=== PATIENT | male | born 1970 | race Hispanic/Latino ===

== ENCOUNTER 2018-04-12 18:27 | Inpatient (IN) | payer BC ==
[2018-04-12 19:31] LABS: Absolute Monocytes 0.5 K/uL (0.1-1.3); Absolute Neutrophil 3.6 K/uL (1.8-8.0); Basophils % 0.6 % (0-1.3); Eosinophils % 0.4 % (0-4.4); Hematocrit 41.9 % (39.6-49.0); Lymphocytes % 32.6 % (15.3-44.8); MCH 29.3 pg (27.0-35.0); MCV 86.3 fL (80-100); MPV 8.6 fL (7.6-11.3); Monocytes % 8.3 % (3.3-12.3); RBC Red Blood Cell Count 4.85 M/uL (4.33-5.43)
[2018-04-12 19:42] LABS: Magnesium 2.8 mg/dL (1.8-2.4); Potassium 3.8 mmol/L (3.5-5.1)
[2018-04-12 20:10] LABS: CKMB Creatine Kinase MB 10.4 ng/mL (0.3-3.6); Troponin (Emerg Dept Use Only) 0.72 ng/mL (0.0-0.045)
--- NOTE | 2018-04-12 20:22 | EDPHYS ---
Physician Documentation [facility] Name: Mihir Carranza Age: 47 yrs Sex: Male : 1970 Arrival Date: 04/12/2018 Time: 18:31 Bed 13 Private MD: Elizabeth Abdi H ED Physician Jesus Alberto Irizarry HPI: 04/12 19:44 This 47 yrs old Male presents to ER via Ambulatory with complaints of Headache.kb 19:44 This 47 yrs old Male presents to ER via Ambulatory with complaints of kb Headache, weakness, fatigue. 19:44 The patient presents with generalized weakness. Onset: The symptoms/episode kb began/occurred 3 day(s) ago. Context: occurred at work, occurred while the patient was working, just prior to the episode the patient experienced no apparent symptoms. Modifying factors: The symptoms are alleviated by nothing, the symptoms are aggravated by nothing. Associated signs and symptoms: Pertinent positives: headache, fatigue, muscle cramps, Pertinent negatives: abdominal pain, agitation, ataxia, blurred vision, chest pain, combativeness, confusion, diaphoresis, focal weakness, head injury, nausea, near-syncope, numbness, palpitations, , seizure, shortness of breath, syncope, tingling, vomiting. Severity of symptoms: At their worst the symptoms were moderate in the emergency department the symptoms are unchanged. Patient's baseline: Neuro: alert and fully oriented, Motor: no deficits, Ambulation: walks without assistance, Speech: normal. The patient has not experienced similar symptoms in the past. The patient has not recently seen a physician. 19:45 Pt thinks he got overheated and dehydrated. Works in the heat and "overdid it" this kb week.. Historical: - Allergies: 18:38 No Known Allergies; aj - Home Meds: 18:38 phentermine oral oral [Active]; lisinopril 20 mg Oral tab 1 tab once daily [Active]; aj 18:39 Hydralazine Oral [Active]; aj - PMHx: 18:38 Hypertension; aj - PSHx: 18:38 Cholecystectomy; aj - Immunization history:: Adult Immunizations up to date. - Social history:: Smoking status: Patient/guardian denies using tobacco. - Ebola Screening: : Patient negative for fever greater than or equal to 101.5 degrees Fahrenheit, and additional compatible Ebola Virus Disease symptoms Patient denies exposure to infectious person Patient denies travel to an Ebola-affected area in the 21 days before illness onset No symptoms or risks identified at this time. ROS: 19:50 Cardiovascular: Negative for chest pain, palpitations, and edema, Respiratory: Negative kb for shortness of breath, cough, wheezing, and pleuritic chest pain, Abdomen/GI: Negative for abdominal pain, nausea, vomiting, diarrhea, and constipation, Back: Negative for injury and pain, : Negative for injury, bleeding, discharge, and swelling, MS/Extremity: Negative for injury and deformity, Skin: Negative for injury, rash, and discoloration. 19:50 Constitutional: Positive for body aches, fatigue, malaise, Negative for chills, fever, poor PO intake, weight loss. 19:50 Neuro: Positive for weakness. Exam: 19:50 Constitutional: This is a well developed, well nourished patient who is awake, alert, kb and in no acute distress. Head/Face: Normocephalic, atraumatic. Eyes: Pupils equal round and reactive to light, extra-ocular motions intact. Lids and lashes normal. Conjunctiva and sclera are non-icteric and not injected. Cornea within normal limits. Periorbital areas with no swelling, redness, or edema. ENT: Nares patent. No nasal discharge, no septal abnormalities noted. Tympanic membranes are normal and external auditory canals are clear. Oropharynx with no redness, swelling, or masses, exudates, or evidence of obstruction, uvula midline. Mucous membranes moist. Neck: Trachea midline, no thyromegaly or masses palpated, and no cervical lymphadenopathy. Supple, full range of motion without nuchal rigidity, or vertebral point tenderness. No Meningismus. Chest/axilla: Normal chest wall appearance and motion. Nontender with no deformity. No lesions are appreciated. Cardiovascular: Regular rate and rhythm with a normal S1 and S2. No gallops, murmurs, or rubs. Normal PMI, no JVD. No pulse deficits. Respiratory: Lungs have equal breath sounds bilaterally, clear to auscultation and percussion. No rales, rhonchi or wheezes noted. No increased work of breathing, no retractions or nasal flaring. Abdomen/GI: Soft, non-tender, with normal bowel sounds. No distension or tympany. No guarding or rebound. No evidence of tenderness throughout. Skin: Warm, dry with normal turgor. Normal color with no rashes, no lesions, and no evidence of cellulitis. MS/ Extremity: Pulses equal, no cyanosis. Neurovascular intact. Full, normal range of motion. Neuro: Awake and alert, GCS 15, oriented to person, place, time, and situation. Cranial nerves II-XII grossly intact. Motor strength 5/5 in all extremities. Sensory grossly intact. Cerebellar exam normal. Normal gait. Vital Signs: 18:39 BP 107 / 67; Pulse 99; Resp 19; Temp 98.3; Pulse Ox 95% on R/A; Weight 102.06 kg; aj Height 5 ft. 7 in. (170.18 cm); 19:20 BP 107 / 70; Pulse 90; Resp 18; Pulse Ox 96% on R/A; tl2 21:52 BP 117 / 75; Pulse 76; Resp 18; Pulse Ox 96% on R/A; tl2 18:39 Body Mass Index 35.24 (102.06 kg, 170.18 cm) aj MDM: 18:41 Patient medically screened. kb 19:43 Data reviewed: vital signs, nurses notes. Data interpreted: Pulse oximetry: on room air kb is 96 %. Interpretation: normal. 20:20 Counseling: I had a detailed discussion with the patient and/or guardian regarding: the kb historical points, exam findings, and any diagnostic results supporting the discharge/admit diagnosis, lab results, radiology results, the need for further work-up and treatment in the hospital. Physician consultation: Leydi Monsivais MD was contacted at 20:20, regarding admission, to the telemetry unit. patient's condition, and will see patient in ED, shortly. 04/12 18:52 Order name: Magnesium kb 04/12 18:52 Order name: Basic Metabolic Panel kb 04/12 18:52 Order name: CBC with Diff; Complete Time: 20:21 kb 04/12 18:52 Order name: Ckmb; Complete Time: 20:12 kb 04/12 18:52 Order name: CPK; Complete Time: 20:12 kb 04/12 18:52 Order name: Troponin (emerg Dept Use Only); Complete Time: 20:12 kb 04/12 18:52 Order name: EKG; Complete Time: 18:53 kb 04/12 18:52 Order name: Cardiac monitoring; Complete Time: 19:14 kb 04/12 18:52 Order name: EKG - Nurse/Tech; Complete Time: 19:14 kb 04/12 18:52 Order name: IV Saline Lock; Complete Time: 19:14 kb 04/12 18:52 Order name: Labs collected and sent; Complete Time: 19:14 kb 04/12 18:52 Order name: Magnesium; Complete Time: 20:12 EDMS 04/12 18:53 Order name: Basic Metabolic Panel; Complete Time: 20:12 EDMS 04/12 18:52 Order name: O2 Per Protocol; Complete Time: 19:14 kb 04/12 18:52 Order name: O2 Sat Monitoring; Complete Time: 19:14 kb Administered Medications: 20:30 Drug: NS 0.9% 1000 ml Route: IV; Rate: 1000 ml; Site: right antecubital; tl2 23:08 Follow up: IV Status: Completed infusion; IV Intake: 1000ml tl2 Disposition: 04/12/18 20:21 Hospitalization ordered by Leydi Monsivais for Inpatient Admission. Preliminary diagnosis are Rhabdomyolysis, Acute kidney failure, Heat exhaustion, unspecified. - Bed requested for Telemetry/MedSurg (Inpatient). - Status is Inpatient Admission. tl2 - Condition is Stable. - Problem is new. - Symptoms are unchanged. UTI on Admission? No Signatures: Dispatcher [employer] EDNC Nila Ruiz, VENEREAL DISEASE CONTROL HEAD-Rodríguez DUKES-Soila Page RN RN kl Myers, Amanda, RN RN aj Knox, Taylor, RN RN tl2 Corrections: (The following items were deleted from the chart) 20:41 20:21 Hospitalization Ordered by Leydi Monsivais MD for Inpatient Admission. Preliminary kb diagnosis is Rhabdomyolysis; Acute kidney failure. Bed requested for Telemetry/MedSurg (Inpatient). Status is Inpatient Admission. Condition is Stable. Problem is new. Symptoms are unchanged. UTI on Admission? No. kb 21:34 20:41 04/12/2018 20:21 Hospitalization Ordered by Leydi Monsivais MD for Inpatient kl Admission. Preliminary diagnosis is Rhabdomyolysis; Acute kidney failure; Heat exhaustion, unspecified. Bed requested for Telemetry/MedSurg (Inpatient). Status is Inpatient Admission. Condition is Stable. Problem is new. Symptoms are unchanged. UTI on Admission? No. kb :08 18:52 Urine Dipstick-Ancillary ordered. kb tl2 23: 21:34 04/12/2018 20:21 Hospitalization Ordered by Leydi Monsivais MD for Inpatient tl2 Admission. Preliminary diagnosis is Rhabdomyolysis; Acute kidney failure; Heat exhaustion, unspecified. Bed requested for Telemetry/MedSurg (Inpatient). Status is Inpatient Admission. Condition is Stable. Problem is new. Symptoms are unchanged. UTI on Admission? No. kl
--- NOTE | 2018-04-12 20:22 | ER ---
Nurse's Notes [facility] Name: Mihir Carranza Age: 47 yrs Sex: Male : 1970 Arrival Date: 04/12/2018 Time: 18:31 Bed 13 Private MD: Elizabeth Abdi H Diagnosis: Rhabdomyolysis;Acute kidney failure;Heat exhaustion, unspecified Presentation: 04/12 18:36 Presenting complaint: Patient states: Reports general weakness, fatigue, muscle cramps, aj and decreased appetite since Sunday. Transition of care: patient was not received from another setting of care. Onset of symptoms was April 10, 2018. Risk Assessment: Do you want to hurt yourself or someone else? Patient reports no desire to harm self or others. Initial Sepsis Screen: Does the patient meet any 2 criteria? No. Patient's initial sepsis screen is negative. Does the patient have a suspected source of infection? No. Patient's initial sepsis screen is negative. Care prior to arrival: None. 18:36 Method Of Arrival: Ambulatory 18:36 Acuity: JULIO C 3 aj Triage Assessment: 18:38 Headache History: The patient has had previous headaches. General: Appears in no aj apparent distress. comfortable, Behavior is calm, cooperative, appropriate for age. Pain: Complains of pain in face and scalp. Neuro: Level of Consciousness is awake, alert, obeys commands, Oriented to person, place, time, situation, Appropriate for age Reports headache. Respiratory: Airway is patent Respiratory effort is even, unlabored, Respiratory pattern is regular, symmetrical. Derm: Skin is intact, is healthy with good turgor, Skin is pink, warm \T\ dry. normal. Historical: - Allergies: 18:38 No Known Allergies; aj - Home Meds: 18:38 phentermine oral oral [Active]; lisinopril 20 mg Oral tab 1 tab once daily [Active]; aj 18:39 Hydralazine Oral [Active]; aj - PMHx: 18:38 Hypertension; aj - PSHx: 18:38 Cholecystectomy; aj - Immunization history:: Adult Immunizations up to date. - Social history:: Smoking status: Patient/guardian denies using tobacco. - Ebola Screening: : Patient negative for fever greater than or equal to 101.5 degrees Fahrenheit, and additional compatible Ebola Virus Disease symptoms Patient denies exposure to infectious person Patient denies travel to an Ebola-affected area in the 21 days before illness onset No symptoms or risks identified at this time. Screenin:17 Abuse screen: Denies threats or abuse. Nutritional screening: No deficits noted. tl2 Tuberculosis screening: No symptoms or risk factors identified. Fall Risk None identified. Assessment: 19:17 General: Appears in no apparent distress. uncomfortable, Behavior is calm, cooperative, tl2 appropriate for age. General: Reports fatigue for 1-2 days. Pain: Complains of pain in headache Pain does not radiate. Neuro: Level of Consciousness is awake, alert, obeys commands, Oriented to person, place, time, situation. Neuro:. Cardiovascular: Denies chest pain. Respiratory: Airway is patent Respiratory effort is even, unlabored, Respiratory pattern is regular, symmetrical. GI: No signs and/or symptoms were reported involving the gastrointestinal system. : No signs and/or symptoms were reported regarding the genitourinary system. Derm: Skin is pink, warm \T\ dry. 20:30 Reassessment: Patient appears in no apparent distress at this time. Patient and/or tl2 family updated on plan of care and expected duration. Pain level reassessed. Patient is alert, oriented x 3, equal unlabored respirations, skin warm/dry/pink. 21:30 Reassessment: Patient appears in no apparent distress at this time. Patient and/or tl2 family updated on plan of care and expected duration. Pain level reassessed. Patient is alert, oriented x 3, equal unlabored respirations, skin warm/dry/pink. 23:00 Reassessment: Patient appears in no apparent distress at this time. Patient and/or tl2 family updated on plan of care and expected duration. Pain level reassessed. Patient is alert, oriented x 3, equal unlabored respirations, skin warm/dry/pink. Pt stable for transport to floor. Vital Signs: 18:39 BP 107 / 67; Pulse 99; Resp 19; Temp 98.3; Pulse Ox 95% on R/A; Weight 102.06 kg; aj Height 5 ft. 7 in. (170.18 cm); 19:20 BP 107 / 70; Pulse 90; Resp 18; Pulse Ox 96% on R/A; tl2 21:52 BP 117 / 75; Pulse 76; Resp 18; Pulse Ox 96% on R/A; tl2 18:39 Body Mass Index 35.24 (102.06 kg, 170.18 cm) ED Course: 18:31 Patient arrived in ED. sb2 18:31 Elizabeth Abdi DO is Private Physician. sb2 18:37 Triage completed. aj 18:39 Arm band placed on left wrist. Patient placed in an exam room, on a stretcher. aj 18:41 Nila Ruiz FNP-C is [facility]. kb 18:41 Jesus Alberto Irizarry MD is Attending Physician. kb 19:13 Carmela Javier, RN is Primary Nurse. tl2 19:14 Inserted saline lock: 20 gauge 24 gauge antecubital area, using aseptic technique. tl2 Blood collected. 19:17 Patient has correct armband on for positive identification. Bed in low position. Call tl2 light in reach. Side rails up X 1. Adult w/ patient. 20:21 Leydi Monsivais MD is Hospitalizing Provider. kb 23:00 No provider procedures requiring assistance completed. Patient admitted, IV remains in tl2 place. Administered Medications: 20:30 Drug: NS 0.9% 1000 ml Route: IV; Rate: 1000 ml; Site: right antecubital; tl2 23:08 Follow up: IV Status: Completed infusion; IV Intake: 1000ml tl2 Intake: 23:08 IV: 1000ml; Total: 1000ml. tl2 Outcome: 20:21 Decision to Hospitalize by Provider. kb 23:00 Admitted to Tele accompanied by tech, family with patient, via wheelchair, room 420, tl2 with chart, Report called to KATE Spencer 23:00 Condition: stable 23:00 Discharge instructions given to patient, family, Instructed on the need for admit. 23:09 Patient left the ED. tl2 Signatures: Nila Ruiz FNP-C FNP-Lori Gonzalez RN RN aj Knox, Taylor, RN RN tl2 Angie Suarez sb2
[2018-04-12] MEDS ORDERED: NA CHLORIDE 0.9% 1,000 ML ONE (20:32)
[2018-04-12] MEDS ORDERED: NA CHLORIDE 0.9% 1,000 ML IV ONE (21:21)
--- NOTE | 2018-04-12 21:27 | P.HP ---
Certification for Inpatient Patient admitted to: Inpatient With expected LOS: >2 Midnights Practitioner: I am a practitioner with admitting privileges, knowledge of patient current condition, hospital course, and medical plan of care. Services: Services provided to patient in accordance with Admission requirements found in Title 42 Section 412.3 of the Code of Federal Regulations Patient History Date of Service: 04/12/18 Reason for admission: acute renal injury, rhabdomyolysis History of Present Illness: Mr Carranza is a 47 years old male with history of HTN, who about 3 days ago he was working in his garage. He states that "over did", he was sweating a lot, and was not able to catch up with water. The next day he woke up very sore, weak and fatigued. Initially he noticed very yellow urine, but after drink significant amount of water, he started to urinate more clear. No fever or chills. He denied any chest pain or SOB. ER lab work remarkable for elevated creatinine, total CK and trop I. EKG SR at 86 bpm, without ST-T abnormalities. Allergies No Known Allergies Allergy (Verified 04/12/18 20:48) - Past Medical/Surgical History Has patient received pneumonia vaccine in the past: Yes -: HTN -: Cholecystectomy - Family History Family History: Reviewed- Non-Contributory - Social History Smoking Status: Never smoker Alcohol use: Yes CD- Drugs: No Place of Residence: Home Review of Systems 10-point ROS is otherwise unremarkable Physical Examination - Physical Exam General: Alert, In no apparent distress HEENT: Atraumatic, PERRLA, Mucous membr. moist/pink, EOMI, Sclerae nonicteric Neck: Supple, 2+ carotid pulse no bruit, No LAD, Without JVD or thyroid abnormality Respiratory: Clear to auscultation bilaterally, Normal air movement Cardiovascular: Regular rate/rhythm, Normal S1 S2 Gastrointestinal: Normal bowel sounds, No tenderness Musculoskeletal: No tenderness Integumentary: No rashes Neurological: Normal speech, Normal strength at 5/5 x4 extr, Normal tone, Normal affect Lymphatics: No axilla or inguinal lymphadenopathy - Studies Laboratory Data (last 24 hrs) 04/12/18 19:05: WBC 6.2, Hgb 14.2, Hct 41.9, Plt Count 251 04/12/18 19:05: Sodium 134 L, Potassium 3.8, BUN 47 H, Creatinine 3.60 H, Glucose 153 H, Magnesium 2.8 H Assessment and Plan - Problems (Diagnosis) (1) Exertional rhabdomyolysis Current Visit: Yes Status: Acute (2) Acute renal injury Current Visit: Yes Status: Acute (3) HTN (hypertension) Current Visit: Yes Status: Acute Qualifiers: Hypertension type: essential hypertension Qualified Code(s): I10 - Essential (primary) hypertension (4) Volume depletion Current Visit: Yes Status: Acute - Plan The patient will be admitted to the hospital due to acute renal injury, exertional rhabdomyolysis and volume depletion. Will continue with aggressive fluid resuscitation. Monitor total CK, and renal function in AM. Troponin I likely elevated due to rhabdomyolysis, he has not had chest pain, EKG showed no ST-T abnormalities. Will consult Haz Tech for evaluation and recommendations. - Advance Directives Does patient have a Living Will: No Does patient have a Durable POA for Healthcare: No - Code Status/Comfort Care Code Status Assessed: Yes Code Status: Full Code
[2018-04-12] MEDS ORDERED: ONDANSETRON 4 MG/2 ML VIAL IV PRN (23:25)
[2018-04-12] MEDS: NA CHLORIDE 0.9% 1,000 ML IV SCH (23:30)
[2018-04-13] MEDS: ACETAMINOPHEN 500 MG TAB PO PRN (00:31)
[2018-04-13] MEDS: NA CHLORIDE 0.9% 1,000 ML IV SCH ×3 (05:31→22:38)
[2018-04-13 05:47] LABS: Absolute Lymphocytes (CBC) 2.1 K/uL (0.7-4.9); Absolute Monocytes 0.5 K/uL (0.1-1.3); Basophils % 0.9 % (0-1.3); Hematocrit 40.1 % (39.6-49.0); Lymphocytes % 43.5 % (15.3-44.8); MCH 29.4 pg (27.0-35.0); MCV 84.9 fL (80-100); MPV 8.5 fL (7.6-11.3); Monocytes % 11.4 % (3.3-12.3); RBC Red Blood Cell Count 4.72 M/uL (4.33-5.43)
[2018-04-13 06:16] LABS: Potassium 3.7 mmol/L (3.5-5.1)
[2018-04-13] MEDS ORDERED: POTASSIUM CL SA 10 MEQ TAB PO ONE (06:32)
[2018-04-13 09:01] LABS: Urine Appearance CLEAR; Urine Bilirubin NEGATIVE (NEG); Urine Blood NEGATIVE (NEG); Urine Color YELLOW; Urine Glucose NEGATIVE (NEG); Urine Protein TRACE (NEG); Urine Specific Gravity 1.025 (1.005-1.030); Urine Urobilinogen 0.2 mg/dL (0.2-1.0); Urine pH 5.5 (5.0-7.0)
[2018-04-13 09:07] LABS: Urine Microscopic Reflex NO UMIC
--- NOTE | 2018-04-13 13:53 | P.PN ---
Subjective Date of Service: 04/13/18 Chief Complaint: acute renal injury, rhabdomyolysis feels much better, no fever chills or back pain Physical Examination - Vital Signs Temperature: 98.0 F Blood Pressure: 131/81 Pulse: 68 Respirations: 17 Pulse Ox (%): 94 - Physical Exam General: Alert, In no apparent distress HEENT: Atraumatic, PERRLA, EOMI Neck: Supple, JVD not distended Respiratory: Clear to auscultation bilaterally, Normal air movement Cardiovascular: Regular rate/rhythm, Normal S1 S2 Gastrointestinal: Normal bowel sounds, No tenderness Musculoskeletal: No tenderness Integumentary: No rashes Neurological: Normal speech, Normal tone, Normal affect Lymphatics: No axilla or inguinal lymphadenopathy - Studies Laboratory Data (last 24 hrs) 04/12/18 19:05: WBC 6.2, Hgb 14.2, Hct 41.9, Plt Count 251 04/12/18 19:05: Sodium 134 L, Potassium 3.8, BUN 47 H, Creatinine 3.60 H, Glucose 153 H, Magnesium 2.8 H Medications List Reviewed: Yes Assessment And Plan - Current Problems (Diagnosis) (1) Acute renal injury Current Visit: Yes Status: Acute (2) Exertional rhabdomyolysis Current Visit: Yes Status: Acute (3) HTN (hypertension) Current Visit: Yes Status: Acute Qualifiers: Hypertension type: essential hypertension Qualified Code(s): I10 - Essential (primary) hypertension (4) Volume depletion Current Visit: Yes Status: Acute - Plan --Cont NS 125ml/h --F/U renal function --F/U CPK --May DC home in 1-2 days
--- NOTE | 2018-04-13 15:34 | RAD REPORT ---
EXAM DESCRIPTION: US - Renal Ultrasound-Complete - 04/13/2018 2:41 pm CLINICAL HISTORY: arf COMPARISON: None FINDINGS: Both kidneys are normal in size, shape and echotexture. The right kidney measures 11.5 x 5.6 x 5.3 cm. No hydronephrosis, focal mass or perinephric fluid. The left kidney measures 12.4 x 6.1 x 5.9 cm. No hydronephrosis, focal mass or perinephric fluid. Sma ll left renal cyst is noted measuring 18 x 16 mm. The urinary bladder is incompletely distended without gross abnormality seen. IMPRESSION: Unremarkable renal sonogram.
[2018-04-13 20:18] LABS: Urine Protein/Creatinine Ratio 0.09 ratio (<0.15)
[2018-04-13 20:28] LABS: UR MICROALBUMIN 1.6 mg/dL (< 1.9)
--- NOTE | 2018-04-13 23:25 | CON ---
Date of Consultation: 04/13/2018 Chief Complaint: Acute kidney injury. History Of Present Illness: Acute kidney injury, severe nonoliguric, associated with renal hypoperfusion in setting of hypovolemia, LISETTE inhibitor and diuretic effect complicated by rhabdomyolysis. The patient was found to have a severely elevated BUN and creatinine. He has nonoliguric urine output. He remains on IV fluids. The patient is 47-year-old male with history of hypertension. About 3 days ago he was working in the garage and he did not get an adequate hydration by mouth. He was sweating profusely during this day, 3 days ago. When he woke up he was feeling like weakness, fatigue and muscle aches. He came to the hospital for evaluation, was found to have elevated CK level and troponin was elevated. The patient is undergoing workup for acute coronary syndrome. Review of Systems: General: Denies fever, chills. Eyes: Denies vision changes. Ears, Nose, mouth and Throat: Denies sore throat or earache. Respiratory: Denies PND, orthopnea. Cardiovascular: Denies chest pain, palpitation. GI: Denies nausea or vomiting. : Denies dysuria, hematuria. Musculoskeletal: He complains of generalized weakness, muscle aches. All other systems reviewed and all are negative. Past Medical History: Hypertension. Obesity. Denies kidney stones. Denies diabetes. Social History: Denies tobacco, alcohol, or illicit drugs. Family History: No kidney disease in the family. Physical Examination: General: Not in acute distress. Eyes: Anicteric sclerae. EOMI. Ears, Nose, Mouth and Throat: Oral mucosa moist. No pallor. Neck: Supple. No JVD. No bruits. Lungs: Clear to auscultation bilaterally. Heart: S1, S2. No pericardial friction rub. Abdomen: Obese, soft, nontender. No rebound. No guarding. Extremities: No clubbing. No cyanosis. Neurological: Moving extremities. Cranial nerves intact. Psychiatric: Alert, oriented x3. Normal affect. Laboratory Data: Sodium 134, potassium 3.8, chloride 102, CO2 24, BUN 47, creatinine 3.6, glucose 153, calcium 9.3. Today blood work showed BUN 42, creatinine 2.1, calcium 8.2, phosphorus 2.3. Troponin 0.73 and today 0.49. CK level yesterday was up to 4310. Renal ultrasound was ordered and did not show renal hydronephrosis. Kidney size is within normal limits. Unremarkable renal ultrasound. Right kidney 11.5 cm in length and left kidney 12.4 cm in length. There is small left renal cyst noted measuring 18 x 16 mm in length. Impression And Plan: 1. Acute kidney injury, severe, nonoliguric. The patient responding to IV fluids. The patient was found to have severe rhabdomyolysis. Lab work done today showed borderline diminished phosphorus level likely there is background underlying hypophosphatemia which likely was a trigger for rhabdomyolysis. The patient will have labs to check 26 OH Vit D and iiPTH. The patient stated that he had decreased po intake prior to this admission, could not eat because of lack of appetite. Plan is to continue electrolytes monitoring and the patient will have replacement with potassium phosphate. Monitor potassium level closely, check lipase amylase and CT scan per stone protocol. Continue IV fluids to treat acute kidney injury with rhabdomyolysis. Monitor electrolytes and renal panel. 2. The patient has hypertension. The patient was taken off LISETTE inhibitor because of acute kidney injury. Blood pressure is in acceptable control. 3. Urinalysis will be obtained to rule out an evidence of nephritis. EDWIGE/ASAF Voice ID: [id number] Report ID: [id number] MAKAYLA
[2018-04-14 07:06] LABS: Absolute Lymphocytes (CBC) 1.8 K/uL (0.7-4.9); Absolute Monocytes 0.5 K/uL (0.1-1.3); Absolute Neutrophil 2.2 K/uL (1.8-8.0); Basophils % 1.1 % (0-1.3); Hematocrit 39.1 % (39.6-49.0); Lymphocytes % 39.1 % (15.3-44.8); MCH 29.4 pg (27.0-35.0); MCV 86.9 fL (80-100); MPV 8.9 fL (7.6-11.3); Monocytes % 9.9 % (3.3-12.3)
[2018-04-14 07:07] LABS: Bilirubin Total 0.2 mg/dL (0.2-1.0); Magnesium 2.3 mg/dL (1.8-2.4); Phosphorus 2.6 mg/dL (2.5-4.9); Potassium 4.2 mmol/L (3.5-5.1); Protein, Total 6.4 g/dL (6.4-8.2)
[2018-04-14] MEDS: NA CHLORIDE 0.9% 1,000 ML IV SCH (07:25)
--- NOTE | 2018-04-14 08:57 | EKG ---
Test Date: 2018-04-12 Test Time: 19:10:49 Director Diabetes: REBECCA MEASUREMENT RESULTS: Intervals: Rate: 86 ID: [id number] QRSD: 98 QT: 386 QTc: 461 [place]: P: 52 ID: [id number] QRS: 67 T: 28 INTERPRETIVE STATEMENTS: Normal sinus rhythm Normal ECG Compared to ECG 03/15/2006 11:04:47 T-wave abnormality no longer present Electronically Signed On 04-14-18 08:54:31 CDT by Malik Dumont
[2018-04-14] MEDS ORDERED: POTASS/SODIUM PHOSPHATE 1 PKT POWD.PACK PO ONE (09:20)
[2018-04-14] MEDS: POTASS/SODIUM PHOSPHATE 1 PKT POWD.PACK PO SCH (09:53)
[2018-04-14] MEDS: Ringers Lactate 1,000 ML IV SCH ×2 (10:39→19:32)
[2018-04-14] MEDS ORDERED: LISINOPRIL 20 MG TAB PO SCH (11:00)
[2018-04-14] MEDS ORDERED: HYDRALAZINE HCL 25 MG TABLET PO SCH ×2 (11:00)
[2018-04-14] MEDS: LISINOPRIL 20 MG TAB PO SCH ×2 (11:53→20:39)
[2018-04-14] MEDS: HYDRALAZINE HCL 50 MG TABLET PO SCH ×2 (11:53→20:39)
--- NOTE | 2018-04-14 13:09 | RAD REPORT ---
EXAM DESCRIPTION: RAD - Chest Pa And Lat (2 Views) - 04/14/2018 12:54 pm CLINICAL HISTORY: Shortness of breath, acute renal failure COMPARISON: None. TECHNIQUE: PA and lateral views of the chest were obtained. FINDINGS: The lungs are clear of mass, infiltrate or pulmonary edema. No failure or volume overload. Heart size is normal and central vasculature is within normal limits. No pleural effusion or pneu mothorax seen. No acute bony finding noted. No aortic abnormality. IMPRESSION: No acute cardiopulmonary process.
--- NOTE | 2018-04-14 19:03 | P.PN ---
Subjective Date of Service: 04/14/18 Chief Complaint: acute renal injury, rhabdomyolysis feels much better, no fever chills or back pain Physical Examination - Vital Signs Temperature: 98.1 F Blood Pressure: 152/94 Pulse: 88 Respirations: 18 Pulse Ox (%): 96 - Physical Exam General: Alert, In no apparent distress HEENT: Atraumatic, PERRLA, EOMI Neck: Supple, JVD not distended Respiratory: Clear to auscultation bilaterally, Normal air movement Cardiovascular: Regular rate/rhythm, Normal S1 S2 Gastrointestinal: Normal bowel sounds, No tenderness Musculoskeletal: No tenderness Integumentary: No rashes Neurological: Normal speech, Normal tone, Normal affect Lymphatics: No axilla or inguinal lymphadenopathy - Studies Medications List Reviewed: Yes Assessment And Plan - Current Problems (Diagnosis) (1) Acute renal injury Current Visit: Yes Status: Acute (2) Exertional rhabdomyolysis Current Visit: Yes Status: Acute (3) HTN (hypertension) Current Visit: Yes Status: Acute Qualifiers: Hypertension type: essential hypertension Qualified Code(s): I10 - Essential (primary) hypertension (4) Volume depletion Current Visit: Yes Status: Acute - Plan --Cont NS 125ml/h --F/U renal function --F/U CPK --May DC home in 1-2 days
[2018-04-14] MEDS ORDERED: HOME MED 1 EA UNK (Hydralazine Hcl [Hydralazine Hcl] 50 MG) PO SCH (21:00)
--- NOTE | 2018-04-15 02:25 | PN ---
Date of Progress Note: 04/14/2018 Chief Complaint: Acute kidney injury, severe, nonoliguric associated with hypovolemia and rhabdomyolysis. History Of Present Illness: The patient was started on IV fluids. Renal function has been improving gradually. The patient was found to have hypophosphatemia and received replacement. The patient is undergoing workup for abdominal pain and CT scan of the abdomen and pelvis was ordered without contrast per stone protocol. Renal ultrasound did not show hydronephrosis. CK level remains elevated and the patient is on IV hydration to control rhabdomyolysis and to provide hydration for acute kidney injury. Review of Systems: The patient denies PND or orthopnea. He was complaining of epigastric abdominal pain, some nausea and vomiting prior to this admission. He denied melena or hematemesis. PMH: Obesity, hypertension. Denies kidney stone. Denies diabetes. Physical Examination: Lungs: Clear to auscultation bilaterally. Heart: S1, S2. Abdomen: Soft, benign. Extremities: No edema. Laboratory Data: Sodium 143, potassium 4.2, chloride 112, CO2 25, BUN 25, creatinine 1.1, glucose 142, calcium 7.8, phosphorus 2.6, magnesium 2.3, AST 40 , ALT 56. CK level 1371. Urinalysis showed specific gravity 1.025, pH 5.5, ketones negative, blood negative, nitrites negative, leukocyte esterase negative. Urine, protein random is 20, creatinine 222. Total protein trace. Impression And Plan: 1. Acute kidney injury. Continue IV fluids. 2. Hypophosphatemia. Continue replacement. Check 25-OH vitamin D level and intact PTH. 3. Abdominal pain. CT scan of the abdomen and pelvis is ordered to rule out kidney stones. Check lipase and amylase for any evidence of pancreatitis. 4. Chest x-ray did not show acute cardiopulmonary process. 5. Hypertension. LISETTE inhibitor on hold due to acute kidney injury. I spent total 36 min including 26 min to coordinate care plan. EDWIGE/ASAF Voice ID: [id number] Report ID: [id number] MAKAYLA
[2018-04-15] MEDS: Ringers Lactate 1,000 ML IV SCH ×4 (03:55→17:28)
[2018-04-15 06:51] LABS: ALT/SGPT 54 U/L (12-78); AST/SGOT 32 U/L (15-37); Albumin 3.1 g/dL (3.4-5.0); Alkaline Phosphatase 63 U/L (45-117); Amylase Level 84 U/L (25-115); BUN Blood Urea Nitrogen 11 mg/dL (7-18); Bicarbonate 26 mmol/L (21-32); Bilirubin Total 0.2 mg/dL (0.2-1.0); Glucose Level 116 mg/dL (74-106); Lipase 954 U/L (73-393); Potassium 3.9 mmol/L (3.5-5.1); Protein, Total 6.7 g/dL (6.4-8.2); Sodium Level 141 mmol/L (136-145)
[2018-04-15] MEDS ORDERED: POTASSIUM CL SA 10 MEQ TAB PO ONE (09:00)
[2018-04-15] MEDS: POTASS/SODIUM PHOSPHATE 1 PKT POWD.PACK PO SCH (09:03)
[2018-04-15] MEDS: HYDRALAZINE HCL 50 MG TABLET PO SCH ×2 (09:03→20:14)
[2018-04-15] MEDS: LISINOPRIL 20 MG TAB PO SCH ×2 (09:03→20:14)
--- NOTE | 2018-04-15 11:15 | RAD REPORT ---
EXAM DESCRIPTION: CT - Stone Protocol - 04/15/2018 11:07 am CLINICAL HISTORY: Nausea, abdominal pain, acute renal failure Examination was delayed from the requested date due to patient's desire for discussion with ordering physician. COMPARISON: Ultrasound April 13 TECHNIQUE: Axial 5 mm thick images were obtained without oral or IV contrast. The [id number] span s the entirety of the system partially obscuring uppermost abdomen and lung bases. All CT scans are performed using dose optimization technique as appropriate and may include automated exposure control or mA/KV adjustment according to patient size. FINDINGS: No hydronephrosis is present and no obstructing ureteral calculi. No suspicious renal mass es. Isodense masses and pyelonephritis are not excluded on a stone protocol CT scan. Lateral mid left kidney shows a low-attenuation 16 millimeter mass is believed to be an incidental cyst. No urinary b ladder abnormality. Prostate gland is prominent pole without evidence for pelvic sidewall, rectal wal l or bladder base invasion. Imaged portions of the liver, spleen and pancreas show no suspicious findings on non-contrast imaging . Cholecystectomy clips are present. No biliary tree dilatation. No significant adrenal finding. No acute bowel finding identifiable. Left-sided diverticulosis is present without diverticulitis. No mass or bulky lymphadenopathy. Patient has a fat only left inguinal hernia and a 3 centimeter by 1 .5 centimeter fat only umbilical hernia. No free air, free fluid or inflammatory stranding. No significant bony abnormality. IMPRESSION: Negative CT stone protocol study. Isodense masses and pyelonephritis are not excluded on stone protocol technique. Nonacute findings are detailed in the body of the report.
[2018-04-15] MEDS: ACETAMINOPHEN 500 MG TAB PO PRN (12:05)
[2018-04-15] MEDS ORDERED: HYDRALAZINE HCL 20 MG/ML VIAL IV ONE (17:00)
--- NOTE | 2018-04-15 17:53 | P.PN ---
Subjective Date of Service: 04/15/18 Chief Complaint: acute renal injury, rhabdomyolysis feels much better, no fever chills or back pain Physical Examination - Vital Signs Temperature: 98.0 F Blood Pressure: 180/101 Pulse: 76 Respirations: 16 Pulse Ox (%): 96 - Physical Exam General: Alert, In no apparent distress HEENT: Atraumatic, PERRLA, EOMI Neck: Supple, JVD not distended Respiratory: Clear to auscultation bilaterally, Normal air movement Cardiovascular: Regular rate/rhythm, Normal S1 S2 Gastrointestinal: Normal bowel sounds, No tenderness Musculoskeletal: No tenderness Integumentary: No rashes Neurological: Normal speech, Normal tone, Normal affect Lymphatics: No axilla or inguinal lymphadenopathy - Studies Medications List Reviewed: Yes Assessment And Plan - Current Problems (Diagnosis) (1) Exertional rhabdomyolysis Onset Date: 04/15/18 Current Visit: Yes Status: Acute (2) Acute renal injury Onset Date: 04/15/18 Current Visit: Yes Status: Acute (3) HTN (hypertension) Onset Date: 04/15/18 Current Visit: Yes Status: Acute Qualifiers: Hypertension type: essential hypertension Qualified Code(s): I10 - Essential (primary) hypertension (4) Volume depletion Onset Date: 04/15/18 Current Visit: Yes Status: Acute - Plan --Cont NS 125ml/h --F/U renal function which is nl now --F/U CPK today is 900 --May DC home tomorrow if CPK is <500
--- NOTE | 2018-04-15 22:06 | CON ---
Date of Consultation: 04/15/2018 Reason For Consultation: Pancreatitis. History Of Presenting Illness: The patient is a 47-year-old gentleman admitted on the er. He was initially admitted with a diagnosis of rhabdomyolysis. The patient stated that he had be en working outside and then in the house and just did not drink enough water and felt weak and came t o the ER, found to have significant elevation of CPK, admitted with a diagnosis of rhabdomyolysis and acute kidney injury and dehydration. Labs have improved. Lipase was not initially checked, but was checked along with amylase today and came back as elevated at 954, but amylase was 84. GI consultat ion was requested. When I saw the patient, he denies any nausea, vomiting, or abdominal pain. The p atient states that he feels good. He has been tolerating diet. Past Medical History: Hypertension, cholecystectomy. Family History: Noncontributory. Social History: Denies smoking. Occasional alcohol. Denies drugs. Allergies: IN THE CHART. Home Medications: As in the chart. Review of Systems: GI: As in HPI. Musculoskeletal: As in HPI. Otherwise, negative. Remainder of 10-point review of systems negative. Physical Examination: Vital Signs: Currently, he is afebrile, normotensive, not tachycardic, not tachypneic. HEENT: His head is atraumatic, normocephalic. Pupils are equally reactive. Neck: Supple. Chest: Clear to auscultation bilaterally. Abdomen: Soft, but he is obese. Bowel sounds are present. There is absolutely no tenderness. Extremities: No pedal edema. TELEPHONE COLLECTOR: Alert and oriented x3. CVS: S1-S2 plus. Laboratory Data: As stated above. CPK has improved from several thousands to 931. Lipase is 900, b ut amylase is normal. Imaging: CT scan that was done stated that pyelonephritis cannot be excluded. However, no other fin ding. This was study. Pancreas did not appear to have any pathology. Impression: A 47-year-old gentleman with acute dehydration due to overwork and lack of water ingesti on, also rhabdomyolysis, incidentally found to have elevated lipase, normal CT, asymptomat ic. Unclear if he has true pancreatitis or lipase may be due to other factors. Amylase is normal. Plan: He is a symptomatic. Continue current management. Continue IV fluids. He is on Ringer lacta te, which I agree with. Continue diet. No further intervention from GI. Recall if needed. US/MODL Voice ID: [id number] Report ID: [id number]
[2018-04-16] MEDS: Ringers Lactate 1,000 ML IV SCH ×2 (03:27→10:00)
--- NOTE | 2018-04-16 04:54 | PN ---
Date of Progress Note: 04/15/2018 Chief Complaint: Acute kidney injury secondary to rhabdomyolysis and hypovolemia. History Of Present Illness: The patient was found to have elevated CK level up to 4310. Prior to is admission, the patient had decreased p.o. intake and some abdominal discomfort. He was found to h ave elevated lipase. I requested to consult GI for questionable pancreatitis. Amylase although was 84 and lipase was 954. The patient was treated with IV fluids for rhabdomyolysis. The patient was f ound to have hypophosphatemia and received replacement. Phosphorus level improved to 2.7. Renal fun ction improving in response to IV fluids. The patient has history of obesity. He denies previous mo story of diabetes. Hemoglobin A1c screen showed elevated hemoglobin A1c consistent with a glucose in tolerance. Review of Systems: Denies PND, orthopnea. Physical Examination: Lungs: Clear to auscultation bilaterally. Heart: S1, S2. Abdomen: Soft, benign. Extremities: Minimal edema. Laboratory Data: Sodium 141, potassium 3.9, chloride 110, CO2 26, BUN 11, creatinine 0.9. Glucose i s 116 on arrival to the hospital and creatinine was 3.6. Impression: 1.Acute kidney injury secondary to rhabdomyolysis and prerenal azotemia. The patient was found to h ave hypophosphatemia. Workup is pending to rule out hyperparathyroidism and vitamin D deficiency. 2.Obesity. The patient has screening done for proteinuria. 3.The patient was found to have abnormal hemoglobin A1c. He needs to follow up with primary care ph ysician for diet adjustment. 4.Acute kidney injury is resolving in response to IV fluids. 5.Questionable acute pancreatitis. The patient will follow up with GI. 6.Hypophosphatemia. Improving with replacement. 7.Vitamin D deficiency. Continue treatment with vitamin D replacement. EDWIGE/MODL Voice ID: [id number] Report ID: [id number]
[2018-04-16 06:04] LABS: Absolute Lymphocytes (CBC) 1.8 K/uL (0.7-4.9); Absolute Monocytes 0.5 K/uL (0.1-1.3); Absolute Neutrophil 2.3 K/uL (1.8-8.0); Basophils % 0.6 % (0-1.3); Eosinophils % 3.8 % (0-4.4); Hematocrit 39.7 % (39.6-49.0); Lymphocytes % 37.7 % (15.3-44.8); MCH 29.7 pg (27.0-35.0); MCV 84.7 fL (80-100); MPV 8.9 fL (7.6-11.3); Monocytes % 9.4 % (3.3-12.3); RBC Red Blood Cell Count 4.69 M/uL (4.33-5.43)
[2018-04-16 06:16] LABS: ALT/SGPT 76 U/L (12-78); AST/SGOT 35 U/L (15-37); Albumin 3.2 g/dL (3.4-5.0); Alkaline Phosphatase 62 U/L (45-117); BUN Blood Urea Nitrogen 11 mg/dL (7-18); Bicarbonate 29 mmol/L (21-32); Bilirubin Total 0.5 mg/dL (0.2-1.0); Creatine Phosphokinase 575 U/L (39-308); Glucose Level 109 mg/dL (74-106); Potassium 4.2 mmol/L (3.5-5.1); Protein, Total 6.9 g/dL (6.4-8.2); Sodium Level 142 mmol/L (136-145)
[2018-04-16] MEDS ORDERED: VITAMIN D 5,000 UNIT CAP PO SCH (09:00)
[2018-04-16] MEDS ORDERED: AMLODIPINE 2.5 MG TAB PO SCH (09:00)
[2018-04-16] MEDS: POTASS/SODIUM PHOSPHATE 1 PKT POWD.PACK PO SCH (09:17)
[2018-04-16] MEDS: LISINOPRIL 20 MG TAB PO SCH (09:18)
[2018-04-16] MEDS: HYDRALAZINE HCL 50 MG TABLET PO SCH (09:18)
--- NOTE | 2018-04-16 13:46 | P.DS ---
Admission Date: 04/12/18 Discharge Date: 04/16/18 Disposition: ROUTINE DISCHARGE Discharge Condition: GOOD Reason for Admission: acute renal injury, rhabdomyolysis Consultations: Nephrology - Problems (1) Acute renal injury Onset Date: 04/15/18 Status: Acute (2) Exertional rhabdomyolysis Onset Date: 04/15/18 Status: Acute (3) HTN (hypertension) Onset Date: 04/15/18 Status: Acute Qualifiers: Hypertension type: essential hypertension Qualified Code(s): I10 - Essential (primary) hypertension (4) Volume depletion Onset Date: 04/15/18 Status: Acute Brief History of Present Illness: Mr Carranza is a 47 years old male with history of HTN, who about 3 days ago he was working in his garage. He states that "over did", he was sweating a lot, and was not able to catch up with water. The next day he woke up very sore, weak and fatigued. Initially he noticed very yellow urine, but after drink significant amount of water, he started to urinate more clear. No fever or chills. He denied any chest pain or SOB. ER lab work remarkable for elevated creatinine, total CK and trop I. EKG SR at 86 bpm, without ST-T abnormalities. Hospital Course: Overall during the hospital stay patient remained stable The patient was initially admitted to the hospital for control rhabdomyolysis after he was working in the garage for a long time. Patient was started on IV fluids here in the hospital. Had marked improvement in his symptoms. Initially patient and acute renal injury due to dehydration and rhabdomyolysis. After IV fluids. Patient did have improvement in his BUN and creatinine. Was doing well overall. Was able to tolerate his diet and ambulating well and thus was discharged home under stable condition. Patient was asked to follow up with nephrology outpatient. Patient was also seen by nephrology here in the hospital. Patient had GI consultation due to elevated lipase. GI recommended outpt Workup. Vital Signs/Physical Exam: Temp Pulse Resp BP Pulse Ox 98.2 F 77 18 138/78 95 04/16/18 08:00 04/16/18 09:17 04/16/18 08:00 04/16/18 09:17 04/16/18 08:00 General: Alert, In no apparent distress HEENT: Atraumatic, PERRLA, EOMI Neck: Supple, JVD not distended Respiratory: Clear to auscultation bilaterally, Normal air movement Cardiovascular: Regular rate/rhythm, Normal S1 S2 Gastrointestinal: Normal bowel sounds, No tenderness Musculoskeletal: No tenderness Integumentary: No rashes Neurological: Normal speech, Normal tone, Normal affect Lymphatics: No axilla or inguinal lymphadenopathy Laboratory Data at Discharge: WBC 4.8 K/uL (4.3-10.9) 04/16/18 05:19 Hgb 13.9 g/dL (13.6-17.9) 04/16/18 05:19 Hct 39.7 % (39.6-49.0) 04/16/18 05:19 Plt Count 218 K/uL (152-406) 04/16/18 05:19 Sodium 142 mmol/L (136-145) 04/16/18 05:19 Potassium 4.2 mmol/L (3.5-5.1) 04/16/18 05:19 BUN 11 mg/dL (7-18) 04/16/18 05:19 Creatinine 0.90 mg/dL (0.55-1.3) 04/16/18 05:19 Glucose 109 mg/dL (74-106) H 04/16/18 05:19 Phosphorus 2.7 mg/dL (2.5-4.9) 04/15/18 13:49 Magnesium 2.3 mg/dL (1.8-2.4) D 04/14/18 05:15 Total Bilirubin 0.5 mg/dL (0.2-1.0) 04/16/18 05:19 AST 35 U/L (15-37) 04/16/18 05:19 ALT 76 U/L (12-78) 04/16/18 05:19 Alkaline Phosphatase 62 U/L (45-117) 04/16/18 05:19 Troponin I 0.32 ng/mL (0.0-0.045) H 04/13/18 15:26 Amylase 84 U/L (25-115) 04/15/18 05:28 Lipase 954 U/L (73-393) H 04/15/18 05:28 Home Medications: Hydralazine HCl 50 mg PO BID 04/13/18 Lisinopril 20 mg PO BID 04/13/18 Patient Discharge Instructions: Please f.u with PCP and Dr gomez in 1 to 2 week post discharge. NO new medicaiton Diet: Regular Activity: Ad matty Followup: Angelina Matias MD [ACTIVE - CAN ADMIT] - 1 Week (call to schedule appointment )
--- NOTE | 2018-04-17 01:35 | PN ---
Date of Progress Note: 04/16/2018 Subjective: The patient was admitted with acute kidney injury secondary to prerenal, recovered, reso lved. Physical Examination: Vital Signs: Blood pressure 140/60, pulse of 75. Chest: Clear to auscultation. Heart: S1, S2. Regular. Abdomen: Soft, nontender. Extremities: Trace edema. Laboratory Data: WBC 4.8, H and H 13.9/39.7. Sodium 142, potassium 4.2, bicarb 29, BUN 11, creatini ne 0.9, calcium 8.6. Current Medications: Tylenol, Norvasc, cholecalciferol, Zofran, potassium phosphate. Assessment And Plan: 1.Acute kidney injury secondary to prerenal, recovered, resolved. 2.Hypertension, controlled, optimal. Continue amlodipine. 3.Dehydration, recovered, resolved. 4.Pancreatitis. Follow up with the primary. 5.Vitamin D deficiency. We will continue supplement. VINOD Voice ID: [id number] Report ID: [id number]
[2018-04-18 22:41] LABS: Albumin, (SPE) 3.4 g/dL (3.8-4.8); Alpha-1-Globulins 0.2 g/dL (0.2-0.3); Alpha-2-Globulins 0.6 g/dL (0.5-0.9); Gamma Globulins 1.1 g/dL (0.8-1.7); INTERPRETATION REPORT
== END 2018-04-16 12:30 | disposition home or self-care (01) | DRG 558 ==
LOC: ER 18:27 → ERHOLD 20:42 → 4TH 21:53
PROVIDERS: ADMIT Internal Medicine; ATTEND Internal Medicine
DX: M62.82 Rhabdomyolysis (principal); N17.9 Acute kidney failure, unspecified; I10 Essential (primary) hypertension; E86.9 Volume depletion, unspecified; E83.39 Other disorders of phosphorus metabolism; E66.9 Obesity, unspecified; Z68.36 Body mass index [BMI] 36.0-36.9, adult; E55.9 Vitamin D deficiency, unspecified
CPT/HCPCS: 36415; 71046; 74176; 76377; 76770; 80048; 80053; 81003; 82043; 82150; 82306; 82550; 82553; 82570; 83036; 83690; 83735; 83874; 83970; 84100; 84156; 84165; 84300; 84443; 84484; 85025; 93005; 96360; 96361; 99285; J0360; J7030

== ENCOUNTER 2019-10-15 23:15 | Emergency (ER) | payer BC ==
[2019-10-16 00:11] LABS: Absolute Lymphocytes (CBC) 2.9 K/uL (0.7-4.9); Basophils % 1.4 % (0-1.3); Hematocrit 41.3 % (39.6-49.0); Lymphocytes % 40.5 % (15.3-44.8); MPV 8.6 fL (7.6-11.3); RBC Red Blood Cell Count 4.93 M/uL (4.33-5.43)
[2019-10-16 00:14] LABS: Protime INR 0.92
--- NOTE | 2019-10-16 00:22 | EDPHYS ---
Physician Documentation [facility] Name: Mihir Carranza Age: 49 yrs Sex: Male : 1970 Arrival Date: 10/15/2019 Time: 23:19 Bed 3 Private MD: ED Physician Francis Kelly HPI: 10/15 00:09 This 49 yrs old Male presents to ER via Unassigned with complaints of Facial spencer Droop, DROOLING, Congestion. 00:09 The patient presents to the emergency department with a speech or higher order brain spencer function problem, aphasia. Onset: The symptoms/episode began/occurred today, 12 hour(s) ago. Context: occurred at home. Associated signs and symptoms: The patient has no apparent associated signs or symptoms. Patient's baseline: Neuro:. Historical: - Allergies: 01:00 No Known Allergies; bb - Home Meds: 01:00 Hydralazine Oral [Active]; lisinopril 20 mg Oral tab 1 tab once daily [Active]; bb - PMHx: 01:00 Hypertension; bb - PSHx: 01:00 Cholecystectomy; bb - Immunization history:: Adult Immunizations up to date. - Social history:: Smoking status: unknown. - Family history:: not pertinent. ROS: 00:09 Constitutional: Negative for fever, chills, and weight loss, Eyes: Negative for injury, spencer pain, redness, and discharge, ENT: Negative for injury, pain, and discharge, Neck: Negative for injury, pain, and swelling, Cardiovascular: Negative for chest pain, palpitations, and edema, Respiratory: Negative for shortness of breath, cough, wheezing, and pleuritic chest pain, Abdomen/GI: Negative for abdominal pain, nausea, vomiting, diarrhea, and constipation, Back: Negative for injury and pain, : Negative for injury, bleeding, discharge, and swelling, MS/Extremity: Negative for injury and deformity, Skin: Negative for injury, rash, and discoloration, Psych: Negative for depression, anxiety, suicide ideation, homicidal ideation, and hallucinations, Allergy/Immunology: Negative for hives, rash, and allergies, Endocrine: Negative for neck swelling, polydipsia, polyuria, polyphagia, and marked weight changes, Hematologic/Lymphatic: Negative for swollen nodes, abnormal bleeding, and unusual bruising. 00:09 Neuro: Positive for dizziness, headache, speech changes, weakness, of the right cheek and right jaw. Exam: 00:09 Constitutional: This is a well developed, well nourished patient who is awake, alert, spencer and in no acute distress. Head/Face: Normocephalic, atraumatic. Eyes: Pupils equal round and reactive to light, extra-ocular motions intact. Lids and lashes normal. Conjunctiva and sclera are non-icteric and not injected. Cornea within normal limits. Periorbital areas with no swelling, redness, or edema. ENT: Nares patent. No nasal discharge, no septal abnormalities noted. Tympanic membranes are normal and external auditory canals are clear. Oropharynx with no redness, swelling, or masses, exudates, or evidence of obstruction, uvula midline. Mucous membranes moist. Neck: Trachea midline, no thyromegaly or masses palpated, and no cervical lymphadenopathy. Supple, full range of motion without nuchal rigidity, or vertebral point tenderness. No Meningismus. Chest/axilla: Normal chest wall appearance and motion. Nontender with no deformity. No lesions are appreciated. Cardiovascular: Regular rate and rhythm with a normal S1 and S2. No gallops, murmurs, or rubs. Normal PMI, no JVD. No pulse deficits. Respiratory: Lungs have equal breath sounds bilaterally, clear to auscultation and percussion. No rales, rhonchi or wheezes noted. No increased work of breathing, no retractions or nasal flaring. Abdomen/GI: Soft, non-tender, with normal bowel sounds. No distension or tympany. No guarding or rebound. No evidence of tenderness throughout. Back: No spinal tenderness. No costovertebral tenderness. Full range of motion. Male : Normal genitalia with no discharge or lesions. Skin: Warm, dry with normal turgor. Normal color with no rashes, no lesions, and no evidence of cellulitis. MS/ Extremity: Pulses equal, no cyanosis. Neurovascular intact. Full, normal range of motion. Neuro: Awake and alert, GCS 15, oriented to person, place, time, and situation. Cranial nerves II-XII grossly intact. Motor strength 5/5 in all extremities. Sensory grossly intact. Cerebellar exam normal. Normal gait. Psych: Awake, alert, with orientation to person, place and time. Behavior, mood, and affect are within normal limits. Vital Signs: 10/14 23:38 BP 166 / 107; Pulse 86; Resp 96 S; Temp 98.5(O); Pulse Ox 96% on R/A; 10/15 01:50 BP 165 / 100; Pulse 92; Resp 16; Pulse Ox 100% on R/A; jb4 02:35 BP 165 / 93; Pulse 86; Resp 16; Temp 98.0(O); Pulse Ox 96% on R/A; jb4 NIH Stroke Scale Scores: 10/14 23:38 NIHSS Score: 1 jb4 23:50 NIHSS Score: 0 jb4 MDM: 23:38 Patient medically screened. [facility] 10/15 00:12 Data reviewed: vital signs, nurses notes, lab test result(s), EKG, radiologic studies, [facility] CT scan, plain films. 10/14 23:40 Order name: Basic Metabolic Panel 10/14 23:40 Order name: CBC with Diff 10/14 23:40 Order name: Protime (+inr) 10/14 23:40 Order name: Ptt, Activated 10/14 23:55 Order name: Glucose, Ancillary Testing; Complete Time: 00:08 EDNH 10/14 23:40 Order name: CT Stroke Brain w/o Contrast 10/14 23:40 Order name: Stroke CXR 1 View 10/15 00:13 Order name: CBC with Automated Diff; Complete Time: 00:54 EDNH 10/15 00:15 Order name: Protime (+INR); Complete Time: 00:54 EDNH 10/15 00:15 Order name: PTT, Activated Partial Thromb; Complete Time: 00:54 EDNH 10/15 00:25 Order name: Basic Metabolic Panel; Complete Time: 00:54 EDNH 10/14 23:40 Order name: EKG; Complete Time: 23:41 10/14 23:40 Order name: Accucheck; Complete Time: 02:26 10/14 23:40 Order name: Cardiac monitoring; Complete Time: 02: 10/14 23:40 Order name: EKG - Nurse/Tech; Complete Time: 02:26 10/14 23:40 Order name: IV Saline Lock; Complete Time: 02: 10/14 23:40 Order name: Labs collected and sent; Complete Time: 02:34 10/14 23:40 Order name: NPO; Complete Time: 02: 10/14 23:40 Order name: O2 Per Protocol; Complete Time: 02: 10/14 23:40 Order name: O2 Sat Monitoring; Complete Time: 02: 10/14 23:40 Order name: Stroke Swallow Screen; Complete Time: 02: Administered Medications: 02:20 Drug: foLIC Acid 1 mg Route: IVPB; Site: right antecubital; jb4 02:30 Follow up: Response: No adverse reaction; IV Status: Completed infusion jb4 02:20 Drug: NS 0.9% 500 ml Route: IV; Rate: bolus; Site: right antecubital; jb4 03:00 Follow up: Response: No adverse reaction; IV Status: Infusion continued upon transfer; jb4 IV Intake: 200ml 02:22 Drug: Decadron - Dexamethasone 10 mg Route: IVP; Site: right antecubital; jb4 02:30 Follow up: Response: No adverse reaction jb4 02:24 Drug: Keppra 1000 mg Route: IV; Rate: per protocol; Site: right antecubital; jb4 02:41 Follow up: Response: No adverse reaction; IV Status: Completed infusion; IV Intake: jb4 100ml 02:29 Not Given (Other Intervention Used): NS 0.9% 1000 ml IV at 1 bolus Per protocol; 1000 jb4 mL bolus 02:40 Drug: Tylenol 650 mg Route: PO; jb4 02:40 Follow up: Response: Medication administered at discharge. jb4 02:50 Drug: Ativan 1 mg Route: IVP; Site: right antecubital; jb4 03:00 Follow up: Response: Medication administered at discharge. jb4 03:23 Not Given (Patient Refused): morphine 2 mg IVP once; (PAIN>8) RASS on ADMN: Combtv4, jb4 Very Agttd3, Agttd2, Rstlss1, AlertClm0, Drwsy-1, LtSdtn-2, ModSdtn-3, DpSdtn-4, UnArsble-5 x2 03:23 Not Given (Patient Refused): Zofran (Ondansetron) 4 mg IVP once; over 2 minutes jb4 03:23 Not Given (PT transferred): NS 0.9% 1000 ml IV at 125 ml/hr continuous jb4 Disposition: 10/16/19 00:[address] [facility]. Diagnosis are Headache, Cerebral edema - mass, with 5mm right to left shift. - Reason for transfer: Higher level of care. - Accepting physician is to rust, neuro. - Condition is Stable. - Problem is new. - Symptoms have improved. NIH Stroke Scale - NIH Stroke Score Date: 10/15/2019 Time: 23:38 Total Score = 1 1a. Level of Consciousness (LOC) - 0(Alert) 1b. Level of Consciousness (LOC) (Year \T\ Age) - 0(Both) 1c. LOC Commands (Open \T\ Closes Eyes/Grass Cutter) - 0(Both) 2. Best Gaze (Lateral Gaze Paresis) - 0(Normal) 3. Visual Field Loss - 0(No visual loss) 4. Facial Palsy - 1(Minor Paralysis) 5a. Left Arm: Motor (10-second hold) - 0(No drift) 5b. Right Arm: Motor (10-second hold) - 0(No drift) 6a. Left Leg: Motor (5-second hold - always test supine) - 0(No drift) 6b. Right Leg: Motor (5-second hold - always test supine) - 0(No drift) 7. Limb Ataxia (finger/nose \T\ heel/mueller - test with eyes open) - 0(Absent) 8. Sensory Loss (pinprick arms/legs/face) - 0(Normal) 9. Best Language: Aphasia (description/naming/reading) - 0(No aphasia) 10. Dysarthria (speech clarity - read or repeat words) - 0(Normal) 11. Extinction and Inattention (visual/tactile/auditory/spatial/personal) - 0(No abnormality) Initials: jb4 NIH Stroke Scale - NIH Stroke Score Date: 10/15/2019 Time: 23:50 Total Score = 0 1a. Level of Consciousness (LOC) - 0(Alert) 1b. Level of Consciousness (LOC) (Year \T\ Age) - 0(Both) 1c. LOC Commands (Open \T\ Closes Eyes/Grass Cutter) - 0(Both) 2. Best Gaze (Lateral Gaze Paresis) - 0(Normal) 3. Visual Field Loss - 0(No visual loss) 4. Facial Palsy - 0(Normal) 5a. Left Arm: Motor (10-second hold) - 0(No drift) 5b. Right Arm: Motor (10-second hold) - 0(No drift) 6a. Left Leg: Motor (5-second hold - always test supine) - 0(No drift) 6b. Right Leg: Motor (5-second hold - always test supine) - 0(No drift) 7. Limb Ataxia (finger/nose \T\ heel/mueller - test with eyes open) - 0(Absent) 8. Sensory Loss (pinprick arms/legs/face) - 0(Normal) 9. Best Language: Aphasia (description/naming/reading) - 0(No aphasia) 10. Dysarthria (speech clarity - read or repeat words) - 0(Normal) 11. Extinction and Inattention (visual/tactile/auditory/spatial/personal) - 0(No abnormality) Initials: [facility] Signatures: Dispatcher [employer] EDMS Francis Kelly MD MD cha Ballard, Brenda, KATE RN Ronnie Parks RN RN [facility] Miryam Banks RN RN Corrections: (The following items were deleted from the chart) 03:03 00:15 10/16/2019 00:15 Transfer ordered to [address] Diagnosis is Headache; Cerebral edema - mass, with 5mm right to left shift. Reason for transfer: Higher level of care. Accepting physician is to rust, neuro. Condition is Stable. Problem is new. Symptoms have improved. spencer
[2019-10-16 00:24] LABS: Potassium 3.6 mmol/L (3.5-5.1)
[2019-10-16] MEDS ORDERED: NA CHLORIDE 0.9% 100 ML IV ONE (02:05)
[2019-10-16] MEDS ORDERED: dexAMETHasone 10 MG/ML VIAL ONE (02:05)
[2019-10-16] MEDS ORDERED: LEVETIRACETAM 500 MG/5 ML VIAL IV ONE (02:05)
[2019-10-16] MEDS ORDERED: NA CHLORIDE 0.9% 1,000 ML ONE (02:05)
[2019-10-16] MEDS ORDERED: FOLIC ACID 5 MG/ML VIAL ONE (02:07)
[2019-10-16] MEDS ORDERED: ACETAMINOPHEN 325 MG TABLET ONE (02:38)
[2019-10-16] MEDS ORDERED: LORazepam 2 MG/ML VIAL ONE (02:53)
--- NOTE | 2019-10-16 03:03 | ER ---
Nurse's Notes [facility] Name: Mihir Carranza Age: 49 yrs Sex: Male : 1970 Arrival Date: 10/15/2019 Time: 23:19 Bed 3 Private MD: Diagnosis: Headache;Cerebral edema-mass, with 5mm right to left shift Presentation: 10/14 23:38 Chief complaint: Spouse and/or significant other states: pt reported he started having bb some drooling from his mouth today and his states pt has facial drooping and slight slurring to speech symptoms started about lunch time 11 - 12:00 today. Coronavirus screen: The patient has NOT traveled to a country currently being monitored by the CDC within the last 14 days. Proceed with normal triage procedures. Ebola Screen: No symptoms or risks identified at this time. An acute neurological deficit is present. The patient has been moved to a treatment area. Initial Sepsis Screen: Does the patient meet any 2 criteria? No. Patient's initial sepsis screen is negative. Does the patient have a suspected source of infection? No. Patient's initial sepsis screen is negative. Risk Assessment: Do you want to hurt yourself or someone else? Patient reports no desire to harm self or others. Onset of symptoms was October 15, 2019 at 12:00. 23:38 Method Of Arrival: Ambulatory bb 23:38 Acuity: JULIO C 1 bb Triage Assessment: 23:38 The onset of the patients symptoms was October 15, 2019 at 12:00. bb Stroke Activation: Symptom onset > 6 hours Physician: Stroke Attending; Name: ; Notified At: ; Arrived At: Physician: Chief Stroke Resident; Name: ; Notified At: ; Arrived At: Physician: Stroke Resident; Name: ; Notified At: ; Arrived At: Physician: ED Attending; Name: Dr Kelly; Notified At: 23:39; Arrived At: 23:40 Physician: ED Resident; Name: ; Notified At: ; Arrived At: Historical: - Allergies: 10/15 01:00 No Known Allergies; bb - Home Meds: 01:00 Hydralazine Oral [Active]; lisinopril 20 mg Oral tab 1 tab once daily [Active]; bb - PMHx: 01:00 Hypertension; bb - PSHx: 01:00 Cholecystectomy; bb - Immunization history:: Adult Immunizations up to date. - Social history:: Smoking status: unknown. - Family history:: not pertinent. Screenin/11 23:38 Abuse screen: Denies threats or abuse. Nutritional screening: No deficits noted. jb4 Tuberculosis screening: No symptoms or risk factors identified. Fall Risk None identified. Assessment: 23:38 VAN Scoring: Arm Drift: Patients demonstrates NO arm weakness. Patient is VAN Negative. jb4 The patient has not been NPO before screening. The patient is not alert and/or unable to follow commands. The patient does not exhibit slurred or garbled speech. The patient is not exhibiting difficulty speaking. The patient does not exhibit difficulty understanding words. The patient is able to swallow own secretions with no drooling or need for suction. Patient tolerated one teaspoon of water. No drooling, immediate coughing, gurgling, or clearing of the throat was noted. The patient tolerated 90mL of water. No drooling, immediate coughing, gurgling, or clearing of the throat was noted. The patient passed the bedside swallow screening. Oral medications may be given as ordered. Contact Physician for further diet orders. Provider notified of bedside swallow screening results: Francis Kelly MD. 23:38 Reassessment: Pt remains undecided. Family at the bedside trying to convince him to jb4 stay. After speaking with the patient, continues to state," I just feel like I want to go home.". Provider to the bedside. Explains plan of care, and the need to stay to the patient and family again. Pt and family verbalized understanding. Pt states to " Do you want me to stay." states "yes." Pt states " Okay. Lets do it. I will stay.". General: Appears in no apparent distress. uncomfortable, Behavior is cooperative, anxious. Pain: Denies pain. Neuro: Level of Consciousness is awake, alert, obeys commands, confused, Oriented to person, place, time, situation, Sound Engineer are equal bilaterally Moves all extremities. Full function Gait is steady, Speech is normal, Facial droop on left, Pupils are PERRLA, Intact. Cardiovascular: Patient's skin is warm and dry. Respiratory: Airway is patent Respiratory effort is even, unlabored, Respiratory pattern is regular, symmetrical. GI: No signs and/or symptoms were reported involving the gastrointestinal system. : No signs and/or symptoms were reported regarding the genitourinary system. EENT: No signs and/or symptoms were reported regarding the EENT system. Derm: Skin is intact, Skin is pink, warm \\T\\ dry. Musculoskeletal: Circulation, motion, and sensation intact. Range of motion: intact in all extremities. 23:50 Reassessment: Patient appears in no apparent distress at this time. Patient and/or jb4 family updated on plan of care and expected duration. Pain level reassessed. Patient is alert, oriented x 3, equal unlabored respirations, skin warm/dry/pink. Facial droop has resolved after coming back to room from CT Patient denies pain at this time. 10/15 00:00 Reassessment: Pt allowed X-ray. Provider at the bedside explaining plan of care. Pt is jb4 now refusing further treatment. Pt states " I have to be at work in the morning." Possible side effects of leaving with potential stroke explained to the patient by nurse and ER provider. PT remains adamant about wanting to go home. Pt states " I need to go home. I have work in the morning.". 00:05 Reassessment: Provider at the bedside explaining CT results. Urging Pt to stay due to jb4 swelling in the brain that has caused a 5mm shift in the brain. Pt state " I want to go home. I do not want to stay here I want to go home." Provider and nurse explained to patient that symptoms could return and/ or worsen up to . Pt verbalized understanding of this information and continues to state. " I just want to go home.". 00:30 Reassessment: Asked pt if he would allow ER staff to start an IV and draw blood work jb4 while he waits to make a decision on leaving or staying. Pt refused. States" No, I don't want and IV I want to leave." Asked pt to verbalize what his interpretation of possible risk of going home without proper treatment. Pt states " If go home the symptoms could get worse. I could have a seizure, or worse I could ." Asked pt if he was truly okay with these risk and still wanted to go home. Pt states. " yes I am, I want to go home.". 00:30 Reassessment: Family, provider, and the charge nurse are at the bedside trying to jb4 convince pt to stay. Pt's family verbalized understanding of possible risk of going home. Vital Signs: 10/14 23:38 BP 166 / 107; Pulse 86; Resp 96 S; Temp 98.5(O); Pulse Ox 96% on R/A; bb 10/15 01:50 BP 165 / 100; Pulse 92; Resp 16; Pulse Ox 100% on R/A; jb4 02:35 BP 165 / 93; Pulse 86; Resp 16; Temp 98.0(O); Pulse Ox 96% on R/A; jb4 NIH Stroke Scale Scores: 10/14 23:38 NIHSS Score: 1 jb4 23:50 NIHSS Score: 0 jb4 ED Course: 23:19 Patient arrived in ED. jg7 23:38 Francis Kelly MD is Attending Physician. spencer 23:38 Arm band placed on Patient placed in an exam room, on a stretcher. Family accompanied bb patient. 10/15 00:08 Ronnie Mora, RN is Primary Nurse. jb4 00:57 Triage completed. bb 01:57 No provider procedures requiring assistance completed. Inserted saline lock: 18 gauge jb4 in right antecubital area, using aseptic technique. Blood collected. 03:02 Patient transferred, IV remains in place. jb4 05:25 CT Stroke Brain w/o Contrast In Process Unspecified. EDMS 05:25 Stroke CXR 1 View In Process Unspecified. EDMS Administered Medications: 02:20 Drug: foLIC Acid 1 mg Route: IVPB; Site: right antecubital; jb4 02:30 Follow up: Response: No adverse reaction; IV Status: Completed infusion jb4 02:20 Drug: NS 0.9% 500 ml Route: IV; Rate: bolus; Site: right antecubital; jb4 03:00 Follow up: Response: No adverse reaction; IV Status: Infusion continued upon transfer; jb4 IV Intake: 200ml 02:22 Drug: Decadron - Dexamethasone 10 mg Route: IVP; Site: right antecubital; jb4 02:30 Follow up: Response: No adverse reaction jb4 02:24 Drug: Keppra 1000 mg Route: IV; Rate: per protocol; Site: right antecubital; jb4 02:41 Follow up: Response: No adverse reaction; IV Status: Completed infusion; IV Intake: jb4 100ml 02:29 Not Given (Other Intervention Used): NS 0.9% 1000 ml IV at 1 bolus Per protocol; 1000 jb4 mL bolus 02:40 Drug: Tylenol 650 mg Route: PO; jb4 02:40 Follow up: Response: Medication administered at discharge. jb4 02:50 Drug: Ativan 1 mg Route: IVP; Site: right antecubital; jb4 03:00 Follow up: Response: Medication administered at discharge. jb4 03:23 Not Given (Patient Refused): morphine 2 mg IVP once; (PAIN>8) RASS on ADMN: Combtv4, jb4 Very Agttd3, Agttd2, Rstlss1, AlertClm0, Drwsy-1, LtSdtn-2, ModSdtn-3, DpSdtn-4, UnArsble-5 x2 03:23 Not Given (Patient Refused): Zofran (Ondansetron) 4 mg IVP once; over 2 minutes jb4 03:23 Not Given (PT transferred): NS 0.9% 1000 ml IV at 125 ml/hr continuous jb4 Intake: 02:41 IV: 100ml; Total: 100ml. jb4 03:00 IV: 200ml; Total: 300ml. jb4 Outcome: 00:15 ER care complete, transfer ordered by MD. palmer 03:02 Transferred by ground EMS [facility] to [facility]. jb4 03:02 Condition: stable 03:02 Discharge instructions given to patient, family, Instructed on the need for transfer, Demonstrated understanding of instructions. 03:03 Patient left the ED. jb4 NIH Stroke Scale - NIH Stroke Score Date: 10/15/2019 Time: 23:38 Total Score = 1 1a. Level of Consciousness (LOC) - 0(Alert) 1b. Level of Consciousness (LOC) (Year \\T\\ Age) - 0(Both) 1c. LOC Commands (Open \\T\\ Closes Eyes/Group Art Supervisor) - 0(Both) 2. Best Gaze (Lateral Gaze Paresis) - 0(Normal) 3. Visual Field Loss - 0(No visual loss) 4. Facial Palsy - 1(Minor Paralysis) 5a. Left Arm: Motor (10-second hold) - 0(No drift) 5b. Right Arm: Motor (10-second hold) - 0(No drift) 6a. Left Leg: Motor (5-second hold - always test supine) - 0(No drift) 6b. Right Leg: Motor (5-second hold - always test supine) - 0(No drift) 7. Limb Ataxia (finger/nose \\T\\ heel/mueller - test with eyes open) - 0(Absent) 8. Sensory Loss (pinprick arms/legs/face) - 0(Normal) 9. Best Language: Aphasia (description/naming/reading) - 0(No aphasia) 10. Dysarthria (speech clarity - read or repeat words) - 0(Normal) 11. Extinction and Inattention (visual/tactile/auditory/spatial/personal) - 0(No abnormality) Initials: jb4 NIH Stroke Scale - NIH Stroke Score Date: 10/15/2019 Time: 23:50 Total Score = 0 1a. Level of Consciousness (LOC) - 0(Alert) 1b. Level of Consciousness (LOC) (Year \\T\\ Age) - 0(Both) 1c. LOC Commands (Open \\T\\ Closes Eyes/Group Art Supervisor) - 0(Both) 2. Best Gaze (Lateral Gaze Paresis) - 0(Normal) 3. Visual Field Loss - 0(No visual loss) 4. Facial Palsy - 0(Normal) 5a. Left Arm: Motor (10-second hold) - 0(No drift) 5b. Right Arm: Motor (10-second hold) - 0(No drift) 6a. Left Leg: Motor (5-second hold - always test supine) - 0(No drift) 6b. Right Leg: Motor (5-second hold - always test supine) - 0(No drift) 7. Limb Ataxia (finger/nose \\T\\ heel/mueller - test with eyes open) - 0(Absent) 8. Sensory Loss (pinprick arms/legs/face) - 0(Normal) 9. Best Language: Aphasia (description/naming/reading) - 0(No aphasia) 10. Dysarthria (speech clarity - read or repeat words) - 0(Normal) 11. Extinction and Inattention (visual/tactile/auditory/spatial/personal) - 0(No abnormality) Initials: jb4 Signatures: Dispatcher [employer] EDFrancis Garrett MD MD cha Ballard, Brenda, RN RN Ronnie Parks, RN RN jb4 Adrienne Villatoro jg7 Corrections: (The following items were deleted from the chart) 02:59 10/14 23:50 Reassessment: Facial droop has resolved after coming back to room jb4 from [place] jb4 10/15 03:23 03:22 Response: Medication administered at discharge. 4 jb4
[2019-10-16 03:14] VITALS: BP 165/93; TEMP 98
[2019-10-16 03:23] VITALS: O2SAT 100
--- NOTE | 2019-10-16 08:19 | RAD REPORT ---
EXAM DESCRIPTION: Jennifer Single View10/16/2019 12:22 am CLINICAL HISTORY: CVA COMPARISON: September 2018 FINDINGS: Left base is hazy Right lung appears clear of acute infiltrate. The heart is normal size IMPRESSION: The left base is hazy. This could be secondary to overlying soft tissue or infiltrate. P A and lateral chest series recommended
--- NOTE | 2019-10-16 08:51 | EKG ---
Test Date: 2019-10-15 Test Time: 23:57:50 Technical Advisor: ALYSON MEASUREMENT RESULTS: Intervals: Rate: 87 ID: [id number] QRSD: 96 QT: 372 QTc: 447 [place]: P: 32 ID: [id number] QRS: 51 T: 71 INTERPRETIVE STATEMENTS: Normal sinus rhythm Normal ECG Compared to ECG 09/24/2018 10:23:27 Right-axis deviation no longer present T-wave abnormality no longer present Electronically Signed On 10-16-19 08:50:16 CDT by Malik Dumont
--- NOTE | 2019-10-16 10:34 | RAD REPORT ---
EXAM DESCRIPTION: CT - Ct Stroke Brain Wo Cont - 10/16/2019 6:28 am CLINICAL HISTORY: SLURRED SPEECH TECHNIQUE: Contiguous axial CT images obtained through the brain without IV contrast. Coronal and sa gittal reformatted images were provided. This exam was performed according to our departmental dose-optimization program, which includes autom ated exposure control, adjustment of the mA and/or kV according to patient size and/or use of iterati ve reconstruction technique. COMPARISON: None available for comparison FINDINGS: Brain: Right frontoparietal ovoid lesion with central low-density and peripheral thickened rim measuring 1.6 x 1.6 x 1.8 cm. Surrounding edema. Localized 5 mm [id number] midline shift. Gra y-white matter differentiation is within normal limits. No hemorrhage. Ventricles: No ventriculomegaly or midline shift. Extra-axial spaces: No extra-axial collection or hemorrhage. Paranasal sinuses and mastoid air cells: Well-aerated Vessels: There is atherosclerotic disease of the internal carotid and vertebral arteries bilaterally. Bones: Unremarkable Soft tissues: Unremarkable IMPRESSION: Right frontoparietal lesion measuring 1.6 x 1.6 x 1.8 cm with surrounding edema and loca lized 5 mm [id number]-ol-[id number] midline shift. This may be infectious, inflammatory or neoplastic in etiolog y. MR with and without contrast is recommended for further evaluation. THIS REPORT CONTAINS FINDINGS THAT MAY BE CRITICAL TO PATIENT CARE: The findings were verbally discu ssed via telephone conference with Dr. Francis Kelly on 10/16/2019 12:08 AM CDT. The results were ack nowledged and understood. Electronically signed by: Arabella Denney MD 10/16/2019 12:09 AM CDT Due to temporary technical issues with the PACS/Fluency reporting system, reports are being signed by the in house radiologist as a courtesy to ensure prompt reporting. The interpreting radiologist is f ully responsible for the content of the report.
== END 2019-10-16 03:03 | disposition short-term general hospital (02) ==
LOC: ER 23:15
DX: G93.6 Cerebral edema (principal); G93.9 Disorder of brain, unspecified; I10 Essential (primary) hypertension
CPT/HCPCS: 96365; 93005; 85025; 80048; 36415; 85610; 82947; 85730; 70450; 71045; 96375; 99291; J1100; J1953; J7030

== ENCOUNTER 2019-10-24 14:26 | Inpatient (IN) | payer BC ==
--- NOTE | 2019-10-24 09:40 | R.PREADM ---
SCREENING DATE AND TIME 10/23/2019 14:45 (CDT) ANTICIPATED REHAB ADMISSION DATE 10/25/2019 REFERRING FACILITY [facility] REFERRAL DATE AND TIME 10/23/2019 14:45 (CDT) ACUTE ADMIT DATE 10/21/2019 Previous Rehabilitation(s): No. 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 Juan Pablo Peralta M.D. MR# [id number] NAME HOSEA CARRANZA ADDRESS [address] [place] [address] PHONE [facility] [id number] DATE OF 1970 AGE 49 SSN# [id number] GENDER male MARITAL STATUS RACE white ADMIT FROM 02 - [facility] PRE-HOSPITAL LIVING SETTING 01 - Home (private home/apt. board/care, assisted living, mcc, transitional living) HOME TYPE AND DETAILS Type of home: single family house # of levels in the residence: 2 # of steps within the residence: 14 PRE-HOSPITAL LIVING WITH Family/Relatives FAMILY SUPPORT Yes PRIMARY FAMILY CONTACT NAME GARY CARRANZA PRIMARY FAMILY CONTACT PHONE PHONE PRIMARY FAMILY CONTACT ON ADM.? no IS PRIMARY FAMILY CONTACT AUTH. REP.? no 1ST EMERGENCY CONTACT GARY CARRANZA 1ST CONTACT PHONE PHONE 1ST CONTACT ON ADM. no IS 1ST CONTACT AUTH. REP.? no PHONE 2ND CONTACT ON ADM.? no PATIENT EMPLOYMENT STATUS Employed [employer] PAYOR INFORMATION: 1ST PAYOR NAME Georges Ramos 1ST PAYOR PHONE 1ST PAYOR INJURY/ILLNESS DUE TO ACCIDENT? No ANOTHER GREEN PARTY RESPONSIBLE? No PRIMARY REHAB/ACUTE DIAGNOSIS: RIGHT FRONTAL CRANI FOR ABSCESS REHAB IMPAIRMENT CATEGORY (JENNIFER): 01 Stroke (STR) MEETS 60% rule AFFECTED EXTREMITIES: LLE, and LUE PRIMARY DIAGNOSIS-RELATED SURGERIES: CRANIOTOMY CRANIOTOMY, STEREOTACTIC PROCEDURE W STEALTH SUMMARY OF ACUTE HOSPITALIZATION: Pt. is a 49 yo Right-handed white male. On 10/16/2019 Pt. presented to [facility] with sudden onset of left-side weakness. On 10/17/2019 he was admitted to [facility] with diagnosis RIGHT FRONTAL CRANI FOR ABSCESS. His impairment category is Stroke 01 - Left Body (Right Brain) (01.1). Pre-morbidly, Pt. was independent/mod-I in Endurance, Self-Care, Safety Awareness, Locomotion, and Tr ansfers Control; and he had good Endurance and Locomotion. Currently, he has deficits of Endurance, Balance, Safety Awareness, Locomotion, and Social Cognition. Pt. is now referred to [facility] for acute in-patient rehabilitation in order to maximize patient's functional independence in activities of daily living, strength, ROM, and mobi lity. Patient has realistic goal of being discharged at assistance level 3-modA to reside at Home with Fam gladys/Relatives. Hosea Carranza is a 49year old male with PMH of HTN who presented to [facility] on 10/15 as a transfer from OSH where he presented with 1 day of left facial droop and drooling. OSH head CT demonstrated right front-parietal mass with surrounding vasogenic edema and % mm midline shift. Hosea lived at home with and famil y in a 2story house but stays on the first floor independently w ADLs. Independent ambulation. Patient has access to shower chair and rollator. Patient denies alcoholism, drug use, dental problems. Patient family is very involved and by his side. After he was evaluated in the ER she was admitted at [facility] and is hemodynamically stable with relatively stable labs. He is now medically stable but in need of 24 hour nursing, doctor supervision SPT). The patient is reasonably expected to participate in 3 hours of therapy a day/15 hours per week and receive care with intensive interdisciplinary approach. PAST MEDICAL HISTORY HYPERTENSION OBSES PAST SURGICAL HISTORY: CRANIOTOMY CRANIOTOMY, STEREOTACTIC PROCEDURE W STEALTH MEDICATION ALLERGIES: No Known Drug Allergies (NKDA) ENVIRONMENTAL ALLERGIES: - Substance Allergies None Known - Other Allergies None Known CODE STATUS: Full code WEIGHT/HEIGHT/BMI: WEIGHT 257 lbs HEIGHT 5' 8" BMI 39.1 DIET: - Diet Type Regular - Diet - Solid Texture Regular - Diet - Liquid Texture Regular - Tube Feed N/A SKIN DIAGRAM: Incision on Face; extent - small; stage - NS(Not Stageable). Treatment - Per Physician's Orders. REVIEW OF SYSTEMS: - Gen Alert and awake Lying in bed No apparent distress Oriented to: person, time, and place - Vital Signs Temperature: 96.2 F SBP/DBP: 141/86 Pulse: 59 Resp: 18 Vital signs stable, afebrile - CVS RRR VITAL SIGNS Temperature: 96.2 F SBP/DBP: 141/86 Pulse: 59 Resp: 18 Vital signs stable, afebrile MEDICATIONS/TREATMENT: Other- See attached MAR (Medication Administration Record). CURRENT SPHINCTER CONTROL: Pre-hospital bladder status: continent # of bladder accidents in the last 7 days prior to screenin Pre-hospital bowel status: unspecified # of bowel accidents in the last 7 days prior to screenin Last Bowel Movement Date: 10/23/2019 CURRENT LOCOMOTION STATUS: distance traveled in wheelchair 20 feet distance walked 20 feet DETAILED CURRENT FUNCTIONAL STATUS: - Bladder accident frequency: Ind - No accidents in the past 7 days - Bowel accident frequency: Ind - No accidents in the past 7 days - Walking score based on distance walked: 0(N/A) - Wheelchair score based on distance traveled: 0(N/A) QI SCORES: - Self-Care A. Eating 03-Partial/moderate assistance B. Oral hygiene 03-Partial/moderate assistance C. Toileting hygiene 02-Substantial/maximal assistance E. Shower/bathe self 02-Substantial/maximal assistance F. Upper body dressing 03-Partial/moderate assistance G. Lower body dressing 03-Partial/moderate assistance H. Putting on/taking off footwear 88-Not attempted due to medical condition or safety concerns - Mobility A. Roll left and right 03-Partial/moderate assistance B. Sit to lying 03-Partial/moderate assistance C. Lying to sitting on side of bed 03-Partial/moderate assistance D. Sit to stand 03-Partial/moderate assistance E. Chair/fpb-gs-dfibj transfer 03-Partial/moderate assistance F. Toilet transfer 03-Partial/moderate assistance G. Car transfer 88-Not attempted due to medical condition or safety concerns I. Walk 10 feet 02-Substantial/maximal assistance J. Walk 50 feet with two turns 88-Not attempted due to medical condition or safety concerns K. Walk 150 feet 88-Not attempted due to medical condition or safety concerns L. Walking 10 feet on uneven surfaces 88-Not attempted due to medical condition or safety concerns M. 1 step (curb) 88-Not attempted due to medical condition or safety concerns N. 4 steps 88-Not attempted due to medical condition or safety concerns O. 12 steps 88-Not attempted due to medical condition or safety concerns P. Picking up object 03-Partial/moderate assistance R. Wheel 50 feet with two turns 88-Not attempted due to medical condition or safety concerns S. Wheel 150 feet 88-Not attempted due to medical condition or safety concerns - Bladder and Bowel Bladder continence 2-Incontinent less than daily Bowel continence 1-Occasionally incontinent - Endurance Fair - Balance Fair - Safety Awareness Fair CURRENT [facility]. DEFICITS: Self-Care, Mobility, Endurance, Balance, and Safety Awareness CURRENT / PREVIOUS ASSISTIVE DEVICES: 3-in-1 Com[facility] Bed Raised Toilet Rolling Walker Shower Chair Tub Bench Wheelchair HISTORY OF FALLS. HAS THE PATIENT HAD TWO OR MORE FALLS IN THE PAST YEAR OR ANY FALL WITH INJURY IN T HE PAST YEAR?: Unknown PRIOR SURGERY. DID THE PATIENT HAVE MAJOR SURGERY DURING THE 100 DAYS PRIOR TO ADMISSION?: No THERAPY NOTES FROM ACUTE CARE: Attached. SPECIAL NEEDS: - Safety Concerns Skin breakdown precautions needed due to skin breakdown risk PRECAUTIONS: - Weight Bearing Precaution WBAT both LE PATIENT NEEDS ACTIVE AND ONGOING THERAPEUTIC INTERVENTION OF MULTIPLE THERAPY DISCIPLINES, INCLUDING: - Occupational Therapy Cognitive Retraining. Visual Perceptual Training. - Dietary and Nutrition Adequate Nutrition. Nutritional Education. Nutritional Supplements. - Speech Therapy Cognitive Training. Expressive Language Skills. Memory Strategies. Receptive Language Skills. Speech Intelligibility Training. PATIENT NEEDS CLOSE MEDICAL SUPERVISION BY A REHABILITATION PHYSICIAN FOR: Coordination of Treatment Team Wound Care PATIENT REQUIRES 24X7 REHAB NURSING FOR MEDICAL AND FUNCTIONAL MGT. OF THE FOLLOWING DEFICITS: Disease Management Medication Management Patient/Family Education Providing Safe Environment Skin Integrity PATIENT REQUIRES INTENSIVE, COORDINATED INTERDISCIPLINARY APPROACH TO REHAB: Arranging Home Equipment/Services Discharge Planning Family Intervention/Training Database Management Specialist/Case Management PATIENT REHAB POTENTIAL: Samanta CARRANZA is able and expected to receive 3 hours of individualized therapy daily on at least 5 of every 7 days Samanta CARRANZA's prognosis for significant practical improvement within a reasonable period of time marcia ears Good Expected level of measurable improvement will be of a practical value to Samanta CARRANZA's functional ca pacity or adaptations to impairments Has a viable Discharge Plan Medically appropriate; condition is sufficiently stable to participate in intensive rehab program DISCHARGE PLAN: - Estimated Length of Stay (days) 17. - Consensus on plan Discharge plan has been discussed with primary caregiver. Patient/Family is in agreement with the lalita n. Primary caregiver is in agreement with the plan. - Patient/Family Goals Return home with assistance. - Planned Living Setting Upon Discharge Home, to live with Family/Relatives. Transitional Living. RECOMMENDED CARE LEVEL: IRF RECOMMENDATION DETAILS: Recommended Admission to Comprehensive Rehabilitation Program to Increase Functional [place] SCREENER'S COMPLETENESS CONFIRMATION: - Screening Confirmation The patient data collection on this preadmission screening form is finished PHYSICIANS REVIEW AND ADMISSION DETERMINATION Admit - Based on my review of the Pre-Admission Screening results, in my medical judgment and experie nce, I concur with the findings and recommend admission to [facility], as this patient requires an IRF level of care. SIGNATURE PANEL: Clinical Liaison - [electronically] signed by Benny Panchal on 10/24/2019 at 09:37 (CDT) Clinical Liaison - [electronically] signed by Vishal Ren PT on 10/24/2019 at 09:39 (CDT) Physician Reviewer - [electronically] signed by Dr. Juan Pablo Peralta M.D. on 10/24/2019 at 09:40 (CDT )
--- OUTSIDE RECORDS SUMMARY | 2019-10-24 16:48 | XMS REPORT ---
:1970 [facility] [address] [place] [address] Care Team Providers Name Role Phone JOHANNY ARREGUIN Unavailable Unavailable Problems This patient has no known problems. Allergies, Adverse Reactions, Alerts This patient has no known allergies or adverse reactions. Medications This patient has no known medications. Results Test Description Test Time Test Comments Text Results Atomic Results Result Comments BLOOD CULTURE 2019-10-24 10:14:00 Test Item Value Reference Range Comments CULTURE (BEAKER) (test xlxt=6897) No growth in 5 days [id number] 07:03:00 Test Item Value Reference Range Comments PHOSPHORUS (BEAKER) (test ybnl=021) 3.5 mg/dL 2.3-4.7 Death Surveys Coder ID - [id number] 07:03:00 Test Item Value Reference Range Comments MAGNESIUM (BEAKER) (test tcft=047) 2.4 mg/dL 1.6-2.6 Death Surveys Coder ID - NTPBASIC METABOLIC [id number] 07:03:00 Test Item Value Reference Range Comments SODIUM (BEAKER) (test 135 meq/L 136-145 pxyf=559) POTASSIUM (BEAKER) (test 4.3 meq/L 3.5-5.1 dzrk=062) CHLORIDE (BEAKER) (test 103 meq/L 98-107 odbh=425) CO2 (BEAKER) (test dzbi=992) 26 meq/L 22-29 BLOOD UREA NITROGEN (BEAKER) 19 mg/dL 7-21 (test llfk=265) CREATININE (BEAKER) (test 0.75 mg/dL 0.57-1.25 vgha=554) GLUCOSE RANDOM (BEAKER) 145 mg/dL 70-105 (test xzos=839) CALCIUM (BEAKER) (test 8.5 mg/dL 8.4-10.2 gvyz=503) EGFR (BEAKER) (test INSUFFICIENT CLINICAL DATA TO ujyb=4075) CALCULATE ESTIMATED GFR. Death Surveys Coder ID - NTPCBC W/PLT COUNT & AUTO [id number] 06:04:00 Test Item Value Reference Range Comments WHITE BLOOD CELL COUNT (BEAKER) (test njxh=381) 8.7 K/ L 3.5-10.5 RED BLOOD CELL COUNT (BEAKER) (test fexg=152) 5.24 M/ L 4.63-6.08 HEMOGLOBIN (BEAKER) (test rlnp=681) 14.6 GM/DL 13.7-17.5 HEMATOCRIT (BEAKER) (test bokg=755) 43.6 % 40.1-51.0 MEAN CORPUSCULAR VOLUME (BEAKER) (test sykw=247) 83.2 fL 79.0-92.2 MEAN CORPUSCULAR HEMOGLOBIN (BEAKER) (test 27.9 pg 25.7-32.2 iijh=018) MEAN CORPUSCULAR HEMOGLOBIN CONC (BEAKER) (test 33.5 GM/DL 32.3-36.5 pzfs=795) RED CELL DISTRIBUTION WIDTH (BEAKER) (test 13.0 % 11.6-14.4 pawl=827) PLATELET COUNT (BEAKER) (test lale=178) 251 K/CU MM 150-450 MEAN PLATELET VOLUME (BEAKER) (test yykl=675) 10.4 fL 9.4-12.4 NUCLEATED RED BLOOD CELLS (BEAKER) (test 0 /100 WBC 0-0 zxhy=612) NEUTROPHILS RELATIVE PERCENT (BEAKER) (test 78 % rbdp=780) LYMPHOCYTES RELATIVE PERCENT (BEAKER) (test 15 % cpgr=398) MONOCYTES RELATIVE PERCENT (BEAKER) (test 6 % dckk=649) EOSINOPHILS RELATIVE PERCENT (BEAKER) (test 0 % glnw=112) BASOPHILS RELATIVE PERCENT (BEAKER) (test 0 % tcqz=886) NEUTROPHILS ABSOLUTE COUNT (BEAKER) (test 6.78 K/ L 1.78-5.38 xtlk=586) LYMPHOCYTES ABSOLUTE COUNT (BEAKER) (test 1.28 K/ L 1.32-3.57 ntsf=856) MONOCYTES ABSOLUTE COUNT (BEAKER) (test 0.55 K/ L 0.30-0.82 sare=895) EOSINOPHILS ABSOLUTE COUNT (BEAKER) (test 0.00 K/ L 0.04-0.54 wimo=652) BASOPHILS ABSOLUTE COUNT (BEAKER) (test 0.01 K/ L 0.01-0.08 wgvm=635) IMMATURE GRANULOCYTES-RELATIVE PERCENT (BEAKER) 1 % 0-1 (test hcqe=2511) ANAEROBIC [id number] 18:14:00 Test Item Value Reference Range Comments CULTURE (BEAKER) (test tqwv=2769) No anaerobes isolated ANAEROBIC [id number] 18:13:00 Test Item Value Reference Range Comments CULTURE (BEAKER) (test nnih=1676) No anaerobes isolated ANAEROBIC [id number] 18:13:00 Test Item Value Reference Range Comments CULTURE (BEAKER) (test wynu=6949) No anaerobes isolated ANAEROBIC [id number] 18:03:00 Test Item Value Reference Range Comments CULTURE (BEAKER) (test 2+ Same organism has been isolated fvuj=5434) from culture(s) of the same body site and collection date. Repeat identification performed only after consultation with the clinical microbiology laboratory.Refer to previous culture of* - Streptococcus intermedius No anaerobes isolatedSURGICALLY OBTAINED CULTURE + GRAM [id number] 15:49:00 Test Item Value Reference Range Comments CULTURE (BEAKER) STREPTOCOCCUS 4+ Streptococcus (test rzxf=1415) INTERMEDIUS intermedius Ceftriaxone (test Susceptible 0-1 , code=52) Resistant <0 or >1 Penicillin G (test Susceptible 0-0.12 , code=3) Intermediate <0 or >.12 , Resistant >2 Vancomycin (test Susceptible 0-1 , No code=13) Interpretations Established <0 or >1 GRAM STAIN RESULT 3+ WBCs (BEAKER) (test jlwy=7860) GRAM STAIN RESULT No organisms seen (BEAKER) (test yuiy=408509) SURGICALLY OBTAINED CULTURE + GRAM [id number] 15:49:00 Test Item Value Reference Range Comments CULTURE (BEAKER) 2+ Same organism has been (test pqko=8989) isolated from cultures(s) of the same body site and collection date. Repeat identification and susceptibility testing performed only after consultation with the clinical microbiology laboratory.Refer to previous culture of* - Streptococcus intermedius GRAM STAIN RESULT 4+ WBCs (BEAKER) (test zxlp=9953) GRAM STAIN RESULT <1+ gram positive (BEAKER) (test cocci in pairs psnh=427969) SURGICALLY OBTAINED CULTURE + GRAM [id number] 15:49:00 Test Item Value Reference Range Comments CULTURE (BEAKER) 2+ Same organism has been (test suth=4078) isolated from cultures(s) of the same body site and collection date. Repeat identification and susceptibility testing performed only after consultation with the clinical microbiology laboratory.Refer to previous culture of* - Streptococcus intermedius GRAM STAIN RESULT 2+ WBCs (BEAKER) (test sxoj=1753) GRAM STAIN RESULT <1+ gram positive (BEAKER) (test cocci in pairs kesr=964888) BASIC METABOLIC [id number] 06:56:00 Test Item Value Reference Range Comments SODIUM (BEAKER) (test 134 meq/L 136-145 irtu=842) POTASSIUM (BEAKER) (test 4.0 meq/L 3.5-5.1 hutk=282) CHLORIDE (BEAKER) (test 103 meq/L 98-107 oovy=278) CO2 (BEAKER) (test wnaq=621) 24 meq/L 22-29 BLOOD UREA NITROGEN (BEAKER) 18 mg/dL 7-21 (test fnax=971) CREATININE (BEAKER) (test 0.70 mg/dL 0.57-1.25 qctc=814) GLUCOSE RANDOM (BEAKER) 143 mg/dL 70-105 (test slju=134) CALCIUM (BEAKER) (test 8.1 mg/dL 8.4-10.2 amoq=551) EGFR (BEAKER) (test INSUFFICIENT CLINICAL DATA TO pkqx=8890) CALCULATE ESTIMATED GFR. Death Surveys Coder ID - [id number] 06:52:00 Test Item Value Reference Range Comments PHOSPHORUS (BEAKER) (test aqmo=942) 2.7 mg/dL 2.3-4.7 Death Surveys Coder ID - [id number] 06:52:00 Test Item Value Reference Range Comments MAGNESIUM (BEAKER) (test dxdu=708) 2.4 mg/dL 1.6-2.6 Death Surveys Coder ID - BSCBC W/PLT COUNT & AUTO [id number] 05:43:00 Test Item Value Reference Range Comments WHITE BLOOD CELL COUNT (BEAKER) (test jdtl=248) 8.3 K/ L 3.5-10.5 RED BLOOD CELL COUNT (BEAKER) (test jyok=197) 5.11 M/ L 4.63-6.08 HEMOGLOBIN (BEAKER) (test xcrr=619) 14.5 GM/DL 13.7-17.5 HEMATOCRIT (BEAKER) (test ydxn=538) 43.4 % 40.1-51.0 MEAN CORPUSCULAR VOLUME (BEAKER) (test lvxu=902) 84.9 fL 79.0-92.2 MEAN CORPUSCULAR HEMOGLOBIN (BEAKER) (test 28.4 pg 25.7-32.2 rfzo=183) MEAN CORPUSCULAR HEMOGLOBIN CONC (BEAKER) (test 33.4 GM/DL 32.3-36.5 wvva=360) RED CELL DISTRIBUTION WIDTH (BEAKER) (test 13.2 % 11.6-14.4 mwts=505) PLATELET COUNT (BEAKER) (test jzdz=036) 208 K/CU MM 150-450 MEAN PLATELET VOLUME (BEAKER) (test exdy=411) 10.8 fL 9.4-12.4 NUCLEATED RED BLOOD CELLS (BEAKER) (test 0 /100 WBC 0-0 ewgn=246) NEUTROPHILS RELATIVE PERCENT (BEAKER) (test 76 % iuou=913) LYMPHOCYTES RELATIVE PERCENT (BEAKER) (test 15 % mtkn=986) MONOCYTES RELATIVE PERCENT (BEAKER) (test 7 % wnut=697) EOSINOPHILS RELATIVE PERCENT (BEAKER) (test 0 % ouoq=379) BASOPHILS RELATIVE PERCENT (BEAKER) (test 0 % fbrh=770) NEUTROPHILS ABSOLUTE COUNT (BEAKER) (test 6.27 K/ L 1.78-5.38 hfxq=289) LYMPHOCYTES ABSOLUTE COUNT (BEAKER) (test 1.24 K/ L 1.32-3.57 smvq=301) MONOCYTES ABSOLUTE COUNT (BEAKER) (test 0.60 K/ L 0.30-0.82 xlqm=267) EOSINOPHILS ABSOLUTE COUNT (BEAKER) (test 0.02 K/ L 0.04-0.54 tcae=399) BASOPHILS ABSOLUTE COUNT (BEAKER) (test 0.01 K/ L 0.01-0.08 qjzs=579) IMMATURE GRANULOCYTES-RELATIVE PERCENT (BEAKER) 2 % 0-1 (test odvs=0903) POCT-GLUCOSE [id number] 21:55:00 Test Item Value Reference Range Comments POC-GLUCOSE METER (BEAKER) 120 mg/dL 70-110 : TESTED AT [address] (test hlfe=8969) [facility], [address]: Death Surveys Coder/Smocker CA=[id number] for BECK PINA [id number] 15:56:00 Test Item Value Reference Range Comments PHOSPHORUS (BEAKER) (test eimr=451) 3.2 mg/dL 2.3-4.7 Death Surveys Coder ID - BSPOCT-GLUCOSE [id number] 12:26:00 Test Item Value Reference Range Comments POC-GLUCOSE METER (BEAKER) 156 mg/dL 70-110 : Notified RN/MD: TESTED AT (test nfdq=1815) [address], [address]: Death Surveys Coder/Smocker [id number] for Farner, Payton POCT-GLUCOSE [id number] 10:01:00 Test Item Value Reference Range Comments POC-GLUCOSE METER (BEAKER) 149 mg/dL 70-110 : TESTED AT [address] (test aqha=6304) [facility], [address]: Death Surveys Coder/Smocker EH=[id number] for DUNCAN, ASHELY POCT-GLUCOSE [id number] 10:01:00 Test Item Value Reference Range Comments POC-GLUCOSE METER (BEAKER) 149 mg/dL 70-110 : TESTED AT [address] (test tdtp=4936) [facility], [address]: Death Surveys Coder/Smocker UZ=[id number] for DUNCAN, ASHELY POCT-GLUCOSE [id number] 10:01:00 Test Item Value Reference Range Comments POC-GLUCOSE METER (BEAKER) 149 mg/dL 70-110 : TESTED AT [address] (test ppwx=9286) [facility], [address]: Death Surveys Coder/Smocker CM=[id number] for DUNCAN, ASHELY POCT-GLUCOSE [id number] 10:01:00 Test Item Value Reference Range Comments POC-GLUCOSE METER (BEAKER) 149 mg/dL 70-110 : TESTED AT [address] (test jdvb=2488) [facility], [address]: Death Surveys Coder/Smocker WT=[id number] for DUNCAN, ASHELY POCT-GLUCOSE [id number] 10:01:00 Test Item Value Reference Range Comments POC-GLUCOSE METER (BEAKER) 149 mg/dL 70-110 : TESTED AT [address] (test ylxg=2532) [facility], [address]: Death Surveys Coder/Smocker GZ=[id number] for DUNCAN, ASHELY POCT-GLUCOSE [id number] 10:01:00 Test Item Value Reference Range Comments POC-GLUCOSE METER (BEAKER) 149 mg/dL 70-110 : TESTED AT [address] (test buou=6401) [facility], [address]: Death Surveys Coder/Smocker QX=[id number] for DUNCAN, ASHELY POCT-GLUCOSE [id number] 10:01:00 Test Item Value Reference Range Comments POC-GLUCOSE METER (BEAKER) 149 mg/dL 70-110 : TESTED AT [address] (test huxx=4957) [facility], [address]: Death Surveys Coder/Smocker MT=[id number] for DUNACN, ASHELY POCT-GLUCOSE [id number] 10:01:00 Test Item Value Reference Range Comments POC-GLUCOSE METER (BEAKER) 149 mg/dL 70-110 : TESTED AT [address] (test xjqi=3286) [facility], [address]: Death Surveys Coder/Smocker XM=[id number] for DUNCAN, ASHELY POCT-GLUCOSE [id number] 10:01:00 Test Item Value Reference Range Comments POC-GLUCOSE METER (BEAKER) 149 mg/dL 70-110 : TESTED AT [address] (test zpon=5928) [facility], [address]: Death Surveys Coder/Smocker RQ=[id number] for DUNCAN, ASHELY POCT-GLUCOSE [id number] 10:01:00 Test Item Value Reference Range Comments POC-GLUCOSE METER (BEAKER) 149 mg/dL 70-110 : TESTED AT [address] (test uvqf=0096) [facility], [address]: Death Surveys Coder/Smocker CM=[id number] for DUNCAN, ASHELY POCT-GLUCOSE [id number] 10:01:00 Test Item Value Reference Range Comments POC-GLUCOSE METER (BEAKER) 149 mg/dL 70-110 : TESTED AT [address] (test pkxq=4769) [facility], [address]: Death Surveys Coder/Smocker XM=[id number] for DUNCAN, ASHELY POCT-GLUCOSE [id number] 10:01:00 Test Item Value Reference Range Comments POC-GLUCOSE METER (BEAKER) 149 mg/dL 70-110 : TESTED AT [address] (test kcwk=9629) [facility], [address]: Death Surveys Coder/Smocker UO=[id number] for DUNCAN, ASHELY POCT-GLUCOSE [id number] 10:01:00 Test Item Value Reference Range Comments POC-GLUCOSE METER (BEAKER) 149 mg/dL 70-110 : TESTED AT [address] (test adth=6271) [facility], [address]: Death Surveys Coder/Smocker SP=[id number] for DUNCAN, ASHELY POCT-GLUCOSE [id number] 10:01:00 Test Item Value Reference Range Comments POC-GLUCOSE METER (BEAKER) 149 mg/dL 70-110 : TESTED AT [address] (test oaof=8575) [facility], [address]: Death Surveys Coder/Smocker VR=[id number] for DUNCAN, ASHELY POCT-GLUCOSE [id number] 10:01:00 Test Item Value Reference Range Comments POC-GLUCOSE METER (BEAKER) 149 mg/dL 70-110 : TESTED AT [address] (test dxnm=4740) [facility], [address]: Death Surveys Coder/Smocker WF=[id number] for DUNCAN, ASHELY POCT-GLUCOSE [id number] 10:01:00 Test Item Value Reference Range Comments POC-GLUCOSE METER (BEAKER) 149 mg/dL 70-110 : TESTED AT [address] (test ougz=0341) [facility], [address]: Death Surveys Coder/Smocker OA=[id number] for DUNCAN, ASHELY BASIC METABOLIC [id number] 06:27:00 Test Item Value Reference Range Comments SODIUM (BEAKER) (test 143 meq/L 136-145 seoz=749) POTASSIUM (BEAKER) (test 3.5 meq/L 3.5-5.1 tnew=907) CHLORIDE (BEAKER) (test 105 meq/L 98-107 hham=168) CO2 (BEAKER) (test aafm=200) 29 meq/L 22-29 BLOOD UREA NITROGEN (BEAKER) 16 mg/dL 7-21 (test atuv=185) CREATININE (BEAKER) (test 0.61 mg/dL 0.57-1.25 ydzg=157) GLUCOSE RANDOM (BEAKER) 140 mg/dL 70-105 (test qkfc=177) CALCIUM (BEAKER) (test 6.9 mg/dL 8.4-10.2 nyge=754) EGFR (BEAKER) (test INSUFFICIENT CLINICAL DATA TO aadp=1568) CALCULATE ESTIMATED GFR. Death Surveys Coder ID - AARON [id number] 06:23:00 Test Item Value Reference Range Comments PHOSPHORUS (BEAKER) (test gosz=491) 0.8 mg/dL 2.3-4.7 Death Surveys Coder ID - AARON MCBC W/PLT COUNT & AUTO [id number] 06:13:00 Test Item Value Reference Range Comments WHITE BLOOD CELL COUNT (BEAKER) (test epqa=287) 8.3 K/ L 3.5-10.5 RED BLOOD CELL COUNT (BEAKER) (test jzkp=339) 4.26 M/ L 4.63-6.08 HEMOGLOBIN (BEAKER) (test mdaf=826) 11.9 GM/DL 13.7-17.5 HEMATOCRIT (BEAKER) (test saby=708) 35.8 % 40.1-51.0 MEAN CORPUSCULAR VOLUME (BEAKER) (test bzrg=473) 84.0 fL 79.0-92.2 MEAN CORPUSCULAR HEMOGLOBIN (BEAKER) (test 27.9 pg 25.7-32.2 ympl=408) MEAN CORPUSCULAR HEMOGLOBIN CONC (BEAKER) (test 33.2 GM/DL 32.3-36.5 lqyu=853) RED CELL DISTRIBUTION WIDTH (BEAKER) (test 13.1 % 11.6-14.4 euqf=772) PLATELET COUNT (BEAKER) (test mihc=071) 203 K/CU MM 150-450 MEAN PLATELET VOLUME (BEAKER) (test eixm=866) 10.4 fL 9.4-12.4 NUCLEATED RED BLOOD CELLS (BEAKER) (test 0 /100 WBC 0-0 vhxm=591) NEUTROPHILS RELATIVE PERCENT (BEAKER) (test 87 % zvgt=766) LYMPHOCYTES RELATIVE PERCENT (BEAKER) (test 8 % dkje=990) MONOCYTES RELATIVE PERCENT (BEAKER) (test 5 % qgyh=169) EOSINOPHILS RELATIVE PERCENT (BEAKER) (test 0 % egrp=469) BASOPHILS RELATIVE PERCENT (BEAKER) (test 0 % kyrq=315) NEUTROPHILS ABSOLUTE COUNT (BEAKER) (test 7.23 K/ L 1.78-5.38 qrva=430) LYMPHOCYTES ABSOLUTE COUNT (BEAKER) (test 0.63 K/ L 1.32-3.57 csul=056) MONOCYTES ABSOLUTE COUNT (BEAKER) (test 0.38 K/ L 0.30-0.82 ifyu=508) EOSINOPHILS ABSOLUTE COUNT (BEAKER) (test 0.00 K/ L 0.04-0.54 xwbs=076) BASOPHILS ABSOLUTE COUNT (BEAKER) (test 0.01 K/ L 0.01-0.08 hcyt=022) IMMATURE GRANULOCYTES-RELATIVE PERCENT (BEAKER) 1 % 0-1 (test rqfv=4567) [id number] 06:09:00 Test Item Value Reference Range Comments MAGNESIUM (BEAKER) (test yylt=334) 2.0 mg/dL 1.6-2.6 Death Surveys Coder ID - AARON MPOCT-GLUCOSE [id number] 22:25:00 Test Item Value Reference Range Comments POC-GLUCOSE METER (BEAKER) 184 mg/dL 70-110 : TESTED AT [facility] [address] [facility] (test fiui=0067) [facility], [address]: Death Surveys Coder/Smocker QO=[id number] for JAIME EMERSON BLOOD [id number] 17:00:00 Test Item Value Reference Range Comments CULTURE (BEAKER) (test ufpe=3655) No growth in 5 days TISSUE [id number] 15:58:00Surgical Pathology Report Case: [id number] Authorizing Provider: Lazarus Eden MD Collected: 10/17/2019 0355 Ordering Location: [facility] PERI[facility] Received: 10/17/2019 0852 SERVICES Pathologist: Ascencion Ibarra MD Specimen: Soft Tissue, Other, Brain tissue BRAIN, RIGHT FRONTAL, STEREOTACTIC BIOPSIES:WHITE AND JONES MATTER WITH MILD EDEMAWHITE MATTER WITH PERIVASCULAR CHRONIC INFLAMMATION AND GLIOSIS Signing Pathologist Direct Phone Line: [phone] signed by Ascencion Ibarra MD on 2019 at 3:58 PMNo acute inflammation or abscesses are identified.The tissue was examined in its entirety. Given the clinical and radiologic picture, the biopsies aremost likely not fully public service representative. Special stains for fungal, bacterial and acid-fast organisms are negative. Follow-up of microbiologic cultures is recommended. [id number]; 60119 x 3Right frontal brain abscess with aspirationRight frontal brain biopsyThe specimen is received in a single container labeled with the patient's name, MRN and corresponding accession number. A, Received in formalin labeled "brain tissue" are four irregular pieces of nix-pink tissue measuring 0.2 x 0.2 x 0.1 cm, 0.3 x 0.2 x0.1 cm and 0.8 x 0.3 x 0.3 cm. The specimen is submitted entirely in a single cassette. DH /plPerformedThe interpretation of this case included the use of immunohistochemistry or special stains.ControlSlides Examined: In-house known positive controls were evaluated along with the test tissue. Thesecontrol slides run alongside of the patients sample show appropriate staining. Internal positive andnegative controls when available are evaluated Immunohistochemistry technical testing was performed at [facility], Pathology Laboratory where it was developed and its performance characteristics were determined. It has not been cleared or approved by the U.S. Food and Drug Administration. The FDA has determined that such clearance or approval is not necessary. The test is used for clinical purposes. It should not be regarded as investigational or for research. This laboratory is certified under the Clinical Laboratory Improvement Amendments of 1988 (CLIA-88) as qualified to perform high complexity clinical laboratory testing.RAD, CHEST, 1 VIEW, NON [id number] 10:36:00Reason for exam:->post picc line insertionShould this be performed at the bedside?->YesFINAL REPORT CLINICAL HISTORY: post picc line insertion TECHNIQUE: 1 view ofthe chest. COMPARISON: CT 10/18/2019 IMPRESSION: A right PICC line terminates at the cavoatrial junction. There are no focal infiltrates or effusions. The cardiomediastinal silhouette is magnified by technique. The osseous structures appear intact. Signed: Mallory Howard MDReport Verified Date/Time: 10/21/2019 10 :36:39 Reading Location: [facility] Radiology Reading Room BASIC METABOLIC [id number] 04:10:00 Test Item Value Reference Range Comments SODIUM (BEAKER) (test 136 meq/L 136-145 xlzo=549) POTASSIUM (BEAKER) (test 4.0 meq/L 3.5-5.1 wuiv=447) CHLORIDE (BEAKER) (test 104 meq/L 98-107 ckqf=678) CO2 (BEAKER) (test ryva=850) 25 meq/L 22-29 BLOOD UREA NITROGEN (BEAKER) 19 mg/dL 7-21 (test nfaf=750) CREATININE (BEAKER) (test 0.72 mg/dL 0.57-1.25 zyrf=075) GLUCOSE RANDOM (BEAKER) 176 mg/dL 70-105 (test chrn=867) CALCIUM (BEAKER) (test 8.1 mg/dL 8.4-10.2 amqo=531) EGFR (BEAKER) (test INSUFFICIENT CLINICAL DATA TO xbce=5988) CALCULATE ESTIMATED GFR. Death Surveys Coder ID - AARON [id number] 04:09:00 Test Item Value Reference Range Comments PHOSPHORUS (BEAKER) (test jbra=611) 3.4 mg/dL 2.3-4.7 Death Surveys Coder ID - AARON [id number] 04:09:00 Test Item Value Reference Range Comments MAGNESIUM (BEAKER) (test pzky=323) 2.2 mg/dL 1.6-2.6 Death Surveys Coder ID - AARON MCBC W/PLT COUNT & AUTO [id number] 04:01:00 Test Item Value Reference Range Comments WHITE BLOOD CELL COUNT (BEAKER) (test mkff=178) 11.2 K/ L 3.5-10.5 RED BLOOD CELL COUNT (BEAKER) (test ptjj=417) 4.65 M/ L 4.63-6.08 HEMOGLOBIN (BEAKER) (test vzty=795) 13.3 GM/DL 13.7-17.5 HEMATOCRIT (BEAKER) (test yqzm=459) 38.9 % 40.1-51.0 MEAN CORPUSCULAR VOLUME (BEAKER) (test mwkg=053) 83.7 fL 79.0-92.2 MEAN CORPUSCULAR HEMOGLOBIN (BEAKER) (test 28.6 pg 25.7-32.2 siik=248) MEAN CORPUSCULAR HEMOGLOBIN CONC (BEAKER) (test 34.2 GM/DL 32.3-36.5 tvvz=991) RED CELL DISTRIBUTION WIDTH (BEAKER) (test 13.0 % 11.6-14.4 llmj=651) PLATELET COUNT (BEAKER) (test qnkm=115) 224 K/CU MM 150-450 MEAN PLATELET VOLUME (BEAKER) (test eeke=093) 10.4 fL 9.4-12.4 NUCLEATED RED BLOOD CELLS (BEAKER) (test 0 /100 WBC 0-0 zhhs=009) NEUTROPHILS RELATIVE PERCENT (BEAKER) (test 89 % fqhp=887) LYMPHOCYTES RELATIVE PERCENT (BEAKER) (test 8 % uvfw=588) MONOCYTES RELATIVE PERCENT (BEAKER) (test 3 % gafk=113) EOSINOPHILS RELATIVE PERCENT (BEAKER) (test 0 % szbf=652) BASOPHILS RELATIVE PERCENT (BEAKER) (test 0 % oxva=265) NEUTROPHILS ABSOLUTE COUNT (BEAKER) (test 9.90 K/ L 1.78-5.38 snng=436) LYMPHOCYTES ABSOLUTE COUNT (BEAKER) (test 0.85 K/ L 1.32-3.57 zsia=002) MONOCYTES ABSOLUTE COUNT (BEAKER) (test 0.34 K/ L 0.30-0.82 sjnp=957) EOSINOPHILS ABSOLUTE COUNT (BEAKER) (test 0.00 K/ L 0.04-0.54 bofn=634) BASOPHILS ABSOLUTE COUNT (BEAKER) (test 0.00 K/ L 0.01-0.08 zyfi=336) IMMATURE GRANULOCYTES-RELATIVE PERCENT (BEAKER) 1 % 0-1 (test pudx=2856) POCT-GLUCOSE [id number] 22:03:00 Test Item Value Reference Range Comments POC-GLUCOSE METER (BEAKER) 151 mg/dL 70-110 : TESTED AT [facility] [address] (test hucc=8637) [facility], [id number]: Death Surveys Coder/Smocker ZC=[id number] for JUANITA PAEZ VANCOMYCIN LEVEL, [id number] 21:09:00 Test Item Value Reference Range Comments VANCOMYCIN TROUGH (BEAKER) (test cjvh=293) 15.0 ug/mL 10.0-20.0 Death Surveys Coder ID - BSBASIC METABOLIC [id number] 03:49:00 Test Item Value Reference Range Comments SODIUM (BEAKER) (test 137 meq/L 136-145 pxkq=020) POTASSIUM (BEAKER) (test 4.0 meq/L 3.5-5.1 qpmz=300) CHLORIDE (BEAKER) (test 104 meq/L 98-107 cwxs=509) CO2 (BEAKER) (test igmq=558) 25 meq/L 22-29 BLOOD UREA NITROGEN (BEAKER) 16 mg/dL 7-21 (test yxyy=461) CREATININE (BEAKER) (test 0.81 mg/dL 0.57-1.25 fuob=855) GLUCOSE RANDOM (BEAKER) 166 mg/dL 70-105 (test nuot=107) CALCIUM (BEAKER) (test 8.5 mg/dL 8.4-10.2 kkcl=728) EGFR (BEAKER) (test INSUFFICIENT CLINICAL DATA TO gacp=9538) CALCULATE ESTIMATED GFR. Death Surveys Coder ID - AARON [id number] 03:46:00 Test Item Value Reference Range Comments PHOSPHORUS (BEAKER) (test xoxy=850) 3.0 mg/dL 2.3-4.7 Death Surveys Coder ID - AARON [id number] 03:46:00 Test Item Value Reference Range Comments MAGNESIUM (BEAKER) (test cjsu=543) 2.3 mg/dL 1.6-2.6 Death Surveys Coder ID - AARON [facility]BC W/PLT COUNT & AUTO [id number] 03:30:00 Test Item Value Reference Range Comments WHITE BLOOD CELL COUNT (BEAKER) (test sclk=402) 12.5 K/ L 3.5-10.5 RED BLOOD CELL COUNT (BEAKER) (test zmwj=945) 4.67 M/ L 4.63-6.08 HEMOGLOBIN (BEAKER) (test yuqk=799) 12.9 GM/DL 13.7-17.5 HEMATOCRIT (BEAKER) (test nqqp=938) 39.0 % 40.1-51.0 MEAN CORPUSCULAR VOLUME (BEAKER) (test dxby=416) 83.5 fL 79.0-92.2 MEAN CORPUSCULAR HEMOGLOBIN (BEAKER) (test 27.6 pg 25.7-32.2 ovec=950) MEAN CORPUSCULAR HEMOGLOBIN CONC (BEAKER) (test 33.1 GM/DL 32.3-36.5 xekp=035) RED CELL DISTRIBUTION WIDTH (BEAKER) (test 13.2 % 11.6-14.4 qpfb=773) PLATELET COUNT (BEAKER) (test pvpm=092) 214 K/CU MM 150-450 MEAN PLATELET VOLUME (BEAKER) (test uxuo=936) 10.0 fL 9.4-12.4 NUCLEATED RED BLOOD CELLS (BEAKER) (test 0 /100 WBC 0-0 iemc=701) NEUTROPHILS RELATIVE PERCENT (BEAKER) (test 87 % noff=081) LYMPHOCYTES RELATIVE PERCENT (BEAKER) (test 8 % seqz=322) MONOCYTES RELATIVE PERCENT (BEAKER) (test 5 % lefp=161) EOSINOPHILS RELATIVE PERCENT (BEAKER) (test 0 % bzta=415) BASOPHILS RELATIVE PERCENT (BEAKER) (test 0 % awtm=017) NEUTROPHILS ABSOLUTE COUNT (BEAKER) (test 10.89 K/ L 1.78-5.38 zkbl=864) LYMPHOCYTES ABSOLUTE COUNT (BEAKER) (test 0.98 K/ L 1.32-3.57 trjw=842) MONOCYTES ABSOLUTE COUNT (BEAKER) (test 0.56 K/ L 0.30-0.82 xlvn=970) EOSINOPHILS ABSOLUTE COUNT (BEAKER) (test 0.00 K/ L 0.04-0.54 lspo=325) BASOPHILS ABSOLUTE COUNT (BEAKER) (test 0.01 K/ L 0.01-0.08 cvdw=470) IMMATURE GRANULOCYTES-RELATIVE PERCENT (BEAKER) 1 % 0-1 (test vnuj=2280) POCT-GLUCOSE [id number] 23:00:00 Test Item Value Reference Range Comments POC-GLUCOSE METER (BEAKER) 187 mg/dL 70-110 : Notified RN/MD: TESTED AT (test vlxv=7077) [facility] [address] [facility], [address]: Death Surveys Coder/Smocker [id number] for MERLE CHARLES POCT-GLUCOSE [id number] 17:40:00 Test Item Value Reference Range Comments POC-GLUCOSE METER (BEAKER) 171 mg/dL 70-110 : Notified RN/MD: TESTED AT (test kaud=9935) [facility] [address] [facility], [address]: Death Surveys Coder/Smocker [id number] for Payton Mistry CT, BRAIN, WITHOUT [id number] 15:28:00FINAL REPORT CT, BRAIN, WITHOUT CONTRAST CLINICAL INDICATION: Altered mentalstatuss /p abscess evacuation COMPARISON: October 17, 2019 TECHNIQUE: Noncontrast axial CT imaging of the brain and skull. DOSE REDUCTION: Dose modulation, iterative reconstruction, and/or weight-based adjustment of the mA/kV was utilized to reduce the radiation dose to as low as reasonably achievable.FINDINGS:Surgical changes compatible with provided history of abscess evacuation. Minimal hemorrhagic material is noted at the abscess site as well as small volume pneumocephalus. Edema distorts the right hemispheric architecture with approximately 3 mm leftward midline shift at the level of the foramen of Monro. Calvarial access flap is anatomically positioned. There is small volume gas and fluid inthe subgaleal space. No interval infarct or new parenchymal hemorrhage has developed. There is no hydrocephalus. IMPRESSION: Status post abscess evacuation with hemorrhagic material around the surgicaltract. Grossly stable edema and persistent residual mass effect. Signed: JR Madrigal Robert MDReport Verified Date/Time: 10/19/2019 15:28:54 Reading Location: [address] Neuro Reading Room SURGICALLY OBTAINED CULTURE + GRAM [id number] 14:34:00 Test Item Value Reference Range Comments CULTURE (BEAKER) (test ebwz=8838) No growth GRAM STAIN RESULT (BEAKER) (test No White blood cells seen izek=8888) GRAM STAIN RESULT (BEAKER) (test No organisms seen rous=07807) POCT-GLUCOSE [id number] 11:29:00 Test Item Value Reference Range Comments POC-GLUCOSE METER (BEAKER) 180 mg/dL 70-110 : TESTED AT [facility] [address] [facility] (test zgcc=9328) [facility], [address]: Death Surveys Coder/Smocker [id number] for ELIAS MALCOLM CBC W/PLT COUNT & AUTO [id number] 06:29:00 Test Item Value Reference Range Comments WHITE BLOOD CELL COUNT (BEAKER) (test hzdo=028) 9.8 K/ L 3.5-10.5 RED BLOOD CELL COUNT (BEAKER) (test lrki=327) 4.87 M/ L 4.63-6.08 HEMOGLOBIN (BEAKER) (test culz=064) 13.7 GM/DL 13.7-17.5 HEMATOCRIT (BEAKER) (test gtry=447) 41.0 % 40.1-51.0 MEAN CORPUSCULAR VOLUME (BEAKER) (test awdr=899) 84.2 fL 79.0-92.2 MEAN CORPUSCULAR HEMOGLOBIN (BEAKER) (test 28.1 pg 25.7-32.2 kioj=385) MEAN CORPUSCULAR HEMOGLOBIN CONC (BEAKER) (test 33.4 GM/DL 32.3-36.5 ynjd=373) RED CELL DISTRIBUTION WIDTH (BEAKER) (test 13.2 % 11.6-14.4 gotg=276) PLATELET COUNT (BEAKER) (test rkyl=635) 223 K/CU MM 150-450 MEAN PLATELET VOLUME (BEAKER) (test jtgq=682) 11.0 fL 9.4-12.4 NUCLEATED RED BLOOD CELLS (BEAKER) (test 0 /100 WBC 0-0 mumy=540) NEUTROPHILS RELATIVE PERCENT (BEAKER) (test 89 % tpxp=653) LYMPHOCYTES RELATIVE PERCENT (BEAKER) (test 8 % udmr=809) MONOCYTES RELATIVE PERCENT (BEAKER) (test 2 % atch=106) EOSINOPHILS RELATIVE PERCENT (BEAKER) (test 0 % dide=636) BASOPHILS RELATIVE PERCENT (BEAKER) (test 0 % ocuk=877) NEUTROPHILS ABSOLUTE COUNT (BEAKER) (test 8.74 K/ L 1.78-5.38 webw=656) LYMPHOCYTES ABSOLUTE COUNT (BEAKER) (test 0.76 K/ L 1.32-3.57 tpwu=124) MONOCYTES ABSOLUTE COUNT (BEAKER) (test 0.22 K/ L 0.30-0.82 gzpe=625) EOSINOPHILS ABSOLUTE COUNT (BEAKER) (test 0.00 K/ L 0.04-0.54 oqrc=575) BASOPHILS ABSOLUTE COUNT (BEAKER) (test 0.00 K/ L 0.01-0.08 qqeo=543) IMMATURE GRANULOCYTES-RELATIVE PERCENT (BEAKER) 1 % 0-1 (test iimj=6957) BASIC METABOLIC [id number] 05:44:00 Test Item Value Reference Range Comments SODIUM (BEAKER) (test 135 meq/L 136-145 bhvj=672) POTASSIUM (BEAKER) (test 4.1 meq/L 3.5-5.1 mnra=592) CHLORIDE (BEAKER) (test 100 meq/L 98-107 pstt=698) CO2 (BEAKER) (test xqtx=297) 25 meq/L 22-29 BLOOD UREA NITROGEN (BEAKER) 13 mg/dL 7-21 (test tupv=784) CREATININE (BEAKER) (test 0.91 mg/dL 0.57-1.25 ijks=448) GLUCOSE RANDOM (BEAKER) 182 mg/dL 70-105 (test qdqt=928) CALCIUM (BEAKER) (test 8.9 mg/dL 8.4-10.2 zhnv=387) EGFR (BEAKER) (test INSUFFICIENT CLINICAL DATA TO fumv=2442) CALCULATE ESTIMATED GFR. Death Surveys Coder ID - AARON [id number] 05:42:00 Test Item Value Reference Range Comments PHOSPHORUS (BEAKER) (test yvzf=176) 3.4 mg/dL 2.3-4.7 Death Surveys Coder ID - AARON [id number] 05:42:00 Test Item Value Reference Range Comments MAGNESIUM (BEAKER) (test fejx=390) 2.2 mg/dL 1.6-2.6 Death Surveys Coder ID - AARON MVANCOMYCIN LEVEL, [id number] 05:36:00 Test Item Value Reference Range Comments VANCOMYCIN TROUGH (BEAKER) (test ltiq=999) 6.8 ug/mL 10.0-20.0 Death Surveys Coder ID - AARON MMR, BRAIN, [id number] 01:40:00STEALTH protocolFINAL REPORT MRI Brain with and without contrast Clinical History: Preoperative planning Technique: MRI of the brain utilizing axial T1, T2, FLAIR, GRE, DWI, sagittal T1; and postgadolinium axial, sagittal, and coronal T1-weighted images. Comparisons: MRI brain dated 10/16/2019. Findings: Postsurgical changes of a right frontal sloan hole for sampling of the previously demonstrated rim-enhancing lesion in the right frontal lobe . There is persistent hemorrhage along the surgical tract extending along the posterior margin of the lesion with associated enhancement, likely reactivehowever developing cerebritis can have this appearance recommend continued close attention on follow-up imaging.. There is apparently new hemorrhage along the medial aspect of the lesion extending intothe right corpora striata. The lesion is not significantly changed in size in the interval measuring1.7 x 1.0 x 1.1 cm , previously 1.5 x1.3 x 1.0 cm when measured similarly. There is restricted diffusion within the central aspect of the lesion suggestive of central necrosis. Persistent abnormal FLAIR/T2 hyperintense signal surrounding the lesion extending into the right basal ganglia and the body ofthe corpus callosum. Within the areas of edema there are innumerable foci of hypointense SWI signal,given appearance on T2-weighted imaging and postcontrast imaging these findings may represent abnormal vasculature versus perivascular enhancement not definitively seen on the prior examination howeverdifferences in technique limit this comparison. Unchanged mass effect on adjacent structures including the right lateral ventricle with mild effacement of the right cerebral hemisphere sulci. Grossly unchanged leftward midline shift measuring approximately 6 mm. There is no evidence of acute infarct . The craniocervical junction is preserved. The major intracranial flow-voids appear patent. Mucosalthickening in the left maxillary sinus. Middle ears and mastoid air cells are clear. Intraorbital contents are unremarkable. No aggressive osseous or soft tissue lesions identified. IMPRESSION: Postsurgical changes of a right frontal sloan hole for sampling of the previously demonstrated rim- enhancinglesion in the right frontal lobe with persistent hemorrhage along the surgical tract and associated enhancement, likely reactive however developing cerebritis can have this appearance recommend continued close attention on follow-up imaging. New hemorrhage along the medial aspect of the lesion extending into the right corpora striata. Grossly unchanged appearance of the lesion with surrounding T2 FLAIR signal abnormality. However with and the areas of edema there are innumerable foci of hypointenseSWI signal, given appearance on T2-weighted imaging and postcontrast imaging these findings may represent abnormal vasculature versus perivascular enhancement not definitively seen on the prior examination however differences in technique limit this comparison. Signed: Jairo Barry MDReport Verified Date/Time: 10/19/2019 01:40:31 POCT -GLUCOSE [id number] 22:39:00 Test Item Value Reference Range Comments POC-GLUCOSE METER (BEAKER) 213 mg/dL 70-110 : Notified RN/MD: TESTED AT (test axrf=2158) [facility] [address] [facility], [address]: Death Surveys Coder/Smocker [id number] for MERLE CHARLES POCT-GLUCOSE [id number] 18:24:00 Test Item Value Reference Range Comments POC-GLUCOSE METER (BEAKER) 209 mg/dL 70-110 : TESTED AT [facility] [address] [facility] (test mzjo=1495) [facility], [address]: Death Surveys Coder/Smocker [id number] for GIANNA HICKS CT, [id number] 15:02:00FINAL REPORT DOSE REDUCTION : The examination was performed according to departmental dose-optimization program which includes automated exposure control, adjustment of the mA and/or kV according to patient size and/or use of iterative reconstruction technique. TECHNIQUE: CT of the chest, abdomen, and pelvis with intravenous contrast. Oral contrast was not administered. COMPARISON: None Discussion: No pleural effusions. There is atelectasis in the left lung base. An approximately 2 x 1.0 cm opacity abutting the pleural surface in the right lower lobe posteriorly most likely represents an additional area of atelectasis or scarring. Scattered subsegmental atelectasis elsewhere.Mild emphysematous/cystic changes in the apices seen. Otherwise no definite suspicious lung nodule or mass. No focal consolidation. Aorta and great vessels are unremarkable. Heart is normal in size. Nopericardial effusion. There is decreased liver density consistent with fatty infiltration. No suspicious liver lesion. Spleen, pancreas, adrenal glands appear unremarkable. Status post cholecystectomy.No biliary ductal dilatation. There is an exophytic 1.0 cm intermediate density lesion arising fromthe left kidney. This is likely hemorrhagic or proteinaceous cyst. Otherwise kidneys are unremarkable. Small hiatal hernia. There is colonic diverticulosis without findings of diverticulitis. Otherwiseunopacified small bowel, colon, and appendix appear unremarkable. No ascites or lymphadenopathy. Scattered vascular calcifications. Aorta and IVC are normal in caliber. Prostate gland is prominent in size measuring 5 x 5 cm. Bladder is unremarkable. Left inguinal hernia containing fat. Mild soft tissue stranding along the back. No acute skeletal abnormality..IMPRESSION: 1. Focal opacity abutting the pleural surface in the right lower lobe posteriorly is most likely atelectasis or scarring rather than malignancy. Further correlation with PET/CT suggested. 2. Left lung base atelectasis. Scattered curvilinear densities bilaterally likely atelectasis or scarring. 3. Enlarged prostate gland. 4. Intermediate density lesion arising from the left kidney most likely hemorrhagic or proteinaceous cyst. Thiscould be evaluated with renal protocol CT or MRI. 5. Otherwise no definite malignancy or metastatic disease in the chest, abdomen, and pelvis. Signed: Christopher Liu MDReport Verified Date/Time: 15:02:18 Reading Location: [address] Transitional Reading Room CT, CHEST, WITH [id number] 15:02:00FINAL REPORT DOSE REDUCTION: The examination was performed according to departmental dose- optimization program which includes automated exposure control, adjustment of the mA and/or kV according to patient size and/or use of iterative reconstruction technique. TECHNIQUE: CT of the chest, abdomen, and pelvis with intravenous contrast. Oral contrast was not administered. COMPARISON: None Discussion: No pleural effusions. There is atelectasis in the left lung base. An approximately 2 x 1.0 cm opacity abutting the pleural surface in the right lower lobe posteriorly most likely represents an additional area of atelectasis or scarring. Scattered subsegmental atelectasis elsewhere.Mild emphysematous/ cystic changes in the apices seen. Otherwise no definite suspicious lung nodule or mass. No focal consolidation. Aorta and great vessels are unremarkable. Heart is normal in size. Nopericardial effusion. There is decreased liver density consistent with fatty infiltration. No suspicious liver lesion. Spleen, pancreas, adrenal glands appear unremarkable. Status post cholecystectomy.No biliary ductal dilatation. There is an exophytic 1.0 cm intermediate density lesion arising fromthe left kidney. This is likely hemorrhagic or proteinaceous cyst. Otherwise kidneys are unremarkable. Small hiatal hernia. There is colonic diverticulosis without findings of diverticulitis. Otherwiseunopacified small bowel, colon, and appendix appear unremarkable. No ascites or lymphadenopathy. Scattered vascular calcifications. Aorta and IVC are normal in caliber. Prostate gland is prominent in size measuring 5 x 5 cm. Bladder is unremarkable. Left inguinal hernia containing fat. Mild soft tissue stranding along the back. No acute skeletal abnormality..IMPRESSION: 1. Focal opacity abutting the pleural surface in the right lower lobe posteriorly is most likely atelectasis or scarring rather than malignancy. Further correlation with PET/CT suggested. 2. Left lung base atelectasis. Scattered curvilinear densities bilaterally likely atelectasis or scarring. 3. Enlarged prostate gland. 4. Intermediate density lesion arising from the left kidney most likely hemorrhagic or proteinaceous cyst. Thiscould be evaluated with renal protocol CT or MRI. 5. Otherwise no definite malignancy or metastatic disease in the chest, abdomen, and pelvis. Signed: Christopher Liu MDReport Verified Date/Time: 15:02:18 Reading Location: [address] Transitional Reading Room POCT-GLUCOSE [id number] 08:09:00 Test Item Value Reference Range Comments POC-GLUCOSE METER (BEAKER) 114 mg/dL 70-110 : Notified RN/MD: TESTED AT (test wugu=2078) [facility] [address] [facility], [address]: Death Surveys Coder/Smocker [id number] for MEHRAN JANE BASIC METABOLIC [id number] 05:37:00 Test Item Value Reference Range Comments SODIUM (BEAKER) (test 137 meq/L 136-145 rsnz=352) POTASSIUM (BEAKER) (test 4.1 meq/L 3.5-5.1 bigz=870) CHLORIDE (BEAKER) (test 107 meq/L 98-107 ahim=640) CO2 (BEAKER) (test bucg=551) 24 meq/L 22-29 BLOOD UREA NITROGEN (BEAKER) 13 mg/dL 7-21 (test ymiw=310) CREATININE (BEAKER) (test 0.84 mg/dL 0.57-1.25 nqhs=856) GLUCOSE RANDOM (BEAKER) 119 mg/dL 70-105 (test kwwh=360) CALCIUM (BEAKER) (test 8.3 mg/dL 8.4-10.2 qwot=896) EGFR (BEAKER) (test INSUFFICIENT CLINICAL DATA TO hugx=2278) CALCULATE ESTIMATED GFR. Death Surveys Coder ID - AARON MCBC W/PLT COUNT & AUTO [id number] 05:25:00 Test Item Value Reference Range Comments WHITE BLOOD CELL COUNT (BEAKER) (test ises=253) 11.6 K/ L 3.5-10.5 RED BLOOD CELL COUNT (BEAKER) (test telf=248) 4.64 M/ L 4.63-6.08 HEMOGLOBIN (BEAKER) (test kfnb=205) 13.0 GM/DL 13.7-17.5 HEMATOCRIT (BEAKER) (test ldoi=998) 40.1 % 40.1-51.0 MEAN CORPUSCULAR VOLUME (BEAKER) (test knbq=520) 86.4 fL 79.0-92.2 MEAN CORPUSCULAR HEMOGLOBIN (BEAKER) (test 28.0 pg 25.7-32.2 jlqp=664) MEAN CORPUSCULAR HEMOGLOBIN CONC (BEAKER) (test 32.4 GM/DL 32.3-36.5 mcox=156) RED CELL DISTRIBUTION WIDTH (BEAKER) (test 13.7 % 11.6-14.4 wozy=560) PLATELET COUNT (BEAKER) (test rbof=028) 217 K/CU MM 150-450 MEAN PLATELET VOLUME (BEAKER) (test rerp=688) 10.8 fL 9.4-12.4 NUCLEATED RED BLOOD CELLS (BEAKER) (test 0 /100 WBC 0-0 jluu=935) NEUTROPHILS RELATIVE PERCENT (BEAKER) (test 73 % jlfi=892) LYMPHOCYTES RELATIVE PERCENT (BEAKER) (test 21 % tqzx=897) MONOCYTES RELATIVE PERCENT (BEAKER) (test 6 % yoxf=622) EOSINOPHILS RELATIVE PERCENT (BEAKER) (test 0 % yppu=757) BASOPHILS RELATIVE PERCENT (BEAKER) (test 0 % rrlr=741) NEUTROPHILS ABSOLUTE COUNT (BEAKER) (test 8.44 K/ L 1.78-5.38 bkfd=084) LYMPHOCYTES ABSOLUTE COUNT (BEAKER) (test 2.42 K/ L 1.32-3.57 rvlq=922) MONOCYTES ABSOLUTE COUNT (BEAKER) (test 0.65 K/ L 0.30-0.82 pdlw=200) EOSINOPHILS ABSOLUTE COUNT (BEAKER) (test 0.01 K/ L 0.04-0.54 zxmv=073) BASOPHILS ABSOLUTE COUNT (BEAKER) (test 0.03 K/ L 0.01-0.08 wmgh=816) IMMATURE GRANULOCYTES-RELATIVE PERCENT (BEAKER) 0 % 0-1 (test lswq=3556) POCT-GLUCOSE [id number] 22:02:00 Test Item Value Reference Range Comments POC-GLUCOSE METER (BEAKER) 168 mg/dL 70-110 : TESTED AT [address] (test iejj=8831) [facility], [address]: Death Surveys Coder/Smocker [id number] for JUANITA PAEZ POCT-GLUCOSE [id number] 19:14:00 Test Item Value Reference Range Comments POC-GLUCOSE METER (BEAKER) 112 mg/dL 70-110 : TESTED AT [address] (test wrku=7861) [facility], [address]: Death Surveys Coder/Smocker [id number] for Linda Weinstein POCT-GLUCOSE [id number] 18:00:00 Test Item Value Reference Range Comments POC-GLUCOSE METER (BEAKER) 157 mg/dL 70-110 : TESTED AT [address] (test xoyf=7527) [facility], [address]: Death Surveys Coder/Smocker [id number] for DONNY MUELLER POCT-GLUCOSE [id number] 13:17:00 Test Item Value Reference Range Comments POC-GLUCOSE METER (BEAKER) 161 mg/dL 70-110 : TESTED AT [address] (test dgzh=2130) [facility], [address]: Death Surveys Coder/Smocker YZ=[id number] for EMILYANASTASIIAMER BASIC METABOLIC [id number] 11:52:00 Test Item Value Reference Range Comments SODIUM (BEAKER) (test 136 meq/L 136-145 nqqs=125) POTASSIUM (BEAKER) (test 4.3 meq/L 3.5-5.1 yujg=656) CHLORIDE (BEAKER) (test 105 meq/L 98-107 sviv=400) CO2 (BEAKER) (test kruk=690) 22 meq/L 22-29 BLOOD UREA NITROGEN (BEAKER) 14 mg/dL 7-21 (test aqsv=914) CREATININE (BEAKER) (test 0.95 mg/dL 0.57-1.25 otan=951) GLUCOSE RANDOM (BEAKER) 187 mg/dL 70-105 (test txof=545) CALCIUM (BEAKER) (test 8.5 mg/dL 8.4-10.2 zkmm=515) EGFR (BEAKER) (test INSUFFICIENT CLINICAL DATA TO kevh=4748) CALCULATE ESTIMATED GFR. Death Surveys Coder ID - NTPCBC W/PLT COUNT & AUTO [id number] 11:30:00 Test Item Value Reference Range Comments WHITE BLOOD CELL COUNT (BEAKER) (test klgu=436) 13.4 K/ L 3.5-10.5 RED BLOOD CELL COUNT (BEAKER) (test hcpe=386) 4.54 M/ L 4.63-6.08 HEMOGLOBIN (BEAKER) (test qlmr=229) 12.9 GM/DL 13.7-17.5 HEMATOCRIT (BEAKER) (test jcvj=419) 38.5 % 40.1-51.0 MEAN CORPUSCULAR VOLUME (BEAKER) (test lrqw=393) 84.8 fL 79.0-92.2 MEAN CORPUSCULAR HEMOGLOBIN (BEAKER) (test 28.4 pg 25.7-32.2 fazp=316) MEAN CORPUSCULAR HEMOGLOBIN CONC (BEAKER) (test 33.5 GM/DL 32.3-36.5 xwmd=620) RED CELL DISTRIBUTION WIDTH (BEAKER) (test 13.4 % 11.6-14.4 kaux=127) PLATELET COUNT (BEAKER) (test agbn=748) 222 K/CU MM 150-450 MEAN PLATELET VOLUME (BEAKER) (test atup=709) 10.4 fL 9.4-12.4 NUCLEATED RED BLOOD CELLS (BEAKER) (test 0 /100 WBC 0-0 ojnu=767) NEUTROPHILS RELATIVE PERCENT (BEAKER) (test 91 % bkso=622) LYMPHOCYTES RELATIVE PERCENT (BEAKER) (test 6 % uerq=060) MONOCYTES RELATIVE PERCENT (BEAKER) (test 3 % mgle=828) EOSINOPHILS RELATIVE PERCENT (BEAKER) (test 0 % mvfl=637) BASOPHILS RELATIVE PERCENT (BEAKER) (test 0 % nuzc=484) NEUTROPHILS ABSOLUTE COUNT (BEAKER) (test 12.17 K/ L 1.78-5.38 eyhs=665) LYMPHOCYTES ABSOLUTE COUNT (BEAKER) (test 0.78 K/ L 1.32-3.57 wlmt=549) MONOCYTES ABSOLUTE COUNT (BEAKER) (test 0.43 K/ L 0.30-0.82 juvi=122) EOSINOPHILS ABSOLUTE COUNT (BEAKER) (test 0.00 K/ L 0.04-0.54 cftb=641) BASOPHILS ABSOLUTE COUNT (BEAKER) (test 0.01 K/ L 0.01-0.08 wgiu=974) IMMATURE GRANULOCYTES-RELATIVE PERCENT (BEAKER) 0 % 0-1 (test hmxw=4277) HEMOGLOBIN [id number] 10:02:00 Test Item Value Reference Range Comments HEMOGLOBIN A1C (BEAKER) (test cxii=580) 7.0 % 4.3-6.1 CT, BRAIN, WITHOUT [id number] 04:49:00Anesthesia:->GeneralFINAL REPORT CT Head without contrast CLINICAL HISTORY: Cerebral hemorrhage suspected TECHNIQUE: Contiguous axial images through the head without contrast. This exam was performed according to the departmental dose optimization program which includes automated exposure control, adjustment of the mA and/or kV according to the patient size, and/or use of an iterative reconstruction technique. COMPARISON: CT head dated 10/16/2019. FINDINGS: Postsurgical changes of a right frontal sloan hole for sampling of the previously demonstrated rim-enhancing lesion in the right frontal lobe is not significantly changed in the interval. There is small volume hemorrhage along the surgical tract. Persistent edema surrounding the lesion extending into the body of the corpus callosum and right basal ganglia with mass effect on adjacent structures including the right lateral ventricle. Approximately 2 mm of leftward midline shift. No large territory acute infarction.Bilateral basal ganglia calcifications.Basilar cisterns are patent. Polypoid mucosal thickening in the bilateral maxillary sinuses. Intraorbital contents are unremarkable. IMPRESSION: Postsurgical changes of a right frontal sloan hole for sampling of the previously demonstrated rim-enhancing lesion in the right frontal lobe is not significantly changed in the interval. There is small volume hemorrhage along the surgical tract. Otherwise unchanged examination the interval. Signed: Jairo Barry [facility] Verified Date/Time: 10/17/2019 04:49:18 BLOOD GAS, [id number] 04:24:00 Test Item Value Reference Range Comments PH ARTERIAL (BEAKER) (test vkit=973) 7.40 7.35-7.45 PCO2 ARTERIAL (BEAKER) (test vlys=190) 33 mmHg 35-45 PO2 ARTERIAL (BEAKER) (test oybp=160) 296 mmHg 80-90 O2 SATURATION ARTERIAL (BEAKER) (test exja=772) 99.7 % 96.0-97.0 HCO3 ARTERIAL (BEAKER) (test jgjv=726) 20 mmol/L 21-29 BASE EXCESS ARTERIAL (BEAKER) (test tqzs=120) -4.1 mmol/L -2.0-3.0 PATIENT TEMPERATURE (BEAKER) (test baua=4666) 35.4 C FIO2 (BEAKER) (test ibyc=5090) 100.0 % CALCIUM, [id number] 04:24:00 Test Item Value Reference Range Comments CALCIUM IONIZED (BEAKER) (test jvfw=643) 1.04 mmol/L 1.12-1.27 PH, BLOOD (BEAKER) (test cbsw=0963) 7.38 HGB/HCT (H&H) - STAT [id number] 04:24:00 Test Item Value Reference Range Comments HEMOGLOBIN (BEAKER) (test wcpx=442) 12.3 g/dL 13.0-16.8 HEMATOCRIT (BEAKER) (test lwvl=162) 36.0 % 40.0-50.0 GLUCOSE-STAT [id number] 04:24:00 Test Item Value Reference Range Comments GLUCOSE RANDOM (BEAKER) (test ikhh=570) 159 mg/dL 70-110 SODIUM NA-STAT [id number] 04:15:00 Test Item Value Reference Range Comments SODIUM (BEAKER) (test fcmz=155) 137 meq/L 135-148 POTASSIUM-STAT [id number] 04:15:00 Test Item Value Reference Range Comments POTASSIUM (BEAKER) (test wiwb=143) 3.7 meq/L 3.6-5.5 [id number] 02:00:00 Test Item Value Reference Range Comments RPR SCREEN (BEAKER) (test wpji=027) Nonreactive Nonreactive MR, BRAIN, WITHOUT [id number] 01:52:00STEALTH protocol FLAIR sequence onlyFINAL REPORT MRI Brain with contrast Clinical History : preoperative Technique: Stealth protocol MRI of the brain utilizing axial T1- weighted, axial , coronal and sagittal FLAIR images. Comparisons: Same day MRI brain. Findings: Please note that these specifically requested treatment planning sequences do not constitute a full diagnostic examination. Again seen is the heterogeneous lesion with peripheral rim of T2 shortening in central T2 hyperintensity within the right centrumsemiovale with surrounding T2 hyperintense signal /edema which extends to the body of the corpus callosum and right basal ganglia. Mucous retention cyst in the left maxillary sinus.Nonspecific FLAIR hyperintense signal in the left centrum semiovale.IMPRESSION: Stealth protocol MRI of the brain for treatment planning purposes as described above. Signed: Jairo Barryort Verified Date/ Time: 10/17/2019 01:52:55 CT, BRAIN, WITHOUT [id number] 20:57:00EAL protocolReason for exam:->Preoperative - STEALTH protocolFINAL REPORT CT, BRAIN, WITHOUT CONTRAST INDICATION: Preoperative - STEALTH protocolPreoperative TECHNIQUE: Noncontrast axial imaging was obtained from the vertex to the skull base. Axial images were reconstructed using a bone algorithm. Stealth neuronavigational protocol. DOSE REDUCTION: Dose modulation, iterative reconstruction, and/or weight-based adjustment of the mA/kV wasutilized to reduce the radiation dose to as low as reasonably achievable. COMPARISON: Same day MRI brain FINDINGS: Intracranial: Previously demonstrated rim-enhancing lesion within the right frontal lobe, and associated extensive vasogenic edema with regional mass effect on the right frontal sulci andright lateral ventricle, unchanged. No intracranial hemorrhage or abnormal extra- axial collection. No evidence of acute territorial infarct. No hydrocephalus. Osseous structures: No fracture. No suspicious lesion. Paranasal sinuses and mastoid air cells: No evidence of sinusitis. Mastoids are clear. Orbital contents: Globes are intact. IMPRESSION: Preoperative planning exam. No significant change in right frontal lobe lesion and associated extensive vasogenic edema and mass effect. Signed: Jane Goode MDReport Verified Date/ Time: 10/16/2019 20:57:43 [id number] 20:06:00 Test Item Value Reference Range Comments PROTIME (BEAKER) (test nawt=990) 13.5 seconds 11.9-14.2 INR (BEAKER) (test ahek=062) 1.1 <=5.9 PARTIAL THROMBOPLASTIN TIME (BEAKER) (test 29.9 seconds 22.5-36.0 jgff=564) Effective 01/01/2019: PT Reference Range ChangeNew: 11.9-14.2 Previous: 11.7- 14.7RECOMMENDED COUMADIN/WARFARIN INR THERAPY RANGESSTANDARD DOSE: 2.0-3.0 Includes: PROPHYLAXIS for venous thrombosis, systemic embolization; TREATMENT for venous thrombosis and/or pulmonary embolus.HIGH RISK: Target INR is2.5-3.5 for patients wiht mechanical heart valves.T4, [id number] 17:55:00 Test Item Value Reference Range Comments FREE T4 (BEAKER) (test chiq=176) 0.99 ng/dL 0.70-1.48 Death Surveys Coder ID - HIV-1 ANTIGEN WITH HIV-1/2 [id number] 17:22:00 Test Item Value Reference Range Comments HIV-1 ANTIGEN WITH HIV 1\\T\\2 ANTIBODY (2) Nonreactive Nonreactive (BEAKER) (test ostt=1055) Death Surveys Coder ID - [id number] 17:15:00 Test Item Value Reference Range Comments HOMOCYSTEINE (BEAKER) (test glli=542) 3.8 umol/L 5.1-15.4 Death Surveys Coder ID - AUG CTSH/FREE T4 IF [id number] 17:15:00 Test Item Value Reference Range Comments THYROID STIMULATING HORMONE (BEAKER) (test 0.35 uIU/mL 0.35-4.94 jjnt=903) Death Surveys Coder ID - AUG CVITAMIN B12 AND [id number] 17:15:00 Test Item Value Reference Range Comments VITAMIN B12 (BEAKER) (test drft=628) 620 pg/mL 213-816 FOLATE (BEAKER) (test qmyp=793) 13.4 ng/mL >=7.0 Death Surveys Coder ID - AUG CMR, BRAIN, [id number] 15:34:00FINAL REPORT MR, BRAIN, WITH \\T\\ WITHOUT CONTRAST INDICATION: Brain mass or lesion, follow-up TECHNIQUE: Multiplanar, multisequence MR imaging of the brain prior to and followingintravenous administration of contrast. COMPARISON: None FINDINGS: Intracranial: There is a rim-enhancing lesion within the right mesial frontal lobe marcus radiata, with avid restricted diffusion andextensive surrounding vasogenic edema throughout the right frontal lobe. The imaging features are characteristic for abscess. There is mild compression of the right lateral ventricle and effacement of the regional sulci. No significant midline shift or cisternal effacement. No acute intracranial hemorrhage. No restricted diffusion outside of the lesion to suggest acute infarct. No hydrocephalus. Visualized intracranial flow voids are of normal course and caliber. Sinuses: No evidence of sinusitis. Mastoids are clear. Orbits: Globes are intact. Calvarium \\T\\ scalp: Unremarkable. IMPRESSION:Right frontal lobe rim-enhancing lesion with imaging features characteristic of intracranial abscess. The findings were discussed with Dr. Lange on 10/16/2019 3:32 PM. Signed: Jane Goode MDReport Verified Date/Time: 10/16/2019 15:34:45 03:34 PMLIPID [id number] 13:44 :00 Test Item Value Reference Range Comments TRIGLYCERIDES (BEAKER) (test liwz=788) 51 mg/dL CHOLESTEROL (BEAKER) (test xreu=327) 166 mg/dL HDL CHOLESTEROL (BEAKER) (test djjz=938) 42 mg/dL LDL CHOLESTEROL CALCULATED (AKER) (test 114 mg/dL nmak=049) Triglyceride Reference Range: Low Risk <150 Borderline 150- 199 High Risk 200-499 Very High Risk >=500Cholesterol Reference Range: Low Risk <200 Borderline 200-239 High Risk > 240HDL Cholesterol Reference Range: Low Risk >=60 High Risk <40LDL Cholesterol Reference Range: Optimal <100 Near Optimal 100-129 Borderline 130-159 High 160-189 Very High >=190 [facility]ly [facility] FCBC W/PLT COUNT & AUTO [id number] 07:30:00 Test Item Value Reference Range Comments WHITE BLOOD CELL COUNT (BEAKER) (test pysz=847) 5.4 K/ L 3.5-10.5 RED BLOOD CELL COUNT (BEAKER) (test repd=605) 4.91 M/ L 4.63-6.08 HEMOGLOBIN (BEAKER) (test rkbs=287) 13.7 GM/DL 13.7-17.5 HEMATOCRIT (BEAKER) (test fycd=205) 41.8 % 40.1-51.0 MEAN CORPUSCULAR VOLUME (BEAKER) (test lddb=601) 85.1 fL 79.0-92.2 MEAN CORPUSCULAR HEMOGLOBIN (BEAKER) (test 27.9 pg 25.7-32.2 uhfa=974) MEAN CORPUSCULAR HEMOGLOBIN CONC (BEAKER) (test 32.8 GM/DL 32.3-36.5 scmr=285) RED CELL DISTRIBUTION WIDTH (BEAKER) (test 13.5 % 11.6-14.4 ajjp=002) PLATELET COUNT (BEAKER) (test wums=741) 211 K/CU MM 150-450 MEAN PLATELET VOLUME (BEAKER) (test oerl=469) 10.4 fL 9.4-12.4 NUCLEATED RED BLOOD CELLS (BEAKER) (test 0 /100 WBC 0-0 xbhp=629) NEUTROPHILS RELATIVE PERCENT (BEAKER) (test 84 % gtqp=248) LYMPHOCYTES RELATIVE PERCENT (BEAKER) (test 14 % bpma=479) MONOCYTES RELATIVE PERCENT (BEAKER) (test 1 % kxdg=269) EOSINOPHILS RELATIVE PERCENT (BEAKER) (test 0 % ljeh=649) BASOPHILS RELATIVE PERCENT (BEAKER) (test 0 % fwlg=900) NEUTROPHILS ABSOLUTE COUNT (BEAKER) (test 4.53 K/ L 1.78-5.38 xcqv=189) LYMPHOCYTES ABSOLUTE COUNT (BEAKER) (test 0.76 K/ L 1.32-3.57 rlwj=754) MONOCYTES ABSOLUTE COUNT (BEAKER) (test 0.07 K/ L 0.30-0.82 coaf=632) EOSINOPHILS ABSOLUTE COUNT (BEAKER) (test 0.01 K/ L 0.04-0.54 bhey=222) BASOPHILS ABSOLUTE COUNT (BEAKER) (test 0.02 K/ L 0.01-0.08 zmjd=738) IMMATURE GRANULOCYTES-RELATIVE PERCENT (BEAKER) 0 % 0-1 (test jgsc=6033) BASIC METABOLIC [id number] 07:07:00 Test Item Value Reference Range Comments SODIUM (BEAKER) (test 134 meq/L 136-145 dquv=238) POTASSIUM (BEAKER) (test 4.2 meq/L 3.5-5.1 pweq=856) CHLORIDE (BEAKER) (test 105 meq/L 98-107 fzpq=380) CO2 (BEAKER) (test vvqp=194) 20 meq/L 22-29 BLOOD UREA NITROGEN (BEAKER) 11 mg/dL 7-21 (test ggvn=434) CREATININE (BEAKER) (test 0.88 mg/dL 0.57-1.25 trfe=537) GLUCOSE RANDOM (BEAKER) 194 mg/dL 70-105 (test xnvw=630) CALCIUM (BEAKER) (test 8.7 mg/dL 8.4-10.2 dqcz=372) EGFR (BEAKER) (test INSUFFICIENT CLINICAL DATA TO xbhi=7488) CALCULATE ESTIMATED GFR. Death Surveys Coder [facility]IS ENRIQUE [facility] [id number] 06:58:00 Test Item Value Reference Range Comments TOTAL PROTEIN (BEAKER) (test vteo=295) 7.5 gm/dL 6.0-8.3 ALBUMIN (BEAKER) (test iszr=5623) 4.0 g/dL 3.5-5.0 BILIRUBIN TOTAL (BEAKER) (test xlij=808) 0.7 mg/dL 0.2-1.2 BILIRUBIN DIRECT (BEAKER) (test webg=077) 0.3 mg/dL 0.1-0.5 ALKALINE PHOSPHATASE (BEAKER) (test ljlj=558) 88 U/L 40-150 AST (SGOT) (BEAKER) (test tzge=184) 21 U/L 5-34 ALT (SGPT) (BEAKER) (test hsiu=456) 36 U/L 6-55 Death Surveys Coder ID Doroteo DALTON
--- NOTE | 2019-10-24 17:49 | R.HP ---
FACILITY: [facility] ENCOUNTER DATE AND TIME: 10/24/2019 17:42 (CDT) MR#: [id number] NAME HOSEA CARRANZA ADDRESS: [address] [place] [address] CITY: [place] [address]IP [address] PHONE: DATE OF : 1970 AGE: 49 SSN# [id number] GENDER: Male DEXTERITY Right-handed MARITAL STATUS RACE White PRE-HOSPITAL LIVING SETTING 01 - Home (private home/apt. board/care, assisted living, mcc, transitional living) PRE-HOSPITAL LIVING WITH Family/Relatives ENCOUNTER PHYSICIAN: Dr. Juan Pablo Peralta M.D. REFERRING DOCTOR: ZEYAD AU DATE OF ADMISSION: 10/24/2019 17:43 (Central Daylight Time) REFERRING FACILITY [facility] PRIMARY CARE PHYSICIAN CRISTOPHER COLVIN HOME TYPE AND DETAILS: Type of home: single family house # of levels in the residence: 2 # of steps within the residence: 14 PRIMARY DIAGNOSIS-RELATED SURGERIES: CRANIOTOMY CRANIOTOMY, STEREOTACTIC PROCEDURE W [facility] HISTORY OF PRESENT ILLNESS (HPI): Pt. is a 49 yo Right-handed white male. On 10/16/2019 Pt. presented to [facility] with sudden onset of left-side weakness. On 10/17/2019 he was admitted to [facility] with diagnosis RIGHT FRONTAL CRANI FOR ABSCESS. His impairment category is Stroke 01 - Left Body (Right Brain) (01.1). Pre-morbidly, Pt. was independent/mod-I in Endurance, Self-Care, Safety Awareness, Locomotion, and Tr ansfers Control; and he had good Endurance and Locomotion. Currently, he has deficits of Endurance, Balance, Safety Awareness, Locomotion, and Social Cognition. Pt. is now referred to [facility] for acute in-patient rehabilitation in order to maximize patient's functional independence in activities of daily living, strength, ROM, and mobi lity. Patient has realistic goal of being discharged at assistance level 3-modA to reside at Home with Fam gladys/Relatives. Hosea Carranza is a 49year old male with PMH of HTN who presented to [facility] on 10/15 as a transfer from OSH where he presented with 1 day of left facial droop and drooling. OSH head CT demonstrated right front-parietal mass with surrounding vasogenic edema and % mm midline shift. Hosea lived at home with and famil y in a 2story house but stays on the first floor independently w ADLs. Independent ambulation. Patient has access to shower chair and rollator. Patient denies alcoholism, drug use, dental problems. Patient family is very involved and by his side. After he was evaluated in the ER she was admitted at [facility] and is hemodynamically stable with relatively stable labs. He is now medically stable but in need of 24 hour nursing, doctor supervision SPT). The patient is reasonably expected to participate in 3 hours of therapy a day/15 hours per week and receive care with intensive interdisciplinary approach. MEDICATION ALLERGIES: No Known Drug Allergies (NKDA) ENVIRONMENTAL ALLERGIES: - Substance Allergies None Known - Other Allergies None Known PAST MEDICAL HISTORY: HYPERTENSION OBSES PAST SURGICAL HISTORY: CRANIOTOMY CRANIOTOMY, STEREOTACTIC PROCEDURE [facility] FAMILY HISTORY: Family history is not contributory. SOCIAL HISTORY: - Home Living Family/Relatives REVIEW OF SYSTEMS: - Gen No Chills Fatigue No Fever - Eyes No Double Vision No itchiness - ENMT Difficulty Swallowing - CVS No Chest Discomfort No Chest Pain Fatigue No Weight Gain - Resp No Cough No Shortness of Breath - GI Continent No Abdominal Pain No Constipation No Diarrhea - Continent No Kidney Pain No Painful Urination No Urinary Urgency - MSK No Joint Pain Muscle Cramps Stiffness - Skin No Itching No Rash No Suspicious Lesions - Neuro Coordination Difficulty Difficulty with Concentration Memory Loss No Seizures Weakness - Psych No Anxiety No Depression No HIV Exposure No Persistent Infections No Seasonal Allergies - Endo No Cold/Heat Intolerance No Excessive Hunger No Excessive Thirst No Excessive Urination PHYSICAL EXAM - Gen Alert and awake Lying in bed No apparent distress Oriented to: person, time, and place - Skin No skin breakdown. Normacephalic with moderate left facial droop. - Eyes No abnormalities - ENMT No abnormalities - Neck No abnormalities - CVS RRR - Chest Clear - Resp No wheezing - Abd Soft - GI Non distended Deferred - No abnormalities - Ext Mild left lower extremity edema. - MSK Moderate left lower facial weakness, 1/5 weakness in left upper and 3-4/5 weakness in left lower extr emity. - Neuro 1/5 weakness in left upper and 3-4/5 weakness in left lower extremity. - Psych No abnormalities VITAL SIGNS Temperature: 97.7 F SBP/DBP: 146/92 Pulse: 65 Resp: 16 NURSING: - Shower allowing shower - Bladder care per protocol - Skin care per protocol PRECAUTIONS: - Weight Bearing Precaution WBAT both LE ACTIVITIES OOB only with supervision QI SCORES: - Self-Care A. Eating 03-Partial/moderate assistance B. Oral hygiene 03-Partial/moderate assistance C. Toileting hygiene 02-Substantial/maximal assistance E. Shower/bathe self 02-Substantial/maximal assistance F. Upper body dressing 03-Partial/moderate assistance G. Lower body dressing 03-Partial/moderate assistance H. Putting on/taking off footwear 88-Not attempted due to medical condition or safety concerns - Mobility A. Roll left and right 03-Partial/moderate assistance B. Sit to lying 03-Partial/moderate assistance C. Lying to sitting on side of bed 03-Partial/moderate assistance D. Sit to stand 03-Partial/moderate assistance E. Chair/uoi-hz-cpipa transfer 03-Partial/moderate assistance F. Toilet transfer 03-Partial/moderate assistance G. Car transfer 88-Not attempted due to medical condition or safety concerns I. Walk 10 feet 02-Substantial/maximal assistance J. Walk 50 feet with two turns 88-Not attempted due to medical condition or safety concerns K. Walk 150 feet 88-Not attempted due to medical condition or safety concerns L. Walking 10 feet on uneven surfaces 88-Not attempted due to medical condition or safety concerns M. 1 step (curb) 88-Not attempted due to medical condition or safety concerns N. 4 steps 88-Not attempted due to medical condition or safety concerns O. 12 steps 88-Not attempted due to medical condition or safety concerns P. Picking up object 03-Partial/moderate assistance R. Wheel 50 feet with two turns 88-Not attempted due to medical condition or safety concerns S. Wheel 150 feet 88-Not attempted due to medical condition or safety concerns - Bladder and Bowel Bladder continence 2-Incontinent less than daily Bowel continence 1-Occasionally incontinent - Endurance Fair - Balance Fair - Safety Awareness Fair CURRENT FUNC. DEFICITS: Self-Care, Mobility, Endurance, Balance, and Safety Awareness MEDICATIONS: - Other See attached MAR (Medication Administration Record) ASSESSMENT: Pt. is a 49 yo Right-handed white male.On 10/16/2019 Pt. presented to [facility] with sudden on set of left-side weakness.On 10/17/2019 he was admitted to [facility] with diagnosis RIGHT FRON SAMUEL CRANI FOR ABSCESS.His impairment category is Stroke 01 - Left Body (Right Brain) (01.1).Pre-morb idly, Pt. was independent/mod-I in Endurance, Self-Care, Safety Awareness, Locomotion, and Transfers Control; and he had good Endurance and Locomotion.Currently, he has deficits of Endurance, Balance, S afety Awareness, Locomotion, and Social Cognition.Pt. is now referred to [facility] for acute in-patient rehabilitation in order to maximize patient's functional independence in a ctivities of daily living, strength, ROM, and mobility.- Rehab Goal Patient has realistic goal of being discharged at assistance level 3-modA to reside at Home with Fam gladys/Relatives. Hosea Carranza is a 49year old male with PMH of HTN who presented to [facility] on 10/15 as a transfer from OSH where he presented with 1 day of left facial droop and drooling. OSH head CT demonstrated right front-parietal mass with surrounding vasogenic edema and % mm midline shift. Hosea lived at home with and famil y in a 2story house but stays on the first floor independently w ADLs. Independent ambulation. Patient has access to shower chair and rollator. Patient denies alcoholism, drug use, dental problems. Patient family is very involved and by his side. After he was evaluated in the ER she was admitted at [facility] and is hemodynamically stable with relatively stable labs. He is now medically stable but in need of 24 hour nursing, doctor supervision SPT). The patient is reasonably expected to participate in 3 hours of therapy a day/15 hours per week and receive care with intensive interdisciplinary approach.REHAB PLAN: for Dementia, TBI, Stroke, or others - Physical Therapy Gait dysfunction - to improve, our physical therapists will perform initial evaluation of pt's status upon admission and devise an individualized program for Gait Training, and Wheel Chair mobility Need for home safety evaluation - to improve, our physical therapists will perform initial evaluation of pt's status upon admission and devise an individualized program for Home Evaluation Need in caregiver upon discharge - to improve, our physical therapists will perform initial evaluatio n of pt's status upon admission and devise an individualized program for Caregiver Training New precaution - to improve, our physical therapists will perform initial evaluation of pt's status u kristi admission and devise an individualized program for Patient precaution education Edema - to improve, our physical therapists will perform initial evaluation of pt's status upon admi ssion and devise an individualized program for Elevation Training, and Lymphedema Therapy Poor balance - to improve, our physical therapists will perform initial evaluation of pt's status upo n admission and devise an individualized program for Balance Training Poor endurance - to improve, our physical therapists will perform initial evaluation of pt's status u kristi admission and devise an individualized program for Endurance Training Weakness - to improve, our physical therapists will perform initial evaluation of pt's status upon ad mission and devise an individualized program for Aquatic Therapy, Neuromuscular Reeducation, and Stre ngthening Achieving independence - to improve, our physical therapists will perform initial evaluation of pt's status upon admission and devise an individualized program for Community Reintegration Activities - Occupational Therapy Cognitive deficits - to improve, our occupation therapists will perform initial evaluation of pt's st atus upon admission and devise an individualized program for Cognition - orientation Need for child care education coordinator - to improve, our occupation therapists will perform initial evaluation of pt's s tatus upon admission and devise an individualized program for Caregiver Training Weakness - to improve, our occupation therapists will perform initial evaluation of pt's status upon admission and devise an individualized program for Aquatic Therapy, Balance, Endurance, UE ROM, and U E strengthening MEDICAL PLAN: - Diet Type Start Regular - Diet - Liquid Texture Start Regular - Tube Feed Start N/A - Bladder care per protocol - Weight Bearing Precaution WBAT left LE - Skin care per protocol - Other See attached MAR (Medication Administration Record) - Diet - Solid Texture Regular - Shower shower DISCHARGE PLAN: - Estimated Length of Stay (days) 17. - Consensus on plan Discharge plan has been discussed with primary caregiver. Patient/Family is in agreement with the lalita n. Primary caregiver is in agreement with the plan. - Patient/Family Goals Return home with assistance. - Planned Living Setting Upon Discharge Home, to live with Family/Relatives. Transitional Living. SIGNATURE PANEL: (CDT)
--- NOTE | 2019-10-24 17:50 | PAPE ---
PATIENT: [facility] MR# [id number] REFERRING DOCTOR ZEYAD AU PRIMARY CARE PHYSICIAN CRISTOPHER COLVIN EVALUATION DATE AND TIME 10/24/2019 17:48 (CDT) NAME HOSEA HERRING DATE OF 1970 AGE 49 PHONE N# [id number] GENDER male EVALUATING PHYSICIAN Dr. Juan Pablo Peralta M.D. ADMISSION DIAGNOSIS: RIGHT FRONTAL CRANI FOR ABSCESS POST-ADMISSION FUNCTIONAL/MEDICAL STATUS: - Bladder Same accident frequency: Ind - No accidents in the past 7 days - Bowel Same accident frequency: Ind - No accidents in the past 7 days - Walking Same score based on distance walked: 0(N/A) - Wheelchair Same score based on distance traveled: 0(N/A) STATUS CHANGE EVALUATION: No change in Functional or Medical Status is identified compared with Pre-Admission screening. PATIENT NEEDS CLOSE MEDICAL SUPERVISION BY A REHABILITATION PHYSICIAN FOR: Coordination of Treatment Team Wound Care PATIENT REQUIRES 24X7 REHAB NURSING FOR MEDICAL AND FUNCTIONAL MGT. OF THE FOLLOWING DEFICITS: Disease Management Medication Management Patient/Family Education Providing Safe Environment Skin Integrity PATIENT REQUIRES INTENSIVE, COORDINATED INTERDISCIPLINARY APPROACH TO REHAB: Arranging Home Equipment/Services Discharge Planning Family Intervention/Training Crap Game Box Person/Case Management LIST OF IDENTIFIED AND POTENTIAL PROBLEMS: Alteration in leisure activities Bladder, Incontinence Bowel, Incontinence Infection, Actual or Potential Mobility Impaired Pain, Alteration in Comfort Self Care Deficit Skin Integrity, Actual or Potential Urinary Tract Infection (UTI), Actual or Potential PATIENT COULD BE AT RISK FOR COMPLICATIONS FROM ADVERSE MEDICAL CONDITIONS DUE TO HIS/HER COMORBIDITI ES AND THE RIGORS OF THE INTENSIVE REHABILLITATION PROGRAM. METHODS OR INTERVENTIONS TO AVOID COMPLIC ATIONS INCLUDE: - Bleeding Assess lab values and manage abnormalities. Nursing to teach precautions for anti-coagulation therapy . Stroke patients assessed for lethargy or change in status. Wound to be assessed every shift. - Infection Clinical staff to assess and manage the signs and symptoms of infection including fever, redness, war mth, etc. - Urinary Tract Infection - Aspiration Clinical staff will assess and manage coughing, drooling, congestion. - Falls Patient will be evaluated for Fall Precautions and will be placed on Fall Precautions as indicated pe r protocol. - Skin Breakdown Nursing will assess skin daily using assessment tool and will place on Skin Breakdown Precautions as indicated per protocol. - Pain Clinical staff may employ non-medication methods such as massage, distraction, decrease stimulus, etc . as needed. Clinical staff will assess patient's pain level every shift per protocol to assess and e nsure pain management effectiveness. Medications will be given and the pain level re-assessed. PRELIMINARY PLAN OF CARE: - Physical Therapy Patient needs Physical Therapy for a daily minimum of 1.5 hours at least 5 out of 7 days, to improve: Mobility, Strengthening, Transfers, Stretching, ROM, Endurance, Ability to manage stairs, Gait, and Balance. - Speech Therapy Patient needs Speech Therapy for a daily minimum of 0.5 hours at least 5 out of 7 days, to improve: S wallowing, Cognition, Language Skills, and Compensatory Strategies. - Rehabilitation Nursing Patient requires 24x7 Rehabilitation Nursing for: Pain Issues, Identifying and preventing risk factor s, Monitoring and reporting current medical conditions, Assisting with ambulation and transfer, Kady ting with all ADL-s, Teaching patients about disease process and medications, Family teaching, Provid ing safe environment, Bowel and Bladder Issues, Skin Integrity, and Medication Management. Patient needs Crap Game Box Person and/or Case Management for: Discharge Planning, Arranging Home Equipmen t or Services, and Family Interventions. - Dietary and Nutrition Services Patient needs Dietary and Nutrition Services for: Adequate Nutrition, Nutritional Supplements, and Nu tritional Education. - Occupational Therapy Patient needs Occupational Therapy for a daily minimum of 1.5 hours at least 5 out of 7 days, to impr ove Activities of Daily Living, including: Eating, Grooming, Bathing, Dressing, Toileting, Toilet Tra nsfers, Community Reintegration, Higher functional activities, Adaptive Equipment, Splinting, Househo ld Tasks, and Other activities as determined. QI SCORES: - Self-Care A. Eating 03-Partial/moderate assistance B. Oral hygiene 03-Partial/moderate assistance C. Toileting hygiene 02-Substantial/maximal assistance E. Shower/bathe self 02-Substantial/maximal assistance F. Upper body dressing 03-Partial/moderate assistance G. Lower body dressing 03-Partial/moderate assistance H. Putting on/taking off footwear 88-Not attempted due to medical condition or safety concerns - Mobility A. Roll left and right 03-Partial/moderate assistance B. Sit to lying 03-Partial/moderate assistance C. Lying to sitting on side of bed 03-Partial/moderate assistance D. Sit to stand 03-Partial/moderate assistance E. Chair/[id number]-[id number] transfer 03-Partial/moderate assistance F. Toilet transfer 03-Partial/moderate assistance G. Car transfer 88-Not attempted due to medical condition or safety concerns I. Walk 10 feet 02-Substantial/maximal assistance J. Walk 50 feet with two turns 88-Not attempted due to medical condition or safety concerns K. Walk 150 feet 88-Not attempted due to medical condition or safety concerns L. Walking 10 feet on uneven surfaces 88-Not attempted due to medical condition or safety concerns M. 1 step (curb) 88-Not attempted due to medical condition or safety concerns N. 4 steps 88-Not attempted due to medical condition or safety concerns O. 12 steps 88-Not attempted due to medical condition or safety concerns P. Picking up object 03-Partial/moderate assistance R. Wheel 50 feet with two turns 88-Not attempted due to medical condition or safety concerns S. Wheel 150 feet 88-Not attempted due to medical condition or safety concerns - Bladder and Bowel Bladder continence 2-Incontinent less than daily Bowel continence 1-Occasionally incontinent - Endurance Fair - Balance Fair - Safety Awareness Fair POTENTIAL FUNCTIONAL GOALS FOR PATIENT TO ACHIEVE BY DISCHARGE: - Safety Precaution Patient will remain free from falls or injury at time of discharge. - Bed Mobility Patient will perform bed mobility at 4-Davide level of assistance. - Transfers Patient will complete transfers from bed to chair at 4-Davide level of assistance. - Mobility Patient will ambulate 150 ft with 4-Davide level of assistance with RW. PATIENT REHAB POTENTIAL Samanta HERRING is able and expected to receive 3 hours of individualized therapy daily on at least 5 of every 7 days Samanta HERRING's prognosis for significant practical improvement within a reasonable period of time marcia ears Good Expected level of measurable improvement will be of a practical value to Samanta HERRING's functional ca pacity or adaptations to impairments Has a viable Discharge Plan Medically appropriate; condition is sufficiently stable to participate in intensive rehab program DISCHARGE PLAN: - Estimated Length of Stay (days) 17. - Consensus on plan Discharge plan has been discussed with primary caregiver. Patient/Family is in agreement with the lalita n. Primary caregiver is in agreement with the plan. - Patient/Family Goals Return home with assistance. - Planned Living Setting Upon Discharge Home, to live with Family/Relatives. Transitional Living. CONCLUSION ON REHABILITATION NECESSITY: I have evaluated patient's pre-admission functional status and, comparing it to the patient's post-ad mission functional status now, I conclude that the pre-admission assessment was accurate. Patient's c ondition on admission supports the medical necessity of admission to IRF. It is safe to proceed with patient's therapy program. SIGNATURE PANEL: (CDT)
[2019-10-24 19:16] LABS: Urine Appearance CLEAR; Urine Bilirubin NEGATIVE (NEG); Urine Blood NEGATIVE (NEG); Urine Color YELLOW; Urine Glucose NEGATIVE (NEG); Urine Protein TRACE (NEG); Urine Specific Gravity >=1.030 (1.005-1.030); Urine Urobilinogen 0.2 mg/dL (0.2-1.0)
[2019-10-24 19:37] LABS: Urine Bacteria <20 /HPF (NONE SEEN); Urine Culture Reflex Order NOT NEEDED; Urine Mucus SLIGHT /HPF (NONE SEEN); Urine RBC <5 /HPF (NONE SEEN)
[2019-10-24] MEDS ORDERED: dexAMETHasone 4 MG TAB PO SCH ×2 (20:00)
[2019-10-24] MEDS ORDERED: CEFTRIAXONE 2,000 MG in NA CHLORIDE 0.9% 100 ML IV SCH (20:00)
[2019-10-24] MEDS: metroNIDAZOLE 500 MG TABLET PO SCH (22:02)
[2019-10-24] MEDS: lisinopriL 20 MG TAB PO SCH (22:03)
[2019-10-24] MEDS: dexAMETHasone 4 MG TAB PO SCH (22:03)
[2019-10-24] MEDS ORDERED: CEFTRIAXONE/SWI 1gm 2 GM/20 ML SYR ONE (23:03)
[2019-10-24] MEDS: CEFTRIAXONE/SWI 2gm 2 GM/20 ML SYR IV SCH (23:10)
--- NOTE | 2019-10-25 02:05 | FAST ---
SHIFT START DATE/TIME: 10/24/2019 19:00 (CDT) SHIFT END DATE/TIME: 10/25/2019 07:00 (CDT) NAME HOSEA HERRING DATE OF : 1970 DATE OF ADMISSION: 10/24/2019 17:43 (CDT) PHONE: AGE: 49 N# [id number] GENDER: Male ENCOUNTER PHYSICIAN: Dr. Juan Pablo Peralta M.D. ADMISSION DIAGNOSIS: - Stroke 01 - Left Body (Right Brain) (01.1) RIGHT FRONTAL CRANI FOR ABSCESS. EATING: Not assessed/no information CODE: - ORAL HYGIENE: Not assessed/no information CODE: - TOILETING HYGIENE: TOILETING HYGIENE - STEP 1: Does the patient complete the activity by him/herself with no assistance (physical, verbal/nonverbal cueing, setup/clean-up)? No. TOILETING HYGIENE - STEP 2: Does the patient need only setup/clean-up assistance from one helper? No. TOILETING HYGIENE - STEP 3: Does the patient need only verbal/nonverbal cueing or touching/steadying/contact guard assistance fro m one helper? Yes. 1. [id number] ADMISSION PERFORMANCE: Supervision or touching assistance CODE: 04 BATHING: Not assessed/no information CODE: - DRESSING - UPPER BODY: Not assessed/no information CODE: - DRESSING - LOWER BODY: Not assessed/no information CODE: - PUTTING ON/TAKING OFF FOOTWEAR: Not assessed/no information CODE: - ROLL LEFT AND RIGHT: ROLL LEFT AND RIGHT - STEP 1: Does the patient complete the activity by him/herself with no assistance (physical, verbal/nonverbal cueing, setup/clean-up)? No. ROLL LEFT AND RIGHT - STEP 2: Does the patient need only setup/clean-up assistance from one helper? No. ROLL LEFT AND RIGHT - STEP 3: Does the patient need only verbal/nonverbal cueing or touching/steadying/contact guard assistance fro m one helper? Yes. 1. [id number] ADMISSION PERFORMANCE: Supervision or touching assistance CODE: 04 SIT TO LYING: Not assessed/no information CODE: - LYING TO SITTING: Not assessed/no information CODE: - SIT TO STAND: Not assessed/no information CODE: - TRANSFERS: BED, CHAIR: Not assessed/no information CODE: - TRANSFER TOILET: Not assessed/no information CODE: - TRANSFERS: CAR: Not assessed/no information CODE: - WALK 10 FEET: Not assessed/no information CODE: - 1 STEP (CURB): Not assessed/no information CODE: - PICKING UP OBJECT: Not assessed/no information CODE: - DOES THE PATIENT USE A WHEELCHAIR/SCOOTER? CODE: EXPR WHEEL 50 FEET WITH TWO TURNS: Not assessed/no information CODE: - INDICATE THE TYPE OF WHEELCHAIR/SCOOTER USED: CODE: EXPR WHEEL 150 FEET: Not assessed/no information CODE: - INDICATE THE TYPE OF WHEELCHAIR/SCOOTER USED: CODE: EXPR BLADDER AND BOWEL: H350. BLADDER CONTINENCE (3-DAY ASSESSMENT PERIOD): Stress incontinence only CODE: 1 H400. BOWEL CONTINENCE (3-DAY ASSESSMENT PERIOD): Always continent CODE: 0
[2019-10-25] MEDS: dexAMETHasone 4 MG TAB PO SCH ×4 (03:15→19:57)
[2019-10-25] MEDS: metroNIDAZOLE 500 MG TABLET PO SCH ×3 (04:22→19:56)
[2019-10-25] MEDS ORDERED: GLUCAGON 1 MG/VIAL IM PRN (05:19)
[2019-10-25] MEDS ORDERED: D50W 25 GM/50 ML SYRINGE/VIAL IV PRN (05:19)
[2019-10-25] MEDS: METOPROLOL TAR 25 MG TAB PO SCH ×2 (05:31→17:09)
[2019-10-25 05:40] VITALS: BMI 35.6
[2019-10-25] MEDS: INSULIN -REGULAR HUMAN 50 UNIT/0.5 ML ML SQ SCH ×4 (07:06→19:57)
[2019-10-25 07:14] LABS: Absolute Lymphocytes (CBC) 0.9 K/uL (0.7-4.9); Basophils % 0.1 % (0-1.3); Hematocrit 43.5 % (39.6-49.0); MPV 9.2 fL (7.6-11.3); RBC Red Blood Cell Count 5.21 M/uL (4.33-5.43)
[2019-10-25] MEDS ORDERED: ACETAMINOPHEN 500 MG TAB PO PRN (07:20)
[2019-10-25 07:33] LABS: Albumin 2.8 g/dL (3.4-5.0); BUN Blood Urea Nitrogen 22 mg/dL (7-18); Bicarbonate 27 mmol/L (21-32); Glucose Level 149 mg/dL (74-106); Magnesium 2.6 mg/dL (1.8-2.4); Potassium 4.1 mmol/L (3.5-5.1); Prealbumin 33.2 mg/dL (20-40); Sodium Level 140 mmol/L (136-145)
[2019-10-25 08:06] LABS: Blood Morphology Comment NOT SEEN (NOT SEEN); Platelet Estimate ADEQ
[2019-10-25] MEDS: AMLODIPINE 10 MG TAB PO SCH (08:08)
[2019-10-25] MEDS: CEFTRIAXONE/SWI 2gm 2 GM/20 ML SYR IV SCH ×2 (08:08→19:56)
[2019-10-25] MEDS: FE SULF/FA/VIT B COMP & C TAB PO SCH (08:09)
[2019-10-25] MEDS: METFORMIN HCL 500 MG TAB PO SCH ×2 (08:09→17:09)
[2019-10-25] MEDS: FERROUS SULFATE 325 MG TAB PO SCH (08:09)
[2019-10-25] MEDS: lisinopriL 20 MG TAB PO SCH ×2 (08:10→19:55)
[2019-10-25] MEDS: PROMOD 30 ML DOSE PO SCH ×2 (08:42→19:57)
[2019-10-26] MEDS: dexAMETHasone 4 MG TAB PO SCH ×4 (03:12→19:57)
[2019-10-26] MEDS: metroNIDAZOLE 500 MG TABLET PO SCH ×3 (03:12→19:56)
[2019-10-26] MEDS: METOPROLOL TAR 25 MG TAB PO SCH ×2 (05:28→17:02)
[2019-10-26] MEDS: INSULIN -REGULAR HUMAN 50 UNIT/0.5 ML ML SQ SCH ×4 (07:30→21:23)
[2019-10-26] MEDS: TRAMADOL HCL 50 MG TAB PO PRN (07:31)
[2019-10-26] MEDS: PROMOD 30 ML DOSE PO SCH ×2 (08:00→20:02)
[2019-10-26] MEDS: CEFTRIAXONE/SWI 2gm 2 GM/20 ML SYR IV SCH ×2 (08:24→19:58)
[2019-10-26] MEDS: FE SULF/FA/VIT B COMP & C TAB PO SCH (08:25)
[2019-10-26] MEDS: METFORMIN HCL 500 MG TAB PO SCH ×2 (08:25→17:01)
[2019-10-26] MEDS: FERROUS SULFATE 325 MG TAB PO SCH (08:25)
[2019-10-26] MEDS: lisinopriL 20 MG TAB PO SCH ×2 (08:26→19:57)
[2019-10-26] MEDS: AMLODIPINE 10 MG TAB PO SCH (12:02)
[2019-10-26] MEDS: CALCIUM CARBONATE CHEW 500MG TAB PO PRN (17:28)
[2019-10-26] MEDS: APIXABAN 2.5 MG TABLET PO SCH (19:56)
[2019-10-27] MEDS: metroNIDAZOLE 500 MG TABLET PO SCH ×3 (02:44→20:42)
[2019-10-27] MEDS: dexAMETHasone 4 MG TAB PO SCH ×4 (02:45→20:43)
[2019-10-27] MEDS: METOPROLOL TAR 25 MG TAB PO SCH ×2 (05:09→16:23)
[2019-10-27] MEDS: INSULIN -REGULAR HUMAN 50 UNIT/0.5 ML ML SQ SCH ×4 (07:30→22:11)
[2019-10-27] MEDS: CEFTRIAXONE/SWI 2gm 2 GM/20 ML SYR IV SCH ×2 (08:02→20:43)
[2019-10-27] MEDS: TRAMADOL HCL 50 MG TAB PO PRN (08:03)
[2019-10-27] MEDS: METFORMIN HCL 500 MG TAB PO SCH ×2 (08:04→16:23)
[2019-10-27] MEDS: APIXABAN 2.5 MG TABLET PO SCH ×2 (08:04→20:43)
[2019-10-27] MEDS: FERROUS SULFATE 325 MG TAB PO SCH (08:04)
[2019-10-27] MEDS: lisinopriL 20 MG TAB PO SCH ×2 (08:04→20:00)
[2019-10-27] MEDS: FE SULF/FA/VIT B COMP & C TAB PO SCH (08:05)
[2019-10-27] MEDS: AMLODIPINE 10 MG TAB PO SCH (08:05)
[2019-10-27] MEDS: PROMOD 30 ML DOSE PO SCH ×2 (08:06→20:00)
[2019-10-27] MEDS: CALCIUM CARBONATE CHEW 500MG TAB PO PRN ×2 (11:17→21:22)
--- NOTE | 2019-10-27 18:17 | R.PN ---
ENCOUNTER DATE AND TIME: 10/27/2019 18:09 (CDT) NAME HOSEA HERRING DATE OF : 1970 DATE OF ADMISSION: 10/24/2019 17:43 (CDT) RIGHT FRONTAL CRANI FOR ABSCESSCHIEF COMPLAINT: Right frontal craniotomy with left sided weakness and numbness SUBJECTIVE: Pt denied any depression. Pt denied any Shortness of Breath. WBC 11.1 with neutrophils 87.7, glucose 162 to 282, prealbumin 33.2. He is walking independently with out an assistive device. He has no swallowing problems and mild dysarthria. He is working well with [employer]. VITAL SIGNS Temperature: 97.7 F SBP/DBP: 131/91 Pulse: 81 Resp: 16 MEDICATION ALLERGIES: No Known Drug Allergies (NKDA) ENVIRONMENTAL ALLERGIES: - Substance Allergies None Known - Other Allergies None Known NURSING: - Shower allowing shower - Bladder care per protocol - Skin care per protocol PRECAUTIONS: - Weight Bearing Precaution WBAT both LE ACTIVITIES OOB only with supervision THERAPIES: - Occupational Therapy Cognitive Retraining. Visual Perceptual Training. - Dietary and Nutrition Adequate Nutrition. Nutritional Education. Nutritional Supplements. - Speech Therapy Cognitive Training. Expressive Language Skills. Memory Strategies. Receptive Language Skills. Speech Intelligibility Training. PHYSICAL EXAM - Gen Alert and awake Lying in bed No apparent distress Oriented to: person, time, and place - Skin No skin breakdown. Normacephalic with moderate left facial droop. - Eyes No abnormalities - ENMT No abnormalities - Neck No abnormalities - CVS RRR - Chest Clear - Resp No wheezing - Abd Soft - GI Non distended Deferred - No abnormalities - Ext Mild left lower extremity edema. - MSK Moderate left lower facial weakness, 1/5 weakness in left upper and 3-4/5 weakness in left lower extr emity. - Neuro 1/5 weakness in left upper and 3-4/5 weakness in left lower extremity. - Psych No abnormalities ASSESSMENT: Pt. is a 49 yo Right-handed white male.On 10/16/[address] [facility] with sudden on set of left-side weakness.On 10/17/2019 he was admitted to [facility] with diagnosis RIGHT FRON SAMUEL CRANI FOR ABSCESS.His impairment category is Stroke 01 - Left Body (Right Brain) (01.1).Pre-morb idly, Pt. was independent/mod-I in Endurance, Self-Care, Safety Awareness, Locomotion, and Transfers Control; and he had good Endurance and Locomotion.Currently, he has deficits of Endurance, Balance, S afety Awareness, Locomotion, and Social Cognition.Pt. is now referred to [facility] for acute in-patient rehabilitation in order to maximize patient's functional independence in a ctivities of daily living, strength, ROM, and mobility.- Rehab Goal Patient has realistic goal of being discharged at assistance level 3-modA to reside at Home with Fam gladys/Relatives. MDM/PLAN: - Physical Therapy Gait dysfunction - to improve, our physical therapists will perform initial evaluation of pt's statu s upon admission and devise an individualized program for Gait Training, and Wheel Chair mobility Need for home safety evaluation - to improve, our physical therapists will perform initial evaluatio n of pt's status upon admission and devise an individualized program for Home Evaluation Need in caregiver upon discharge - to improve, our physical therapists will perform initial evaluati on of pt's status upon admission and devise an individualized program for Caregiver Training New precaution - to improve, our physical therapists will perform initial evaluation of pt's status upon admission and devise an individualized program for Patient precaution education Edema - to improve, our physical therapists will perform initial evaluation of pt's status upon admis fermin and devise an individualized program for Elevation Training, and Lymphedema Therapy Poor balance - to improve, our physical therapists will perform initial evaluation of pt's status up on admission and devise an individualized program for Balance Training Poor endurance - to improve, our physical therapists will perform initial evaluation of pt's status upon admission and devise an individualized program for Endurance Training Weakness - to improve, our physical therapists will perform initial evaluation of pt's status upon a dmission and devise an individualized program for Aquatic Therapy, Neuromuscular Reeducation, and Str engthening Achieving independence - to improve, our physical therapists will perform initial evaluation of pt's status upon admission and devise an individualized program for Community Reintegration Activities - Occupational Therapy Cognitive deficits - to improve, our occupation therapists will perform initial evaluation of pt's s tatus upon admission and devise an individualized program for Cognition - orientation Need for care technician - to improve, our occupation therapists will perform initial evaluation of pt's status upon admission and devise an individualized program for Caregiver Training Weakness - to improve, our occupation therapists will perform initial evaluation of pt's status upon admission and devise an individualized program for Aquatic Therapy, Balance, Endurance, UE ROM, and UE strengthening - Other See attached MAR (Medication Administration Record) - Diet Type Continue Regular - Diet - Liquid Texture Continue Regular - Tube Feed Continue N/A - Bladder care per protocol - Weight Bearing Precaution WBAT left LE - Skin care per protocol - Diet - Solid Texture Continue Regular - Shower allowing shower for Dementia, TBI, Stroke, or others FUNCTIONAL STATUS: UPDATED AT WEEKLY TEAM CONFERENCE - Bladder Same accident frequency: 7-Ind - No accidents in the past 7 days - Bowel Same accident frequency: 7-Ind - No accidents in the past 7 days - Walking Same score based on distance walked: 0(N/A) - Wheelchair Same score based on distance traveled: 0(N/A) FUNCTIONAL STATUS: - Self-Care A. Eating Ind B. Grooming Ind C. Bathing Ines D. Dressing - Upper Ines E. Dressing - Lower Ines F. Toileting Ines - Sphincter Control G. Bladder control Ines H. Bowel control Ines - Transfers Control I. Bed/Chair/Wheelchair Ind J. Toilet Ind K. Tub/Shower Ind - Locomotion L. Walk/Wheelchair (B) Ind M. Stairs Ind - Communication N. Comprehension (B) Ines O. Expression (B) Ines - Social Cognition P. Social Interaction Ind Q. Problem Solving Ind R. Memory Ind - Endurance Good - Balance Good - Safety Awareness Good QI SCORES: - Self-Care A. Eating 03-Partial/moderate assistance B. Oral hygiene 03-Partial/moderate assistance C. Toileting hygiene 02-Substantial/maximal assistance E. Shower/bathe self 02-Substantial/maximal assistance F. Upper body dressing 03-Partial/moderate assistance G. Lower body dressing 03-Partial/moderate assistance H. Putting on/taking off footwear 88-Not attempted due to medical condition or safety concerns - Mobility A. Roll left and right 03-Partial/moderate assistance B. Sit to lying 03-Partial/moderate assistance C. Lying to sitting on side of bed 03-Partial/moderate assistance D. Sit to stand 03-Partial/moderate assistance E. Chair/kfo-vb-[id number] transfer 03-Partial/moderate assistance F. Toilet transfer 03-Partial/moderate assistance G. Car transfer 88-Not attempted due to medical condition or safety concerns I. Walk 10 feet 02-Substantial/maximal assistance J. Walk 50 feet with two turns 88-Not attempted due to medical condition or safety concerns K. Walk 150 feet 88-Not attempted due to medical condition or safety concerns L. Walking 10 feet on uneven surfaces 88-Not attempted due to medical condition or safety concerns M. 1 step (curb) 88-Not attempted due to medical condition or safety concerns N. 4 steps 88-Not attempted due to medical condition or safety concerns O. 12 steps 88-Not attempted due to medical condition or safety concerns P. Picking up object 03-Partial/moderate assistance R. Wheel 50 feet with two turns 88-Not attempted due to medical condition or safety concerns S. Wheel 150 feet 88-Not attempted due to medical condition or safety concerns - Bladder and Bowel Bladder continence 2-Incontinent less than daily Bowel continence 1-Occasionally incontinent - Endurance Fair - Balance Fair - Safety Awareness Fair [facility]RENT [facility]. DEFICITS: Self-Care, Mobility, Endurance, Balance, and Safety Awareness SIGNATURE PANEL: (CDT)
[2019-10-27] MEDS: SODIUM CHLORIDE 0.9% 10ML INJ IV SCH (20:43)
[2019-10-27] MEDS ORDERED: INSULIN -REGULAR HUMAN 50 UNIT/0.5 ML ML ONE (22:05)
[2019-10-28] MEDS: dexAMETHasone 4 MG TAB PO SCH ×4 (02:44→20:36)
[2019-10-28] MEDS: metroNIDAZOLE 500 MG TABLET PO SCH ×3 (02:45→20:34)
[2019-10-28] MEDS: METOPROLOL TAR 25 MG TAB PO SCH ×2 (05:14→17:21)
[2019-10-28] MEDS: INSULIN -REGULAR HUMAN 50 UNIT/0.5 ML ML SQ SCH ×4 (07:30→21:23)
[2019-10-28] MEDS: SODIUM CHLORIDE 0.9% 10ML INJ IV SCH ×2 (08:00→20:36)
[2019-10-28] MEDS: PROMOD 30 ML DOSE PO SCH ×2 (08:00→20:00)
[2019-10-28] MEDS: FERROUS SULFATE 325 MG TAB PO SCH (08:18)
[2019-10-28] MEDS: APIXABAN 2.5 MG TABLET PO SCH ×2 (08:18→20:34)
[2019-10-28] MEDS: FE SULF/FA/VIT B COMP & C TAB PO SCH (08:18)
[2019-10-28] MEDS: METFORMIN HCL 500 MG TAB PO SCH ×2 (08:22→17:21)
[2019-10-28] MEDS: AMLODIPINE 10 MG TAB PO SCH (08:22)
[2019-10-28] MEDS: CEFTRIAXONE/SWI 2gm 2 GM/20 ML SYR IV SCH ×2 (08:25→20:36)
--- NOTE | 2019-10-28 09:57 | RAD REPORT ---
EXAM DESCRIPTION: RAD - Barium Swallow Modified - 10/28/2019 9:47 am CLINICAL HISTORY: dysphasia COMPARISON: None. TECHNIQUE: The patient was given liquid, semi-solid and solid forms of barium. Lateral view fluorosc opic imaging was performed in conjunction with speech pathology service. FINDINGS: Cineloop acquisitions: 23 Fluoro time: 1 minutes 29 seconds Pharyngeal residue: Base of tongue and mild vallecular Mastication is within functional limits. Oral transit time is within functional limits withh all con sistencies. There is mild reduced lingual coordination for clearing of the bolus in the oral cavity. Mild oral residue is present with cracker. There is mild reduced base of tongue retraction and jones ature escape is noted with thin, nectar, and solid. There is mild residue on the base of tongue and valleculae. Swallow onset is prompt with thin, nectar, honey, and pureed. Laryngeal elevation is wi thin functional limits. There was no penetration or aspiration noted with any consistency tested inc luding thin, nectar, honey, pureed and solid. Barium tablet passed with thin liquid without penetrat ion or aspiration. Final pureed bolus passed into the lower esophagus without incident. IMPRESSION: Modified barium swallow as summarized above and fully detailed on speech pathology repor adelina
[2019-10-28] MEDS: lisinopriL 20 MG TAB PO SCH ×2 (12:25→20:35)
--- NOTE | 2019-10-28 15:05 | FAST ---
SHIFT START DATE/TIME: 10/28/2019 07:00 (CDT) SHIFT END DATE/TIME: 10/28/2019 19:00 (CDT) NAME HOSEA HERRING DATE OF : 1970 DATE OF ADMISSION: 10/24/2019 17:43 (CDT) PHONE: AGE: 49 N# [id number] GENDER: Male ENCOUNTER PHYSICIAN: Dr. Juan Pablo Peralta M.D. ADMISSION DIAGNOSIS: - Stroke 01 - Left Body (Right Brain) (01.1) RIGHT FRONTAL CRANI FOR ABSCESS. EATING: EATING - STEP 1: Does the patient complete the activity by him/herself with no assistance (physical, verbal/nonverbal cueing, setup/clean-up)? No. EATING - STEP 2: Does the patient need only setup/clean-up assistance from one helper? Yes. 1. [id number] ADMISSION PERFORMANCE: Setup or clean-up assistance CODE: 05 ORAL HYGIENE: ORAL HYGIENE - STEP 1: Does the patient complete the activity by him/herself with no assistance (physical, verbal/nonverbal cueing, setup/clean-up)? No. ORAL HYGIENE - STEP 2: Does the patient need only setup/clean-up assistance from one helper? Yes. 1. [id number] ADMISSION PERFORMANCE: Setup or clean-up assistance CODE: 05 TOILETING HYGIENE: TOILETING HYGIENE - STEP 1: Does the patient complete the activity by him/herself with no assistance (physical, verbal/nonverbal cueing, setup/clean-up)? No. TOILETING HYGIENE - STEP 2: Does the patient need only setup/clean-up assistance from one helper? Yes. 1. [id number] ADMISSION PERFORMANCE: Setup or clean-up assistance CODE: 05 BATHING: Not assessed/no information CODE: - DRESSING - UPPER BODY: DRESSING - UPPER BODY - STEP 1: Does the patient complete the activity by him/herself with no assistance (physical, verbal/nonverbal cueing, setup/clean-up)? No. DRESSING - UPPER BODY - STEP 2: Does the patient need only setup/clean-up assistance from one helper? Yes. 1. [id number] ADMISSION PERFORMANCE: Setup or clean-up assistance CODE: 05 DRESSING - LOWER BODY: DRESSING - LOWER BODY - STEP 1: Does the patient complete the activity by him/herself with no assistance (physical, verbal/nonverbal cueing, setup/clean-up)? No. DRESSING - LOWER BODY - STEP 2: Does the patient need only setup/clean-up assistance from one helper? Yes. 1. [id number] ADMISSION PERFORMANCE: Setup or clean-up assistance CODE: 05 PUTTING ON/TAKING OFF FOOTWEAR: FOOTWEAR - STEP 1: Does the patient complete the activity by him/herself with no assistance (physical, verbal/nonverbal cueing, setup/clean-up)? No. FOOTWEAR - STEP 2: Does the patient need only setup/clean-up assistance from one helper? Yes. 1. [id number] ADMISSION PERFORMANCE: Setup or clean-up assistance CODE: 05 DOES THE PATIENT USE A WHEELCHAIR/SCOOTER? CODE: EXPR INDICATE THE TYPE OF WHEELCHAIR/SCOOTER USED: CODE: EXPR INDICATE THE TYPE OF WHEELCHAIR/SCOOTER USED: CODE: EXPR BLADDER AND BOWEL: H350. BLADDER CONTINENCE (3-DAY ASSESSMENT PERIOD): Always continent (no documented incontinence) CODE: 0 H400. BOWEL CONTINENCE (3-DAY ASSESSMENT PERIOD): Always continent CODE: 0 SIGNATURE PANEL: The following modified sections: 1. [id number] Admission Performance, 1. [id number] Admission Performance, 1. [id number] Admission Performance, 1. [id number] Admission Performance, 1. [id number] Admission Performance, 1. [id number] Admission Performance, 1. [id number] Admission Performance, H350. Bladder Continence (3-day assessment period), H400. Bowel Continence (3-day assessment period) were [electronically] signed by Sahara Marsh C.N.A. on SunOct 28 2019 15:05:31 GMT-0500 (Central Daylight Time)
[2019-10-28] MEDS: CALCIUM CARBONATE CHEW 500MG TAB PO PRN (17:20)
--- NOTE | 2019-10-28 17:43 | R.PN ---
ENCOUNTER DATE AND TIME: 10/28/2019 17:39 (CDT) NAME HOSEA HERRING DATE OF : 1970 DATE OF ADMISSION: 10/24/2019 17:43 (CDT) RIGHT FRONTAL CRANI FOR ABSCESSCHIEF COMPLAINT: Right frontal craniotomy with left sided weakness and numbness SUBJECTIVE: Pt denied any depression. Pt denied any Shortness of Breath. WBC 11.1 with neutrophils 87.7, glucose 170 to 279, prealbumin 33.2. He is walking independently with out an assistive device. He has no swallowing problems and mild dysarthria. He is working well with [employer]. VITAL SIGNS Temperature: 97.8 F SBP/DBP: 149/68 Pulse: 70 Resp: 16 MEDICATION ALLERGIES: No Known Drug Allergies (NKDA) ENVIRONMENTAL ALLERGIES: - Substance Allergies None Known - Other Allergies None Known NURSING: - Shower allowing shower - Bladder care per protocol - Skin care per protocol PRECAUTIONS: - Weight Bearing Precaution WBAT both LE ACTIVITIES OOB only with supervision THERAPIES: - Occupational Therapy Cognitive Retraining. Visual Perceptual Training. - Dietary and Nutrition Adequate Nutrition. Nutritional Education. Nutritional Supplements. - Speech Therapy Cognitive Training. Expressive Language Skills. Memory Strategies. Receptive Language Skills. Speech Intelligibility Training. PHYSICAL EXAM - Gen Alert and awake Lying in bed No apparent distress Oriented to: person, time, and place - Skin No skin breakdown. Normacephalic with moderate left facial droop. - Eyes No abnormalities - ENMT No abnormalities - Neck No abnormalities - CVS RRR - Chest Clear - Resp No wheezing - Abd Soft - GI Non distended Deferred - No abnormalities - Ext Mild left lower extremity edema. - MSK Moderate left lower facial weakness, 1/5 weakness in left upper and 3-4/5 weakness in left lower extr emity. - Neuro 1/5 weakness in left upper and 3-4/5 weakness in left lower extremity. - Psych No abnormalities ASSESSMENT: Pt. is a 49 yo Right-handed white male.On 10/16/2019 Pt. 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 was independent/mod-I in Endurance, Self-Care, Safety Awareness, Locomotion, and Transfers Control; and he had good Endurance and Locomotion.Currently, he has deficits of Endurance, Balance, S afety Awareness, Locomotion, and Social Cognition.Pt. is now referred to [facility] for acute in-patient rehabilitation in order to maximize patient's functional independence in a ctivities of daily living, strength, ROM, and mobility.- Rehab Goal Patient has realistic goal of being discharged at assistance level 3-modA to reside at Home with Fam gladys/Relatives. MDM/PLAN: - Physical Therapy Gait dysfunction - to improve, our physical therapists will perform initial evaluation of pt's statu s upon admission and devise an individualized program for Gait Training, and Wheel Chair mobility Need for home safety evaluation - to improve, our physical therapists will perform initial evaluatio n of pt's status upon admission and devise an individualized program for Home Evaluation Need in caregiver upon discharge - to improve, our physical therapists will perform initial evaluati on of pt's status upon admission and devise an individualized program for Caregiver Training New precaution - to improve, our physical therapists will perform initial evaluation of pt's status upon admission and devise an individualized program for Patient precaution education Edema - to improve, our physical therapists will perform initial evaluation of pt's status upon admi ssion and devise an individualized program for Elevation Training, and Lymphedema Therapy Poor balance - to improve, our physical therapists will perform initial evaluation of pt's status up on admission and devise an individualized program for Balance Training Poor endurance - to improve, our physical therapists will perform initial evaluation of pt's status upon admission and devise an individualized program for Endurance Training Weakness - to improve, our physical therapists will perform initial evaluation of pt's status upon a dmission and devise an individualized program for Aquatic Therapy, Neuromuscular Reeducation, and Str engthening Achieving independence - to improve, our physical therapists will perform initial evaluation of pt's status upon admission and devise an individualized program for Community Reintegration Activities - Occupational Therapy Cognitive deficits - to improve, our occupation therapists will perform initial evaluation of pt's s tatus upon admission and devise an individualized program for Cognition - orientation Need for aged or disabled care worker - to improve, our occupation therapists will perform initial evaluation of pt's status upon admission and devise an individualized program for Caregiver Training Weakness - to improve, our occupation therapists will perform initial evaluation of pt's status upon admission and devise an individualized program for Aquatic Therapy, Balance, Endurance, UE ROM, and UE strengthening - Other See attached MAR (Medication Administration Record) - Diet Type Continue Regular - Diet - Liquid Texture Continue Regular - Tube Feed Continue N/A - Bladder care per protocol - Weight Bearing Precaution WBAT left LE - Skin care per protocol - Diet - Solid Texture Continue Regular - Shower allowing shower for Dementia, TBI, Stroke, or others FUNCTIONAL STATUS: UPDATED AT WEEKLY TEAM CONFERENCE - Bladder Same accident frequency: 7-Ind - No accidents in the past 7 days - Bowel Same accident frequency: 7-Ind - No accidents in the past 7 days - Walking Same score based on distance walked: 0(N/A) - Wheelchair Same score based on distance traveled: 0(N/A) FUNCTIONAL STATUS: - Self-Care A. Eating Ind B. Grooming Ind C. Bathing Ines D. Dressing - Upper Ines E. Dressing - Lower Ines F. Toileting Ines - Sphincter Control G. Bladder control Ines H. Bowel control Ines - Transfers Control I. Bed/Chair/Wheelchair Ind J. Toilet Ind K. Tub/Shower Ind - Locomotion L. Walk/Wheelchair (B) Ind M. Stairs Ind - Communication N. Comprehension (B) Ines O. Expression (B) Ines - Social Cognition P. Social Interaction Ind Q. Problem Solving Ind R. Memory Ind - Endurance Good - Balance Good - Safety Awareness Good QI SCORES: - Self-Care A. Eating 03-Partial/moderate assistance B. Oral hygiene 03-Partial/moderate assistance C. Toileting hygiene 02-Substantial/maximal assistance E. Shower/bathe self 02-Substantial/maximal assistance F. Upper body dressing 03-Partial/moderate assistance G. Lower body dressing 03-Partial/moderate assistance H. Putting on/taking off footwear 88-Not attempted due to medical condition or safety concerns - Mobility A. Roll left and right 03-Partial/moderate assistance B. Sit to lying 03-Partial/moderate assistance C. Lying to sitting on side of bed 03-Partial/moderate assistance D. Sit to stand 03-Partial/moderate assistance E. Chair/[id number]-[id number] transfer 03-Partial/moderate assistance F. Toilet transfer 03-Partial/moderate assistance G. Car transfer 88-Not attempted due to medical condition or safety concerns I. Walk 10 feet 02-Substantial/maximal assistance J. Walk 50 feet with two turns 88-Not attempted due to medical condition or safety concerns K. Walk 150 feet 88-Not attempted due to medical condition or safety concerns L. Walking 10 feet on uneven surfaces 88-Not attempted due to medical condition or safety concerns M. 1 step (curb) 88-Not attempted due to medical condition or safety concerns N. 4 steps 88-Not attempted due to medical condition or safety concerns O. 12 steps 88-Not attempted due to medical condition or safety concerns P. Picking up object 03-Partial/moderate assistance R. Wheel 50 feet with two turns 88-Not attempted due to medical condition or safety concerns S. Wheel 150 feet 88-Not attempted due to medical condition or safety concerns - Bladder and Bowel Bladder continence 2-Incontinent less than daily Bowel continence 1-Occasionally incontinent - Endurance Fair - Balance Fair - Safety Awareness Fair CURRENT [facility]. DEFICITS: Self-Care, Mobility, Endurance, Balance, and Safety Awareness SIGNATURE PANEL: (CDT)
[2019-10-28] MEDS ORDERED: INSULIN -REGULAR HUMAN 50 UNIT/0.5 ML ML ONE (21:25)
[2019-10-29] MEDS: dexAMETHasone 4 MG TAB PO SCH ×4 (02:46→20:39)
[2019-10-29] MEDS: metroNIDAZOLE 500 MG TABLET PO SCH ×3 (02:46→20:39)
[2019-10-29] MEDS: METOPROLOL TAR 25 MG TAB PO SCH ×2 (05:09→17:04)
[2019-10-29] MEDS: INSULIN -REGULAR HUMAN 50 UNIT/0.5 ML ML SQ SCH ×4 (07:30→22:19)
[2019-10-29] MEDS: SODIUM CHLORIDE 0.9% 10ML INJ IV SCH ×2 (08:00→20:38)
[2019-10-29] MEDS: PROMOD 30 ML DOSE PO SCH ×2 (08:00→20:00)
[2019-10-29] MEDS: APIXABAN 2.5 MG TABLET PO SCH ×2 (08:26→20:39)
[2019-10-29] MEDS: FERROUS SULFATE 325 MG TAB PO SCH (08:27)
[2019-10-29] MEDS: lisinopriL 20 MG TAB PO SCH ×2 (08:27→20:42)
[2019-10-29] MEDS: AMLODIPINE 10 MG TAB PO SCH (08:27)
[2019-10-29] MEDS: METFORMIN HCL 500 MG TAB PO SCH ×2 (08:27→17:04)
[2019-10-29] MEDS: FE SULF/FA/VIT B COMP & C TAB PO SCH (08:27)
[2019-10-29] MEDS: CALCIUM CARBONATE CHEW 500MG TAB PO PRN ×2 (08:34→20:53)
[2019-10-29] MEDS: CEFTRIAXONE/SWI 2gm 2 GM/20 ML SYR IV SCH ×2 (08:34→20:38)
--- NOTE | 2019-10-29 18:11 | R.PN ---
ENCOUNTER DATE AND TIME: 10/29/2019 18:06 (CDT) NAME HOSEA HERRING DATE OF : 1970 DATE OF ADMISSION: 10/24/2019 17:43 (CDT) RIGHT FRONTAL CRANI FOR ABSCESSCHIEF COMPLAINT: Right frontal craniotomy with left sided weakness and numbness SUBJECTIVE: Pt denied any depression. Pt denied any Shortness of Breath. WBC 11.1 with neutrophils 87.7, glucose 193 to 277, prealbumin 33.2. He is walking independently with out an assistive device. He has no swallowing problems and mild dysarthria. He is working well with [employer]. VITAL SIGNS Temperature: 97.8 F SBP/DBP: 129/68 Pulse: 78 Resp: 16 MEDICATION ALLERGIES: No Known Drug Allergies (NKDA) ENVIRONMENTAL ALLERGIES: - Substance Allergies None Known - Other Allergies None Known NURSING: - Shower allowing shower - Bladder care per protocol - Skin care per protocol PRECAUTIONS: - Weight Bearing Precaution WBAT both LE ACTIVITIES OOB only with supervision THERAPIES: - Occupational Therapy Cognitive Retraining. Visual Perceptual Training. - Dietary and Nutrition Adequate Nutrition. Nutritional Education. Nutritional Supplements. - Speech Therapy Cognitive Training. Expressive Language Skills. Memory Strategies. Receptive Language Skills. Speech Intelligibility Training. PHYSICAL EXAM - Gen Alert and awake Lying in bed No apparent distress Oriented to: person, time, and place - Skin No skin breakdown. Normacephalic with moderate left facial droop. - Eyes No abnormalities - ENMT No abnormalities - Neck No abnormalities - CVS RRR - Chest Clear - Resp No wheezing - Abd Soft - GI Non distended Deferred - No abnormalities - Ext Mild left lower extremity edema. - MSK Moderate left lower facial weakness, 1/5 weakness in left upper and 3-4/5 weakness in left lower extr emity. - Neuro 1/5 weakness in left upper and 3-4/5 weakness in left lower extremity. - Psych No abnormalities ASSESSMENT: Pt. is a 49 yo Right-handed white male.On 10/16/2019 Pt. presented to [facility] with sudden on set of left-side weakness.On 10/17/2019 he was admitted to [facility] with diagnosis RIGHT FRON SAMUEL CRANI FOR ABSCESS.His impairment category is Stroke 01 - Left Body (Right Brain) (01.1).Pre-morb idly, Pt. was independent/mod-I in Endurance, Self-Care, Safety Awareness, Locomotion, and Transfers Control; and he had good Endurance and Locomotion.Currently, he has deficits of Endurance, Balance, S afety Awareness, Locomotion, and Social Cognition.Pt. is now referred to [facility] for acute in-patient rehabilitation in order to maximize patient's functional independence in a ctivities of daily living, strength, ROM, and mobility.- Rehab Goal Patient has realistic goal of being discharged at assistance level 3-modA to reside at Home with Fam gladys/Relatives. MDM/PLAN: - Physical Therapy Gait dysfunction - to improve, our physical therapists will perform initial evaluation of pt's statu s upon admission and devise an individualized program for Gait Training, and Wheel Chair mobility Need for home safety evaluation - to improve, our physical therapists will perform initial evaluatio n of pt's status upon admission and devise an individualized program for Home Evaluation Need in caregiver upon discharge - to improve, our physical therapists will perform initial evaluati on of pt's status upon admission and devise an individualized program for Caregiver Training New precaution - to improve, our physical therapists will perform initial evaluation of pt's status upon admission and devise an individualized program for Patient precaution education Edema - to improve, our physical therapists will perform initial evaluation of pt's status upon admi ssion and devise an individualized program for Elevation Training, and Lymphedema Therapy Poor balance - to improve, our physical therapists will perform initial evaluation of pt's status up on admission and devise an individualized program for Balance Training Poor endurance - to improve, our physical therapists will perform initial evaluation of pt's status upon admission and devise an individualized program for Endurance Training Weakness - to improve, our physical therapists will perform initial evaluation of pt's status upon a dmission and devise an individualized program for Aquatic Therapy, Neuromuscular Reeducation, and Str engthening Achieving independence - to improve, our physical therapists will perform initial evaluation of pt's status upon admission and devise an individualized program for Community Reintegration Activities - Occupational Therapy Cognitive deficits - to improve, our occupation therapists will perform initial evaluation of pt's s tatus upon admission and devise an individualized program for Cognition - orientation Need for foster care worker - to improve, our occupation therapists will perform initial evaluation of pt's status upon admission and devise an individualized program for Caregiver Training Weakness - to improve, our occupation therapists will perform initial evaluation of pt's status upon admission and devise an individualized program for Aquatic Therapy, Balance, Endurance, UE ROM, and UE strengthening - Other See attached MAR (Medication Administration Record) - Diet Type Continue Regular - Diet - Liquid Texture Continue Regular - Tube Feed Continue N/A - Bladder care per protocol - Weight Bearing Precaution WBAT left LE - Skin care per protocol - Diet - Solid Texture Continue Regular - Shower allowing shower for Dementia, TBI, Stroke, or others FUNCTIONAL STATUS: UPDATED AT WEEKLY TEAM CONFERENCE - Bladder Same accident frequency: 7-Ind - No accidents in the past 7 days - Bowel Same accident frequency: 7-Ind - No accidents in the past 7 days - Walking Same score based on distance walked: 0(N/A) - Wheelchair Same score based on distance traveled: 0(N/A) FUNCTIONAL STATUS: - Self-Care A. Eating Ind B. Grooming Ind C. Bathing Ines D. Dressing - Upper Ines E. Dressing - Lower Ines F. Toileting Ines - Sphincter Control G. Bladder control Ines H. Bowel control Ines - Transfers Control I. Bed/Chair/Wheelchair Ind J. Toilet Ind K. Tub/Shower Ind - Locomotion L. Walk/Wheelchair (B) Ind M. Stairs Ind - Communication N. Comprehension (B) Ines O. Expression (B) Ines - Social Cognition P. Social Interaction Ind Q. Problem Solving Ind R. Memory Ind - Endurance Good - Balance Good - Safety Awareness Good QI SCORES: - Self-Care A. Eating 03-Partial/moderate assistance B. Oral hygiene 03-Partial/moderate assistance C. Toileting hygiene 02-Substantial/maximal assistance E. Shower/bathe self 02-Substantial/maximal assistance F. Upper body dressing 03-Partial/moderate assistance G. Lower body dressing 03-Partial/moderate assistance H. Putting on/taking off footwear 88-Not attempted due to medical condition or safety concerns - Mobility A. Roll left and right 03-Partial/moderate assistance B. Sit to lying 03-Partial/moderate assistance C. Lying to sitting on side of bed 03-Partial/moderate assistance D. Sit to stand 03-Partial/moderate assistance E. Chair/vzx-ex-rcjua transfer 03-Partial/moderate assistance F. Toilet transfer 03-Partial/moderate assistance G. Car transfer 88-Not attempted due to medical condition or safety concerns I. Walk 10 feet 02-Substantial/maximal assistance J. Walk 50 feet with two turns 88-Not attempted due to medical condition or safety concerns K. Walk 150 feet 88-Not attempted due to medical condition or safety concerns L. Walking 10 feet on uneven surfaces 88-Not attempted due to medical condition or safety concerns M. 1 step (curb) 88-Not attempted due to medical condition or safety concerns N. 4 steps 88-Not attempted due to medical condition or safety concerns O. 12 steps 88-Not attempted due to medical condition or safety concerns P. Picking up object 03-Partial/moderate assistance R. Wheel 50 feet with two turns 88-Not attempted due to medical condition or safety concerns S. Wheel 150 feet 88-Not attempted due to medical condition or safety concerns - Bladder and Bowel Bladder continence 2-Incontinent less than daily Bowel continence 1-Occasionally incontinent - Endurance Fair - Balance Fair - Safety Awareness Fair CURRENT [facility]. DEFICITS: Self-Care, Mobility, Endurance, Balance, and Safety Awareness SIGNATURE PANEL: (CDT)
[2019-10-30] MEDS: dexAMETHasone 4 MG TAB PO SCH ×3 (02:37→14:46)
[2019-10-30] MEDS: metroNIDAZOLE 500 MG TABLET PO SCH ×3 (02:37→20:08)
[2019-10-30] MEDS: CALCIUM CARBONATE CHEW 500MG TAB PO PRN ×2 (02:39→20:08)
[2019-10-30] MEDS: METOPROLOL TAR 25 MG TAB PO SCH ×2 (05:46→17:00)
[2019-10-30 07:16] LABS: Absolute Lymphocytes (CBC) 0.6 K/uL (0.7-4.9); Basophils % 0.1 % (0-1.3); Hematocrit 42.3 % (39.6-49.0); Lymphocytes % 4.3 % (15.3-44.8); MPV 9.8 fL (7.6-11.3); RBC Red Blood Cell Count 5.01 M/uL (4.33-5.43)
[2019-10-30 07:38] LABS: ALT/SGPT 148 U/L (12-78); AST/SGOT 30 U/L (15-37); Albumin 2.7 g/dL (3.4-5.0); Alkaline Phosphatase 67 U/L (45-117); BUN Blood Urea Nitrogen 19 mg/dL (7-18); Bicarbonate 27 mmol/L (21-32); Bilirubin Total 0.4 mg/dL (0.2-1.0); Glucose Level 203 mg/dL (74-106); Prealbumin 37.7 mg/dL (20-40); Sodium Level 140 mmol/L (136-145)
[2019-10-30] MEDS: PROMOD 30 ML DOSE PO SCH ×2 (08:00→20:00)
[2019-10-30] MEDS: SODIUM CHLORIDE 0.9% 10ML INJ IV SCH ×2 (08:00→20:09)
[2019-10-30] MEDS: INSULIN -REGULAR HUMAN 50 UNIT/0.5 ML ML SQ SCH ×4 (08:25→20:09)
[2019-10-30] MEDS: APIXABAN 2.5 MG TABLET PO SCH ×2 (08:26→20:08)
[2019-10-30] MEDS: FERROUS SULFATE 325 MG TAB PO SCH (08:26)
[2019-10-30] MEDS: FE SULF/FA/VIT B COMP & C TAB PO SCH (08:27)
[2019-10-30] MEDS: METFORMIN HCL 500 MG TAB PO SCH ×2 (08:27→16:55)
[2019-10-30] MEDS: AMLODIPINE 10 MG TAB PO SCH (08:28)
[2019-10-30] MEDS: lisinopriL 20 MG TAB PO SCH ×2 (08:29→20:08)
[2019-10-30] MEDS: CEFTRIAXONE/SWI 2gm 2 GM/20 ML SYR IV SCH ×2 (08:30→20:07)
--- NOTE | 2019-10-30 12:53 | FAST ---
ENCOUNTER DATE AND TIME: 10/30/2019 08:00 (CDT) NAME HOSEA HERRING DATE OF : 1970 DATE OF ADMISSION: 10/24/2019 17:43 (CDT) PHONE: AGE: 49 N# [id number] GENDER: Male ENCOUNTER PHYSICIAN: Dr. Juan Pablo Peralta M.D. ADMISSION DIAGNOSIS: - Stroke 01 - Left Body (Right Brain) (01.1) RIGHT FRONTAL CRANI FOR ABSCESS. ROLL LEFT AND RIGHT: ROLL LEFT AND RIGHT - STEP 1: Does the patient complete the activity by him/herself with no assistance (physical, verbal/nonverbal cueing, setup/clean-up)? Yes. 1. [id number] ADMISSION PERFORMANCE: Independent CODE: 06 SIT TO LYING: SIT TO LYING - STEP 1: Does the patient complete the activity by him/herself with no assistance (physical, verbal/nonverbal cueing, setup/clean-up)? Yes. 1. [id number] ADMISSION PERFORMANCE: Independent CODE: 06 LYING TO SITTING: LYING TO SITTING ON SIDE OF BED - STEP 1: Does the patient complete the activity by him/herself with no assistance (physical, verbal/nonverbal cueing, setup/clean-up)? Yes. 1. [id number] ADMISSION PERFORMANCE: Independent CODE: 06 SIT TO STAND: SIT TO STAND - STEP 1: Does the patient complete the activity by him/herself with no assistance (physical, verbal/nonverbal cueing, setup/clean-up)? Yes. 1. [id number] ADMISSION PERFORMANCE: Independent CODE: 06 TRANSFERS: BED, CHAIR: CHAIR/YTX-TB-[id number] TRANSFER - STEP 1: Does the patient complete the activity by him/herself with no assistance (physical, verbal/nonverbal cueing, setup/clean-up)? Yes. 1. [id number] ADMISSION PERFORMANCE: Independent CODE: 06 TRANSFER TOILET: TOILET TRANSFER - STEP 1: Does the patient complete the activity by him/herself with no assistance (physical, verbal/nonverbal cueing, setup/clean-up)? Yes. 1. [id number] ADMISSION PERFORMANCE: Independent CODE: 06 TRANSFERS: CAR: CAR TRANSFER - STEP 1: Does the patient complete the activity by him/herself with no assistance (physical, verbal/nonverbal cueing, setup/clean-up)? Yes. 1. [id number] ADMISSION PERFORMANCE: Independent CODE: 06 WALK 10 FEET: WALK 10 FEET - STEP 1: Does the patient complete the activity by him/herself with no assistance (physical, verbal/nonverbal cueing, setup/clean-up)? Yes. 1. [id number] ADMISSION PERFORMANCE: Independent CODE: 06 WALK 50 FEET: WALK 50 FEET - STEP 1: Does the patient complete the activity by him/herself with no assistance (physical, verbal/nonverbal cueing, setup/clean-up)? Yes. 1. [id number] ADMISSION PERFORMANCE: Independent CODE: 06 WALK 150 FEET: WALK 150 FEET - STEP 1: Does the patient complete the activity by him/herself with no assistance (physical, verbal/nonverbal cueing, setup/clean-up)? Yes. 1. [id number] ADMISSION PERFORMANCE: Independent CODE: 06 WALK 10 FEET UNEVEN: Not attempted due to medical condition or safety concerns CODE: 88 1 STEP (CURB): Not attempted due to medical condition or safety concerns 1 STEP CURB - STEP 1: Does the patient complete the activity by him/herself with no assistance (physical, verbal/nonverbal cueing, setup/clean-up)? Yes. 1. [id number] ADMISSION PERFORMANCE: Independent CODE: 06 4 STEPS: 4 STEPS - STEP 1: Does the patient complete the activity by him/herself with no assistance (physical, verbal/nonverbal cueing, setup/clean-up)? Yes. 1. [id number] ADMISSION PERFORMANCE: Independent CODE: 06 12 STEPS: 12 STEPS - STEP 1: Does the patient complete the activity by him/herself with no assistance (physical, verbal/nonverbal cueing, setup/clean-up)? Yes. 1. [id number] ADMISSION PERFORMANCE: Independent CODE: 06 PICKING UP OBJECT: Not attempted due to medical condition or safety concerns CODE: 88 DOES THE PATIENT USE A WHEELCHAIR/SCOOTER? Q1. DOES THE PATIENT USE A WHEELCHAIR/SCOOTER?: No CODE: 0 INDICATE THE TYPE OF WHEELCHAIR/SCOOTER USED: CODE: EXPR INDICATE THE TYPE OF WHEELCHAIR/SCOOTER USED: CODE: EXPR BLADDER AND BOWEL: CODE: EXPR CODE: EXPR SIGNATURE PANEL: The following modified sections: 1. [id number] Admission Performance, 1. [id number] Admission Performance, 1. [id number] Admission Performance, 1. [id number] Admission Performance, 1. [id number] Admission Performance, 1. [id number] Admission Performance, 1. [id number] Admission Performance, 1. [id number] Admission Performance , 1. [id number] Admission Performance, 1. [id number] Admission Performance, 1. [id number] Admission Performanc e, 1. [id number] Admission Performance, 1. [id number] Admission Performance, Q1. Does the patient use a whe elchair/scooter? were [electronically] signed by Candice Rivera PTA on SunOct 30 2019 12:52:28 G [id number] (Central Daylight Time)
--- NOTE | 2019-10-30 17:34 | R.PN ---
ENCOUNTER DATE AND TIME: 10/30/2019 17:25 (CDT) NAME HOSEA HERRING DATE OF : 1970 DATE OF ADMISSION: 10/24/2019 17:43 (CDT) RIGHT FRONTAL CRANI FOR ABSCESSCHIEF COMPLAINT: Right frontal craniotomy with left sided weakness and numbness SUBJECTIVE: Pt denied any depression. Pt denied any Shortness of Breath. WBC 13.1 with neutrophils 91.2, glucose 203 to 233, prealbumin 37.7. He is walking one mile independe ntly without an assistive device. He has no swallowing problems and mild dysarthria. He is working we with speech therapy. VITAL SIGNS Temperature: 97.8 F SBP/DBP: 129/74 Pulse: 83 Resp: 16 MEDICATION ALLERGIES: No Known Drug Allergies (NKDA) ENVIRONMENTAL ALLERGIES: - Substance Allergies None Known - Other Allergies None Known NURSING: - Shower allowing shower - Bladder care per protocol - Skin care per protocol PRECAUTIONS: - Weight Bearing Precaution WBAT both LE ACTIVITIES OOB only with supervision THERAPIES: - Occupational Therapy Cognitive Retraining. Visual Perceptual Training. - Dietary and Nutrition Adequate Nutrition. Nutritional Education. Nutritional Supplements. - Speech Therapy Cognitive Training. Expressive Language Skills. Memory Strategies. Receptive Language Skills. Speech Intelligibility Training. PHYSICAL EXAM - Gen Alert and awake Lying in bed No apparent distress Oriented to: person, time, and place - Skin No skin breakdown. Normacephalic with moderate left facial droop. - Eyes No abnormalities - ENMT No abnormalities - Neck No abnormalities - CVS RRR - Chest Clear - Resp No wheezing - Abd Soft - GI Non distended Deferred - No abnormalities - Ext Mild left lower extremity edema. - MSK Moderate left lower facial weakness, 1/5 weakness in left upper and 3-4/5 weakness in left lower extr emity. - Neuro 1/5 weakness in left upper and 3-4/5 weakness in left lower extremity. - Psych No abnormalities ASSESSMENT: Pt. is a 49 yo Right-handed white male.On 10/16/[address] [facility] with sudden on set of left-side weakness.On 10/17/2019 he was admitted to 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 was independent/mod-I in Endurance, Self-Care, Safety Awareness, Locomotion, and Transfers Control; and he had good Endurance and Locomotion.Currently, he has deficits of Endurance, Balance, S afety Awareness, Locomotion, and Social Cognition.Pt. is now referred to [facility] for acute in-patient rehabilitation in order to maximize patient's functional independence in a ctivities of daily living, strength, ROM, and mobility.- Rehab Goal Patient has realistic goal of being discharged at assistance level 3-modA to reside at Home with Fam gladys/Relatives. MDM/PLAN: - Physical Therapy Gait dysfunction - to improve, our physical therapists will perform initial evaluation of pt's statu s upon admission and devise an individualized program for Gait Training, and Wheel Chair mobility Need for home safety evaluation - to improve, our physical therapists will perform initial evaluatio n of pt's status upon admission and devise an individualized program for Home Evaluation Need in caregiver upon discharge - to improve, our physical therapists will perform initial evaluati on of pt's status upon admission and devise an individualized program for Caregiver Training New precaution - to improve, our physical therapists will perform initial evaluation of pt's status upon admission and devise an individualized program for Patient precaution education Edema - to improve, our physical therapists will perform initial evaluation of pt's status upon admi ssion and devise an individualized program for Elevation Training, and Lymphedema Therapy Poor balance - to improve, our physical therapists will perform initial evaluation of pt's status up on admission and devise an individualized program for Balance Training Poor endurance - to improve, our physical therapists will perform initial evaluation of pt's status upon admission and devise an individualized program for Endurance Training Weakness - to improve, our physical therapists will perform initial evaluation of pt's status upon a dmission and devise an individualized program for Aquatic Therapy, Neuromuscular Reeducation, and Str engthening Achieving independence - to improve, our physical therapists will perform initial evaluation of pt's status upon admission and devise an individualized program for Community Reintegration Activities - Occupational Therapy Cognitive deficits - to improve, our occupation therapists will perform initial evaluation of pt's s tatus upon admission and devise an individualized program for Cognition - orientation Need for lead care manager - to improve, our occupation therapists will perform initial evaluation of pt's status upon admission and devise an individualized program for Caregiver Training Weakness - to improve, our occupation therapists will perform initial evaluation of pt's status upon admission and devise an individualized program for Aquatic Therapy, Balance, Endurance, UE ROM, and UE strengthening - Other See attached MAR (Medication Administration Record) - Diet Type Continue Regular - Diet - Liquid Texture Continue Regular - Tube Feed Continue N/A - Bladder care per protocol - Weight Bearing Precaution WBAT left LE - Skin care per protocol - Diet - Solid Texture Continue Regular - Shower allowing shower for Dementia, TBI, Stroke, or others FUNCTIONAL STATUS: UPDATED AT WEEKLY TEAM CONFERENCE - Bladder Same accident frequency: 7-Ind - No accidents in the past 7 days - Bowel Same accident frequency: 7-Ind - No accidents in the past 7 days - Walking Same score based on distance walked: 0(N/A) - Wheelchair Same score based on distance traveled: 0(N/A) FUNCTIONAL STATUS: - Self-Care A. Eating Ind B. Grooming Ind C. Bathing Ines D. Dressing - Upper Ines E. Dressing - Lower Ines F. Toileting Ines - Sphincter Control G. Bladder control Ines H. Bowel control Ines - Transfers Control I. Bed/Chair/Wheelchair Ind J. Toilet Ind K. Tub/Shower Ind - Locomotion L. Walk/Wheelchair (B) Ind M. Stairs Ind - Communication N. Comprehension (B) Ines O. Expression (B) Ines - Social Cognition P. Social Interaction Ind Q. Problem Solving Ind R. Memory Ind - Endurance Good - Balance Good - Safety Awareness Good QI SCORES: - Self-Care A. Eating 03-Partial/moderate assistance B. Oral hygiene 03-Partial/moderate assistance C. Toileting hygiene 02-Substantial/maximal assistance E. Shower/bathe self 02-Substantial/maximal assistance F. Upper body dressing 03-Partial/moderate assistance G. Lower body dressing 03-Partial/moderate assistance H. Putting on/taking off footwear 88-Not attempted due to medical condition or safety concerns - Mobility A. Roll left and right 03-Partial/moderate assistance B. Sit to lying 03-Partial/moderate assistance C. Lying to sitting on side of bed 03-Partial/moderate assistance D. Sit to stand 03-Partial/moderate assistance E. Chair/rcs-og-haoah transfer 03-Partial/moderate assistance F. Toilet transfer 03-Partial/moderate assistance G. Car transfer 88-Not attempted due to medical condition or safety concerns I. Walk 10 feet 02-Substantial/maximal assistance J. Walk 50 feet with two turns 88-Not attempted due to medical condition or safety concerns K. Walk 150 feet 88-Not attempted due to medical condition or safety concerns L. Walking 10 feet on uneven surfaces 88-Not attempted due to medical condition or safety concerns M. 1 step (curb) 88-Not attempted due to medical condition or safety concerns N. 4 steps 88-Not attempted due to medical condition or safety concerns O. 12 steps 88-Not attempted due to medical condition or safety concerns P. Picking up object 03-Partial/moderate assistance R. Wheel 50 feet with two turns 88-Not attempted due to medical condition or safety concerns S. Wheel 150 feet 88-Not attempted due to medical condition or safety concerns - Bladder and Bowel Bladder continence 2-Incontinent less than daily Bowel continence 1-Occasionally incontinent - Endurance Fair - Balance Fair - Safety Awareness Fair CURRENT [facility]. DEFICITS: Self-Care, Mobility, Endurance, Balance, and Safety Awareness SIGNATURE PANEL: (CDT)
[2019-10-31] MEDS: metroNIDAZOLE 500 MG TABLET PO SCH ×2 (04:09→12:17)
[2019-10-31] MEDS: METOPROLOL TAR 25 MG TAB PO SCH (05:13)
[2019-10-31] MEDS: INSULIN -REGULAR HUMAN 50 UNIT/0.5 ML ML SQ SCH ×2 (06:58→11:30)
[2019-10-31] MEDS: SODIUM CHLORIDE 0.9% 10ML INJ IV SCH (07:01)
[2019-10-31] MEDS: CEFTRIAXONE/SWI 2gm 2 GM/20 ML SYR IV SCH (07:01)
[2019-10-31] MEDS: METFORMIN HCL 500 MG TAB PO SCH (07:02)
[2019-10-31] MEDS: PROMOD 30 ML DOSE PO SCH (07:02)
[2019-10-31] MEDS: FERROUS SULFATE 325 MG TAB PO SCH (07:03)
[2019-10-31] MEDS: FE SULF/FA/VIT B COMP & C TAB PO SCH (07:03)
[2019-10-31] MEDS: lisinopriL 20 MG TAB PO SCH (07:03)
[2019-10-31] MEDS: AMLODIPINE 10 MG TAB PO SCH (07:03)
[2019-10-31 07:05] VITALS: BP 124/72; TEMP 97.8
[2019-10-31] MEDS: APIXABAN 2.5 MG TABLET PO SCH (07:06)
--- NOTE | 2019-10-31 10:14 | P.RH.PN ---
Estimated Length of Stay: 8 Expected Discharge Date: 10/31/19 Discharge Disposition Plan: Home Family Support: Yes Industrial Clean[employer] Goal: Mobility, Transfers, Self Care Vital Signs: Last Vital Signs Temp 97.8 F 10/31/19 07:01 Pulse 75 10/31/19 07:03 Resp 18 10/31/19 07:01 BP 124/72 10/31/19 07:03 Pulse Ox 100 10/31/19 07:01 Laboratory: Laboratory Last Values WBC 13.1 K/uL (4.3-10.9) H D 10/30/19 05:40 RBC 5.01 M/uL (4.33-5.43) 10/30/19 05:40 Hgb 14.0 g/dL (13.6-17.9) 10/30/19 05:40 Hct 42.3 % (39.6-49.0) 10/30/19 05:40 MCV 84.4 fL (80-100) 10/30/19 05:40 MCH 27.9 pg (27.0-35.0) 10/30/19 05:40 MCHC 33.0 g/dL (32.0-36.0) 10/30/19 05:40 RDW 14.2 % (12.1-15.2) 10/30/19 05:40 Plt Count 218 K/uL (152-406) 10/30/19 05:40 MPV 9.8 fL (7.6-11.3) 10/30/19 05:40 Neutrophils % 91.2 % (41.7-73.7) H 10/30/19 05:40 Lymphocytes % 4.3 % (15.3-44.8) L 10/30/19 05:40 Monocytes % 4.4 % (3.3-12.3) 10/30/19 05:40 Eosinophils % 0.0 % (0-4.4) 10/30/19 05:40 Basophils % 0.1 % (0-1.3) 10/30/19 05:40 Absolute Neutrophils 11.9 K/uL (1.8-8.0) H 10/30/19 05:40 Segmented Neutrophils 92 % (40-80) H 10/25/19 06:30 Lymphocytes 6 % (15-42) L 10/25/19 06:30 Absolute Lymphocytes 0.6 K/uL (0.7-4.9) L 10/30/19 05:40 Monocytes 2 % (0-10) 10/25/19 06:30 Absolute Monocytes 0.6 K/uL (0.1-1.3) 10/30/19 05:40 Absolute Eosinophils 0.0 K/uL (0-0.5) 10/30/19 05:40 Absolute Basophils 0.0 K/uL (0-0.5) 10/30/19 05:40 Morphology Comment Not seen (NOT SEEN) 10/25/19 06:30 Sodium 140 mmol/L (136-145) 10/30/19 05:40 Potassium 4.0 mmol/L (3.5-5.1) 10/30/19 05:40 Chloride 106 mmol/L (98-107) 10/30/19 05:40 Carbon Dioxide 27 mmol/L (21-32) 10/30/19 05:40 BUN 19 mg/dL (7-18) H 10/30/19 05:40 Creatinine 0.82 mg/dL (0.55-1.3) 10/30/19 05:40 Estimated GFR > 90 mL/min (=/>90) 10/30/19 05:40 Glucose 203 mg/dL (74-106) H 10/30/19 05:40 POC Glucose 190 mg/dl (65-120) H 10/31/19 06:38 Calcium 8.2 mg/dL (8.5-10.1) L 10/30/19 05:40 Magnesium 2.0 mg/dL (1.8-2.4) D 10/30/19 05:40 Total Bilirubin 0.4 mg/dL (0.2-1.0) 10/30/19 05:40 AST 30 U/L (15-37) 10/30/19 05:40 ALT 148 U/L (12-78) H 10/30/19 05:40 Alkaline Phosphatase 67 U/L (45-117) 10/30/19 05:40 Serum Total Protein 6.0 g/dL (6.4-8.2) L 10/30/19 05:40 Albumin 2.7 g/dL (3.4-5.0) L 10/30/19 05:40 Globulin 3.3 g/dL (2.3-3.5) 10/30/19 05:40 Albumin/Globulin Ratio 0.8 (1.1-1.8) L 10/30/19 05:40 Prealbumin 37.7 mg/dL (20-40) 10/30/19 05:40 Urine Color Yellow 10/24/19 17:15 Urine Appearance Clear 10/24/19 17:15 Urine pH 6.0 (5.0-7.0) 10/24/19 17:15 Ur Specific [place] >=1.030 (1.005-1.030) 10/24/19 17:15 Glucose (UA)(Auto) Negative (NEG) 10/24/19 17:15 Urine Ketones Negative (NEG) 10/24/19 17:15 Urine Blood Negative (NEG) 10/24/19 17:15 Urine Nitrite Negative (NEG) 10/24/19 17:15 Urine Bilirubin Negative (NEG) 10/24/19 17:15 Urine Urobilinogen 0.2 mg/dL (0.2-1.0) 10/24/19 17:15 Ur Leukocyte Esterase Negative (NEG) 10/24/19 17:15 Urine RBC <5 /HPF (NONE SEEN) 10/24/19 17:15 Urine WBC <5 /HPF (<5) 10/24/19 17:15 Ur Squamous Epith Cells [place] 10/24/19 17:15 Urine Bacteria <20 /HPF (NONE SEEN) 10/24/19 17:15 Hyaline Casts 0-5 /LPF (NONE SEEN) 10/24/19 17:15 Urine Mucus Slight /HPF (NONE SEEN) 10/24/19 17:15 Urine Culture Reflexed Not needed 10/24/19 17:15 Urine Total Protein Trace (NEG) 10/24/19 17:15 Weight: 234 lb Wound Present: No Closed Surgical Incision Present: Yes Negative Pressure Wound Therapy Present: No Physician Update: Labs reviewed and are stable except glucose is increased to 304 due to a change in junk food diet. His metformin will be increased to 1000 mg bid. He is at modified independence. He will require IV antibiotics twice daily. His family will have to administer the IV at home. Speech Therapy Update: Re-assessment shows Cognitive/linguistic skills are WFL. Mild oral dysphagia is being managed by swallow precautions and Mr. Carranza is tolerating regular foods and regular liquids without s/s of aspiration. Will need only Home exercise program for lingual and tongue base strengthening Summary: Patient's care plan and [facility]p goals have been reviewed and revised as necessary. Please see the Rehabilitation Signature page for all necessary signatures.
--- NOTE | 2019-10-31 15:53 | FAST ---
ENCOUNTER DATE AND TIME: 10/31/2019 08:00 (CDT) NAME HOSEA HERRING DATE OF : 1970 DATE OF ADMISSION: 10/24/2019 17:43 (CDT) PHONE: AGE: 49 N# [id number] GENDER: Male ENCOUNTER PHYSICIAN: Dr. Juan Pablo Peralta M.D. ADMISSION DIAGNOSIS: - Stroke 01 - Left Body (Right Brain) (01.1) RIGHT FRONTAL CRANI FOR ABSCESS. EATING: Not assessed/no information CODE: - ORAL HYGIENE: ORAL HYGIENE - STEP 1: Does the patient complete the activity by him/herself with no assistance (physical, verbal/nonverbal cueing, setup/clean-up)? Yes. 1. [id number] ADMISSION PERFORMANCE: Independent CODE: 06 TOILETING HYGIENE: Not assessed/no information CODE: - BATHING: SHOWER/BATHE SELF - STEP 1: Does the patient complete the activity by him/herself with no assistance (physical, verbal/nonverbal cueing, setup/clean-up)? Yes. 1. [id number] ADMISSION PERFORMANCE: Independent CODE: 06 DRESSING - UPPER BODY: DRESSING - UPPER BODY - STEP 1: Does the patient complete the activity by him/herself with no assistance (physical, verbal/nonverbal cueing, setup/clean-up)? Yes. 1. [id number] ADMISSION PERFORMANCE: Independent CODE: 06 DRESSING - LOWER BODY: DRESSING - LOWER BODY - STEP 1: Does the patient complete the activity by him/herself with no assistance (physical, verbal/nonverbal cueing, setup/clean-up)? Yes. 1. [id number] ADMISSION PERFORMANCE: Independent CODE: 06 PUTTING ON/TAKING OFF FOOTWEAR: FOOTWEAR - STEP 1: Does the patient complete the activity by him/herself with no assistance (physical, verbal/nonverbal cueing, setup/clean-up)? Yes. 1. [id number] ADMISSION PERFORMANCE: Independent CODE: 06 DOES THE PATIENT USE A WHEELCHAIR/SCOOTER? CODE: EXPR INDICATE THE TYPE OF WHEELCHAIR/SCOOTER USED: CODE: EXPR INDICATE THE TYPE OF WHEELCHAIR/SCOOTER USED: CODE: EXPR BLADDER AND BOWEL: CODE: EXPR CODE: EXPR SIGNATURE PANEL: The following modified sections: 1. [id number] Admission Performance, 1. [id number] Admission Performance, 1. [id number] Admission Performance, 1. [id number] Admission Performance, 1. [id number] Admission Performance were [electronically] signed by ADÁN Carr on SunOct 31 2019 15:53:13 GMT-0500 (Central Daylight Time)
[2019-11-04] MEDS ORDERED: dexAMETHasone 4 MG TAB PO SCH ×2 (20:00→21:00)
[2019-11-13] MEDS ORDERED: dexAMETHasone 4 MG TAB PO SCH (20:00)
[2019-11-14] MEDS ORDERED: dexAMETHasone 4 MG TAB PO SCH (20:00)
[2019-11-24] MEDS ORDERED: dexAMETHasone 4 MG TAB PO SCH (08:00)
[2019-11-25] MEDS ORDERED: dexAMETHasone 4 MG TAB PO SCH (08:00)
[2019-11-26] MEDS ORDERED: dexAMETHasone 4 MG TAB PO SCH (08:00)
== END 2019-10-31 15:35 | disposition home health service (06) | DRG 949 ==
LOC: 5TH 16:44
PROVIDERS: ADMIT Psychiatry & Neurology Neurology with Special Qualifications in Child Neurology; ATTEND Psychiatry & Neurology Neurology with Special Qualifications in Child Neurology
DX: Z48.89 Encounter for other specified surgical aftercare (principal); G81.94 Hemiplegia, unspecified affecting left nondominant side
CPT/HCPCS: 36415; 74230; 80048; 80053; 81001; 82040; 82947; 83735; 84134; 85025; 87086; 87088; 92507; 92523; 92526; 92611; 97110; 97112; 97116; 97161; 97530; J0696; J8540

== ENCOUNTER 2020-08-19 16:39 | Emergency (ER) | payer BC ==
--- OUTSIDE RECORDS SUMMARY | 2020-08-19 16:47 | XMS REPORT | Clinical Summary ---
:1970 Author Organization [facility] Address [address] [place] [address] Care Team Providers Name Role Phone Wes Abdi Primary Care Provider Allergies No Known Allergies Medications Medication Sig Dispensed Refills Start End Date Status Date amLODIPine Take 1 tablet (10 0 10/25/19 A ctive (NORVASC) 10 MG mg total) by 0 21 tablet mouth daily. metFORMIN Take 1 tablet 0 10/24/19 Active (GLUCOPHAGE) 500 (500 mg total) by 0 21 MG tablet mouth 2 (two) times daily with breakfast and dinner. metoprolol Take 1 tablet (25 0 10/24/19 A ctive tartrate mg total) by 0 21 (LOPRESSOR) 25 MG mouth 2 (two) tablet times daily. lisinopriL Take 1 tablet (20 0 10/24/19 A ctive (PRINIVIL,ZESTRIL mg total) by 0 21 ) 20 MG tablet mouth 2 (two) times daily. lisinopriL Take 20 mg by 0 10/24/19 Disco ntinued (PRINIVIL,ZESTRIL mouth 2 (two) 20 (Stop Taking at ) 20 MG tablet times daily. Di toña) hydrALAZINE Take 50 mg by 0 10/24/19 Disc ontinued (APRESOLINE) 50 mouth 2 (two) 20 (Stop Taking at MG tablet times daily. Dischar ge) cefTRIAXone Inject 2 g 0 11/30/19 (ROCEPHIN) MBP 2 intravenously 0 20 g in 100 mL NS every 12 (twelve) hours for 37 days. dexAMETHasone Take 1 tablet (4 0 11/03/19 (DECADRON) 4 MG mg total) by 0 20 tablet mouth every 6 (six) hours for 10 days. dexAMETHasone Take 1 tablet (4 0 11/04/19 (DECADRON) 4 MG mg total) by 0 20 tablet mouth every 12 (twelve) hours for 10 days. dexAMETHasone Take 1 tablet (2 0 11/06/19 (DECADRON) 2 MG mg total) by 0 20 tablet mouth every 12 (twelve) hours for 10 days. dexAMETHasone Take 1 tablet (2 0 11/08/19 (DECADRON) 2 MG mg total) by 0 20 tablet mouth daily for 10 days. metroNIDAZOLE Take 1 tablet 111 tablet 0 11/30/19 E xpired (FLAGYL) 500 MG (500 mg total) by 0 20 tablet mouth every 8 (eight) hours for 37 days. Active Problems Problem Noted Date Essential hypertension 10/17/2019 Obesity 10/17/2019 Brain mass 10/17/2019 Acute respiratory failure with hypoxia 10/17/2019 S/P brain surgery 10/17/2019 Cerebral edema 10/17/2019 Encephalopathy 10/17/2019 Facial droop 10/16/2019 Encounters Date Type Specialty Care Team Description 10/19/2019 Anesthesia Event Sydney Sen MD 10/19/2019 Surgery Lazarus Eden MD CRANIOTOM Y 10/17/2019 Anesthesia Event Shashank Glover MD Rembalski, Nichole Carrolynn, LAURA 10/17/2019 Surgery Lazarus Eden MD CRANIOTOM Y,STEREOTA CTIC 10/16/2019 - Hospital Encounter General Internal Rachelle Sheehan history of colon cancer (Primary Dx); 10/24/2019 Medicine MD Stephany Facial droop; Silvia Hung MD Right frontal lobe mass; Khalida Charles Brain absce ss; MD Sharla Brain mass; Dk Saavedra Cerebral edema (HCC); MD Eligio Essential hyper tension; Encephalopathy; Class 1 obesity with alveolar hypoventilation, serious comorbidity, and body mass index (BMI) of 33.0 to 33.9 in adult (HCC); S/P brain surge ry 10/16/2019 Travel after 08/19/2019 Social History Tobacco Use Types Packs/Day Years Used Date Never Smoker Smokeless Tobacco: Never Used Sex Assigned at Date Recorded Not on file Last Filed Vital Signs Vital Sign Reading Time Taken Comments Blood Pressure 135/86 10/24/2019 12:25 PM CDT Pulse 66 10/24/2019 12:25 PM CDT Temperature 36.5 C (97.7 F) 10/24/2019 7:37 AM CDT Respiratory Rate 19 10/24/2019 12:25 PM CDT Oxygen Saturation 95% 10/24/2019 12:25 PM CDT Inhaled Oxygen Concentration 24% 10/22/2019 6:00 AM CDT Weight 117 kg (257 lb 15 oz) 10/18/2019 6:00 AM CDT Height 172.7 cm (5' 8") 10/16/2019 4:24 AM CDT Body Mass Index 39.22 10/16/2019 4:24 AM CDT Plan of Treatment Health Maintenance Due Date Last Done Comments DEPRESSION SCREENING (12+) 08/06/2019 INFLUENZA VACCINE (#1) 2020 LIPID PANEL 10/15/2022 10/16/2019 Implants Implanted Type Area Project Design Engineer Device Shelf Model / Identifier Expiration Serial / Date Lot Scr Un3 Veblen Self Drl 1.5x4mm [id number] - [id number] IMPLANTS Right: RILEY:CRANIOMA [id number] / Implanted: Qty: 8 on 10/19/2019 by Elie Eden MD at [facility] Head XILLOFACIAL / Cvr [place] Lp 14mm W/Tab [id number] - [id number] IMPLANTS Right: RILEY:CRANIOMA [id number] / Implanted: Qty: 1 on 10/19/2019 by Elie Eden MD at [facility] Head XILLOFACIAL / Plt Str Un3 2h W/Tab [id number] - [id number] IMPLANTS Right: RILEY: CRANIOMA [id number] / Implanted: Qty: 2 on 10/19/2019 by Elie Eden MD at [facility] Head XILLOFACIAL / Procedures Procedure Name Priority Date/Time Associated Comments Diagnosis REPORT OF PROCEDURE - 10/27/2019 11:31 ENDOSCOPY SCAN AM CDT RHYTHM STRIP - SCAN 10/27/2019 11:30 AM CDT CBC W/PLT COUNT & Routine 10/24/2019 5:20 Result s for this AUTO DIFFERENTIAL AM CDT procedure are in the results section. PHOSPHORUS Routine 10/24/2019 5:20 Results for this AM CDT procedure are i n the results section. MAGNESIUM Routine 10/24/2019 5:20 Results for this AM CDT procedure are i n the results section. BASIC METABOLIC PANEL Routine 10/24/2019 5:20 Re sults for this (7) AM CDT procedure are i n the results section. CBC W/PLT COUNT & Routine 10/24/2019 5:20 Result s for this AUTO DIFFERENTIAL AM CDT procedure are in the results section. CBC W/PLT COUNT & Routine 10/23/2019 4:22 Result s for this AUTO DIFFERENTIAL AM CDT procedure are in the results section. PHOSPHORUS Routine 10/23/2019 4:22 Results for this AM CDT procedure are i n the results section. MAGNESIUM Routine 10/23/2019 4:22 Results for this AM CDT procedure are i n the results section. BASIC METABOLIC PANEL Routine 10/23/2019 4:22 Re sults for this (7) AM CDT procedure are i n the results section. CBC W/PLT COUNT & Routine 10/23/2019 4:22 Result s for this AUTO DIFFERENTIAL AM CDT procedure are in the results section. POCT-GLUCOSE METER Routine 10/22/2019 9:42 Resul ts for this PM CDT procedure are i n the results section. PHOSPHORUS Routine 10/22/2019 3:33 Results for this PM CDT procedure are i n the results section. POCT-GLUCOSE METER Routine 10/22/2019 12:12 Resul ts for this PM CDT procedure are i n the results section. POCT-GLUCOSE METER Routine 10/22/2019 7:50 Resul ts for this AM CDT procedure are i n the results section. POCT-GLUCOSE METER Routine 10/22/2019 7:50 Resul ts for this AM CDT procedure are i n the results section. POCT-GLUCOSE METER Routine 10/22/2019 7:50 Resul ts for this AM CDT procedure are i n the results section. POCT-GLUCOSE METER Routine 10/22/2019 7:50 Resul ts for this AM CDT procedure are i n the results section. POCT-GLUCOSE METER Routine 10/22/2019 7:50 Resul ts for this AM CDT procedure are i n the results section. POCT-GLUCOSE METER Routine 10/22/2019 7:50 Resul ts for this AM CDT procedure are i n the results section. POCT-GLUCOSE METER Routine 10/22/2019 7:50 Resul ts for this AM CDT procedure are i n the results section. POCT-GLUCOSE METER Routine 10/22/2019 7:50 Resul ts for this AM CDT procedure are i n the results section. POCT-GLUCOSE METER Routine 10/22/2019 7:50 Resul ts for this AM CDT procedure are i n the results section. POCT-GLUCOSE METER Routine 10/22/2019 7:50 Resul ts for this AM CDT procedure are i n the results section. POCT-GLUCOSE METER Routine 10/22/2019 7:50 Resul ts for this AM CDT procedure are i n the results section. POCT-GLUCOSE METER Routine 10/22/2019 7:50 Resul ts for this AM CDT procedure are i n the results section. POCT-GLUCOSE METER Routine 10/22/2019 7:50 Resul ts for this AM CDT procedure are i n the results section. POCT-GLUCOSE METER Routine 10/22/2019 7:50 Resul ts for this AM CDT procedure are i n the results section. POCT-GLUCOSE METER Routine 10/22/2019 7:50 Resul ts for this AM CDT procedure are i n the results section. POCT-GLUCOSE METER Routine 10/22/2019 7:50 Resul ts for this AM CDT procedure are i n the results section. CBC W/PLT COUNT & Routine 10/22/2019 5:33 Result s for this AUTO DIFFERENTIAL AM CDT procedure are in the results section. PHOSPHORUS Routine 10/22/2019 5:33 Results for this AM CDT procedure are i n the results section. MAGNESIUM Routine 10/22/2019 5:33 Results for this AM CDT procedure are i n the results section. BASIC METABOLIC PANEL Routine 10/22/2019 5:33 Re sults for this (7) AM CDT procedure are i n the results section. CBC W/PLT COUNT & Routine 10/22/2019 5:33 Result s for this AUTO DIFFERENTIAL AM CDT procedure are in the results section. POCT-GLUCOSE METER Routine 10/21/2019 10:13 Resul ts for this PM CDT procedure are i n the results section. XR CHEST 1 VIEW STAT 10/21/2019 9:56 Results for this PORTABLE/BEDSIDE AM CDT procedure a re in the results section. CBC W/PLT COUNT & Routine 10/21/2019 3:25 Result s for this AUTO DIFFERENTIAL AM CDT procedure are in the results section. PHOSPHORUS Routine 10/21/2019 3:25 Results for this AM CDT procedure are i n the results section. MAGNESIUM Routine 10/21/2019 3:25 Results for this AM CDT procedure are i n the results section. BASIC METABOLIC PANEL Routine 10/21/2019 3:25 Re sults for this (7) AM CDT procedure are i n the results section. CBC W/PLT COUNT & Routine 10/21/2019 3:25 Result s for this AUTO DIFFERENTIAL AM CDT procedure are in the results section. POCT-GLUCOSE METER Routine 10/20/2019 9:51 Resul ts for this PM CDT procedure are i n the results section. VANCOMYCIN LEVEL, Timed 10/20/2019 8:43 Result s for this TROUGH PM CDT procedure are i n the results section. CBC W/PLT COUNT & Routine 10/20/2019 3:15 Result s for this AUTO DIFFERENTIAL AM CDT procedure are in the results section. PHOSPHORUS Routine 10/20/2019 3:15 Results for this AM CDT procedure are i n the results section. MAGNESIUM Routine 10/20/2019 3:15 Results for this AM CDT procedure are i n the results section. BASIC METABOLIC PANEL Routine 10/20/2019 3:15 Re sults for this (7) AM CDT procedure are i n the results section. CBC W/PLT COUNT & Routine 10/20/2019 3:15 Result s for this AUTO DIFFERENTIAL AM CDT procedure are in the results section. POCT-GLUCOSE METER Routine 10/19/2019 10:48 Resul ts for this PM CDT procedure are i n the results section. POCT-GLUCOSE METER Routine 10/19/2019 5:26 Resul ts for this PM CDT procedure are i n the results section. CT BRAIN WITHOUT IV CHRIS 10/19/2019 3:10 Resu lts for this CONTRAST PM CDT procedure are i n the results section. POCT-GLUCOSE METER Routine 10/19/2019 11:17 Resul ts for this AM CDT procedure are i n the results section. SURGICALLY OBTAINED Routine 10/19/2019 9:53 Resu lts for this CULTURE + GRAM STAIN AM CDT procedu re are in the results section. FUNGUS CULTURE + Routine 10/19/2019 9:53 Results for this SMEAR AM CDT procedure are i n the results section. ANAEROBIC CULTURE Routine 10/19/2019 9:53 Result s for this AM CDT procedure are i n the results section. AFB CULTURE + SMEAR Routine 10/19/2019 9:53 Resu lts for this (NON-SPUTUM) AM CDT procedure are i n the results section. SURGICALLY OBTAINED Routine 10/19/2019 9:50 Resu lts for this CULTURE + GRAM STAIN AM CDT procedu re are in the results section. FUNGUS CULTURE + Routine 10/19/2019 9:50 Results for this SMEAR AM CDT procedure are i n the results section. ANAEROBIC CULTURE Routine 10/19/2019 9:50 Result s for this AM CDT procedure are i n the results section. AFB CULTURE + SMEAR Routine 10/19/2019 9:50 Resu lts for this (NON-SPUTUM) AM CDT procedure are i n the results section. SURGICALLY OBTAINED Routine 10/19/2019 9:34 Resu lts for this CULTURE + GRAM STAIN AM CDT procedu re are in the results section. FUNGUS CULTURE + Routine 10/19/2019 9:34 Results for this SMEAR AM CDT procedure are i n the results section. ANAEROBIC CULTURE Routine 10/19/2019 9:34 Result s for this AM CDT procedure are i n the results section. AFB CULTURE + SMEAR Routine 10/19/2019 9:34 Resu lts for this (NON-SPUTUM) AM CDT procedure are i n the results section. CRANIOTOMY 10/19/2019 7:59 Abscess AM CDT Special Needs REQ: [id number], STEALTH, SUPINE CBC W/PLT COUNT & AUTO Routine 10/19/2019 4:55 AM Results for this DIFFERENTIAL CDT procedure are i n the results section. PHOSPHORUS Routine 10/19/2019 4:55 AM Results for this CDT procedure are i n the results section. MAGNESIUM Routine 10/19/2019 4:55 AM Results for this CDT procedure are i n the results section. VANCOMYCIN LEVEL, Timed 10/19/2019 4:55 AM Res ults for this TROUGH CDT procedure are i n the results section. BASIC METABOLIC PANEL Routine 10/19/2019 4:55 AM Results for this (7) CDT procedure are i n the results section. CBC W/PLT COUNT & AUTO Routine 10/19/2019 4:55 AM Results for this DIFFERENTIAL CDT procedure are i n the results section. POCT-GLUCOSE METER Routine 10/18/2019 10:26 PM Re sults for this CDT procedure are i n the results section. POCT-GLUCOSE METER Routine 10/18/2019 6:11 PM Re sults for this CDT procedure are i n the results section. TRANSFUSION SERVICE 10/18/2019 6:03 PM REPORT - SCAN CDT MR BRAIN WITH & Routine 10/18/2019 5:20 PM Resul ts for this WITHOUT IV CONTRAST CDT procedur e are in the results section. CT ABDOMEN/PELVIS WITH Routine 10/18/2019 1:15 PM Results for this IV CONTRAST CDT procedure are i n the results section. CT CHEST WITH IV Routine 10/18/2019 1:15 PM Resu lts for this CONTRAST CDT procedure are i n the results section. POCT-GLUCOSE METER Routine 10/18/2019 7:56 AM Re sults for this CDT procedure are i n the results section. CBC W/PLT COUNT & AUTO Routine 10/18/2019 4:49 AM Results for this DIFFERENTIAL CDT procedure are i n the results section. BASIC METABOLIC PANEL Routine 10/18/2019 4:49 AM Results for this (7) CDT procedure are i n the results section. CBC W/PLT COUNT & AUTO Routine 10/18/2019 4:49 AM Results for this DIFFERENTIAL CDT procedure are i n the results section. POCT-GLUCOSE METER Routine 10/17/2019 9:51 PM Re sults for this CDT procedure are i n the results section. POCT-GLUCOSE METER Routine 10/17/2019 7:02 PM Re sults for this CDT procedure are i n the results section. TRANSFUSION SERVICE 10/17/2019 6:01 PM REPORT - SCAN CDT POCT-GLUCOSE METER Routine 10/17/2019 5:48 PM Re sults for this CDT procedure are i n the results section. POCT-GLUCOSE METER Routine 10/17/2019 1:03 PM Re sults for this CDT procedure are i n the results section. CBC W/PLT COUNT & AUTO Routine 10/17/2019 11:11 AM Results for this DIFFERENTIAL CDT procedure are i n the results section. BASIC METABOLIC PANEL Routine 10/17/2019 11:11 AM Results for this (7) CDT procedure are i n the results section. CBC W/PLT COUNT & AUTO Routine 10/17/2019 11:11 AM Results for this DIFFERENTIAL CDT procedure are i n the results section. CT BRAIN WITHOUT IV STAT 10/17/2019 4:42 AM R esults for this CONTRAST CDT procedure are i n the results section. ANAEROBIC CULTURE CHRIS 10/17/2019 3:56 AM Res ults for this CDT procedure are i n the results section. SURGICALLY OBTAINED CHRIS 10/17/2019 3:56 AM R esults for this CULTURE + GRAM STAIN CDT procedu re are in the results section. TISSUE EXAM AP Routine 10/17/2019 3:55 AM Results for this CDT procedure are i n the results section. HGB/HCT (H&H) - STAT STAT 10/17/2019 3:33 AM Results for this LAB CDT procedure are i n the results section. GLUCOSE-STAT LAB STAT 10/17/2019 3:33 AM Resu lts for this CDT procedure are i n the results section. POTASSIUM-STAT LAB STAT 10/17/2019 3:33 AM Re sults for this CDT procedure are i n the results section. SODIUM NA-STAT LAB STAT 10/17/2019 3:33 AM Re sults for this CDT procedure are i n the results section. BLOOD GAS, ARTERIAL STAT 10/17/2019 3:33 AM R esults for this CDT procedure are i n the results section. CALCIUM, IONIZED STAT 10/17/2019 3:33 AM Resu lts for this CDT procedure are i n the results section. RRL CRITICAL LABS STAT 10/17/2019 3:33 AM Res ults for this (ABG,NA,K,H&H,GLUCOSE) CDT proce dure are in the results section. PROCEDURE W/ STEALTH 10/17/2019 1:50 AM Brain abscess CDT Special Needs REQ: BOWERS PINS CRANIOTOMY,STEREOTACTIC 10/17/2019 1:50 AM CDT Brain abscess Special Needs REQ: BOWERS PINS ABORH, MANUAL STAT 10/17/2019 1:05 AM CDT Res ults for this procedure are i n the results section . MR BRAIN WITHOUT IV STAT 10/16/2019 11:13 PM CDT Results for this CONTRAST procedure are i n the results section . CT BRAIN WITHOUT IV STAT 10/16/2019 8:40 PM CDT Results for this CONTRAST procedure are i n the results section . TYPE AND SCREEN, AUTOMATED STAT 10/16/2019 7:44 PM CDT Results for this procedure are i n the results section . PT/APTT STAT 10/16/2019 7:44 PM CDT Resu lts for this procedure are i n the results section . BLOOD CULTURE Routine 10/16/2019 4:01 PM CDT Res ults for this procedure are i n the results section . BLOOD CULTURE Routine 10/16/2019 4:01 PM CDT Res ults for this procedure are i n the results section . T4, FREE Routine 10/16/2019 4:00 PM CDT Resu lts for this procedure are i n the results section . HIV-1 ANTIGEN WITH HIV-1/2 Routine 10/16/2019 4:00 PM CDT Results for this ANTIBODY procedure are i n the results section . RPR Routine 10/16/2019 4:00 PM CDT Resu lts for this procedure are i n the results section . HOMOCYSTEINE Routine 10/16/2019 4:00 PM CDT Resu lts for this procedure are i n the results section . VITAMIN B12 AND FOLATE Routine 10/16/2019 4:00 PM CDT Results for this procedure are i n the results section . TSH/FREE T4 IF INDICATED Routine 10/16/2019 4:00 PM CDT Results for this procedure are i n the results section . HEMOGLOBIN A1C AP Routine 10/16/2019 4:00 PM CDT Re sults for this procedure are i n the results section . MR BRAIN WITH & WITHOUT IV Routine 10/16/2019 1:40 PM CDT Results for this CONTRAST procedure are i n the results section . CBC W/PLT COUNT & AUTO Routine 10/16/2019 6:00 AM CDT Results for this DIFFERENTIAL procedure are i n the results section . LIPID PANEL Add-On 10/16/2019 6:00 AM CDT Resu lts for this procedure are i n the results section . HEPATIC FUNCTION PANEL Routine 10/16/2019 6:00 AM CDT Results for this procedure are i n the results section . CBC W/PLT COUNT & AUTO Routine 10/16/2019 6:00 AM CDT Results for this DIFFERENTIAL procedure are i n the results section . BASIC METABOLIC PANEL (7) Routine 10/16/2019 6:00 AM CDT Results for this procedure are i n the results section . after 08/19/2019 Results EKG-SCANNED (10/27/2019 11:31 AM CDT) Narrative Performed At This result has an attachment that is no t available. RHYTHM STRIP - SCAN (10/27/2019 11:30 AM CDT) Narrative Performed At This result has an attachment that is no t available. CBC with platelet count + automated diff (10/24/2019 5:20 AM CDT)Only the most recent of9 resultswithin the time period is included. Pathologist Sig nature WBC 8.7 3.5 - 10.5 [facility] K/L [facility] RBC 5.24 4.63 - 6.08 [facility] Hemoglobin 14.6 13.7 - 17.5 [facility] GM/DL [facility] Hematocrit 43.6 40.1 - 51.0 % [facility] MCV 83.2 79.0 - 92.2 fL [facility] MCH 27.9 25.7 - 32.2 pg [facility] MCHC 33.5 32.3 - 36.5 [facility] GM/DL [facility] RDW 13.0 11.6 - 14.4 % [facility] Platelets 251 150 - 450 K/CU [facility] MPV 10.4 9.4 - 12.4 fL [facility] nRBC 0 0 - 0 /100 WBC [facility] % Neutros 78 % [facility] % Lymphs 15 % [facility] % Monos 6 % [facility] % Eos 0 % [facility] % Baso 0 % [facility] # Neutros 6.78 (H) 1.78 - 5.38 [facility]/L [facility] # Lymphs 1.28 (L) 1.32 - 3.57 [facility]/L [facility] # Monos 0.55 0.30 - 0.82 [facility]/L [facility] # Eos 0.00 (L) 0.04 - 0.54 [facility]/L [facility] # Baso 0.01 0.01 - 0.08 [facility]/L [facility] Immature 1 0 - 1 % [facility] Specimen Blood Performing Organization Address City/[facility]/Zipcode Phone Number [address] [address] CENTER Phosphorus (10/24/2019 5:20 AM CDT)Only the most recent of7 resultswithin the time period is included. Pathologist Sig nature Phosphorus 3.5 2.3 - 4.7 mg/dL [facility] Specimen Blood Narrative Performed At Dispatcher Relay ID - NTP [facility] Performing Organization Address [facility] Phone Number [address] [address] CENTER Magnesium (10/24/2019 5:20 AM CDT)Only the most recent of6 resultswithin the time period is included. Pathologist Sig nature Magnesium 2.4 1.6 - 2.6 mg/dL [facility] Specimen Blood Narrative Performed At Dispatcher Relay ID - NTP [facility] Performing Organization Address City/[facility]/Zipcode Phone Number [address] [phone] CENTER Basic Metabolic Panel (10/24/2019 5:20 AM CDT)Only the most recent of9 results within the time period is included. Sodium 135 (L) 136 - 145 [facility] meq/L [facility] Potassium 4.3 3.5 - 5.1 [facility] meq/L [facility] Chloride 103 98 - 107 meq/L [facility] CO2 26 22 - 29 meq/L [facility] BUN 19 7 - 21 mg/dL [facility] Creatinine 0.75 0.57 - 1.25 [facility] mg/dL [facility] Glucose 145 (H) 70 - 105 mg/dL [facility] Calcium 8.5 8.4 - 10.2 [facility] mg/dL [facility] EGFR Comment: INSUFFICIENT [facility] CLINICAL DATA TO [facility] CALCULATE ESTIMATED CENTER GFR. Specimen Blood Narrative Performed At Dispatcher Relay ID - NTP [facility] C[facility] Performing Organization Address City/[facility]/Zipcode Phone Number [address] [phone] CENTER POC-Glucose meter (10/22/2019 9:42 PM CDT)Only the most recent of30 results within the time period is included. POC-Glucose Meter 120 (H)Comment: 70 - 110 mg/dL [facility] : TESTED AT [facility] [address] [place] [address], [id number]: Dispatcher Relay/Technic neo ID = [id number] for BECK PINA Specimen Blood Performing Organization Address City/[facility]/Zipcode Phone Number [address] [phone] CENTER XR chest 1 view portable / bedside (10/21/2019 9:56 AM CDT) Specimen Narrative Performed At FINAL REPORT [facility] CLINICAL HISTORY: post picc line inserti on TECHNIQUE: 1 view of the chest. COMPARISON: CT 10/18/2019 IMPRESSION: A right PICC line terminates at the cavo atrial junction. There are no focal infiltrates or effusions. The card iomediastinal silhouette is magnified by technique. The osseous stru ctures appear intact. Signed: Mallory Howard MD Report Verified Date/Time: 10/21/2019 10:36:39 Reading [facility] Reading Room Procedure Note Interface, External Ris In - 10/21/2019 10:38 AM CDT FINAL REPORT CLINICAL HISTORY: post picc line inserti on TECHNIQUE: 1 view of the chest. COMPARISON: CT 10/18/2019 IMPRESSION: A right PICC line terminates at the cavo atrial junction. There are no focal infiltrates or effusions. The card iomediastinal silhouette is magnified by technique. The osseous stru ctures appear intact. Signed: Mallory Howard MD Report Verified Date/Time: 10/21/2019 1 0:36:39 Reading Location: [facility] Radiol [facility] Reading Room Performing Organization Address City/[facility] [facility] [place] Phone Number GE RIS Vancomycin level, trough (10/20/2019 8:43 PM CDT)Only the most recent of2 resultswithin the time period is included. Pathologist Sig nature Vancomycin Tr 15.0 10.0 - 20.0 ug/mL [facility] CENTER Specimen Blood Narrative Performed At Dispatcher Relay ID - BS [facility] Performing Organization Address City/[facility]/Zipcode Phone Number [phone] [place] [address] brain without IV contrast (10/19/2019 3:10 PM CDT)Only the most recent of3 resultswithin the time period is included. Specimen Narrative Performed At FINAL REPORT GE RIS CT, BRAIN, WITHOUT CONTRAST CLINICAL INDICATION: Altered mental st atus s/p abscess evacuation COMPARISON: October 17, 2019 TECHNIQUE: Noncontrast axial CT imagin g of the brain and skull. DOSE REDUCTION: Dose modulation, iterati ve reconstruction, and/or weight-based adjustment of the mA/kV was utilized to reduce the radiation dose to as low as reasonably a chievable. FINDINGS: Surgical changes compatible with provide d history of abscess evacuation. Minimal hemorrhagic material is noted at the abscess site as well as small volume pneumocephalus. Edema distorts the right hemispheric architecture with approximat cornelius 3 mm leftward midline shift at the level of the foramen of Mon ro. Calvarial access flap is anatomically positioned. There is small volume gas and fluid in the subgaleal space. No interval infarct or new parenchymal h emorrhage has developed. There is no hydrocephalus. IMPRESSION: Status post abscess evacuation with hemo rrhagic material around the surgical tract. Grossly stable edema and persistent residual mass effect. Signed: JR Madrigal Robert MD Report Verified Date/Time: 10/19/2019 15:28:54 Reading Location: [address] Room Procedure Note Interface, External Ris In - 10/19/2019 3:31 PM CDT FINAL REPORT CT, BRAIN, WITHOUT CONTRAST CLINICAL INDICATION: Altered mental sta tus s/p abscess evacuation COMPARISON: October 17, 2019 TECHNIQUE: Noncontrast axial CT imaging of the brain and skull. DOSE REDUCTION: Dose modulation, iterati ve reconstruction, and/or weight-based adjustment of the mA/kV was utilized to reduce the radiation dose to as low as reasonably a chievable. FINDINGS: Surgical changes compatible with provide d history of abscess evacuation. Minimal hemorrhagic material is noted at the abscess site as well as small volume pneumocephalus. Edema distorts the right hemispheric architecture with approximat cornelius 3 mm leftward midline shift at the level of the foramen of Mon ro. Calvarial access flap is anatomically positioned. There is small volume gas and fluid in the subgaleal space. No interval infarct or new parenchymal h emorrhage has developed. There is no hydrocephalus. IMPRESSION: Status post abscess evacuation with hemo rrhagic material around the surgical tract. Grossly stable edema and persistent residual mass effect. Signed: JR Madrigal Robert MD Report Verified Date/Time: 10/19/2019 1 5:28:54 Reading Location: [address] Room Performing Organization Address City/State/Zipcode Phone Number [employer] culture + smear (non-sputum) (10/19/2019 9:53 AM CDT)Only the most recent of3 resultswithin the time period is included. Pathologist Sig nature Result No acid-fast bacilli [facility] isolated in 42 days [facility] Smear No acid fast bacilli [facility] seen [facility] Specimen Tissue - Brain structure (body structure ) Performing Organization Address [facility] [place] Phone Number [address] [address] [place] Anaerobic culture (10/19/2019 9:53 AM CDT)Only the most recent of4 results within the time period is included. Pathologist Sig nature Result No anaerobes isolated [facility] Specimen Tissue - Brain structure (body structure ) Performing Organization Address [facility] Phone Number [address] [address] [place] Surgically obtained culture + gram stain (10/19/2019 9:53 AM CDT)Only the most recent of4 resultswithin the time period is included. Result 4+ Streptococcus [facility] intermedi (A) [facility] Gram Stain Result 3+ WBCs [facility] Gram Stain Result No organisms seen [facility] Specimen Tissue - Brain structure (body structure ) Organism Antibiotic Method Susceptibility Streptococcus intermedius Ceftriaxone 0.016: Susceptible Streptococcus intermedius Penicillin G <0.01: Susceptible Streptococcus intermedius Vancomycin 0.75: Susceptible Performing Organization Address [facility] [place] Phone Number [address] [address] [place] Fungus culture + smear (10/19/2019 9:53 AM CDT)Only the most recent of3 resultswithin the time period is included. Pathologist Sig nature Result No fungus isolated [facility] in 28 days [facility] Fungus Smear No fungi seen [facility] Specimen Tissue - Brain structure (body structure ) Performing Organization Address City/State/Zipcode Phone Number [facility] [phone] [place] [address] CENTER TRANSFUSION SERVICE REPORT - SCAN (10/18/2019 6:03 PM CDT)Only the most recent of2 resultswithin the time period is included. Narrative Performed At This result has an attachment that is no t available. MR brain without & with IV contrast (10/18/2019 5:20 PM CDT)Only the most recent of2 resultswithin the time period is included. Specimen Narrative Performed At FINAL REPORT [facility] MRI Brain with and without contrast Clinical History: Preoperative planning Technique: MRI of the brain utilizing ax ial T1, T2, FLAIR, GRE, DWI, sagittal T1; and postgadolinium axial, s agittal, and coronal T1-weighted images. Comparisons: MRI brain dated 10/16/2019. Findings: Postsurgical changes of a right frontal sloan hole for sampling of the previously demonstrated rim-enhancing le fermin in the right frontal lobe . There is persistent hemorrhage al josi the surgical tract extending along the posterior margin of the lesion with associated enhancement, likely reactive however dev eloping cerebritis can have this appearance recommend continued clos e attention on follow-up imaging.. There is apparently new hemorr byron along the medial aspect of the lesion extending into the right c orpora striata. The lesion is not significantly changed in size in the interval measuring 1.7 x 1.0 x 1.1 cm, previously 1.5 x1.3 x 1.0 cm w hen measured similarly. There is restricted diffusion within the centr al aspect of the lesion suggestive of central necrosis. Persiste nt abnormal FLAIR/T2 hyperintense signal surrounding the lesi on extending into the right basal ganglia and the body of the corpus callosum. Within the areas of edema there are innumerable foci of h ypointense SWI signal, given appearance on T2-weighted imaging and po stcontrast imaging these findings may represent abnormal vasculat ure versus perivascular enhancement not definitively seen on the prior examination however differences in technique limit this comp arison. Unchanged mass effect on adjacent structures including the right lateral ventricle with mild effacement of the right cerebr al hemisphere sulci. Grossly unchanged leftward midline shift measuri ng approximately 6 mm. There is no evidence of acute infarct . The cr aniocervical junction is preserved. The major intracranial flow-v oids appear patent. Mucosal thickening in the left maxillary sinus. Middle ears and mastoid air cells are clear. Intraorbita l contents are unremarkable. No aggressive osseous or soft tissue les ions identified. IMPRESSION: Postsurgical changes of a right frontal sloan hole for sampling of the previously demonstrated rim-enhancin g lesion in the right frontal lobe with persistent hemorrhage along th e surgical tract and associated enhancement, likely reactive however developing cerebritis can have this appearance recommend svetlana nued close attention on follow-up imaging. New hemorrhage along the medial aspect o f the lesion extending into the right corpora striata. Grossly unchanged appearance of the lesi on with surrounding T2 FLAIR signal abnormality. However with and the areas of edema there are innumerable foci of hypointense SWI sign al, given appearance on T2-weighted imaging and postcontrast kassandra ging these findings may represent abnormal vasculature versus pe rivascular enhancement not definitively seen on the prior examinati on however differences in technique limit this comparison. Signed: Jairo Barry MD Report Verified Date/Time: 10/19/2019 01:40:31 Procedure Note Interface, External Ris In - 10/19/2019 1:43 AM CDT FINAL REPORT MRI Brain with and without contrast Clinical History: Preoperative planning Technique: MRI of the brain utilizing ax ial T1, T2, FLAIR, GRE, DWI, sagittal T1; and postgadolinium axial, s agittal, and coronal T1-weighted images. Comparisons: MRI brain dated 10/16/2019. Findings: Postsurgical changes of a right frontal sloan hole for sampling of the previously demonstrated rim-enhancing le fermin in the right frontal lobe . There is persistent hemorrhage al josi the surgical tract extending along the posterior margin of the lesion with associated enhancement, likely reactive however dev eloping cerebritis can have this appearance recommend continued clos e attention on follow-up imaging.. There is apparently new hemorr byron along the medial aspect of the lesion extending into the right c orpora striata. The lesion is not significantly changed in size in the interval measuring 1.7 x 1.0 x 1.1 cm, previously 1.5 x1.3 x 1.0 cm w hen measured similarly. There is restricted diffusion within the centr al aspect of the lesion suggestive of central necrosis. Persiste nt abnormal FLAIR/T2 hyperintense signal surrounding the lesi on extending into the right basal ganglia and the body of the corpus callosum. Within the areas of edema there are innumerable foci of h ypointense SWI signal, given appearance on T2-weighted imaging and po stcontrast imaging these findings may represent abnormal vasculat ure versus perivascular enhancement not definitively seen on the prior examination however differences in technique limit this comp arison. Unchanged mass effect on adjacent structures including the right lateral ventricle with mild effacement of the right cerebr al hemisphere sulci. Grossly unchanged leftward midline shift measuri ng approximately 6 mm. There is no evidence of acute infarct . The cr aniocervical junction is preserved. The major intracranial flow-v oids appear patent. Mucosal thickening in the left maxillary sinus. Middle ears and mastoid air cells are clear. Intraorbita l contents are unremarkable. No aggressive osseous or soft tissue les ions identified. IMPRESSION: Postsurgical changes of a right frontal sloan hole for sampling of the previously demonstrated rim-enhancin g lesion in the right frontal lobe with persistent hemorrhage along th e surgical tract and associated enhancement, likely reactive however developing cerebritis can have this appearance recommend svetlana nued close attention on follow-up imaging. New hemorrhage along the medial aspect o f the lesion extending into the right corpora striata. Grossly unchanged appearance of the lesi on with surrounding T2 FLAIR signal abnormality. However with and the areas of edema there are innumerable foci of hypointense SWI sign al, given appearance on T2-weighted imaging and postcontrast kassandra ging these findings may represent abnormal vasculature versus pe rivascular enhancement not definitively seen on the prior examinati on however differences in technique limit this comparison. Signed: Jairo Barry MD Report Verified Date/Time: 10/19/2019 0 1:40:31 Performing Organization Address City/State/Zipcode Phone Number [facility] abdomen/pelvis with IV contrast (10/18/2019 1:15 PM CDT) Specimen Narrative Performed At FINAL REPORT [facility] DOSE REDUCTION: The examination was perf ormed according to departmental dose-optimization program w hich includes automated exposure control, adjustment of the mA a nd/or kV according to patient size and/or use of iterative reconstruct ion technique. TECHNIQUE: CT of the chest, abdomen, and pelvis with intravenous contrast. Oral contrast was not administ ered. COMPARISON: None Discussion: No pleural effusions. There is atelectas is in the left lung base. An approximately 2 x 1.0 cm opacity abuttin g the pleural surface in the right lower lobe posteriorly most likely represents an additional area of atelectasis or scarring. Scatter ed subsegmental atelectasis elsewhere. Mild emphysematous/cystic spencer nges in the apices seen. Otherwise no definite suspicious lung no dule or mass. No focal consolidation. Aorta and great vessels are unremarkable . Heart is normal in size. No pericardial effusion. There is decreased liver density consist ent with fatty infiltration. No suspicious liver lesion. Spleen, panc reas, adrenal glands appear unremarkable. Status post cholecystectom y. No biliary ductal dilatation. There is an exophytic 1.0 cm intermediat e density lesion arising from the left kidney. This is likely hemorrha gic or proteinaceous cyst. Otherwise kidneys are unremarkable. Small hiatal hernia. There is colonic di verticulosis without findings of diverticulitis. Otherwise unopacified small bowel, colon, and appendix appear unremarkable. No ascites or lymphadenopathy. Scattered vascular calcifications. Aorta and IVC are normal in caliber. Pro state gland is prominent in size measuring 5 x 5 cm. Bladder is unre markable. Left inguinal hernia containing fat. Mild soft tissue stranding along the back. No acute skeletal abnormality. . IMPRESSION: 1. Focal opacity abutting the pleural fenton rface in the right lower lobe posteriorly is most likely atelectasis o r scarring rather than malignancy. Further correlation with PET /CT suggested. 2. Left lung base atelectasis. Scattered curvilinear densities bilaterally likely atelectasis or scarri ng. 3. Enlarged prostate gland. 4. Intermediate density lesion arising f rom the left kidney most likely hemorrhagic or proteinaceous cyst . This could be evaluated with renal protocol CT or MRI. 5. Otherwise no definite malignancy or m etastatic disease in the chest, abdomen, and pelvis. Signed: Christopher Liu MD Report Verified Date/Time: 10/18/2019 15:02:18 Reading Location: [facility] B1 C013T Transit n[employer] Reading Room Procedure Note Interface, External Ris In - 10/18/2019 3:04 PM CDT FINAL REPORT DOSE REDUCTION: The examination was perf ormed according to departmental dose-optimization program w hich includes automated exposure control, adjustment of the mA a nd/or kV according to patient size and/or use of iterative reconstruct ion technique. TECHNIQUE: CT of the chest, abdomen, and pelvis with intravenous contrast. Oral contrast was not administ ered. COMPARISON: None Discussion: No pleural effusions. There is atelectas is in the left lung base. An approximately 2 x 1.0 cm opacity abuttin g the pleural surface in the right lower lobe posteriorly most likely represents an additional area of atelectasis or scarring. Scatter ed subsegmental atelectasis elsewhere. Mild emphysematous/cystic spencer nges in the apices seen. Otherwise no definite suspicious lung no dule or mass. No focal consolidation. Aorta and great vessels are unremarkable . Heart is normal in size. No pericardial effusion. There is decreased liver density consist ent with fatty infiltration. No suspicious liver lesion. Spleen, panc reas, adrenal glands appear unremarkable. Status post cholecystectom y. No biliary ductal dilatation. There is an exophytic 1.0 cm intermediat e density lesion arising from the left kidney. This is likely hemorrha gic or proteinaceous cyst. Otherwise kidneys are unremarkable. Small hiatal hernia. There is colonic di verticulosis without findings of diverticulitis. Otherwise unopacified small bowel, colon, and appendix appear unremarkable. No ascites or lymphadenopathy. Scattered vascular calcifications. Aorta and IVC are normal in caliber. Pro state gland is prominent in size measuring 5 x 5 cm. Bladder is unre markable. Left inguinal hernia containing fat. Mild soft tissue stranding along the back. No acute skeletal abnormality. . IMPRESSION: 1. Focal opacity abutting the pleural fenton rface in the right lower lobe posteriorly is most likely atelectasis o r scarring rather than malignancy. Further correlation with PET /CT suggested. 2. Left lung base atelectasis. Scattered curvilinear densities bilaterally likely atelectasis or scarri ng. 3. Enlarged prostate gland. 4. Intermediate density lesion arising f rom the left kidney most likely hemorrhagic or proteinaceous cyst . This could be evaluated with renal protocol CT or MRI. 5. Otherwise no definite malignancy or m etastatic disease in the chest, abdomen, and pelvis. Signed: Christopher Liu MD Report Verified Date/Time: 10/18/2019 1 5:02:18 Reading Location: [address] Reading Room Performing Organization Address City/State/Zipcode Phone Number [facility] chest with IV contrast (10/18/2019 1:15 PM CDT) Specimen Narrative Performed At FINAL REPORT [facility] DOSE REDUCTION: The examination was perf ormed according to departmental dose-optimization program w hich includes automated exposure control, adjustment of the mA a nd/or kV according to patient size and/or use of iterative reconstruct ion technique. TECHNIQUE: CT of the chest, abdomen, and pelvis with intravenous contrast. Oral contrast was not administ ered. COMPARISON: None Discussion: No pleural effusions. There is atelectas is in the left lung base. An approximately 2 x 1.0 cm opacity abuttin g the pleural surface in the right lower lobe posteriorly most likely represents an additional area of atelectasis or scarring. Scatter ed subsegmental atelectasis elsewhere. Mild emphysematous/cystic spencer nges in the apices seen. Otherwise no definite suspicious lung no dule or mass. No focal consolidation. Aorta and great vessels are unremarkable . Heart is normal in size. No pericardial effusion. There is decreased liver density consist ent with fatty infiltration. No suspicious liver lesion. Spleen, panc reas, adrenal glands appear unremarkable. Status post cholecystectom y. No biliary ductal dilatation. There is an exophytic 1.0 cm intermediat e density lesion arising from the left kidney. This is likely hemorrha gic or proteinaceous cyst. Otherwise kidneys are unremarkable. Small hiatal hernia. There is colonic di verticulosis without findings of diverticulitis. Otherwise unopacified small bowel, colon, and appendix appear unremarkable. No ascites or lymphadenopathy. Scattered vascular calcifications. Aorta and IVC are normal in caliber. Pro state gland is prominent in size measuring 5 x 5 cm. Bladder is unre markable. Left inguinal hernia containing fat. Mild soft tissue stranding along the back. No acute skeletal abnormality. . IMPRESSION: 1. Focal opacity abutting the pleural fenton rface in the right lower lobe posteriorly is most likely atelectasis o r scarring rather than malignancy. Further correlation with PET /CT suggested. 2. Left lung base atelectasis. Scattered curvilinear densities bilaterally likely atelectasis or scarri ng. 3. Enlarged prostate gland. 4. Intermediate density lesion arising f rom the left kidney most likely hemorrhagic or proteinaceous cyst . This could be evaluated with renal protocol CT or MRI. 5. Otherwise no definite malignancy or m etastatic disease in the chest, abdomen, and pelvis. Signed: Christopher Liu MD Report Verified Date/Time: 10/18/2019 15:02:18 Reading Location: [facility] C013T [facility] Reading Room Procedure Note Interface, External Ris In - 10/18/2019 3:04 PM CDT FINAL REPORT DOSE REDUCTION: The examination was perf ormed according to departmental dose-optimization program w hich includes automated exposure control, adjustment of the mA a nd/or kV according to patient size and/or use of iterative reconstruct ion technique. TECHNIQUE: CT of the chest, abdomen, and pelvis with intravenous contrast. Oral contrast was not administ ered. COMPARISON: None Discussion: No pleural effusions. There is atelectas is in the left lung base. An approximately 2 x 1.0 cm opacity abuttin g the pleural surface in the right lower lobe posteriorly most likely represents an additional area of atelectasis or scarring. Scatter ed subsegmental atelectasis elsewhere. Mild emphysematous/cystic spencer nges in the apices seen. Otherwise no definite suspicious lung no dule or mass. No focal consolidation. Aorta and great vessels are unremarkable . Heart is normal in size. No pericardial effusion. There is decreased liver density consist ent with fatty infiltration. No suspicious liver lesion. Spleen, panc reas, adrenal glands appear unremarkable. Status post cholecystectom y. No biliary ductal dilatation. There is an exophytic 1.0 cm intermediat e density lesion arising from the left kidney. This is likely hemorrha gic or proteinaceous cyst. Otherwise kidneys are unremarkable. Small hiatal hernia. There is colonic di verticulosis without findings of diverticulitis. Otherwise unopacified small bowel, colon, and appendix appear unremarkable. No ascites or lymphadenopathy. Scattered vascular calcifications. Aorta and IVC are normal in caliber. Pro state gland is prominent in size measuring 5 x 5 cm. Bladder is unre markable. Left inguinal hernia containing fat. Mild soft tissue stranding along the back. No acute skeletal abnormality. . IMPRESSION: 1. Focal opacity abutting the pleural fenton rface in the right lower lobe posteriorly is most likely atelectasis o r scarring rather than malignancy. Further correlation with PET /CT suggested. 2. Left lung base atelectasis. Scattered curvilinear densities bilaterally likely atelectasis or scarri ng. 3. Enlarged prostate gland. 4. Intermediate density lesion arising f rom the left kidney most likely hemorrhagic or proteinaceous cyst . This could be evaluated with renal protocol CT or MRI. 5. Otherwise no definite malignancy or m etastatic disease in the chest, abdomen, and pelvis. Signed: Christopher Liu MD Report Verified Date/Time: 10/18/2019 1 5:02:18 Reading Location: [address] Reading Room Performing Organization Address City/State/Zipcode Phone Number [facility] Tissue Exam (10/17/2019 3:55 AM CDT) Case Report Surgical Pathology Report Case: [id number] [facility] Authorizing Provider: Lazarus Eden MD Collected: 10/17/2019 0355 [facility] Ordering Location: [facility] Received: 10/17/2019 0852 [facility] SERVICES Pathologist: Ascencion Ibarra MD Specimen: Soft Tissue, Other, Brain tissue DIAGNOSIS BRAIN, RIGHT FRONTAL, STEREOTACTIC BIOPSIES: [facility] Electronically WHITE AND JONES MATTER WITH MILD EDEMA [facility] signed by Fred, WHITE MATTER WITH PERIVASCULAR CHRONIC INFLAMMAT ION AND GLIOSIS [facility] Ascencion Plascencia MD on Signing Pathologist Direct Phone Line: 10/21/2019 at 3:58 PM COMMENT No acute inflammation or [facility] abscesses are identified. [facility] The tissue was examined [facility] in its entirety. Given the clinical and radiologic picture, the biopsies are most likely not fully sales representative metals. Special stains for fungal, bacterial and acid-fast organisms are negative. Follow-up of microbiologic cultures is recommended. CPT Code(s) 71287; 60440 x 3 [facility] CLINICAL HISTORY Right frontal brain [facility] abscess with aspiration [facility] SPECIMEN SOURCE Right frontal brain [facility] biopsy [facility] GROSS DESCRIPTION The specimen is received in a single container labeled with the patient's name, MRN and corresponding accession number. [facility] A, Received in formalin labe led "brain tissue" are four irregular pieces of nix-pink tissue measuring 0.2 x 0.2 x 0.1 cm, 0.3 x 0.2 x 0.1 cm and 0.8 x 0.3 x 0.3 cm. The specimen is submitted entirely in a single cassette. [facility] MICROSCOPIC Performed [facility] SPECIAL STUDIES The interpretation of this c ase included the use of immunohistochemistry or special stains. [facility] Control Slides Examined: In -house known positive controls were evaluated along with the test tissue. These control slides run alongside of the patients sample show appropriate staining. [facility] yared and negative controls when available are evaluated Immunohistochemistry technic al testing was performed at [facility], Pathology Laboratory where it was developed and its performance characteristics were determined. It has not be en cleared or approved by [facility] U.S. Food and Drug Administration. The FDA has determined that such clearance or approval is not necessary. The test is used for clinical purposes. It should not be regarde d as investigational or for research. This laboratory is certified under the Clinical Laboratory Improvement Amendments of 1988 (CLIA-88) as qualified to perform high complexity clinical laboratory testing. Specimen Tissue - Soft tissue (navigational carlos pt) Performing Organization Address City/State/Zipcode Phone Number [facility] [address] [place] [address] CENTER Potassium-Stat Lab (10/17/2019 3:33 AM CDT) Pathologist [facility] nature Potassium 3.7 3.6 - 5.5 meq/L [facility] Specimen Blood, Arterial Performing Organization Address [facility] Phone Number [address] [address] [place] Sodium Na-Stat Lab (10/17/2019 3:33 AM CDT) Pathologist Sig nature Sodium 137 135 - 148 meq/L [facility] Specimen Blood, Arterial Performing Organization Address City/[facility] Phone Number [address] [address] [place] Glucose-Stat Lab (10/17/2019 3:33 AM CDT) Pathologist Sig nature Glucose 159 (H) 70 - 110 mg/dL [facility] Specimen Blood, Arterial Performing Organization Address [facility] Phone Number [address] [address] [place] HGB/HCT (H&H)-Stat Lab (10/17/2019 3:33 AM CDT) Pathologist Sig nature Hemoglobin 12.3 (L) 13.0 - 16.8 g/dL [facility] Hematocrit 36.0 (L) 40.0 - 50.0 % [facility] Specimen Blood, Arterial Performing Organization Address [facility] Phone Number [address] [address] [place] Calcium, Ionized (10/17/2019 3:33 AM CDT) Pathologist Sig nature Calcium, Ion 1.04 (L) 1.12 - 1.27 mmol/L [facility] pH, Blood 7.38 [facility] Specimen Blood Performing Organization Address [facility] Phone Number [address] [address] [place] Blood gas, arterial (10/17/2019 3:33 AM CDT) Pathologist Sig nature pH, Arterial 7.40 7.35 - 7.45 [facility] pCO2, Arterial 33 (L) 35 - 45 mmHg [facility] pO2, Arterial 296 (H) 80 - 90 mmHg [facility] O2 Sat, Arterial 99.7 (H) 96.0 - 97.0 % [facility] HCO3, Arterial 20 (L) 21 - 29 mmol/L [facility] Base Excess, Arterial -4.1 (L) -2.0 - 3.0 [facility] mmol/L [facility] Patient Temperature 35.4 C [facility] FIO2 100.0 % [facility] Specimen Blood, Arterial Performing Organization Address [facility] Phone Number [address] [address] CENTER ABORH, manual (10/17/2019 1:05 AM CDT) Pathologist Sig nature Rh Factor NEG [facility] [place] ABO Grouping O [facility] [place] Specimen Blood - Structure of right hand (body st ructure) Performing Organization Address [facility] Phone Number [address] [address] MR brain without IV contrast (10/16/2019 11:13 PM CDT) Specimen Narrative Performed At FINAL REPORT [employer] [facility] MRI Brain with contrast Clinical History: preoperative Technique: Stealth protocol MRI of the b rain utilizing axial T1-weighted, axial , coronal and sagitta l FLAIR images. Comparisons: Same day MRI brain. Findings: Please note that these specifically requ ested treatment planning sequences do not constitute a full diagn ostic examination. Again seen is the heterogeneous lesion with periphe ral rim of T2 shortening in central T2 hyperintensity within the rig ht centrum semiovale with surrounding T2 hyperintense signal /fabio a which extends to the body of the corpus callosum and right basal g anglia. Mucous retention cyst in the left maxillary sinus. Nonspecific FLAIR hyperintense signal in the left centrum semiovale. IMPRESSION: Stealth protocol MRI of the brain for tr eatment planning purposes as described above. Signed: Jairo Barry MD Report Verified Date/Time: 10/17/2019 01:52:55 Procedure Note Interface, External Ris In - 10/17/2019 1:55 AM CDT FINAL REPORT MRI Brain with contrast Clinical History: preoperative Technique: Stealth protocol MRI of the b rain utilizing axial T1-weighted, axial , coronal and sagitta l FLAIR images. Comparisons: Same day MRI brain. Findings: Please note that these specifically requ ested treatment planning sequences do not constitute a full diagn ostic examination. Again seen is the heterogeneous lesion with periphe ral rim of T2 shortening in central T2 hyperintensity within the rig ht centrum semiovale with surrounding T2 hyperintense signal /fabio a which extends to the body of the corpus callosum and right basal g anglia. Mucous retention cyst in the left maxillary sinus. Nonspecific FLAIR hyperintense signal in the left centrum semiovale. IMPRESSION: Stealth protocol MRI of the brain for tr eatment planning purposes as described above. Signed: Jairo Barry MD Report Verified Date/Time: 10/17/2019 0 1:52:55 Performing Organization Address City/[facility]/Zipcode Phone Number RIS Type and screen, automated (10/16/2019 7:44 PM CDT) Pathologist Sig nature ABO/RH AUTOMATED O NEGATIVE [facility] ([facility] Ab Scrn NEGATIVE [facility] Specimen Blood - Structure of left hand (body str ucture) Performing Organization Address [facility]/Zipcode Phone Number [facility] [address] [place] [address] PT/aPTT (10/16/2019 7:44 PM CDT) Pathologist Sig nature Protime 13.5 11.9 - 14.2 seconds [facility] INR 1.1 <=5.9 [facility] PTT 29.9 22.5 - 36.0 seconds [facility] Specimen Blood - Entire left upper arm (body stru cture) Narrative Performed At Effective 01/01/2019: PT Reference Range [facility] Change New: 11.9-14.2 Previous: 11.7-14.7 RECOMMENDED COUMADIN/WARFARIN INR THERAPY RANGES STANDARD DOSE: 2.0-3.0 Includes: PROPHYLAXIS for venous thrombosis, systemic embolization; TREATMENT for venous thrombosis and/or pulmonary embolus. HIGH RISK: Target INR is 2.5-3.5 for patients wiht mechanical heart valves. Performing Organization Address City/[facility] Phone Number [address] [address] CENTER Blood Culture - Routine (Left Venipuncture) (10/16/2019 4:01 PM CDT)Only the most recent of2 resultswithin the time period is included. Pathologist Sig nature Result No growth in 5 days [facility] Specimen Blood - Entire left upper arm (body stru cture) Performing Organization Address City/[facility] Phone Number [address] [address] CENTER Vitamin B12 and Folate (10/16/2019 4:00 PM CDT) Pathologist Sig nature Vitamin B12 620 213 - 816 pg/mL [facility] Folate 13.4 >=7.0 ng/mL [facility] Specimen Blood Narrative Performed At Dispatcher Relay LUIS ENRIQUE - POLI Arreguin [facility] Performing Organization Address City/[facility]/Zipcode Phone Number [address] [address] CENTER TSH/Free T4 If Indicated (10/16/2019 4:00 PM CDT) Pathologist Sig nature TSH 0.35 0.35 - 4.94 uIU/mL [facility] Specimen Blood Narrative Performed At Dispatcher Relay ID - POLI C [facility] Performing Organization Address City/[facility] Phone Number [address] [address] CENTER HIV-1 Antigen with HIV-1/2 Antibody (10/16/2019 4:00 PM CDT) Pathologist Sig nature HIV-1 Antigen with Nonreactive Nonreactive [facility] HIV 1&2 Antibody [facility] Specimen Blood Narrative Performed At Dispatcher Relay ID - DB [facility] Performing Organization Address [facility] [place] Phone Number [address] [address] CENTER RPR (10/16/2019 4:00 PM CDT) Pathologist Sig nature RPR Nonreactive Nonreactive [facility] Specimen Blood Performing Organization Address [facility] Phone Number [address] [address] CENTER T4, free (10/16/2019 4:00 PM CDT) Pathologist Sig nature Free T4 0.99 0.70 - 1.48 ng/dL [facility] Specimen Blood Narrative Performed At Dispatcher Relay ID - DB [facility] Performing Organization Address [facility] [place] Phone Number [address] [address] CENTER Homocysteine (10/16/2019 4:00 PM CDT) Pathologist Sig nature Homocysteine 3.8 (L) 5.1 - 15.4 umol/L [facility] Specimen Blood Narrative Performed At Dispatcher Relay ID - POLI C [facility] Performing Organization Address City/[facility] Phone Number [address] [address] [place] Hemoglobin A1c (10/16/2019 4:00 PM CDT) Pathologist Sig nature Hemoglobin A1C 7.0 (H) 4.3 - 6.1 % [facility] Specimen Blood Performing Organization Address [facility] Phone Number [address] [address] [place] Hepatic function panel (10/16/2019 6:00 AM CDT) Pathologist Sig nature Protein, Total 7.5 6.0 - 8.3 gm/dL [facility] Albumin 4.0 3.5 - 5.0 g/dL [facility] Total Bilirubin 0.7 0.2 - 1.2 mg/dL [facility] Bilirubin, Direct 0.3 0.1 - 0.5 mg/dL [facility] Alkaline Phosphatase 88 40 - 150 U/L [facility] AST 21 5 - 34 U/L [facility] ALT 36 6 - 55 U/L [facility] Specimen Blood - Entire right upper arm (body str ucture) Narrative Performed At Dispatcher Relay ID - SHA F [facility] Performing Organization Address [facility] Phone Number [address] [address] [place] Lipid panel (10/16/2019 6:00 AM CDT) Pathologist Sig nature Triglycerides 51 mg/dL [facility] Cholesterol 166 mg/dL [facility] [place] HDL 42 mg/dL [facility] [place] LDL Calculated 114 mg/dL [facility] [place] Specimen Blood - Entire right upper arm (body str ucture) Narrative Performed At Triglyceride Reference Range: [facility] Low Risk <150 Borderline 150-199 High Risk 200-499 Very High Risk >=500 Cholesterol Reference Range: Low Risk <200 Borderline 200-239 High Risk >240 HDL Cholesterol Reference Range: Low Risk >=60 High Risk <40 LDL Cholesterol Reference Range: Optimal <100 Near Optimal 100-129 Borderline 130-159 High 160-189 Very High >=190 Dispatcher Relay ID - SHA [place] Performing Organization Address City/State/Zipcode Phone Number [facility] [address] [place] [address] CENTER after 08/19/2019 Insurance Payer Benefit Plan / Subscriber ID Effective Dates Phone Addre ss Type Group BLUE BCBS OS [id number] 2017-Karmen [phone] [address] PPO CROSS/BLUE POS/PPO/EPO t 2 [facility] [id number] [phone] [address] [place] [address] M y [address] (Home) [place], [place] [address] Advance Directives For more information, please contact: [phone] Code Status Date Activated Date Inactivated Comments Full Code 10/16/2019 5:24 AM 10/24/2019 6:22 PM This code status was determined by: Patient
--- OUTSIDE RECORDS SUMMARY | 2020-08-19 16:49 | XMS REPORT | Continuity of Care Document ---
:1970 Author Organization [facility] t Address [address] [place] [address] Care Team Providers Name Role Phone Wes Abdi Primary Care Physician STEPHANY ARREGUIN Attending Clinician Unavailable Aguila PINEDO, Stephany Attending Clinician Abhilash PINEDO Attending Clinician Araceli PINEDO, Sharla Attending Clinician Eligio Mills MD Attending Clinician Meek PINEDO, Bruce Attending Clinician Francy PINEDO, Lacy Attending Clinician Chantel Glover MD Attending Clinician Ama Gruber CRNA Attending Clinician [phone] ELIGIO MILLS Admitting Clinician Unavailable Payers Payer Name Policy Type Policy Effective Date Expiration Date Sour ce Number BLUE CROSS/BLUE [id number] 2017 SHANE [place] SHIELDBCBS OS 00:00:00 - Medical POS/PPO/EPOxxxxxx [place] [id number] 2017-Pr [phone] [address], [place] [id number] Problems Condition Condition Condition Status Onset Resolution Last Treating Co mments Source Name Details Category Date Date Treatment Clinician Date Essential Essential Disease Active SHANE Claros hypertensi hypertensi 3-13 Anastasia kes - on on 00:00: Medical 00 Center Obesity Obesity Disease [facility] 00 [place] Brain mass Brain mass Disease Active 2019- [facility] 00 [place] Acute Acute Disease Active 2019- [facility] respirator respirator 3-13 Anastasia kes - y failure y failure 00:00: Medi maritza with with 00 Center hypoxia hypoxia S/P brain S/P brain Disease Active 2019- [facility] surgery surgery [facility]-13 [facility] 00:: Medical 00 [place] Cerebral Cerebral Disease Active 2019[facility] 00 [place] Encephalop Encephalop Disease Active 2019- [facility] athy athy -13 [facility] 00:: Medical [place] Facial Facial Disease Active 2019- [facility] droop droop 12 [facility] 00:[facility]: Medical 00 [place] Allergies, Adverse Reactions, Alerts This patient has no known allergies or adverse reactions. Social History Social Habit Start Date Stop Date Quantity Comments Source Sex Assigned At [facility] Tobacco use and 2019-10-20 2019-10-20 Never used [facility] - exposure 00:00:00 00:00:00 [facility] Smoking Status Start Date Stop Date Source Never smoker [facility] Medications Ordered Filled Start Stop Current Ordering Indication Dosage Frequency Signature Comments Components Source Medication Medication Date Date Medication? Clinician (SIG) Name Name dexAMETHaso 2020- No 2mg QD Take [address] [facility] ne 3- 04-04 tablet (2 [facility] - (DECADRON) 00:00: 23:59 mg total) M edical 2 MG tablet 00 :00 by mouth Cent er daily for 10 days. dexAMETHaso 2020- No 2mg Take [address] [facility] ne 3- 04-02 tablet (2 [facility] - (DECADRON) 00:00: 23:59 mg total) M edical 2 MG tablet 00 :00 by mouth Cent er every 12 (twelve) hours for 10 days. amLODIPine No 10mg QD Take [address] [facility] (NORVASC) 3 03-21 tablet (10 Master es - 10 MG 00:00: 23:59 mg total) Medica l tablet 00 :00 by mouth Center daily. dexAMETHaso 2019- No 4mg Take [address] [facility] ne -24 10-31 tablet (4 [facility] - (DECADRON) 00:00: 23:59 mg total) M edical 4 MG tablet 00 :00 by mouth Cent er every 12 (twelve) hours for 10 days. lisinopriL 2019- No 20mg Q.5D Take [address] [facility] (PRINIVIL,Z 3-20 -20 by mouth 2 L ukes - ESTRIL) 20 10:27: 00:00 (two) Medic al MG tablet 42 :00 times Center daily. hydrALAZINE 2019- No 50mg Q.5D Take [address] [facility] (APRESOLINE 3-23 10-20 by mouth 2 L ukes - ) 50 MG 10:27: 00:00 (two) Medical tablet 42 :00 times Center daily. metFORMIN 2020- No 500mg Take [address] [facility] (GLUCOPHAGE -23 10-20 tablet [facility] - ) 500 MG 00:00: 23:59 (500 mg Medic al tablet 00 :00 total) by Center mouth 2 (two) times daily with breakfast and dinner. metoprolol 2020- No 25mg Q.5D Take [address] [address] tartrate 3-23 10-20 tablet (25 Luke [facility] - (LOPRESSOR) 00:00: 23:59 mg total) Medical 25 MG 00 :00 by mouth 2 Center tablet (two) times daily. lisinopriL 2020- No 20mg Q.5D Take [address] [facility] [address] (PRINIVIL,Z 3-20 -20 tablet (20 L ukes - ESTRIL) 20 00:00: 23:59 mg total) M edical MG tablet 00 :00 by mouth 2 Cent er (two) times daily. cefTRIAXone 2019- No 2g Inject [address] (ROCEPHIN) 10-23- intravenou Anastasia kes - MBP 2 g in 00:00: 23:59 sly every M edical 100 mL NS 00 :00 12 Center (twelve) hours for 37 days. metroNIDAZO 2019- No 500mg Take [address] LE (FLAGYL) -23 11-26 tablet [facility] - 500 MG 00:00: 23:59 (500 mg Medical tablet 00 :00 total) by Center mouth every 8 (eight) hours for 37 days. dexAMETHaso 4mg Take 1 [facility] 10-23 tablet (4 [facility] - (DECADRON) 00:00: 23:59 mg total) M edical 4 MG tablet 00 :00 by mouth Cent er every 6 (six) hours for 10 days. Vital Signs Vital Name Observation Time Observation Value Comments Source Systolic blood 2019-10-24 12:25:00 135 mm[Hg] [facility] Diastolic blood 2019-10-24 12:25:00 86 mm[Hg] [facility] Heart rate 2019-10-24 12:25:00 66 /min [facility] Respiratory rate 2019-10-24 12:25:00 19 /min [facility] Oxygen saturation in 2019-10-24 12:25:00 95 /min [facility] Arterial blood by Medical Ce nter Pulse oximetry Body temperature 2019-10-24 07:37:00 36.5 Ivania [facility] Body weight 2019-10-18 06:00:00 117 kg [facility] BMI 2019-10-18 06:00:00 39.22 kg/m2 [facility] Body height 2019-10-16 04:24:00 172.7 cm [facility] Procedures Procedure Date / Time Performed Performing Clinician [facility] e REPORT OF PROCEDURE - 2019-10-27 11:31:05 Provider, Default [facility] - ENDOSCOPY SCAN Scanning [facility] RHYTHM STRIP - SCAN 2019-10-27 11:30:59 Provider, Default [facility] BASIC METABOLIC PANEL 2019-10-24 05:20:00 Cruz Strickland CH I [facility] (7) [facility] MAGNESIUM 2019-10-24 05:20:00 Juancarlos Gonzales [facility] PHOSPHORUS 2019-10-24 05:20:00 Juancarlos Gonzales [facility] CBC W/PLT COUNT & AUTO 2019-10-24 05:20:00 Cruz Strickland [facility] BASIC METABOLIC PANEL 2019-10-23 04:22:00 Butt Cruz Hardik CH I [address] MAGNESIUM 2019-10-23 04:22:00 Christian, Bauernidia Roberts [facility] PHOSPHORUS 2019-10-23 04:22:00 [facility] W/[facility]T [facility] & AUTO 2019-10-23 04:22:00 Cruz Stricklandl C [facility] POCT-GLUCOSE METER 2019-10-22 21:42:00 Khalida Charles CH I [facility] PHOSPHORUS 2019-10-22 15:33:[address] [facility] POCT-GLUCOSE METER 2019-10-22 12:12:00 Khalida Charles CH [facility] POCT-GLUCOSE METER 2019-10-22 07:50:00 Khalida Charles CH I [facility] BASIC METABOLIC PANEL 2019-10-22 05:33:00 ButtCruzl CH I [place] [id number]) [facility] MAGNESIUM 2019-10-22 05:33:00 Christian, Juancarlos [facility] PHOSPHORUS 2019-10-22 05:33:00 Christian, Juancarlos [facility] CBC W/PLT COUNT & AUTO 2019-10-22 05:33:00 ButtCruz C HI [facility] POCT-GLUCOSE METER 2019-10-21 22:13:00 Khalida Charles CH I [facility] XR CHEST 1 VIEW 2019-10-21 09:56:00 Lazarus Eden [facility] PORTABLE/BEDSIDE Medical [place] BASIC METABOLIC PANEL 2019-10-21 03:25:00 ButtCruz Hardik CH I [facility] () [facility] MAGNESIUM 2019-10-21 03:25:00 Christian, Bauer [facility] PHOSPHORUS 2019-10-21 03:25:00 Christian, Juancarlos [facility] CBC W/PLT COUNT & AUTO 2019-10-21 03:25:00 Cruz Strickland [facility] POCT-GLUCOSE METER 2019-10-20 21:51:00 Khalida Charles I [facility] VANCOMYCIN LEVEL, TROUGH 2019-10-20 20:43:00 Josue Beckford [facility] BASIC METABOLIC PANEL 2019-10-20 03:15:00 Cruz Strickland CH I [facility] (7) [facility] MAGNESIUM 2019-10-20 03:15:00 Christian, Bauer [facility] PHOSPHORUS 2019-10-20 03:15:00 Christian, [facility] CBC W/PLT COUNT & AUTO 2019-10-20 03:15:00 Cruz Strickland [facility] POCT-GLUCOSE METER 2019-10-19 22:48:00 Abhilash [facility] POCT-GLUCOSE METER 2019-10-19 17:26:00 Abhilash [facility] CT BRAIN WITHOUT IV 2019-10-19 15:10:00 Saskia Ibarra [facility] CONTRAST [facility] POCT-GLUCOSE METER 2019-10-19 11:17:00 Abhilash [facility] AFB CULTURE + SMEAR 2019-10-19 09:53:14 Lazarus Eden [facility] - (NON-SPUTUM) [facility] ANAEROBIC CULTURE 2019-10-19 09:53:14 Lazarus Eden Bruce [facility] FUNGUS CULTURE + SMEAR 2019-10-19 09:53:14 Lazarus Eden [facility] SURGICALLY OBTAINED 2019-10-19 09:53:14 Lazarus Eden [facility] - CULTURE + GRAM STAIN Medical [address] [employer] CULTURE + SMEAR 2019-10-19 09:50:12 Lazarus Eden [facility] (NON-SPUTUM) [facility] ANAEROBIC CULTURE 2019-10-19 09:50:12 MeekLazarus [facility] FUNGUS CULTURE + SMEAR 2019-10-19 09:50:12 EdenLazarus [facility] SURGICALLY OBTAINED 2019-10-19 09:50:12 Lazarus Eden [facility] [facility] - CULTURE + GRAM STAIN Medical [address] [facility] [employer] CULTURE + SMEAR 2019-10-19 09:34:48 [facility]azarus [facility] ANAEROBIC CULTURE 2019-10-19 09:34:48 EdenLazarus [facility] FUNGUS CULTURE + SMEAR 2019-10-19 09:34:48 MeekLazarus [facility] SURGICALLY OBTAINED 2019-10-19 09:34:[address] [facility] [address] [place] [facility] - CULTURE + GRAM STAIN Medical [facility] ter CRANIOTOMY 2019-10-19 07:59:00 Meek Lazarus [facility] BASIC METABOLIC PANEL 2019-10-19 04:55:00 Cruz Strickland CH [facility] (7) [facility] VANCOMYCIN LEVEL, TROUGH 2019-10-19 04:55:00 Josue Beckford [facility] MAGNESIUM 2019-10-19 04:55:00 [facility] PHOSPHORUS 2019-10-19 04:55:00 Coy, [facility] CBC W/PLT COUNT & AUTO 2019-10-19 04:55:00 Cruz Strickland [facility] POCT-GLUCOSE METER 2019-10-18 22:26:00 Abhilash [facility] POCT-GLUCOSE METER 2019-10-18 18:11:00 Abhilash [facility] TRANSFUSION SERVICE 2019-10-18 18:03:11 Gerry Santos [facility] - REPORT - SCAN Scanning [facility] MR BRAIN WITH & WITHOUT 2019-10-18 17:20:00 Kaden Ge [facility] - IV CONTRAST [facility] CT CHEST WITH IV 2019-10-18 13:15:00 Butt, [facility]PELVIS WITH 2019-10-18 13:15:00 Abhilash [facility] IV CONTRAST [facility] POCT-GLUCOSE METER 2019-10-18 07:56:00 [facility] BASIC METABOLIC PANEL 2019-10-18 04:49:00 [facility] () [facility] CBC W/PLT COUNT & AUTO 2019-10-18 04:49:00 [facility] POCT-GLUCOSE METER 2019-10-17 21:51:00 [facility] POCT-GLUCOSE METER 2019-10-17 19:02:00 [facility] TRANSFUSION SERVICE 2019-10-17 18:01:42 [facility] REPORT - SCAN Scanning [facility] POCT-GLUCOSE METER 2019-10-17 17:48:00 [facility] POCT-GLUCOSE METER 2019-10-17 13:03:00 [facility] BASIC METABOLIC PANEL 2019-10-17 11:11:00 [facility] () [facility] CBC W/PLT COUNT & AUTO 2019-10-17 11:11:00 [facility] CT BRAIN WITHOUT IV 2019-10-17 04:42:00 Lazarus Eden [facility] SURGICALLY OBTAINED 2019-10-17 03:56:48 Lazarus Eden [facility] - CULTURE + GRAM STAIN Medical [address] [facility] ANAEROBIC CULTURE 2019-10-17 03:56:48 Lazarus Eden [facility] TISSUE EXAM 2019-10-17 03:55:00 Lazarus Eden [facility] CALCIUM, IONIZED 2019-10-17 03:33:46 Shashank Glover [facility] BLOOD GAS, ARTERIAL 2019-10-17 03:33:46 Ritter, [facility] SODIUM NA-STAT LAB 2019-10-17 03:33:46 Ritter [facility] POTASSIUM-STAT LAB 2019-10-17 03:33:46 Ritter [facility] GLUCOSE-STAT LAB 2019-10-17 03:33:46 Ritter [facility] HGB/HCT (H&H) - STAT LAB 2019-10-17 03:33:46 Ritter Shashank [facility] CRANIOTOMY,STEREOTACTIC 2019-10-17 01:50:00 Meek [facility] PROCEDURE W/ STEALTH 2019-10-17 01:50:00 Meek [facility] ABORH, MANUAL 2019-10-17 01:05:00 Latia Holland [facility] MR BRAIN WITHOUT IV 2019-10-16 23:13:00 [facility] BRAIN WITHOUT IV 2019-10-16 20:40:00 [facility] PT/APTT 2019-10-16 19:44:00 Meek [facility] TYPE AND SCREEN, 2019-10-16 19:44:00 Lazarus Eden [facility] BLOOD CULTURE 2019-10-16 16:01:00 George Lange [facility] HEMOGLOBIN A1C 2019-10-16 16:00:00 [facility] TSH/FREE T4 IF INDICATED 2019-10-16 16:00:00 [facility] VITAMIN B12 AND FOLATE 2019-10-16 16:00:00 Maryladonna [facility] HOMOCYSTEINE 2019-10-16 16:00:00 Nino [facility] RPR 2019-10-16 16:00:00 [facility] WITH 2019-10-16 16:00:00 SandweKamron dougherty [facility] - HIV-1/2 ANTIBODY [facility] T4, FREE 2019-10-16 16:00:00 MarybereniceKamron dougherty [facility] MR BRAIN WITH & WITHOUT 2019-10-16 13:40:00 Dk Mills [facility] - IV CONTRAST [facility] BASIC METABOLIC PANEL 2019-10-16 06:00:00 Dk Mills [facility] - (7) [facility] HEPATIC FUNCTION PANEL 2019-10-16 06:00:00 Dk Mills CH I [facility] LIPID PANEL 2019-10-16 06:00:00 [facility] CBC W/PLT COUNT & AUTO 2019-10-16 06:00:00 Dk Mills CH I [facility] - DIFFERENTIAL [facility] Plan of Care Planned Activity Planned Date Details Comments Source Future Scheduled 2022-10-15 Lipid panel [facility] s - Test 00:00:00 (procedure) [code = [facility] 60220962] Future Scheduled 2020-04-06 INFLUENZA VACCINE [facility] - Test 00:00:00 (#1) [code = [facility] INFLUENZA VACCINE (#1)] Future Scheduled 2019-08-06 DEPRESSION SCREENING [facility] - Test 00:00:00 (12+) [code = [facility] DEPRESSION SCREENING (12+)] Results Test Description Test Time Test Comments Results Result Comments Source AFB CULTURE + SMEAR (NON-SPUTUM) 2019-12-01 14:27:00 Test Item Value Reference Range Interpretation Comme nts CULTURE (BEAKER) (test code = 1095) No acid-fast bacilli isolated i n 42 days AFB SMEAR (BEAKER) (test code = 994) No acid fast bacilli seen AFB culture + smear (non-sputum)2019-12-01 14:20:00 Test Item Value Reference Range Interpretation Comments Result (test code = No acid-fast bacilli 6463-4) isolated in 42 days AFB Smear (test code = No acid fast bacilli 47149-7) seen [facility] (NON-SPUTUM)2019-12-01 14:20:00 Test Item Value Reference Range Interpretation Comments CULTURE (BEAKER) (test No acid-fast bacilli code = 1095) isolated in 42 days AFB SMEAR (BEAKER) No acid fast bacilli (test code = 994) seen AFB CULTURE + SMEAR (NON-SPUTUM)2019-12-01 14:20:00 Test Item Value Reference Range Interpretation Comments CULTURE (BEAKER) (test No acid-fast bacilli code = 1095) isolated in 42 days AFB SMEAR (BEAKER) No acid fast bacilli (test code = 994) seen Fungus culture + [id number] 18:23:00 Test Item Value Reference Range Interpretation Comments Result (test code = No fungus isolated in 6463-4) 28 days Fungus Smear (test No fungi seen code = 1406) [facility] + [id number] 18:23:00 Test Item Value Reference Range Interpretation Comments CULTURE (BEAKER) (test No fungus isolated in code = 1095) 28 days FUNGUS SMEAR (BEAKER) No fungi seen (test code = 1406) FUNGUS CULTURE + [id number] 18:23:00 Test Item Value Reference Range Interpretation Comments CULTURE (BEAKER) (test No fungus isolated in code = 1095) 28 days FUNGUS SMEAR (BEAKER) No fungi seen (test code = 1406) FUNGUS CULTURE + [id number] 18:23:00 Test Item Value Reference Range Interpretation Comments CULTURE (BEAKER) (test No fungus isolated in code = 1095) 28 days FUNGUS SMEAR (BEAKER) No fungi seen (test code = 1406) BLOOD [id number] 10:14:00 Test Item Value Reference Range Interpretation Comments CULTURE (BEAKER) (test No growth in 5 days code = 1095) Basic Metabolic [id number] 07:03:00 Test Item Value Reference Range Interpretation Comments Sodium (test code = 135 meq/L 136-145 L 2951-2) Potassium (test code 4.3 meq/L 3.5-5.1 = 2823-3) Chloride (test code = 103 meq/L 98-107 2075-0) CO2 (test code = 26 meq/L 22-29 8-9) BUN (test code = 19 mg/dL 7-21 3094-0) Creatinine (test code 0.75 mg/dL 0.57-1.25 = 2160-0) Glucose (test code = 145 mg/dL 70-105 H 2345-7) Calcium (test code = 8.5 mg/dL 8.4-10.2 88683-3) EGFR (test code = [place] [address]-7) CLINICAL DATA T O CALCULATE ESTIMATED GFR. VISHNU (test code = VISHNU) Water Engineer ID - NTP Lab Interpretation Abnormal (test code = 53963-8) [facility]2020-03-20 07:03:00 Test Item Value Reference Range Interpretation Comments Magnesium (test code = 2.4 mg/dL 1.6-2.6 80659-4) VISHNU (test code = VISHNU) Water Engineer ID - NTP Lab Interpretation (test Normal code = 54161-9) [facility]2020-03-20 07:03:00 Test Item Value Reference Range Interpretation Comments Phosphorus (test code = 3.5 mg/dL 2.3-4.7 2777-1) VISHNU (test code = VISHNU) Water Engineer ID - NTP Lab Interpretation (test Normal code = 87534-4) [facility]2020-03-20 07:03:00 Test Item Value Reference Range Interpretation Comments PHOSPHORUS (BEAKER) (test code = 3.5 mg/dL 2.3-4.7 604) Water Engineer ID - [id number] 07:03:00 Test Item Value Reference Range Interpretation Comments MAGNESIUM (BEAKER) (test code = 2.4 mg/dL 1.6-2.6 627) Water Engineer ID - NTPBASIC METABOLIC [id number] 07:03:00 Test Item Value Reference Range Interpretation Comments SODIUM (BEAKER) (test 135 meq/L 136-145 L code = 381) POTASSIUM (BEAKER) 4.3 meq/L 3.5-5.1 (test code = 379) CHLORIDE (BEAKER) 103 meq/L 98-107 (test code = 382) CO2 (BEAKER) (test 26 meq/L 22-29 code = 355) BLOOD UREA NITROGEN 19 mg/dL 7-21 (BEAKER) (test code = 354) CREATININE (BEAKER) 0.75 mg/dL 0.57-1.25 (test code = 358) GLUCOSE RANDOM 145 mg/dL 70-105 H (BEAKER) (test code = 652) CALCIUM (BEAKER) 8.5 mg/dL 8.4-10.2 (test code = 697) EGFR (BEAKER) (test INSUFFIC IENT CLINICAL code = 1092) DATA TO CALCULA TE ESTIMATED GFR. Water Engineer ID - [facility] with platelet count + automated [id number] 06:04:00 Test Item Value Reference Range Interpretation Comments WBC (test code = 6690-2) 8.7 3.5- 10.5 K/L RBC (test code = 789-8) 5.24 4.63- 6.08 M/L MCHC (test code = 786-4) 33.5 32.3- 36.5 GM/DL Hematocrit (test code = 4544-3) 43.6 % 40.1-51 MCV (test code = 787-2) 83.2 fL 79-92.2 MCH (test code = 785-6) 27.9 pg 25.7-32.2 RDW (test code = 788-0) 13.0 % 11.6-14.4 Platelets (test code = 777-3) 251 150- 450 K/CU MM MPV (test code = 45258-6) 10.4 fL 9.4-12.4 nRBC (test code = 413) 0 0- 0 /100 WBC % Neutros (test code = 429) 78 % % Lymphs (test code = 430) 15 % % Monos (test code = 431) 6 % % Eos (test code = 432) 0 % % Baso (test code = 437) 0 % # Neutros (test code = 670) 6.78 1.78- 5.38 K/L H # Lymphs (test code = 414) 1.28 1.32- 3.57 K/L L # Monos (test code = 415) 0.55 0.30- 0.82 K/L # Eos (test code = 416) 0.00 0.04- 0.54 K/L L # Baso (test code = 417) 0.01 0.01- 0.08 K/L Immature Granulocytes-Relative 1 % 0-1 (test code = 2801) Lab Interpretation (test code = Abnormal 59413-5) [facility]PLT COUNT & AUTO [id number] 06:04:00 Test Item Value Reference Range Interpretation Comments WHITE BLOOD CELL COUNT (BEAKER) 8.7 K/ L 3.5-10.5 (test code = 775) RED BLOOD CELL COUNT (BEAKER) 5.24 M/ L 4.63-6.08 (test code = 761) HEMOGLOBIN (BEAKER) (test code = 14.6 GM/DL 13.7-17.5 410) HEMATOCRIT (BEAKER) (test code = 43.6 % 40.1-51.0 411) MEAN CORPUSCULAR VOLUME (BEAKER) 83.2 fL 79.0-92.2 (test code = 753) MEAN CORPUSCULAR HEMOGLOBIN 27.9 pg 25.7-32.2 (BEAKER) (test code = 751) MEAN CORPUSCULAR HEMOGLOBIN CONC 33.5 GM/DL 32.3-36.5 (BEAKER) (test code = 752) RED CELL DISTRIBUTION WIDTH 13.0 % 11.6-14.4 (BEAKER) (test code = 412) PLATELET COUNT (BEAKER) (test 251 K/CU MM 150-450 code = 756) MEAN PLATELET VOLUME (BEAKER) 10.4 fL 9.4-12.4 (test code = 754) NUCLEATED RED BLOOD CELLS 0 /100 WBC 0-0 (BEAKER) (test code = 413) NEUTROPHILS RELATIVE PERCENT 78 % (BEAKER) (test code = 429) LYMPHOCYTES RELATIVE PERCENT 15 % (BEAKER) (test code = 430) MONOCYTES RELATIVE PERCENT 6 % (BEAKER) (test code = 431) EOSINOPHILS RELATIVE PERCENT 0 % (BEAKER) (test code = 432) BASOPHILS RELATIVE PERCENT 0 % (BEAKER) (test code = 437) NEUTROPHILS ABSOLUTE COUNT 6.78 K/ L 1.78-5.38 H (BEAKER) (test code = 670) LYMPHOCYTES ABSOLUTE COUNT 1.28 K/ L 1.32-3.57 L (BEAKER) (test code = 414) MONOCYTES ABSOLUTE COUNT (BEAKER) 0.55 K/ L 0.30-0.82 (test code = 415) EOSINOPHILS ABSOLUTE COUNT 0.00 K/ L 0.04-0.54 L (BEAKER) (test code = 416) BASOPHILS ABSOLUTE COUNT (BEAKER) 0.01 K/ L 0.01-0.08 (test code = 417) IMMATURE GRANULOCYTES-RELATIVE 1 % 0-1 PERCENT (BEAKER) (test code = 2801) ANAEROBIC [id number] 18:14:00 Test Item Value Reference Range Interpretation Comments CULTURE (BEAKER) (test No anaerobes isolated code = 1095) Anaerobic [id number] 18:13:00 Test Item Value Reference Range Interpretation Comments Result (test code = No anaerobes isolated 6463-4) [facility] [id number] 18:13:00 Test Item Value Reference Range Interpretation Comments CULTURE (BEAKER) (test No anaerobes isolated code = 1095) ANAEROBIC [id number] 18:13:00 Test Item Value Reference Range Interpretation Comments CULTURE (BEAKER) (test No anaerobes isolated code = 1095) ANAEROBIC [id number] 18:03:00 Test Item Value Reference Range Interpretation Comments CULTURE (BEAKER) A 2+ Same org anism has been (test code = 1095) isolated from culture(s) of the same body s ite and collection date . Repeat identification performed only after cons [facility] with [facility].Refe r to previous cultur e of* - Streptococcus i ntermedius No anaerobes isolatedSURGICALLY OBTAINED CULTURE + GRAM [id number] 15:49:00 Test Item Value Reference Range Interpretation Comments CULTURE (BEAKER) STREPTOCOCCUS A 4+ Strepto coccus (test code = INTERMEDIUS intermedius 1095) Ceftriaxone Susceptible 0-1 , S (test code = 52) Resistant <0 or >1 Penicillin G Susceptible 0-0.12 S (test code = 3) , Intermediate <0 or >.12 , Resistant >2 Vancomycin (test Susceptible 0-1 , S code = 13) No Interpretations Established <0 or >1 GRAM STAIN 3+ WBCs RESULT (BEAKER) (test code = 1123) GRAM STAIN No organisms seen RESULT (BEAKER) (test code = 636322) SURGICALLY OBTAINED CULTURE + GRAM [id number] 15:49:00 Test Item Value Reference Range Interpretation Comments CULTURE (BEAKER) A 2+ Same org anism has (test code = been isolated f rom 1095) cultures(s) of the same body site and collection date . Repeat identifi cation and susceptibil ity testing perform ed only after consultat ion with the [facility] microbiology laboratory.Refe r to previous cultur e of* - Streptococcus intermedius GRAM STAIN 4+ WBCs RESULT (BEAKER) (test code = 1123) GRAM STAIN <1+ gram RESULT (BEAKER) positive cocci (test code = in pairs [id number]) SURGICALLY OBTAINED CULTURE + GRAM [id number] 15:49:00 Test Item Value Reference Range Interpretation Comments CULTURE (BEAKER) A 2+ Same org anism has (test code = been isolated f rom 1095) cultures(s) of the same body site and collection date . Repeat identifi cation and susceptibil ity testing perform ed only after consultat ion with the [facility] microbiology laboratory.Refe r to previous cultur e of* - Streptococcus intermedius GRAM STAIN 2+ WBCs RESULT (BEAKER) (test code = 1123) GRAM STAIN <1+ gram RESULT (BEAKER) positive cocci (test code = in pairs [id number]) BASIC METABOLIC [id number] 06:56:00 Test Item Value Reference Range Interpretation Comments SODIUM (BEAKER) (test 134 meq/L 136-145 L code = 381) POTASSIUM (BEAKER) 4.0 meq/L 3.5-5.1 (test code = 379) CHLORIDE (BEAKER) 103 meq/L 98-107 (test code = 382) CO2 (BEAKER) (test 24 meq/L 22-29 code = 355) BLOOD UREA NITROGEN 18 mg/dL 7-21 (BEAKER) (test code = 354) CREATININE (BEAKER) 0.70 mg/dL 0.57-1.25 (test code = 358) GLUCOSE RANDOM 143 mg/dL 70-105 H (BEAKER) (test code = 652) CALCIUM (BEAKER) 8.1 mg/dL 8.4-10.2 L (test code = 697) EGFR (BEAKER) (test INSUFFIC IENT CLINICAL code = 1092) DATA TO CALCULA TE ESTIMATED GFR. Water Engineer ID - [id number] 06:52:00 Test Item Value Reference Range Interpretation Comments PHOSPHORUS (BEAKER) (test code = 2.7 mg/dL 2.3-4.7 604) Water Engineer ID - [id number] 06:52:00 Test Item Value Reference Range Interpretation Comments MAGNESIUM (BEAKER) (test code = 2.4 mg/dL 1.6-2.6 627) Water Engineer ID - BSCBC W/PLT COUNT & AUTO [id number] 05:43:00 Test Item Value Reference Range Interpretation Comments WHITE BLOOD CELL COUNT (BEAKER) 8.3 K/ L 3.5-10.5 (test code = 775) RED BLOOD CELL COUNT (BEAKER) 5.11 M/ L 4.63-6.08 (test code = 761) HEMOGLOBIN (BEAKER) (test code = 14.5 GM/DL 13.7-17.5 410) HEMATOCRIT (BEAKER) (test code = 43.4 % 40.1-51.0 411) MEAN CORPUSCULAR VOLUME (BEAKER) 84.9 fL 79.0-92.2 (test code = 753) MEAN CORPUSCULAR HEMOGLOBIN 28.4 pg 25.7-32.2 (BEAKER) (test code = 751) MEAN CORPUSCULAR HEMOGLOBIN CONC 33.4 GM/DL 32.3-36.5 (BEAKER) (test code = 752) RED CELL DISTRIBUTION WIDTH 13.2 % 11.6-14.4 (BEAKER) (test code = 412) PLATELET COUNT (BEAKER) (test 208 K/CU MM 150-450 code = 756) MEAN PLATELET VOLUME (BEAKER) 10.8 fL 9.4-12.4 (test code = 754) NUCLEATED RED BLOOD CELLS 0 /100 WBC 0-0 (BEAKER) (test code = 413) NEUTROPHILS RELATIVE PERCENT 76 % (BEAKER) (test code = 429) LYMPHOCYTES RELATIVE PERCENT 15 % (BEAKER) (test code = 430) MONOCYTES RELATIVE PERCENT 7 % (BEAKER) (test code = 431) EOSINOPHILS RELATIVE PERCENT 0 % (BEAKER) (test code = 432) BASOPHILS RELATIVE PERCENT 0 % (BEAKER) (test code = 437) NEUTROPHILS ABSOLUTE COUNT 6.27 K/ L 1.78-5.38 H (BEAKER) (test code = 670) LYMPHOCYTES ABSOLUTE COUNT 1.24 K/ L 1.32-3.57 L (BEAKER) (test code = 414) MONOCYTES ABSOLUTE COUNT (BEAKER) 0.60 K/ L 0.30-0.82 (test code = 415) EOSINOPHILS ABSOLUTE COUNT 0.02 K/ L 0.04-0.54 L (BANNER) (test code = 416) BASOPHILS ABSOLUTE COUNT (BANNER) 0.01 K/ L 0.01-0.08 (test code = 417) IMMATURE GRANULOCYTES-RELATIVE 2 % 0-1 H PERCENT (BANNER) (test code = 2801) POC-Glucose [id number] 21:55:00 Test Item Value Reference Range Interpretation Comments POC-Glucose Meter (test 120 mg/dL 70-110 H : TE STED AT [facility] code = 1538) [address] [facility], 770 30: Water Engineer/Techni ji ID = [id number] for [place], VIKY ICE Lab Interpretation (test Abnormal code = 44232-6) [facility] [id number] 21:55:00 Test Item Value Reference Range Interpretation Comments POC-GLUCOSE METER 120 mg/dL 70-110 H : TESTED A T [place] [address] (BANNER) (test code = [facility], 153) [address]: Water Engineer/Techni ji ID = [id number] for [place], VIKY ICE [id number] 15:56:00 Test Item Value Reference Range Interpretation Comments PHOSPHORUS (BANNER) (test code = 3.2 mg/dL 2.3-4.7 604) Water Engineer ID - BSPOCT-GLUCOSE [id number] 12:26:00 Test Item Value Reference Range Interpretation Comments POC-GLUCOSE METER 156 mg/dL 70-110 H : Notified RN/MD: (BANNER) (test code = TESTED AT [place] [address] 153) [facility], [address]: Water Engineer/Techni ji ID = [id number] for [facility] ol[facility]arezria POCT-GLUCOSE [id number] 10:01:00 Test Item Value Reference Range Interpretation Comments POC-GLUCOSE METER 149 mg/dL 70-110 H : TESTED A T [place] [id number] (BANNER) (test code = [facility], 153) [address]: Water Engineer/Techni ji ID = [id number] for CHEMO SONG LER POCT-GLUCOSE [id number] 10:01:00 Test Item Value Reference Range Interpretation Comments POC-GLUCOSE METER 149 mg/dL 70-110 H : TESTED A T [facility] 6720 (BEAKER) (test code = [facility], 1538) [address]: Water Engineer/Techni ji ID = [id number] for [place], CHEMO LER POCT-GLUCOSE [id number] 10:01:00 Test Item Value Reference Range Interpretation Comments POC-GLUCOSE METER 149 mg/dL 70-110 H : TESTED A T [facility] 6720 (BEAKER) (test code = [facility], 1538) 514[address]: Water Engineer/Techni ji ID = [id number] for [place], CHEMO LER POCT-GLUCOSE [id number] 10:01:00 Test Item Value Reference Range Interpretation Comments POC-GLUCOSE METER 149 mg/dL 70-110 H : TESTED A T [facility] 6720 (BEAKER) (test code = [facility], 1538) 10787: Water Engineer/Techni ji ID = [id number] for [place], CHEMO LER POCT-GLUCOSE [id number] 10:01:00 Test Item Value Reference Range Interpretation Comments POC-GLUCOSE METER 149 mg/dL 70-110 H : TESTED A T [facility] 6720 (BEAKER) (test code = [facility], 1538) 45408: Water Engineer/Techni ji ID = [id number] for [place], CHEMO LER POCT-GLUCOSE [id number] 10:01:00 Test Item Value Reference Range Interpretation Comments POC-GLUCOSE METER 149 mg/dL 70-110 H : TESTED A T [facility] 6720 (BEAKER) (test code = [facility], 1538) 9[address]: Water Engineer/Techni ji ID = [id number] for [place], CHEMO LER POCT-GLUCOSE [id number] 10:01:00 Test Item Value Reference Range Interpretation Comments POC-GLUCOSE METER 149 mg/dL 70-110 H : TESTED A T [facility] 6720 (BEAKER) (test code = [facility], 1538) 23434: Water Engineer/Techni ji ID = [id number] for [place], CHEMO LER POCT-GLUCOSE [id number] 10:01:00 Test Item Value Reference Range Interpretation Comments POC-GLUCOSE METER 149 mg/dL 70-110 H : TESTED A T [facility] 6720 (BEAKER) (test code = [facility], 1538) 18607: Water Engineer/Techni ji ID = [id number] for [place], CHEMO LER POCT-GLUCOSE [id number] 10:01:00 Test Item Value Reference Range Interpretation Comments POC-GLUCOSE METER 149 mg/dL 70-110 H : TESTED A T [facility] 6720 (BEAKER) (test code = [facility], 1538) 72087: Water Engineer/Techni ji ID = [id number] for [place], CHEMO LER POCT-GLUCOSE [id number] 10:01:00 Test Item Value Reference Range Interpretation Comments POC-GLUCOSE METER 149 mg/dL 70-110 H : TESTED A T [facility] 6720 (BEAKER) (test code = [facility], 1538) 78329: Water Engineer/Techni ji ID = [id number] for [place], CHEMO LER POCT-GLUCOSE [id number] 10:01:00 Test Item Value Reference Range Interpretation Comments POC-GLUCOSE METER 149 mg/dL 70-110 H : TESTED A T [facility] 6720 (BEAKER) (test code = [facility], 1538) 55069: Water Engineer/Techni ji ID = [id number] for [place], CHEMO LER POCT-GLUCOSE [id number] 10:01:00 Test Item Value Reference Range Interpretation Comments POC-GLUCOSE METER 149 mg/dL 70-110 H : TESTED A T [facility] 6720 (BEAKER) (test code = [facility], 1538) 88284: Water Engineer/Techni ji ID = [id number] for DUNCAN, CHEMO LER POCT-GLUCOSE [id number] 10:01:00 Test Item Value Reference Range Interpretation Comments POC-GLUCOSE METER 149 mg/dL 70-110 H : TESTED A T [facility] 6720 (BEAKER) (test code = [facility], 1538) 13872: Water Engineer/Techni ji ID = [id number] for D[place]AN, CHEMO LER POCT-GLUCOSE [id number] 10:01:00 Test Item Value Reference Range Interpretation Comments POC-GLUCOSE METER 149 mg/dL 70-110 H : TESTED A T [facility] 6720 (BEAKER) (test code = [facility], 1538) 28845: Water Engineer/Techni ji ID = [id number] for DUNCAN, CHEMO LYLE POCT-GLUCOSE [id number] 10:01:00 Test Item Value Reference Range Interpretation Comments POC-GLUCOSE METER 149 mg/dL 70-110 H : TESTED A T [facility] 6720 (BEAKER) (test code = [facility], 1538) 90835: Water Engineer/Techni ji ID = [id number] for DUNCAN, CHEMO LER POCT-GLUCOSE [id number] 10:01:00 Test Item Value Reference Range Interpretation Comments POC-GLUCOSE METER 149 mg/dL 70-110 H : TESTED A T [facility] 6720 (BEAKER) (test code = [facility], 1538) 940[address]: Water Engineer/Techni ji ID = [id number] for D[place]AN, CHEMO LYLE BASIC METABOLIC [id number] 06:27:00 Test Item Value Reference Range Interpretation Comments SODIUM (BEAKER) (test 143 meq/L 136-145 code = 381) POTASSIUM (BEAKER) 3.5 meq/L 3.5-5.1 (test code = 379) CHLORIDE (BEAKER) 105 meq/L 98-107 (test code = 382) CO2 (BEAKER) (test 29 meq/L 22-29 code = 355) BLOOD UREA NITROGEN 16 mg/dL 7-21 (BEAKER) (test code = 354) CREATININE (BEAKER) 0.61 mg/dL 0.57-1.25 (test code = 358) GLUCOSE RANDOM 140 mg/dL 70-105 H (BEAKER) (test code = 652) CALCIUM (BEAKER) 6.9 mg/dL 8.4-10.2 L (test code = 697) EGFR (BEAKER) (test INSUFFIC IENT CLINICAL code = 1092) DATA TO CALCULA TE ESTIMATED GFR. Water Engineer LUIS ENRIQUE WALKER [id number] 06:23:00 Test Item Value Reference Range Interpretation Comments PHOSPHORUS (BEAKER) (test code = 0.8 mg/dL 2.3-4.7 LL 604) Water Engineer LUIS ENRIQUE WALKER [facility] W/PLT COUNT & AUTO [id number] 06:13:00 Test Item Value Reference Range Interpretation Comments WHITE BLOOD CELL COUNT (BEAKER) 8.3 K/ L 3.5-10.5 (test code = 775) RED BLOOD CELL COUNT (BEAKER) 4.26 M/ L 4.63-6.08 L (test code = 761) HEMOGLOBIN (BEAKER) (test code = 11.9 GM/DL 13.7-17.5 L 410) HEMATOCRIT (BEAKER) (test code = 35.8 % 40.1-51.0 L 411) MEAN CORPUSCULAR VOLUME (BEAKER) 84.0 fL 79.0-92.2 (test code = 753) MEAN CORPUSCULAR HEMOGLOBIN 27.9 pg 25.7-32.2 (BEAKER) (test code = 751) MEAN CORPUSCULAR HEMOGLOBIN CONC 33.2 GM/DL 32.3-36.5 (BEAKER) (test code = 752) RED CELL DISTRIBUTION WIDTH 13.1 % 11.6-14.4 (BEAKER) (test code = 412) PLATELET COUNT (BEAKER) (test 203 K/CU MM 150-450 code = 756) MEAN PLATELET VOLUME (BEAKER) 10.4 fL 9.4-12.4 (test code = 754) NUCLEATED RED BLOOD CELLS 0 /100 WBC 0-0 (BEAKER) (test code = 413) NEUTROPHILS RELATIVE PERCENT 87 % (BEAKER) (test code = 429) LYMPHOCYTES RELATIVE PERCENT 8 % (BEAKER) (test code = 430) MONOCYTES RELATIVE PERCENT 5 % (BEAKER) (test code = 431) EOSINOPHILS RELATIVE PERCENT 0 % (BEAKER) (test code = 432) BASOPHILS RELATIVE PERCENT 0 % (BEAKER) (test code = 437) NEUTROPHILS ABSOLUTE COUNT 7.23 K/ L 1.78-5.38 H (BEAKER) (test code = 670) LYMPHOCYTES ABSOLUTE COUNT 0.63 K/ L 1.32-3.57 L (BEAKER) (test code = 414) MONOCYTES ABSOLUTE COUNT (BEAKER) 0.38 K/ L 0.30-0.82 (test code = 415) EOSINOPHILS ABSOLUTE COUNT 0.00 K/ L 0.04-0.54 L (BEAKER) (test code = 416) BASOPHILS ABSOLUTE COUNT (BEAKER) 0.01 K/ L 0.01-0.08 (test code = 417) IMMATURE GRANULOCYTES-RELATIVE 1 % 0-1 PERCENT (BEAKER) (test code = 2801) [id number] 06:09:00 Test Item Value Reference Range Interpretation Comments MAGNESIUM (BEAKER) (test code = 2.0 mg/dL 1.6-2.6 627) Water Engineer ID - AARON MPOCT-GLUCOSE [id number] 22:25:00 Test Item Value Reference Range Interpretation Comments POC-GLUCOSE METER 184 mg/dL 70-110 H : [facility] (BEAKER[facility] (test code = [place], 1538) [address]: Water Engineer/Techni ji ID = [id number] for CH U, LI Blood Culture - Routine (Left Venipuncture)2019-10-21 17:00:00 Test Item Value Reference Range Interpretation Comments Result (test code = No growth in 5 days 6463-4) [facility] [id number] 17:00:00 Test Item Value Reference Range Interpretation Comments CULTURE (BEAKER) (test No growth in 5 days code = 1095) Tissue [id number] 15:58:00 Test Item Value Reference Range Interpretation Comments Case Report (test code Surgical Pathology = 104) Report Case: [id number] Authorizing Provider: Lazarus Eden MD Collected: 10/17/2019 0355 Ordering Location: [facility] PERI[facility] Received: 10/17/2019 0852 SERVICES Pathologist: Ascencion Ibarra MD Specimen: Soft Tissue, Other, Brain tissue DIAGNOSIS (test code = [id number] 3220) uZzEwMzNcZnRuYmpcdWMxIH beghLqBGcou9WhT3FzVvUsZ FxhbnNpXGRlZmxhbmcxMDMz YMO7xvEtPOQmAQoaAYInNAc vWg0vnCTskFbnMmYzUHOtx6 meynUIunqqsGu2mOkuH17zv 5P6EkmoY8bpTZRgRXFeH9Jt ZZ7pNODdVtk1JGS6PRA9JQV qPFSoG5BiZW1yQRHmvQUyIV n4k7bpxDjgYKFdXZB7l0mfK AddyvJnVW3tdf5ugGc2d3po nsOyXDJwYOWlsUHOHFVbA5A adGemGa0ukYb2bPmvZnjyKX T3Crq0BR2bae46ktd7yLvqY XPjfpjaCoS9EWxoNUDztwdy HUk6GCcoLNDnsNckRYttIJH ncjcyMFxtYXJndDcyMFxtYX QgJzowELqaEDLbPWT6VQewg 651MGW5MEhzx6ebm8qjjIQh Epi2FMBwHgJjLieeSHjhx5G cd0nwPENwkg7kFHP0dOWinK elx1J5uSIeAEDyiKCnvkJyO VIpOvK0UEuaVF0hyt59NEOc ZPO5ze9ciPYqpVbmhnIxuQQ eFOftK9XtEKWla130KINuG2 VnKWPiq7B2zpZjJoUoEACfx MW5asC5CUYkJIj0oTGdxcD1 dyUvlQBeJ1pvkV84EbYvgGF aT9KgyA90TrIjeKWdF5RsgR 55KxRyqMKeH9JujD03FtXgf PRvZZRncWPvSy4buBNllBZj h4SboLFjBEvrR08ry490LXH wnrJrK1cecRKhuseynLOmle gvOPwrghC7TETjIDGzJTgyB GYwXGZzMjBcbGFuZzEwMzNc aGljaFxmMFxkYmNoXGYwXGx rD8ggLlFlAwJiHLUHEqEGSc wgUklHSFQgRlJPTlRBTCwgU 1YZNzJOFPINMYdTXKOXC1XQ JQOFFsttTOFjD9fLQJJjST5 EIEdSQVkgTUFUVEVSIFdJVE ggTUlMRCBFREVNQVxwYXIgV 0hJVEUgTUFUVEVSIFdJVEgg PEGXDSLSE9TXUGWPSVTTWt9 UNFEhMY0SMESMSVHGZE5GWZ HLYJHVLUzIQ7hOQGEbby84X ON4EtGxc3X1ONF0MIBfETSy k0khQLDsaHNoLhFfHpKtNrP gWcmznGBtSMYfYiWmi8dlx5 61wQLhr4diCCUeYiR3sBCaG ADwsMMlA255LPJlJUorh6bg w5KlNUGdyWGdw9Y2SUASirk awGi3yItfK20ak6M6MbpmI2 shCSShQLHeF1VvVS8ySIBtE vc3HFL0UUE0QOQwAKEeN9Qp PO0lNYFdvXYhZFi0w9ezqZp vTYIlMTM8x4bbPNxvpkHeMS 0guf5xdTf0w0phqqJxRZPbC YGsjNZQCALpX3NjoIsrFd6d bMc8oLpbUifhLNV4Ybd8LE0 koj21mvw7aJyrXCJbvlidFv X1KWevBXOzzvdjXKm2SDieP DCdrFX4POTxjOHzR2CqJJOt LG3dlye0PPZ6MJboJABrCqJ 8EJZuvJFuVSSylQueXSvsp8 79RFG1GxUcWE7pT1Cpz5Q2p T6opHXiDWRxsIYzXbUgQXFk rt5xwZNjPPcbk2OqDLJ6kxI 9kGJdgSWaGJLbZgC5SLckVR 5uzk51KILdWEW9yt5pmFYck PbfqvWkrHZtJTmuQ3KoUCQp q109HMCqF5BxTIAxp7B9epO sBkUjGSEaxGX3flR2PEWiEH 1dxujjv9bhUAvwWFjiSMBjf fJ0syW1GMHfhMKtT1UkyS1i CERrMN8biatrr1zbQGR3TXi wBMMpETS2OrTpBDJfx9Mhob y0MsEeb6AzyIBzUTtsH06qy 970DVPtcwNlI4yeyHUaekvn rVFwtzrmISqawqI9AJLeBRi eltojTVZdBIchC5ddObRmVC BgyCikBWvju7MwVAFmYDMgW gHadMKkYWNbCko6SWIbcSZm RZWiQgFdY2cxtxojEhOJOTW iy6bjM9lioHULtYLrW9YfPA ncddJfVLvnGObhTPC1XVY2Y x82WhN7NXWzvz95 COMMENT (test code = s3vegBWqQCXtdIHfWcRiPUU 1083) dZMZfo3vvLGMueIRiBzSqHb NcZnRuYmpcdWMxXGRlZmYwe 6jnd141oQCyo0cuTHUgZjJ2 mSCiVETjgNFrV446f1eqm7j bmnNijZE8VOAfPTD9PElvyh WzxqM7WNjbuVVtFdR4VEuso xQaVNwucdElivKnMbj8OGRk X193VKM1bEnen6mzPXK1EXO cYADoGoSdNq6caASqM798DP BlUYGQEBSyePi7UWJeonHmb qTheKJTy416U980k8flOKXc yxJxvXtTkyypu2ghD010NRK hcGVydzEyMjQwXHBhcGVyaD Z4GCRxPM3lplisJfZxIK4kk oplJpUqEF0yyxs8QqNfKU0n cmdiNzIwXGhlYWRlcnkwXGZ xi2DdnpefID9pG0Wdg9F4gN 9maXRcZGVmdGFiNzIwXGZvc f1rqYNiDEoxy7GyLSC2qoE8 jPZiwNGsJLRyCE30Prjvx5X qJyzuIYD6DPRpucNxp3Tqt3 kyNlYdogZfA7vsT3RdOCAwB HPkEPAbNvIxhaBha8Cyf0Qb wLGgfOj7u2tkVHJqFLPkkOv ag3duSXJ3XHPuV9B7tPTus4 bdEPruVFCkwCI5klhrWZufK GZcizF2nbnyBIwePMDsjFB4 owqiKSisQTDmBwN4jsdkZJi cUAKqNYE5PKjrl123GZD0ZV xzYmtwYWdlXHBnbmNvbnRcc GduZGVjXHBsYWluXHBsYWlu XGYwXGZzMjRccWxccGxhaW5 jInZyRuByOGilJP1jBLDjN9 xodKJqWFXaXNPnD4wcPkZii Z3ksXhkVWftbiQyNU5nAZBt gBMfPXxmKdyivU0byGrhixY vciBhYnNjZXNzZXMgYXJlIG kbGM44xDWoMPTeWUDfCSF2y JKnwMDrh2FgETP0DO6zaqKy TBccCCn1uaRymgQigvT3vC9 vK6a9SJ4amYfiGYEdxR4bP2 TzBDOwRRNwMJIbh7tpP1yqS DRiD7V2dtVrNDBjNKFtsE8m p2hwspZucwAhqG5fjDQynHg mvNmuky54PIY9nPu9TZMorA Qgn3RwhTI0aHHqDtTJiFCrm OIoJEO8NOotrxNhw7NtXgDc T7ZcZFOnOMA4IHVsKNvvWR6 kIGFjaWQtZmFzdCBvcmdhbm nuzOSmVZAuVF8eD9J4vTWzQ pWCa7pnx0dgyAXhp5WzqXbi hm6ggW0ck4irQrGxdHo6hEW fovUktaAxOAMmtE8hjtDtFL 4fPDXyel3= CPT Code(s) (test code x8vkgESpQEHpzQViHhEqITO = 3357) oHJNtk1ukNMReoPSrGfDlLt NcZnRuYmpcdWMxXGRlZmYwe 3ztl711bNCgk1kfBAJeQpF3 mXWhZNMpqDNoA691j6qyo2s fajIwvYV4SXFvZAW7YHduas PaflO8GXxbrAGmRqI6BLemn jYhQZmdmeKrdmCbDlc1IXQp R494IZP3yRuch6rhQRD6CKC tAVTqVfMcAk5usITiX006UR KgRCWNODToiZo8XVEpitHxg dMwiQIRj833I870u4hwMWRb axWrrDwZpkbds8arX512VMX hcGVydzEyMjQwXHBhcGVyaD X2DHEkXE0ttdbaVaIvTK0nj kzyYyOxAW1qiye2JpAkXO6k cmdiNzIwXGhlYWRlcnkwXGZ mn3NropyaPE2iO4Mzv5I1tJ 9maXRcZGVmdGFiNzIwXGZvc z4wfEYjLRfuq4WnNNS4jyK9 pBHohGVlHRRcYW47Khtlv7W bEpcwGVZ5GSZvwbTrm8Ouf9 wrZtWbjfQcA0ahX7QiZDQwX BEjEVOzEuIbzbEzq5Tcm2El pTFddYa4a1zdLAOrHVQfsCq rt5krEMO9VLGqM1C7xDPoz6 maGNgeLRAzfYA6nutqQXviL OOkldC8cdpfFXekXIPspRS4 qbfoSHugDQZuXtJ7itgpMWh yBSMkEYS6WQxej550GBU8JM xzYmtwYWdlXHBnbmNvbnRcc GduZGVjXHBsYWluXHBsYWlu XGYwXGZzMjRccWxccGxhaW5 lZwZdZrHxTPajSA3xCXZdV5 zjwAZgWFPcQJWbS6ppZxTsz Z6jnCtzXWthtzCcCAu3RbK3 GiV8EKLeOuE9KKWwtRRppK= = CLINICAL HISTORY (test c8wfkVTnWYWnbWFrDxMpGYI code = 3356) iJQSdf5vbADPkhARkJyWuZr NcZnRuYmpcdWMxXGRlZmYwe 5kua599zHLso2qcFBXwGpH4 bXIcWGTncSYmL680q5stu2e wsiNyzKY4RDNrNUK3JHizfy BrqjO1GBdzkLUxPmB8JGcku oHhVFmyzpOwybMlNan2HPPd D738TJG8gSsmr5orJCD2BFV jMVAhNuHsTy8soRVtD325KZ JkZLBBRTQkyUb7EFFkcbVyt iXtdMRWn867J131f1usOTTg tuAekJkHtxjiw2rcL097FRH hcGVydzEyMjQwXHBhcGVyaD L5NKBjWH9ubhygCtNmYQ0pq asdDuHxSY5bxmy9VlMnWG2v cmdiNzIwXGhlYWRlcnkwXGZ fp8MdftqvOO6bE7Bpj1P4pA 9maXRcZGVmdGFiNzIwXGZvc e2tjXSwVOpwp2HaJNQ6nnE3 yKKgtXIjWDHkYI36Nvbni8W jNswnKCT1HJOqgnPqs9Xek3 zaQmNnqqNgN1pxC1HcIJLtP KXiPBUnZqPuvkQer3Dja8Bi kUNchFc5r3jbJYAnABItyNi wp3zhMVU6LDEiV8K4hFYec9 lzVPsvJEGmhRL8ygdkFOkgW XYziwD3msdmKThwIPZegRY1 dtdcVMyzJLQfLvP1igniPMg gFPRtGXP0JMpqx707EZW2YP xzYmtwYWdlXHBnbmNvbnRcc GduZGVjXHBsYWluXHBsYWlu XGYwXGZzMjRccWxccGxhaW5 gZxLmCuIzSBhzQA9fBXXzP0 xxpSVpFZTeASZbP8ktYbYpx U8mxFkfGHbckaZqVKVsK0b2 IQJfl274ELjzEsTdrD2eVJE qK3GbynX7iYJnJFOlhYwaHR Rif89ycGXyaF== SPECIMEN SOURCE (test n9uviCCiIOXybUZyUwEaQQN code = 3377) kEGNlk8jjTPTskDBsIyIbWc NcZnRuYmpcdWMxXGRlZmYwe 4jzm413qGGuz5krOITqMrV7 bALrVYYlpMUsS092i1ewl2i vpwYdcFS4QLCjNNF0KCqhxp RkinU5LLaioZBhPnO9AKpek kHaWKhgplVlsrBtHug7SBIh L560HHE1sRxdx1kdPBF6ZED hGIGuLtBaNr4xqSEvP944YI MbFSTKRQRviUm0WCCngjVzv eOxlCJSl166J064x5kcKPSs ejKetNoRrrrlh9kfP074PUN hcGVydzEyMjQwXHBhcGVyaD Q3KPDeKU6fyzjjYpCzSI2yx zarHyJzMY1typm7TxEyUN6u cmdiNzIwXGhlYWRlcnkwXGZ gd2ExunlnKJ1yN2Oeg5F1sC 9maXRcZGVmdGFiNzIwXGZvc h5kbCBxHYcqf2MpXKP5piA8 fACvmXNjSCFgMQ32Ejmhn2Z wWhorPGQ2HPMlsxQfu0Cik2 ooDwKpujWcU6hsE5FrJCJtR XPgMPEfTtNpbyXwz4Ciu8Mj bLGggAn6j1gyXVSvCUKseNh gf3oxZHT7OKReG1C4fPUda1 hvWHxhDTEglZG1ojdaCHamK XDvwmE3kbenXWlhKXMmuZG1 bifdUYqmSOCtIyQ8pmpgFHf kONBeXQP9PZoym351LVN0EP xzYmtwYWdlXHBnbmNvbnRcc GduZGVjXHBsYWluXHBsYWlu XGYwXGZzMjRccWxccGxhaW5 kZnQkDzEaGStnRB3tQTJkA4 aksQNjFANnXUEbH5ffAvQlr F7rrTdtUOjciuUxEQFkE5z5 YFVzr921MSzmGiLflJ0wYfz paPK5AKMvkf5= GROSS DESCRIPTION c8kzxSZvWXQleYSqWkLiQYC (test code = 3366) yWZHgb3zvEGSnfVAjXwRsOd NcZnRuYmpcdWMxXGRlZmYwe 0bmv884lEGtn9gtQQBdUsK7 dLPeTGYqgTDbE214SFJlQDv da7rgm0LiVNBnlXVlo9B6RU FGcjbmhYn7cRkjT11jh9D9R xxqD1izGJPqTQCiY4BiUU6z CZWoLgh1KTP5BJN3MBRgKEG wJ4UoVE0iMSFhpRReTZk5b8 emiThwVZAtHZY0t9azUBtdv zRzSG7cam9rgMh7c7llrvMm BNDyIDBpjPGSBPAfQ4ElrJi cAv1ruUb9oDhnSmpnJBE0Bp j4CV4qtw68yax4sCsmXOLlb tepUnX8BDgeZTYzmsxyPFf0 MFxtYXJnbDcyMFxtYXJncjc yMFxtYXJndDcyMFxtYXJnYj doDYvfDAQhMTT8ZJyvi672E JQ4GAijf1tsr0bedPUrYwm5 RCQuOgGaNsttIWnjj8Abe6l eOYHxua3fHGA2uUNenGudb6 M9fFOiACIxbDKslvNtPQPrZ zK9OPjdJJ1izi08ETPsRZS3 fq6ekACyoMfyrrXcnWGnJWz aK2FqDUYkq789AOKmA3XtJU Fas6X9dfAxVcBvRCXhcEX7t vQ9WQAiXHo6zFVweuS8wcLt dUUkX7hhkM76DeVyjPTlS3B maM60WjDgtXAqT5OhjA22Ja AwaFPuN3PrwB41EgTwmEHcN XUhsDHqQd2lcCBljOHbu6Rj oSJiSQvgR20ff245BTAhkrT oO0yrjQErhtgajTZtssfhJT dvsaW5GHTwGTKsQLhaLGLtE GZzMjBcbGFuZzEwMzNcaGlj lSfoOBirMrZkCRAtROpgR4m sOqImIsNiOCKFsVMdk8ZuP9 srGP3kcHVzexJjJOv6GNLkv D3wFQLcwI9skYRpO71icXZz iqIkTTjyNxHeGEEvs0z8uQX 9eKStfXP0hFHawIvfYK1ueO UuSZ7RFzQhldHiE20ywbLba N2jSAxyQcXnA2Rny1Wyf29w bnVtYmVyLiAgXHBhclxwYXI pRLskWeTdUXi4DKYayE4jAv 8orVCvxF5esZKdCJxwEIYjG oJfgE8ntMoeg0LwKkYdgqPj Ml88owEnetDcV1GaTBFfpPl rI5NoUX0yMYGgjs2srB5dVK Avk2N6KPRhKPWdfEGsvwbvZ J8nDBhsWT5wASxeER0mINLm LCAwLjMgeCAwLjIgeCAwLjE hX50hCO2zEDYgFUH1QYErNa S8WLZjQgZbzP1uCLedDWHqR HKoyLTiYDtxUAF8Ji8ktYRs ZCBlbnRpcmVseSBpbiBhIHN fmjuyYCFbKZTyVLZ5YN0yWZ PPA4IbSARyqq6= MICROSCOPIC l7ffbEBqZWMwrLRcZqMhXHL DESCRIPTION (test code yKPYsg2xyLETanODqYuMuUd = 3371) NcZnRuYmpcdWMxXGRlZmYwe 7gtd991aUZke1giDAXcZwN3 aUYyHGRdfIFbA109q7yoj8z qaoXamXI9NHFhCKR9FZdbud HjwrL0UEhpjSXaWbZ5VWaus bCmKMedrjSrruQvOca3FAJs P077ZYU6yGymv5xfWTQ6JND rAMDgCjReZx4vaBQwK018GW BkSKYQRODdqAn8PPCnlqHxn bGxbFKMm675R475u0yuJQMa jmVawVgQgrfnq2caB910FOQ hcGVydzEyMjQwXHBhcGVyaD Z0RVIoCJ6zqxyqMbZzCQ1sf atnUpQaUW5peio0YyAzVQ3z cmdiNzIwXGhlYWRlcnkwXGZ oa6AcmxejKC8xO7Wga1Y3pP 9maXRcZGVmdGFiNzIwXGZvc z6boGCyZGlvn7TaWOP3usJ5 uGBtcSYjWXOrOE28Ssfcv1M tZsuaCZO6YQPhkcXyu4Zug1 wuZgFtkcBlM4ynG3HlYASoI LKkODVnHlVsfrVqg9Khd1Ih kBZbeAa2e1xwBEPrDANjtHu nv0ahNBV6ZOZcF0R1bDDgx0 mkIMjgCYVqwBK1xbpdSGzrJ NMayjM1qevoCWufDJKhnCP1 rhrdUVwlKQGyZjJ8phcvCBj zEKXhKVR4ORlwe072PZB5JZ xzYmtwYWdlXHBnbmNvbnRcc GduZGVjXHBsYWluXHBsYWlu XGYwXGZzMjRccWxccGxhaW5 jUuJqAaQgGQwdRQ4pLFZnG2 xqeZBcUQJxJJNzR2bxUbQjx F3ehNabOCibqwKhHCSyirBq of4bWIikERZ5 SPECIAL STUDIES (test r2tbhEXuIFDuvEUvHmTcEAI code = 3376) rOPLrp9eyXBWzvGYzHhTfQu NcZnRuYmpcdWMxXGRlZmYwe 5hrz086uNPvj5glVCIhOwR6 yJJjQNHtpYFqP223MJYkUIr vm0jxt2GsHFSymPAzl5R3RI IGLRfaMdXtW003TTXiBHbma 4yms8AqKLSjdVMlr5Z1DRVV xfyklXi1tZekR69uw5O8Voh nJ7blXZOaKKXyV8RpLT4hPT PsZmp5KHM3ZEI1IGYsOGMbL 3NjPR2iURTqgTJdBQy1k6nq zJtaWFXkOCU4i3ozQXxorwG 0ZL0wnr4xtKb1x7khxqSwOJ XhLGOpgSOUXTBhR3DswQssB n9odDh0j2spSfzrdfP3pHTt ZjBcZnMyMFxsaTBccmkwIEN gBRT6aIXRMGt1P101j9qtWU XiwrSkpGbBsrxhl1nkD041U HBhcGVydzEyMjQwXHBhcGVy qVK9SXFkQJ2irsgmDmOkON8 pthllRqZdFZ1uayk2AlJxKS 1hcmdiNzIwXGhlYWRlcnkwX AIfu4YrltfvHS0iS4Kzh4F7 gK0qxIOmRLZjbZWdWiFrANV qie1zsHMgQTjjEWB9JKOkdu Qyn9Vnj6ctDuXfyzTkA2bfK 2JyZHJoZWFkXHBnYnJkcmZv f4Kfd9IjhOQlaIe2x9heCPI kAPKavHeum1tkEEQ1ZPMdT5 V4rUCqn8fpCGupAHIniOU3j zirMNytNVSkicT6lwlxTOpl XAUvlUZ8vcefJIuuRFIqXqY 3ccpxEWhrYHHyFSP3MEtft2 01ZLY5GAtvTwlsFEkrWYWxi mNvbnRccGduZGVjXHBsYWlu XHBsYWluXGYwXGZzMjRccWx gyJhfiI3yFeAtXhHtKjhkLY 4tCJEsX0htaUQbYHXsVPXuJ 8uvXmRxyR7klYifCUzyMoCd CtZlBfPXtZKfvF26ITAtyeM 9JIRoi07wk2PrzUmtyfGpXR EdHIjqL1v9BECtUQKxFGL6m 9Mld8SqkO9iiU2plGkxyB1l yVZraFN5fprpd6Mgy5NzN0v hbCBzdGFpbnMuXHBsYWluXG YxXGZzMjJcbGFuZzEwMzNca GljaFxmMVxkYmNoXGYxXGxv R5anWjFyJ4LpTTErIgYvrGZ yQ0hcrZUaKJDlwmyjoBAflm xmMVxmczIyXGxhbmcxMDMzX HfgT6fyHgReGUNmjYpsTDty r2FhIGArSPSjKcndsvHrTHE hldEzd2osT3dfRXIkSUU6GD 6unmQhWbFwVW9kmE42s0Ask 27zs45cjH7laOZgvmIfD51c oIEgjQXny4UaXGNvjdFbcVJ 9WPZjSSztedjpz0i4nDC6tP FijHXeqEM6wNOukITdKOUZg UHnXUQhp103uj3eXHRofLYo fzTeoW5nOJzacazizDQaAN9 iKRZqEBFzNHKdCI04fiMdBF 3orQHaz1cschCchFDaq9Wil ZI8RSFcxMFalzqiYo8yBW84 KYIeRCiszS3veJHdvgBwNW9 pQD7rD7V4iHKhPMKqzlCnh6 lkFApfYY2tDUSslJfoBsipP CHhMWKolzPwyCH4FZVsiAkb sP5tArPyMuGuSlzcRT2iEAL rE2pvvJWjLGKsMJGjA6kyVb SoxW8iiZykXHcaYwOfYfBwP cmvoENvxEazOSZnhJdhqX5t YpKdLhMcZbftPG2wOFYdI7u khPHfKBTvSTQcL7sxDwAxjX 9jaFxmMVxjZjJcZnMyMiAgX HBsYWluXGYxXGZzMjJcbGFu ZzEwMzNcaGljaFxmMVxkYmN rBRNdSBcsQ6tiPsChA2CnMI MnQqEwfSYnL9gmpBFoWCZwT WluXGYxXGZzMjJcbGFuZzEw MzNcaGljaFxmMVxkYmNoXGY vFZsaW1cySyScV4GcJQHmZn TvDH7ktQ5eaHezzQ7mtGLeh AS9yakrvUTvgL0oK0WmENVw v6Nsjtywh7MyELBtetBxfx5 nDUHvnYMVBVslu9EyW6GyVC o0r8RxiNjisY7vZtRcVoTsD xpfJM3mIUIxY4sjgZReFRKc GGBqR4crBlFzmF2khDsoWIp qDxZoKnOoAlr2WZUzFmBjWa kyXHBsYWluXGYxXGZzMjJcb GFuZzEwMzNcaGljaFxmMVxk SiVdYWXtOWvdP1vuYxKnB5X eEBQkIsUlybMQXCLcA7KvQR VmjhOitjezSFW0nP0rf3b8R WjcDy2kOMQnulvka2raynYd zVJki7LhRPQwtoAyg3QoSWR kqgRwtLIuHPTwtmBssr4qju WlLZLxQALkY1DcurtqgHcts cL2MCSbNQFlwXDzrNiaWTJk NWd7OEcbscIgt8KdUjInswD ivKFlvmYcKA9eEYFziOQtmt LiUKI2XZKuKRAHRqJxCZDus 6XhXT3tQVUafHaxODCyfU4y k5WfSPGjw96yJQVyWEIMLMO gaGFzIGRldGVybWluZWQgdG jmiQGodUVyNWDhYWYrOO6iP JEqyaKtoBYpo4ObqZNhctPw s8XbozZpYYBmSNK8OlRJoWU vvASmfUFjzvR2p8SvLUIjmm HpvZodaZYbuHYfzDVvz9Znk w8kYLNlc1jhxMgcCG4nzVDj ZSByZWdhcmRlZCBhcyBpbnZ mo5QxU4G4bT7aBNzbf7EpQf 8vPJCod6UqsiTdBfXZjDxaS CvgDc0lOCQgevikiFAtL5Vr dGlmaWVkIHVuZGVyIHRoZSB ZiWikzQFetRGOYRAzzjY0k4 Q8UFaqzQZgizUmZW42PPLwX K0snETpfJQzi9YrREm4USDg W9wKXY74PIbeMBJvvFEovSr emNZxKTRmNZIgkyYwmo9aqM vpaCPxm54eqPQ4fWT9ELNqv J7qE3NgWDxwWl3dKYMxtzjd jBUogEzdDe2keJhrmF1gAdF lEeYgVuujZJ2qUGXbH0cliC PjTXLxOIWyF1ukFcSnrO1oi FxmMlxmczIyXHBhclxwYXJk XHBsYWluXGYwXGZzMjRccGx rxQ3gFjAzQiZzKBqsGRF5 [facility] StanfordTISSUE [id number] 15:58:00Surgical Pathology Report Case: [id number] Authorizing Provider: Lazarus Eden MD Collected: 10/17/2019 0355 Ordering Location: [facility] PERIOPERATIVE Received: 10/17/2019 0852 SERVICES Pathologist: Ascencion Ibarra MD Specimen: So ft Tissue, Other, Brain tissue BRAIN, RIGHT FRONTAL, STEREOTACTIC BIOPSIES:WHITE AND JONES MATTER WITH MILD EDEMAWHITE MATTER WITH PERIVASCULAR CHRONIC INFLAMMATION AND GLIOSIS Signing Pathologist Direct Phone Line: [phone] signed by Ascencion Ibarra MD on 10/21/2019 at 3:58 PMNo acute inflammation or abscesses are identified.The tissue was examined in its entirety. 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 Special stains for fungal, bacterial and acid-fast organisms are negative. Follow-up of microbiologic cultures is recommended. 22261; 90353 x 3Right frontal brain abscess with aspirationRight [...] is submitted entirely in a single cassette. DH/plPerformedThe interpretation of this case included the use of immunohistochemistry or special stains.ControlSlides Examined: In-house known positive controls were evaluated along with the test tissue. Thesecontrol slides run alongside of the patients sample show appropriate staining. Internal positive andnegative controls when available are evaluated Immunohistochemistry technical testing was performed at [facility], Pathology Laboratory where it was developed and [...] clinical laboratory testing.RAD, CHEST, 1 VIEW, NON [id number] 10:36:00Reason for exam:->post picc line insertionShould this be performed at the bedside?->YesFINAL REPORT CLINICAL HISTORY: post picc line insertion TECHNIQUE: 1 view ofthe chest. COMPARISON: CT 10/18/2019 IMPRESSION: A right PICC line terminates at the cavoatrial junction. There are no focal infiltrates or effusions. The cardiomediastinal silhouette is magnified by technique. The osseous structures appear intact. Signed: Mallory Howard Verified Date/Time: 10/21/2019 10:36:39 Reading Location: [facility] Radiology Reading Room XR chest 1 view portable / [id number] 10:36:00 Interface, External Ris In - 10/21/2019 10:38 AM CDTFINAL REPORT CLINICAL HISTORY: post picc line insertion TECHNIQUE: 1 view of the chest. COMPARISON: CT 10/18/2019 IMPRESSION: A right PICC line terminates at the cavoatrial junction. There are no focal infiltrates or effusions.The cardiomediastinal silhouette is magnified by technique. The osseous structures appear intact. Signed: Mallory Howard Verified Date/Time: 10/21/2019 10:36:39 [facility] [id number] 04:10:00 Test Item Value Reference Range Interpretation Comments SODIUM (BEAKER) (test 136 meq/L 136-145 code = 381) POTASSIUM (BEAKER) 4.0 meq/L 3.5-5.1 (test code = 379) CHLORIDE (BEAKER) 104 meq/L 98-107 (test code = 382) CO2 (BEAKER) (test 25 meq/L 22-29 code = 355) BLOOD UREA NITROGEN 19 mg/dL 7-21 (BEAKER) (test code = 354) CREATININE (BEAKER) 0.72 mg/dL 0.57-1.25 (test code = 358) GLUCOSE RANDOM 176 mg/dL 70-105 H (BEAKER) (test code = 652) CALCIUM (BEAKER) 8.1 mg/dL 8.4-10.2 L (test code = 697) EGFR (BEAKER) (test INSUFFIC IENT CLINICAL code = 1092) DATA TO CALCULA TE ESTIMATED GFR. Water Engineer ID - AARON [id number] 04:09:00 Test Item Value Reference Range Interpretation Comments PHOSPHORUS (BEAKER) (test code = 3.4 mg/dL 2.3-4.7 604) Water Engineer ID - AARON [id number] 04:09:00 Test Item Value Reference Range Interpretation Comments MAGNESIUM (BEAKER) (test code = 2.2 mg/dL 1.6-2.6 627) Water Engineer ID - AARON MCBC W/PLT COUNT & AUTO [id number] 04:01:00 Test Item Value Reference Range Interpretation Comments WHITE BLOOD CELL COUNT (BEAKER) 11.2 K/ L 3.5-10.5 H (test code = 775) RED BLOOD CELL COUNT (BEAKER) 4.65 M/ L 4.63-6.08 (test code = 761) HEMOGLOBIN (BEAKER) (test code = 13.3 GM/DL 13.7-17.5 L 410) HEMATOCRIT (BEAKER) (test code = 38.9 % 40.1-51.0 L 411) MEAN CORPUSCULAR VOLUME (BEAKER) 83.7 fL 79.0-92.2 (test code = 753) MEAN CORPUSCULAR HEMOGLOBIN 28.6 pg 25.7-32.2 (BEAKER) (test code = 751) MEAN CORPUSCULAR HEMOGLOBIN CONC 34.2 GM/DL 32.3-36.5 (BEAKER) (test code = 752) RED CELL DISTRIBUTION WIDTH 13.0 % 11.6-14.4 (BEAKER) (test code = 412) PLATELET COUNT (BEAKER) (test 224 K/CU MM 150-450 code = 756) MEAN PLATELET VOLUME (BEAKER) 10.4 fL 9.4-12.4 (test code = 754) NUCLEATED RED BLOOD CELLS 0 /100 WBC 0-0 (BEAKER) (test code = 413) NEUTROPHILS RELATIVE PERCENT 89 % (BEAKER) (test code = 429) LYMPHOCYTES RELATIVE PERCENT 8 % (BEAKER) (test code = 430) MONOCYTES RELATIVE PERCENT 3 % (BEAKER) (test code = 431) EOSINOPHILS RELATIVE PERCENT 0 % (BEAKER) (test code = 432) BASOPHILS RELATIVE PERCENT 0 % (BEAKER) (test code = 437) NEUTROPHILS ABSOLUTE COUNT 9.90 K/ L 1.78-5.38 H (BEAKER) (test code = 670) LYMPHOCYTES ABSOLUTE COUNT 0.85 K/ L 1.32-3.57 L (BEAKER) (test code = 414) MONOCYTES ABSOLUTE COUNT (BEAKER) 0.34 K/ L 0.30-0.82 (test code = 415) EOSINOPHILS ABSOLUTE COUNT 0.00 K/ L 0.04-0.54 L (BEAKER) (test code = 416) BASOPHILS ABSOLUTE COUNT (BEAKER) 0.00 K/ L 0.01-0.08 L (test code = 417) IMMATURE GRANULOCYTES-RELATIVE 1 % 0-1 PERCENT (BEAKER) (test code = 2801) POCT-GLUCOSE [id number] 22:03:00 Test Item Value Reference Range Interpretation Comments POC-GLUCOSE METER 151 mg/dL 70-110 H : TESTED A T [facility] 6720 (BEAKER) (test code = OSEAS Dennis [facility], 1538) [address]: Water Engineer/Techni ji ID = [id number] for JUANITA STEVENS Vancomycin level, [id number] 21:09:00 Test Item Value Reference Range Interpretation Comments Vancomycin Tr (test code = 15.0 ug/mL 05-252-3) VISHNU (test code = VISHNU) Water Engineer ID - BS Lab Interpretation (test Normal code = 83664-0) [facility] StanfordVANCOMYCIN LEVEL, [id number] 21:09:00 Test Item Value Reference Range Interpretation Comments VANCOMYCIN TROUGH (BEAKER) (test 15.0 ug/mL 10.0-20.0 code = 522) Water Engineer ID - BSBASIC METABOLIC [id number] 03:49:00 Test Item Value Reference Range Interpretation Comments SODIUM (BEAKER) (test 137 meq/L 136-145 code = 381) POTASSIUM (BEAKER) 4.0 meq/L 3.5-5.1 (test code = 379) CHLORIDE (BEAKER) 104 meq/L 98-107 (test code = 382) CO2 (BEAKER) (test 25 meq/L 22-29 code = 355) BLOOD UREA NITROGEN 16 mg/dL 7-21 (BEAKER) (test code = 354) CREATININE (BEAKER) 0.81 mg/dL 0.57-1.25 (test code = 358) GLUCOSE RANDOM 166 mg/dL 70-105 H (BEAKER) (test code = 652) CALCIUM (BEAKER) 8.5 mg/dL 8.4-10.2 (test code = 697) EGFR (BEAKER) (test INSUFFIC IENT CLINICAL code = 1092) DATA TO CALCULA TE ESTIMATED GFR. Water Engineer ID - AARON [id number] 03:46:00 Test Item Value Reference Range Interpretation Comments PHOSPHORUS (BEAKER) (test code = 3.0 mg/dL 2.3-4.7 604) Water Engineer ID - AARON [id number] 03:46:00 Test Item Value Reference Range Interpretation Comments MAGNESIUM (BEAKER) (test code = 2.3 mg/dL 1.6-2.6 627) Water Engineer ID - AARON MCBC W/PLT COUNT & AUTO [id number] 03:30:00 Test Item Value Reference Range Interpretation Comments WHITE BLOOD CELL COUNT (BEAKER) 12.5 K/ L 3.5-10.5 H (test code = 775) RED BLOOD CELL COUNT (BEAKER) 4.67 M/ L 4.63-6.08 (test code = 761) HEMOGLOBIN (BEAKER) (test code = 12.9 GM/DL 13.7-17.5 L 410) HEMATOCRIT (BEAKER) (test code = 39.0 % 40.1-51.0 L 411) MEAN CORPUSCULAR VOLUME (BEAKER) 83.5 fL 79.0-92.2 (test code = 753) MEAN CORPUSCULAR HEMOGLOBIN 27.6 pg 25.7-32.2 (BEAKER) (test code = 751) MEAN CORPUSCULAR HEMOGLOBIN CONC 33.1 GM/DL 32.3-36.5 (BEAKER) (test code = 752) RED CELL DISTRIBUTION WIDTH 13.2 % 11.6-14.4 (BEAKER) (test code = 412) PLATELET COUNT (BEAKER) (test 214 K/CU MM 150-450 code = 756) MEAN PLATELET VOLUME (BEAKER) 10.0 fL 9.4-12.4 (test code = 754) NUCLEATED RED BLOOD CELLS 0 /100 WBC 0-0 (BEAKER) (test code = 413) NEUTROPHILS RELATIVE PERCENT 87 % (BEAKER) (test code = 429) LYMPHOCYTES RELATIVE PERCENT 8 % (BEAKER) (test code = 430) MONOCYTES RELATIVE PERCENT 5 % (BEAKER) (test code = 431) EOSINOPHILS RELATIVE PERCENT 0 % (BEAKER) (test code = 432) BASOPHILS RELATIVE PERCENT 0 % (BEAKER) (test code = 437) NEUTROPHILS ABSOLUTE COUNT 10.89 K/ L 1.78-5.38 H (BEAKER) (test code = 670) LYMPHOCYTES ABSOLUTE COUNT 0.98 K/ L 1.32-3.57 L (BEAKER) (test code = 414) MONOCYTES ABSOLUTE COUNT (BEAKER) 0.56 K/ L 0.30-0.82 (test code = 415) EOSINOPHILS ABSOLUTE COUNT 0.00 K/ L 0.04-0.54 L (BEAKER) (test code = 416) BASOPHILS ABSOLUTE COUNT (BEAKER) 0.01 K/ L 0.01-0.08 (test code = 417) IMMATURE GRANULOCYTES-RELATIVE 1 % 0-1 PERCENT (BEAKER) (test code = 2801) POCT-GLUCOSE [id number] 23:00:00 Test Item Value Reference Range Interpretation Comments POC-GLUCOSE METER 187 mg/dL 70-110 H : Notified RN/MD: (MIKEY) (test code = TESTED AT [facility] 6720 1538) [facility], [address]: Water Engineer/Techni ji ID = [id number] for MERLE LANCASTER POCT-GLUCOSE [id number] 17:40:00 Test Item Value Reference Range Interpretation Comments POC-GLUCOSE METER 171 mg/dL 70-110 H : Notified RN/MD: (MIKEY) (test code = TESTED AT [facility] 6786 0636) [facility], [address]: Water Engineer/Techni ji ID = [id number] for Payton Luque CT, BRAIN, WITHOUT [id number] 15:28:00FINAL REPORT CT, BRAIN, WITHOUT CONTRAST CLINICAL INDICATION: Altered mental statuss/p abscess evacuation COMPARISON: October 17, 2019 TECHNIQUE: Noncontrast axial CT imaging of the brain and skull. DOSE REDUCTION: Dose modulation, iterative reconstruction, and/or weight-based adjustment of the mA/kV was utilized to reduce the radiation dose to as low as reasonably achievable. FINDINGS:Surgical changes compatible with provided history of abscess [...] MDReport Verified Date/Time: 10/19/2019 15:28:54 Reading Location: [address] Neuro Reading Room CT brain without IV [id number] 15:28:00Interface, External Ris In - 10/19/2019 3:[address], BRAIN, WITHOUT CONTRAST CLINICAL INDICATION: Altered mental statuss/p abscess evacuation COMPARISON: October 17, 2019 TECHNIQUE: Noncontrast axial CT imaging of the brain and skull. DOSE REDUCTION: Dose modulation, iterative reconstruction, and/or weight-based adjustment of the mA/kV was utilized to reduce the radiation dose to as low as reasonably achievable. FINDINGS:Surgical changes compatible with provided history of abscess evacuation. Minimal hemorrhagic material is noted at the abscess site as well as small volume pneumocephalus. Edema distorts the right hemispheric architecture with approximately 3mm leftward midline shift at the level of the foramen of Monro. Calvarial access flap is anatomically positioned. There is small volume gas and fluid in the subgaleal space. No interval infarct or new parenchymal hemorrhage has developed. There is no hydrocephalus. IMPRESSION: Status post abscess evacu ation with hemorrhagic material around the surgical tract. Grossly stable edema and persistent residual mass effect. Signed: JR Kaitlin, Byron Ferrer Verified Date/Time: 10/19/2019 15:28:54 Reading Location: [facility] C013V Neuro [facility] STAIN 2019-10-19 14:34:00 Test Item Value Reference Range Interpretation Comments CULTURE (BEAKER) (test No growth code = 1095) GRAM STAIN RESULT No White blood cells (BEAKER) (test code = seen 1123) GRAM STAIN RESULT No organisms seen (BEAKER) (test code = 32991) POCT-GLUCOSE [id number] 11:29:00 Test Item Value Reference Range Interpretation Comments POC-GLUCOSE METER 180 mg/dL 70-110 H : TESTED A T [facility] 6720 (BEAKER) (test code = [place], 1538) [address]: Water Engineer/Techni ji ID = [id number] for ELIAS VALENCIA CBC W/PLT COUNT & AUTO [id number] 06:29:00 Test Item Value Reference Range Interpretation Comments WHITE BLOOD CELL COUNT (BEAKER) 9.8 K/ L 3.5-10.5 (test code = 775) RED BLOOD CELL COUNT (BEAKER) 4.87 M/ L 4.63-6.08 (test code = 761) HEMOGLOBIN (BEAKER) (test code = 13.7 GM/DL 13.7-17.5 410) HEMATOCRIT (BEAKER) (test code = 41.0 % 40.1-51.0 411) MEAN CORPUSCULAR VOLUME (BEAKER) 84.2 fL 79.0-92.2 (test code = 753) MEAN CORPUSCULAR HEMOGLOBIN 28.1 pg 25.7-32.2 (BEAKER) (test code = 751) MEAN CORPUSCULAR HEMOGLOBIN CONC 33.4 GM/DL 32.3-36.5 (BEAKER) (test code = 752) RED CELL DISTRIBUTION WIDTH 13.2 % 11.6-14.4 (BEAKER) (test code = 412) PLATELET COUNT (BEAKER) (test 223 K/CU MM 150-450 code = 756) MEAN PLATELET VOLUME (BEAKER) 11.0 fL 9.4-12.4 (test code = 754) NUCLEATED RED BLOOD CELLS 0 /100 WBC 0-0 (BEAKER) (test code = 413) NEUTROPHILS RELATIVE PERCENT 89 % (BEAKER) (test code = 429) LYMPHOCYTES RELATIVE PERCENT 8 % (BEAKER) (test code = 430) MONOCYTES RELATIVE PERCENT 2 % (BEAKER) (test code = 431) EOSINOPHILS RELATIVE PERCENT 0 % (BEAKER) (test code = 432) BASOPHILS RELATIVE PERCENT 0 % (BEAKER) (test code = 437) NEUTROPHILS ABSOLUTE COUNT 8.74 K/ L 1.78-5.38 H (BEAKER) (test code = 670) LYMPHOCYTES ABSOLUTE COUNT 0.76 K/ L 1.32-3.57 L (BEAKER) (test code = 414) MONOCYTES ABSOLUTE COUNT (BEAKER) 0.22 K/ L 0.30-0.82 L (test code = 415) EOSINOPHILS ABSOLUTE COUNT 0.00 K/ L 0.04-0.54 L (BEAKER) (test code = 416) BASOPHILS ABSOLUTE COUNT (BEAKER) 0.00 K/ L 0.01-0.08 L (test code = 417) IMMATURE GRANULOCYTES-RELATIVE 1 % 0-1 PERCENT (BEAKER) (test code = 2801) BASIC METABOLIC [id number] 05:44:00 Test Item Value Reference Range Interpretation Comments SODIUM (BEAKER) (test 135 meq/L 136-145 L code = 381) POTASSIUM (BEAKER) 4.1 meq/L 3.5-5.1 (test code = 379) CHLORIDE (BEAKER) 100 meq/L 98-107 (test code = 382) CO2 (BEAKER) (test 25 meq/L 22-29 code = 355) BLOOD UREA NITROGEN 13 mg/dL 7-21 (BEAKER) (test code = 354) CREATININE (BEAKER) 0.91 mg/dL 0.57-1.25 (test code = 358) GLUCOSE RANDOM 182 mg/dL 70-105 H (BEAKER) (test code = 652) CALCIUM (BEAKER) 8.9 mg/dL 8.4-10.2 (test code = 697) EGFR (BEAKER) (test INSUFFIC IENT CLINICAL code = 1092) DATA TO CALCULA TE ESTIMATED GFR. Water Engineer ID - AARON [id number] 05:42:00 Test Item Value Reference Range Interpretation Comments PHOSPHORUS (BEAKER) (test code = 3.4 mg/dL 2.3-4.7 604) Water Engineer ID - AARON [id number] 05:42:00 Test Item Value Reference Range Interpretation Comments MAGNESIUM (BEAKER) (test code = 2.2 mg/dL 1.6-2.6 627) Water Engineer ID - AARON MVANCOMYCIN LEVEL, [id number] 05:36:00 Test Item Value Reference Range Interpretation Comments VANCOMYCIN TROUGH (BEAKER) (test 6.8 ug/mL 10.0-20.0 L code = 522) Water Engineer ID - AARON MMR, BRAIN, [id number] 01:40:00STEALTH protocolFINAL REPORT MRI Brain with and without contrast Clinical History: Preoperative planning Technique: MRI of the brain utilizing axial T1, T2, FLAIR, GRE, DWI, sagittal T1; and postgadolinium axial, sagittal, and coronal T1-weighted images. Comparisons: MRI brain dated 10/16/2019. F indings:Postsurgical changes of a right frontal sloan hole [...] the interval measuring1.7 x 1.0 x 1.1 cm, previously 1.5 x1.3 x 1.0 cm when [...] preserved. The major intracranial flow-voids appear patent. Mucosal thickening in the left maxillary sinus. Middle ears and mastoid air cells are clear. Intraorbital contents are unremarkable. No aggressive osseous or soft tissue lesions identified. IMPRESSION: Postsurgical changes of a right frontal sloan hole for sampling of the previously demonstrated rim-enhancinglesion in the right frontal lobe with persistent [...] differences in technique limit this comparison. Signed: Felicia Barry [facility] Verified Date/Time: 10/19/2019 01:40:31 MR brain without & with IV [id number] 01:40:00Interface, External Ris In - 10/19/2019 1:43 AM CDTFINAL REPORT MRI Brain with and without contrast Clinical History: Preoperative planning Technique: MRI of the brain utilizingaxial T1, T2, FLAIR, GRE, DWI, sagittal T1; and postgadolinium axial, sagittal, and coronal T1-weighted images. Comparisons: MRI brain dated 10/16/2019. Findings:Postsurgical changes of a right frontal sloan hole for sampling of the previously demonstrated rim-enhancing lesion in the right frontal lobe . There is persistent hemorrhage along the surgical tract extending along the posterior margin of thelesion with associated enhancement, likely reactive however developing cerebritis can have this appearance recommend continued close attention on follow-up imaging.. There is apparently new hemorrhage along the medial aspect of the lesion extending into the right corpora striata. The lesion is not significantly changed in size in the interval measuring 1.7 x 1.0 x 1.1 cm, previously 1.5 x1.3 x 1.0 cmwhen measured similarly. There is restricted diffusion within the central aspect of the lesion suggestive of central necrosis. Persistent abnormal FLAIR/T2 hyperintense signal surrounding the lesion extending into the right basal ganglia and the body of the corpus callosum. Within the areas of edema there are innumerable foci of hypointense SWI signal, given appearance on T2-weighted imaging and postcontrast imaging these findings may represent abnormal vasculature versus perivascular enhancement not definitively seen on the prior examination however differences in technique limit this comparison.Unchanged mass effect on adjacent structures including the right lateral ventricle with mild effacement of the right cerebral hemisphere sulci. Grossly unchanged leftward midline shift measuring approxi mately 6 mm. There is no evidence of acute infarct . The craniocervical junction is preserved. The major intracranial flow-voids appear patent. Mucosal thickening in the left maxillary sinus. Middle ears and mastoid air cells are clear. Intraorbital contents are unremarkable. No aggressive osseous orsoft tissue lesions identified. IMPRESSION: Postsurgical changes of a right frontal sloan hole for sampling of the previously demonstrated rim-enhancing lesion in the right frontal lobe with persistenthemorrhage along the surgical tract and associated enhancement, [...] there are innumerable foci of hypointense SWI signal, given appearance on T2-weighted imaging and postcontrast imaging these findings may represent abnormal vasculature versus perivascular enhancement not definitively seen on the prior examination however differences in technique limit this comparison. Signed: Felicia Barry Verified Date/Time: 10/19/2019 01:40:31 Electron ically signed by: FELICIA BARRY MD on 10/19/2019 01:40 [facility] [id number] 22:39:00 Test Item Value Reference Range Interpretation Comments POC-GLUCOSE METER 213 mg/dL 70-110 H : Notified RN/MD: (MIKEY) (test code = TESTED AT [facility] 6720 1538) [facility], [id number]: Water Engineer/Techni ji ID = [id number] for MERLE LANCASTER POCT-GLUCOSE [id number] 18:24:00 Test Item Value Reference Range Interpretation Comments POC-GLUCOSE METER 209 mg/dL 70-110 H : TESTED A T [facility] 6720 (MIKEY) (test code = OSEAS Dennis [facility], 1538) [address]: Water Engineer/Techni ji ID = [id number] for GIANNA GRACIA CT, [id number] 15:02:00FINAL REPORT DOSE REDUCTION: The examination was [...] pelvis. Signed: Christopher Liu MDReport Verified Date/Time: 10/18/2019 15:02:18 Reading Location: [address] Transitional Reading Room CT, CHEST, WITH [id number] 15:02:00FINAL REPORT DOSE REDUCTION: The examination was [...] pelvis. Signed: Christopher Liu MDReport Verified Date/Time: 10/18/2019 15:02:18 Reading Location: [address] Reading Room CT chest with IV [id number] 15:02:00Interface, External Ris In - 10/18/2019 3:04 PM CDTFINAL REPORT DOSE REDUCTION: The examination was performed [...] of atelectasis or scarring. Scattered subsegmental atelectasis elsewhere. Mild emphysematous/cystic changes in the apices seen. Otherwise no definite suspicious lung nodule or mass. No focal consolidation. Aorta and great vessels are unremarkable. Heart is normal in size. No pericardial effusion. There is decreased liver density consistent with fatty infiltration. No suspicious liver lesion. Spleen, pancreas, adrenal glands appear unremarkable. Status post cholecystectomy. No biliary ductal dilatation. There is an exophytic 1.0 cm intermediate density lesion arising from the left kidney. This is likely hemorrhagic or proteinaceous cyst. Otherwise kidneys are unremarkable. Small hiatal hernia. There is colonic diverticulosis without findings of diverticulitis. Otherwise unopacified small bowel, colon, and appendix appear unremarkable. No ascites or lymphadenopathy. Scattered vascular calcifications. Aorta and IVC arenormal in caliber. Prostate gland is prominent in size measuring 5 x 5 cm. Bladder is unremarkable. Left inguinal hernia containing fat. Mild soft tissue stranding along the back. No acute skeletal abno rmality..IMPRESSION: 1. Focal opacity abutting the pleural surface in the right lower lobe posteriorly is most likely atelectasis or scarring rather than malignancy. Further correlation with PET/CT suggested. 2. Left lung base atelectasis. Scattered curvilinear densities bilaterally likely atelectasisor scarring. 3. Enlarged prostate gland. 4. Intermediate density lesion arising from the left kidneymost likely hemorrhagic or proteinaceous cyst. This could be evaluated with renal protocol CT or MRI. 5. Otherwise no definite malignancy or metastatic disease in the chest, abdomen, and pelvis. Signed: Christopher Liu MDReport Verified Date/Time: 10/18/2019 15:02:18 Reading Location: [address] [facility] [id number] 15:02:00Interface, External Ris In - 10/18/2019 3:04 PM CDTFINAL REPORT DOSE REDUCTION: The examination was performed according to departmental dose-optimization program which includes a utomated exposure control, adjustment of the mA and/or [...] of atelectasis or scarring. Scattered subsegmental atelectasis elsewhere. Mild emphysematous/cystic changes in the apices seen. Otherwise no definite suspicious lung nodule or mass. No focal consolidation. Aorta and great vessels are unremarkable. Heart is normal in size. No pericardial effusion. There is decreased liver density consistent with fatty infiltration. No suspicious liver lesion. Spleen, pancreas, adrenal glands appear unremarkable. Status post cholecystectomy. No biliary ductal dilatation. There is an exophytic 1.0 cm intermediate density lesion arising from the left kidney. This is likely hemorrhagic or proteinaceous cyst. Otherwise kidneys are unremarkable. Small hiatal hernia. There is colonic diverticulosis without findings of diverticulitis. Otherwise unopacified small bowel, colon, and appendix appear unremarkable. No ascites or lymphadenopathy. Scattered vascular calcifications. Aorta and IVC arenormal in caliber. Prostate gland is prominent in [...] base atelectasis. Scattered curvilinear densities bilaterally likely atelectasisor scarring. 3. Enlarged prostate gland. 4. Intermediate density lesion arising from the left kidneymost likely hemorrhagic or proteinaceous cyst. This could be evaluated with renal protocol CT or MRI. 5. Otherwise no definite malignancy or metastatic disease in the chest, abdomen, and pelvis. Signed: [facility] Verified Date/Time: 10/18/2019 15:02:18 Reading Location: [address] Transitional Reading [facility] [id number] 08:09:00 Test Item Value Reference Range Interpretation Comments POC-GLUCOSE METER 114 mg/dL 70-110 H : Notified RN/MD: (MIKEY) (test code = TESTED AT [facility] 6720 4277) [facility], [address]: Water Engineer/Techni ji ID = [id number] for MEHRAN SARMIENTO BASIC METABOLIC [id number] 05:37:00 Test Item Value Reference Range Interpretation Comments SODIUM (BEAKER) (test 137 meq/L 136-145 code = 381) POTASSIUM (BEAKER) 4.1 meq/L 3.5-5.1 (test code = 379) CHLORIDE (BEAKER) 107 meq/L 98-107 (test code = 382) CO2 (BEAKER) (test 24 meq/L 22-29 code = 355) BLOOD UREA NITROGEN 13 mg/dL 7-21 (BEAKER) (test code = 354) CREATININE (BEAKER) 0.84 mg/dL 0.57-1.25 (test code = 358) GLUCOSE RANDOM 119 mg/dL 70-105 H (BEAKER) (test code = 652) CALCIUM (BEAKER) 8.3 mg/dL 8.4-10.2 L (test code = 697) EGFR (BEAKER) (test INSUFFIC IENT CLINICAL code = 1092) DATA TO CALCULA TE ESTIMATED GFR. Water Engineer ID - AARON MCBC W/PLT COUNT & AUTO [id number] 05:25:00 Test Item Value Reference Range Interpretation Comments WHITE BLOOD CELL COUNT (BEAKER) 11.6 K/ L 3.5-10.5 H (test code = 775) RED BLOOD CELL COUNT (BEAKER) 4.64 M/ L 4.63-6.08 (test code = 761) HEMOGLOBIN (BEAKER) (test code = 13.0 GM/DL 13.7-17.5 L 410) HEMATOCRIT (BEAKER) (test code = 40.1 % 40.1-51.0 411) MEAN CORPUSCULAR VOLUME (BEAKER) 86.4 fL 79.0-92.2 (test code = 753) MEAN CORPUSCULAR HEMOGLOBIN 28.0 pg 25.7-32.2 (BEAKER) (test code = 751) MEAN CORPUSCULAR HEMOGLOBIN CONC 32.4 GM/DL 32.3-36.5 (BEAKER) (test code = 752) RED CELL DISTRIBUTION WIDTH 13.7 % 11.6-14.4 (BEAKER) (test code = 412) PLATELET COUNT (BEAKER) (test 217 K/CU MM 150-450 code = 756) MEAN PLATELET VOLUME (BEAKER) 10.8 fL 9.4-12.4 (test code = 754) NUCLEATED RED BLOOD CELLS 0 /100 WBC 0-0 (BEAKER) (test code = 413) NEUTROPHILS RELATIVE PERCENT 73 % (BEAKER) (test code = 429) LYMPHOCYTES RELATIVE PERCENT 21 % (BEAKER) (test code = 430) MONOCYTES RELATIVE PERCENT 6 % (BEAKER) (test code = 431) EOSINOPHILS RELATIVE PERCENT 0 % (BEAKER) (test code = 432) BASOPHILS RELATIVE PERCENT 0 % (BEAKER) (test code = 437) NEUTROPHILS ABSOLUTE COUNT 8.44 K/ L 1.78-5.38 H (BEAKER) (test code = 670) LYMPHOCYTES ABSOLUTE COUNT 2.42 K/ L 1.32-3.57 (BEAKER) (test code = 414) MONOCYTES ABSOLUTE COUNT (BEAKER) 0.65 K/ L 0.30-0.82 (test code = 415) EOSINOPHILS ABSOLUTE COUNT 0.01 K/ L 0.04-0.54 L (BEAKER) (test code = 416) BASOPHILS ABSOLUTE COUNT (BEAKER) 0.03 K/ L 0.01-0.08 (test code = 417) IMMATURE GRANULOCYTES-RELATIVE 0 % 0-1 PERCENT (BEAKER) (test code = 2801) POCT-GLUCOSE [id number] 22:02:00 Test Item Value Reference Range Interpretation Comments POC-GLUCOSE METER 168 mg/dL 70-110 H : TESTED A T [facility] 6720 (BEAKER) (test code = [facility], 153) [address]: Water Engineer/Techni ji ID = [id number] for JUANITA STEVENS POCT-GLUCOSE [id number] 19:14:00 Test Item Value Reference Range Interpretation Comments POC-GLUCOSE METER 112 mg/dL 70-110 H : TESTED A T [facility] 6720 (BEAKER) (test code = [facility], 153) [address]: Water Engineer/Techni ji ID = [id number] for Linda Weinstein POCT-GLUCOSE [id number] 18:00:00 Test Item Value Reference Range Interpretation Comments POC-GLUCOSE METER 157 mg/dL 70-110 H : TESTED A T [facility] 6720 (BEAKER) (test code = [facility], 153) [address]: Water Engineer/Techni ji ID = [id number] for DONNY KLEIN POCT-GLUCOSE [id number] 13:17:00 Test Item Value Reference Range Interpretation Comments POC-GLUCOSE METER 161 mg/dL 70-110 H : TESTED A T [facility] 6720 (BEAKER) (test code = [facility], 153) [address]: Water Engineer/Techni ji ID = [id number] for MER AVERY BASIC METABOLIC [id number] 11:52:00 Test Item Value Reference Range Interpretation Comments SODIUM (BEAKER) (test 136 meq/L 136-145 code = 381) POTASSIUM (BEAKER) 4.3 meq/L 3.5-5.1 (test code = 379) CHLORIDE (BEAKER) 105 meq/L 98-107 (test code = 382) CO2 (BEAKER) (test 22 meq/L 22-29 code = 355) BLOOD UREA NITROGEN 14 mg/dL 7-21 (BEAKER) (test code = 354) CREATININE (BEAKER) 0.95 mg/dL 0.57-1.25 (test code = 358) GLUCOSE RANDOM 187 mg/dL 70-105 H (BEAKER) (test code = 652) CALCIUM (BEAKER) 8.5 mg/dL 8.4-10.2 (test code = 697) EGFR (BEAKER) (test INSUFFIC IENT CLINICAL code = 1092) DATA TO CALCULA TE ESTIMATED GFR. Water Engineer ID - NTPCBC W/PLT COUNT & AUTO [id number] 11:30:00 Test Item Value Reference Range Interpretation Comments WHITE BLOOD CELL COUNT (BEAKER) 13.4 K/ L 3.5-10.5 H (test code = 775) RED BLOOD CELL COUNT (BEAKER) 4.54 M/ L 4.63-6.08 L (test code = 761) HEMOGLOBIN (BEAKER) (test code = 12.9 GM/DL 13.7-17.5 L 410) HEMATOCRIT (BEAKER) (test code = 38.5 % 40.1-51.0 L 411) MEAN CORPUSCULAR VOLUME (BEAKER) 84.8 fL 79.0-92.2 (test code = 753) MEAN CORPUSCULAR HEMOGLOBIN 28.4 pg 25.7-32.2 (BEAKER) (test code = 751) MEAN CORPUSCULAR HEMOGLOBIN CONC 33.5 GM/DL 32.3-36.5 (BEAKER) (test code = 752) RED CELL DISTRIBUTION WIDTH 13.4 % 11.6-14.4 (BEAKER) (test code = 412) PLATELET COUNT (BEAKER) (test 222 K/CU MM 150-450 code = 756) MEAN PLATELET VOLUME (BEAKER) 10.4 fL 9.4-12.4 (test code = 754) NUCLEATED RED BLOOD CELLS 0 /100 WBC 0-0 (BEAKER) (test code = 413) NEUTROPHILS RELATIVE PERCENT 91 % (BEAKER) (test code = 429) LYMPHOCYTES RELATIVE PERCENT 6 % (BEAKER) (test code = 430) MONOCYTES RELATIVE PERCENT 3 % (BEAKER) (test code = 431) EOSINOPHILS RELATIVE PERCENT 0 % (BEAKER) (test code = 432) BASOPHILS RELATIVE PERCENT 0 % (BEAKER) (test code = 437) NEUTROPHILS ABSOLUTE COUNT 12.17 K/ L 1.78-5.38 H (BEAKER) (test code = 670) LYMPHOCYTES ABSOLUTE COUNT 0.78 K/ L 1.32-3.57 L (BEAKER) (test code = 414) MONOCYTES ABSOLUTE COUNT (BEAKER) 0.43 K/ L 0.30-0.82 (test code = 415) EOSINOPHILS ABSOLUTE COUNT 0.00 K/ L 0.04-0.54 L (BEAKER) (test code = 416) BASOPHILS ABSOLUTE COUNT (BEAKER) 0.01 K/ L 0.01-0.08 (test code = 417) IMMATURE GRANULOCYTES-RELATIVE 0 % 0-1 PERCENT (BEAKER) (test code = 2801) Hemoglobin [id number] 10:02:00 Test Item Value Reference Range Interpretation Comments Hemoglobin A1C (test code = 4548-4) 7.0 % 4.3-6.1 H Lab Interpretation (test code = Abnormal 08562-5) [facility] StanfordHEMOGLOBIN [id number] 10:02:00 Test Item Value Reference Range Interpretation Comments HEMOGLOBIN A1C (BEAKER) (test code = 7.0 % 4.3-6.1 H 368) CT, BRAIN, WITHOUT [id number] 04:49:00Anesthesia:->GeneralFINAL REPORT CT Head without contrast CLINICAL HISTORY: Cerebral hemorrhage suspected TECHNIQUE: Contiguous axial images through the head without contrast. This exam was performed according to the departmental dose optimization program which includes automated exposure control, adjustment of the mA and/or kV according to the patient size, and/or use of an iterative reconstruction technique. COMPARISON: CT head dated 10/16/2019. FINDINGS:Postsurgical changes of a right frontal sloan hole [...] No large territory acute infarction.Bilateral basal ganglia calci fications.Basilar cisterns are patent. Polypoid mucosal thickening in the bilateral maxillary sinuses. Intraorbital contents are unremarkable. IMPRESSION: Postsurgical changes of a right frontal sloan hole for sampling of the previously demonstrated rim-enhancing lesion in the right frontal lobe is n ot significantly changed in the interval. There is small volume hemorrhage along the surgical tract. Otherwise unchanged examination the interval. Signed: [facility] Verified Date/Time: 10/17/2019 04:49:18 Blood gas, [id number] 04:24:00 Test Item Value Reference Range Interpretation Comments pH, Arterial (test code = 2744-1) 7.40 7.35-7.45 pCO2, Arterial (test code = 33 35- 45 mmHg L 2018-8) pO2, Arterial (test code = 296 80- 90 mmHg H 2703-7) O2 Sat, Arterial (test code = 99.7 % 96-97 H 2708-6) HCO3, Arterial (test code = 20 mmol/L 21-29 L 1960-4) Base Excess, Arterial (test code -4.1 mmol/L -2-3 L = 1925-7) Patient Temperature (test code = 35.4 C 8310-5) FIO2 (test code = 1819) 100 % Lab Interpretation (test code = Abnormal 73150-5) [facility] StanfordCalcium, [id number] 04:24:00 Test Item Value Reference Range Interpretation Comments Calcium, Ion (test code = 1993-) 1.04 mmol/L 1.12-1.27 L pH, Blood (test code = 02553-8) 7.38 Lab Interpretation (test code = Abnormal 89284-1) [facility] StanfordHGB/HCT (H&H)-Stat [id number] 04:24:00 Test Item Value Reference Range Interpretation Comments Hemoglobin (test code = 786-4) 12.3 g/dL 13-16.8 L Hematocrit (test code = 4544-3) 36.0 % 40-50 L Lab Interpretation (test code = Abnormal 83053-8) [facility] StanfordGlucose-Stat [id number] 04:24:00 Test Item Value Reference Range Interpretation Comments Glucose (test code = 2345-7) 159 mg/dL 70-110 H Lab Interpretation (test code = Abnormal 98971-2) [facility] StanfordBLOOD GAS, [id number] 04:24:00 Test Item Value Reference Range Interpretation Comments PH ARTERIAL (BEAKER) (test code = 7.40 7.35-7.45 383) PCO2 ARTERIAL (BEAKER) (test code 33 mmHg 35-45 L = 384) PO2 ARTERIAL (BEAKER) (test code 296 mmHg 80-90 H = 385) O2 SATURATION ARTERIAL (BEAKER) 99.7 % 96.0-97.0 H (test code = 386) HCO3 ARTERIAL (BEAKER) (test code 20 mmol/L 21-29 L = 388) BASE EXCESS ARTERIAL (BEAKER) -4.1 mmol/L -2.0-3.0 L (test code = 387) PATIENT TEMPERATURE (BEAKER) 35.4 C (test code = 1818) FIO2 (BEAKER) (test code = 1819) 100.0 % CALCIUM, [id number] 04:24:00 Test Item Value Reference Range Interpretation Comments CALCIUM IONIZED (BEAKER) (test 1.04 mmol/L 1.12-1.27 L code = 698) PH, BLOOD (BEAKER) (test code = 7.38 1810) HGB/HCT (H&H) - STAT [id number] 04:24:00 Test Item Value Reference Range Interpretation Comments HEMOGLOBIN (BEAKER) (test code = 12.3 g/dL 13.0-16.8 L 410) HEMATOCRIT (BEAKER) (test code = 36.0 % 40.0-50.0 L 411) GLUCOSE-STAT [id number] 04:24:00 Test Item Value Reference Range Interpretation Comments GLUCOSE RANDOM (BEAKER) (test code 159 mg/dL 70-110 H = 652) Sodium Na-Stat [id number] 04:15:00 Test Item Value Reference Range Interpretation Comments Sodium (test code = 2951-2) 137 meq/L 135-148 Lab Interpretation (test code = Normal 24537-9) [facility] StanfordPotassium-Stat [id number] 04:15:00 Test Item Value Reference Range Interpretation Comments Potassium (test code = 2823-3) 3.7 meq/L 3.6-5.5 Lab Interpretation (test code = Normal 11720-4) [facility] [id number] 04:15:00 Test Item Value Reference Range Interpretation Comments SODIUM (BEAKER) (test code = 381) 137 meq/L 135-148 POTASSIUM-STAT [id number] 04:15:00 Test Item Value Reference Range Interpretation Comments POTASSIUM (BEAKER) (test code = 3.7 meq/L 3.6-5.5 379) [id number] 02:00:00 Test Item Value Reference Range Interpretation Comments RPR (test code = 67664-1) Nonreactive Nonreactive Lab Interpretation (test code = Normal 56331-3) [facility] [id number] 02:00:00 Test Item Value Reference Range Interpretation Comments RPR SCREEN (BEAKER) (test code = Nonreactive Nonreactive 420) MR, BRAIN, WITHOUT [id number] 01:52:00STEALTH protocol FLAIR sequence onlyFINAL REPORT MRI Brain with contrast Clinical History: preoperative Technique: Stealth protocol MRI of the brain utilizing axial T1-weighted, axial , coronal and sagittal FLAIR images. [...] treatment planning purposes as described above. Signed: Felicia Barry Verified Date/Time: 10/17/2019 01:52:55 MR brain without IV [id number] 01:52:00Interface, External Ris In - 10/17/2019 1:55 AM CDTFINAL REPORT MRI Brain with contrast Clinical History: preoperative Technique: Stealth protocol MRI of the brain utilizing axial T1-weighted, axial , coronal and sagittal FLAIR images. Comparisons: Same day MRI brain. Findings:Please note that these specifically requested treatment planning sequences do not constitute a full diagnostic examination. Again seen is the heterogeneous lesion with peripheral rim of T2 shortening in central T2 hyperintensity within the right centrum semiovale with surrounding T2 hyperintense signal /edema which extends to the body of the corpus callosum and right basal ganglia. Mucous retention cy st in the left maxillary sinus.Nonspecific FLAIR hyperintense signal in the left centrum semiovale.IMPRESSION: Stealth protocol MRI of the brain for treatment planning purposes as described above. Signed: Felicia Barry Verified Date/Time: 10/17/2019 01:52:55 [facility]AB[facility] [id number] 01:44:00 Test Item Value Reference Range Interpretation Comments Rh Factor (test code = 2589) NEG ABO Grouping (test code = 2588) O [facility] StanfordType and screen, [id number] 00:31:00 Test Item Value Reference Range Interpretation Comments ABO/RH AUTOMATED (BEAKER) (test O NEGATIVE code = 2260) Ab Scrn (test code = 890-4) NEGATIVE [facility] StanfordCT, BRAIN, WITHOUT [id number] 20:57:00 STEALTH protocolReason for exam:->Preoperative - STEALTH protocolFINAL REPORT [...] ventricle, unchanged. No intracranial hemorrhage or abnormal extra-axial collection. No evidence of acute territorial infarct. No hydrocephalus. Osseous structures: No fracture. No suspicious lesion. Paranasal sinuses and mastoid air cells: No evidence of sinusitis. Mastoids are clear. Orbital contents: Globes are intact. IMPRESSION: Preoperative planning exam. No significant change in r ight frontal lobe lesion and associated extensive vasogenic edema and mass effect. Signed: Pam Goode Verified Date/Time: 10/16/2019 20:57:43 /[id number] 20:06:00 Test Item Value Reference Range Interpretation Comments Protime (test code = 13.5 11.9- 14.2 5902-2) seconds INR (test code = 1.1 <=5.9 6301-6) PTT (test code = 29.9 22.5- 36.0 64570-0) seconds VISHNU (test code = VISHNU) Effective 01/01/2019: PT Reference Range ChangeNew: 11.9-14.2 Previous: 11.7-14.7 RECOMMENDED COUMADIN/WARFARIN INR THERAPY RANGESSTANDARD DOSE: 2.0-3.0 Includes: PROPHYLAXIS for venous thrombosis, systemic embolization; TREATMENT for venous thrombosis and/or pulmonary embolus.HIGH RISK: Target INR is 2.5-3.5 for patients wiht mechanical heart valves. Lab Interpretation Normal (test code = 81829-3) [facility] StanfordPT/[id number] 20:06:00 Test Item Value Reference Range Interpretation Comments PROTIME (BEAKER) (test code = 13.5 seconds 11.9-14.2 759) INR (BEAKER) (test code = 370) 1.1 <=5.9 PARTIAL THROMBOPLASTIN TIME 29.9 seconds 22.5-36.0 (BEAKER) (test code = 760) Effective 01/01/2019: PT Reference Range ChangeNew: 11.9-14.2 Previous: 11.7- 14.7RECOMMENDED COUMADIN/WARFARIN INR THERAPY RANGESSTANDARD DOSE: 2.0-3.0 Includes: PROPHYLAXIS for venous thrombosis, systemic embolization; TREATMENT for venous thrombosis and/or pulmonary embolus.HIGH RISK: Target INR is2.5-3.5 for patients wiht mechanical heart valves.T4, [id number] 17:55:00 Test Item Value Reference Range Interpretation Comments Free T4 (test code = 3024-7) 0.99 ng/dL 0.7-1.48 VISHNU (test code = VISHNU) Water Engineer ID - DB Lab Interpretation (test Normal code = 28922-2) [facility] StanfordT4, [id number] 17:55:00 Test Item Value Reference Range Interpretation Comments FREE T4 (MIKEY) (test code = 655) 0.99 ng/dL 0.70-1.48 Water Engineer ID - DBHIV-1 Antigen with HIV-1/2 [id number] 17:22:00 Test Item Value Reference Range Interpretation Comments HIV-1 Antigen with HIV 1&2 Nonreactive Nonreactive Antibody (test code = 18232-8) VISHNU (test code = VISHNU) Water Engineer ID - DB Lab Interpretation (test Normal code = 07827-6) [facility] StanfordHIV-1 ANTIGEN WITH HIV-1/2 [id number] 17:22:00 Test Item Value Reference Range Interpretation Comments HIV-1 ANTIGEN WITH HIV 1\\T\\2 Nonreactive Nonreactive ANTIBODY (2) (MIKEY) (test code = 2586) Water Engineer ID - [id number] 17:15:00 Test Item Value Reference Range Interpretation Comments Homocysteine (test code = 3.8 umol/L 5.1-15.4 L 93736-5) VISHNU (test code = VISHNU) Water Engineer ID - POLI C Lab Interpretation (test Abnormal code = 28189-7) [facility] StanfordTSH/Free T4 If [id number] 17:15:00 Test Item Value Reference Range Interpretation Comments TSH (test code = 18259-5) 0.35 0.35- 4.94 uIU/mL VISHNU (test code = VISHNU) Water Engineer ID - POLI C Lab Interpretation (test Normal code = 14103-2) [facility] StanfordVitamin B12 and [id number] 17:15:00 Test Item Value Reference Range Interpretation Comments Vitamin B12 (test code = 620 pg/mL 245-920 5990-9) Folate (test code = 13.4 ng/mL >=7.0 2284-8) VISHNU (test code = VISHNU) Water Engineer ID - POLI C Lab Interpretation (test Normal code = 62474-6) [facility] StanfordHOMOCYSTEINE2020-03-12 17:15:00 Test Item Value Reference Range Interpretation Comments HOMOCYSTEINE (BEAKER) (test code = 3.8 umol/L 5.1-15.4 L 642) Water Engineer ID - POLI CTSH/FREE T4 IF [id number] 17:15:00 Test Item Value Reference Range Interpretation Comments THYROID STIMULATING HORMONE 0.35 uIU/mL 0.35-4.94 (BEAKER) (test code = 772) Water Engineer ID - POLI CVITAMIN B12 AND [id number] 17:15:00 Test Item Value Reference Range Interpretation Comments VITAMIN B12 (BEAKER) (test code = 620 pg/mL 213-816 774) FOLATE (BEAKER) (test code = 362) 13.4 ng/mL >=7.0 Water Engineer ID - POLI CMR, BRAIN, [id number] 15:34:00FINAL REPORT MR, BRAIN, WITH \\T\\ WITHOUT CONTRAST INDICATION: Brain mass or lesion, follow-up TECHNIQUE: Multiplanar, multisequence MR imaging of the brain prior to and followingintravenous administration of contrast. COMPARISON: None FINDINGS: Intracranial: There is a rim-enhancing lesion within the right mesial frontal lobe marcus radiata, with avid restricted diffusion andextensive surrounding vasogenic edema throughout the right frontal lobe. The imaging features are spencer racteristic for abscess. There is mild compression of [...] Dr. Lange on 10/16/2019 3:32 PM. Signed: Pam Goode Verified Date/Time: 10/16/2019 15:34:45 03:34 PMLipid [id number] 13:44:00 Test Item Value Reference Range Interpretation Comments Triglycerides (test 51 mg/dL code = 2571-8) Cholesterol (test code 166 mg/dL = 2093-3) HDL (test code = 42 mg/dL 5-9) LDL Calculated (test 114 mg/dL code = 68858-8) VISHNU (test code = VISHNU) Triglyceride Reference Range: Low Risk <150 Borderline 150-199 High Risk 200-499 Very High Risk >=500 Cholesterol Reference Range: Low Risk <200 Borderline 200-239 High Risk >240 HDL Cholesterol Reference Range: Low Risk >=60 High Risk <40 LDL Cholesterol Reference Range: Optimal <100 Near Optimal 100-129 Borderline 130-159 High 160-189 Very High >=190 Water Engineer LUIS ENRIQUE DALTON [facility] OaklandLIPID [id number] 13:44:00 Test Item Value Reference Range Interpretation Comments TRIGLYCERIDES (BEAKER) (test code = 51 mg/dL 540) CHOLESTEROL (BEAKER) (test code = 166 mg/dL 631) HDL CHOLESTEROL (BEAKER) (test code 42 mg/dL = 976) LDL CHOLESTEROL CALCULATED (BEAKER) 114 mg/dL (test code = 633) Triglyceride Reference Range: Low Risk <150 Borderline 150-199 High Risk 200-499 Very High Risk >=500Cholesterol Reference Range: Low Risk <200 Borderline 200-239 High Risk >240HDL Cholesterol Reference Range: Low Risk >=60 High Risk <40LDL Cholesterol Reference Range: Optimal <100 Near Optimal 100-129 Borderline 130-159 High 160-189 Very High >=190 Water Engineer LUIS ENRIQUE DALTON FCBC W/PLT COUNT & AUTO DIFFERENTIAL 2019-10-16 07:30:00 Test Item Value Reference Range Interpretation Comments WHITE BLOOD CELL COUNT (BEAKER) 5.4 K/ L 3.5-10.5 (test code = 775) RED BLOOD CELL COUNT (BEAKER) 4.91 M/ L 4.63-6.08 (test code = 761) HEMOGLOBIN (BEAKER) (test code = 13.7 GM/DL 13.7-17.5 410) HEMATOCRIT (BEAKER) (test code = 41.8 % 40.1-51.0 411) MEAN CORPUSCULAR VOLUME (BEAKER) 85.1 fL 79.0-92.2 (test code = 753) MEAN CORPUSCULAR HEMOGLOBIN 27.9 pg 25.7-32.2 (BEAKER) (test code = 751) MEAN CORPUSCULAR HEMOGLOBIN CONC 32.8 GM/DL 32.3-36.5 (BEAKER) (test code = 752) RED CELL DISTRIBUTION WIDTH 13.5 % 11.6-14.4 (BEAKER) (test code = 412) PLATELET COUNT (BEAKER) (test 211 K/CU MM 150-450 code = 756) MEAN PLATELET VOLUME (BEAKER) 10.4 fL 9.4-12.4 (test code = 754) NUCLEATED RED BLOOD CELLS 0 /100 WBC 0-0 (BEAKER) (test code = 413) NEUTROPHILS RELATIVE PERCENT 84 % (BEAKER) (test code = 429) LYMPHOCYTES RELATIVE PERCENT 14 % (BEAKER) (test code = 430) MONOCYTES RELATIVE PERCENT 1 % (BEAKER) (test code = 431) EOSINOPHILS RELATIVE PERCENT 0 % (BEAKER) (test code = 432) BASOPHILS RELATIVE PERCENT 0 % (BEAKER) (test code = 437) NEUTROPHILS ABSOLUTE COUNT 4.53 K/ L 1.78-5.38 (BEAKER) (test code = 670) LYMPHOCYTES ABSOLUTE COUNT 0.76 K/ L 1.32-3.57 L (BEAKER) (test code = 414) MONOCYTES ABSOLUTE COUNT (BEAKER) 0.07 K/ L 0.30-0.82 L (test code = 415) EOSINOPHILS ABSOLUTE COUNT 0.01 K/ L 0.04-0.54 L (BEAKER) (test code = 416) BASOPHILS ABSOLUTE COUNT (BEAKER) 0.02 K/ L 0.01-0.08 (test code = 417) IMMATURE GRANULOCYTES-RELATIVE 0 % 0-1 PERCENT (BEAKER) (test code = 2801) BASIC METABOLIC [id number] 07:07:00 Test Item Value Reference Range Interpretation Comments SODIUM (BEAKER) (test 134 meq/L 136-145 L code = 381) POTASSIUM (BEAKER) 4.2 meq/L 3.5-5.1 (test code = 379) CHLORIDE (BEAKER) 105 meq/L 98-107 (test code = 382) CO2 (BEAKER) (test 20 meq/L 22-29 L code = 355) BLOOD UREA NITROGEN 11 mg/dL 7-21 (BEAKER) (test code = 354) CREATININE (BEAKER) 0.88 mg/dL 0.57-1.25 (test code = 358) GLUCOSE RANDOM 194 mg/dL 70-105 H (BEAKER) (test code = 652) CALCIUM (BEAKER) 8.7 mg/dL 8.4-10.2 (test code = 697) EGFR (BEAKER) (test INSUFFIC IENT CLINICAL code = 1092) DATA TO CALCULA TE ESTIMATED GFR. Water Engineer ID Doroteo DALTON epatic function [id number] 06:58:00 Test Item Value Reference Range Interpretation Comments Protein, Total (test code 7.5 6.0- 8.3 gm/dL = 2885-2) Albumin (test code = 4.0 g/dL 3.5-5 33318-6) Total Bilirubin (test code 0.7 mg/dL 0.2-1.2 = 1975-2) Bilirubin, Direct (test 0.3 mg/dL 0.1-0.5 code = 1968-7) Alkaline Phosphatase (test 88 U/L 40-150 code = 6768-6) AST (test code = 1920-8) 21 U/L 5-34 ALT (test code = 1742-6) 36 U/L 6-55 VISHNU (test code = VISHNU) Water Engineer ID Doroteo Warren Lab Interpretation (test Normal code = 19628-9) [facility] StanfordHEPATIC FUNCTION [id number] 06:58:00 Test Item Value Reference Range Interpretation Comments TOTAL PROTEIN (BEAKER) (test code = 7.5 gm/dL 6.0-8.3 770) ALBUMIN (BEAKER) (test code = 1145) 4.0 g/dL 3.5-5.0 BILIRUBIN TOTAL (BEAKER) (test code 0.7 mg/dL 0.2-1.2 = 377) BILIRUBIN DIRECT (BEAKER) (test 0.3 mg/dL 0.1-0.5 code = 706) ALKALINE PHOSPHATASE (BEAKER) (test 88 U/L 40-150 code = 346) AST (SGOT) (BEAKER) (test code = 21 U/L 5-34 353) ALT (SGPT) (BEAKER) (test code = 36 U/L 6-55 347) Water Engineer ID - SHA Warren
[2020-08-19] MEDS ORDERED: METHYLPREDNISOLONE 40 MG INJ ONE (18:35)
[2020-08-19] MEDS ORDERED: BENZONATATE 100 MG CAP PO ONE (18:35)
[2020-08-19] MEDS ORDERED: ALBUTEROL INHALER 60 PUFF/8 GM IH ONE (18:36)
[2020-08-19 18:54] LABS: Absolute Lymphocytes (CBC) 1.1 K/uL (0.7-4.9); Basophils % 0.5 % (0-1.3); Hematocrit 45.4 % (39.6-49.0); Lymphocytes % 30.9 % (15.3-44.8); MPV 8.9 fL (7.6-11.3); RBC Red Blood Cell Count 5.52 M/uL (4.33-5.43)
[2020-08-19 18:56] LABS: Protime INR 1.01
[2020-08-19 19:04] LABS: Albumin 3.2 g/dL (3.4-5.0); Bilirubin Direct 0.3 mg/dL (0-0.2); Bilirubin Total 0.6 mg/dL (0.2-1.0); Magnesium 2.4 mg/dL (1.8-2.4); Potassium 3.8 mmol/L (3.5-5.1); Protein, Total 7.7 g/dL (6.4-8.2); Troponin (Emerg Dept Use Only) 0.03 ng/mL (0.0-0.045)
--- NOTE | 2020-08-19 20:04 | RAD REPORT ---
EXAM DESCRIPTION: CT - Chest For Pe Angio - 08/19/2020 7:54 pm CLINICAL HISTORY: cough,sob COMPARISON: None. TECHNIQUE: Dynamically enhanced axial 3 mm thick images of the chest were obtained during administra tion of <100> mL Isovue 370 IV contrast. Coronal and oblique reconstruction images were generated and reviewed. Exam utilizes a protocol for optimal evaluation of pulmonary arterial tree. Maximum intensity projections 3D imaging was utilized All CT scans are performed using dose optimization technique as appropriate and may include automated exposure control or mA/KV adjustment according to patient size. FINDINGS: A pulmonary embolus is not seen. A thoracic aortic aneurysm is not noted. A pleural effusion is not seen. A pericardial effusion is not seen. Mild to moderate bilateral ground-glass opacities within the lungs Fatty liver IMPRESSION: Negative for a pulmonary embolism. Mild to moderate bilateral ground-glass opacities within the lungs may indicate Covid pneumonia
--- NOTE | 2020-08-19 20:05 | RAD REPORT ---
EXAM DESCRIPTION: Jennifer Single View08/19/2020 6:42 pm CLINICAL HISTORY: Shortness of breath COMPARISON: October 2019 FINDINGS: Mild to moderate bilateral patchy lung opacities. The heart is normal size IMPRESSION: Mild to moderate bilateral patchy lung opacities probably pneumonia
--- NOTE | 2020-08-19 20:29 | ER ---
Nurse's Notes [facility] Name: Mihir Carranza Age: 50 yrs Sex: Male : 1970 Arrival Date: 08/19/2020 Time: 16:42 Bed 5 Private MD: Elizabeth Abdi H Diagnosis: Pneumonia due to other specified infectious organisms;Coronavirus infection, unspecified Presentation: 08/19 17:01 Chief complaint: Patient states: Covid+ today, I was at the urgent care and they said ca1 my O2 is at 89% and was sent here. Symptoms started a week ago. Body aches, diarrhea, cough and congestion, SOB, loss of appetite. Coronavirus screen: Client presents with at least one sign or symptom that may indicate coronavirus-19. Standard/surgical mask placed on the client. Provider contacted for isolation considerations. Client reports previous positive COVID test result. Date of collection: August 19, 2020. Ebola Screen: Patient negative for fever greater than or equal to 101.5 degrees Fahrenheit, and additional compatible Ebola Virus Disease symptoms Patient denies exposure to infectious person. Patient denies travel to an Ebola-affected area in the 21 days before illness onset. No symptoms or risks identified at this time. Initial Sepsis Screen: Does the patient meet any 2 criteria? No. Patient's initial sepsis screen is negative. Does the patient have a suspected source of infection? No. Patient's initial sepsis screen is negative. Risk Assessment: Do you want to hurt yourself or someone else? Patient reports no desire to harm self or others. Onset of symptoms was August 19, 2020. 17:01 Method Of Arrival: Ambulatory ca1 17:01 Acuity: JULIO C 3 ca1 Triage Assessment: 17:48 Respiratory: Onset: The symptoms/episode began/occurred x 1 week, the patient has mild rb3 shortness of breath. Historical: - Allergies: 17:07 No Known Allergies; ca1 - Home Meds: 17:07 Hydralazine Oral [Active]; lisinopril 20 mg Oral tab 1 tab once daily [Active]; ca1 - PMHx: 17:07 Hypertension; ca1 - PSHx: 17:07 Cholecystectomy; ca1 - Immunization history:: Flu vaccine is not up to date. - Social history:: Smoking status: Patient denies any tobacco usage or history of. Screenin:48 Abuse screen: Denies threats or abuse. Nutritional screening: No deficits noted. rb3 Tuberculosis screening: No symptoms or risk factors identified. Fall Risk None identified. Assessment: 17:48 General: Appears in no apparent distress. comfortable, Behavior is calm, cooperative, rb3 Denies fever. Neuro: Level of Consciousness is awake, alert, obeys commands, Oriented to person, place, time, situation. Cardiovascular: Patient's skin is warm and dry. Respiratory: Airway is patent Respiratory effort is even, unlabored, Respiratory pattern is regular, symmetrical. Respiratory: Reports shortness of breath cough that is non-productive. GI: Reports diarrhea. : No signs and/or symptoms were reported regarding the genitourinary system. 17:48 Pain: Complains of pain in bodyaches. rb3 20:39 Cardiovascular: Rhythm is regular. Respiratory: Breath sounds are coarse bilaterally. rv Vital Signs: 17:01 BP 148 / 96; Pulse 115; Resp 18 S; Temp 99.1(TE); Pulse Ox 94% on R/A; Weight 108.86 kg ca1 (R); Height 5 ft. 8 in. (172.72 cm) (R); Pain 0/10; 20:38 BP 140 / 93; Pulse 105; Resp 16; Temp 98; Pulse Ox 92% on R/A; rv 17:01 Body Mass Index 36.49 (108.86 kg, 172.72 cm) ca1 ED Course: 16:42 Patient arrived in ED. ag5 16:44 Elizabeth Abdi DO is Private Physician. ag5 17:06 Triage completed. ca1 17:07 Arm band placed on right wrist. ca1 17:29 Francis Barron PA is PHCP. cp 17:29 Jesus Alberto Irizarry MD is Attending Physician. cp 17:48 Patient has correct armband on for positive identification. Placed in gown. Bed in low rb3 position. Call light in reach. Side rails up X 1. panel monitor on. Pulse ox on. NIBP on. 18:16 Candice Castaneda, RN is Primary Nurse. rb3 18:30 Inserted saline lock: 20 gauge in right antecubital area, using aseptic technique. rb3 Blood collected. 18:42 XRAY Chest (1 view) In Process Unspecified. EDMS 18:46 EKG done, by ED staff, reviewed by Francis CAMACHO. 3 19:54 CT Chest For PE Angio In Process Unspecified. EDMS 20:38 No provider procedures requiring assistance completed. IV discontinued, intact, rv bleeding controlled, No redness/swelling at site. Pressure dressing applied. Administered Medications: 18:30 Drug: Tessalon Perle 200 mg Route: PO; rb3 20:38 Follow up: Response: No adverse reaction rv 18:30 Drug: Albuterol HFA Inhaler 2 puffs Route: Inhalation; rb3 20:38 Follow up: Response: Marked relief of symptoms rv 18:30 Drug: SOLU-Medrol 80 mg Route: IVP; Site: right antecubital; rb3 20:38 Follow up: Response: No adverse reaction rv 20:00 Drug: NS 0.9% 500 ml Route: IV; Rate: bolus; Site: right antecubital; rv 20:37 Follow up: IV Status: Completed infusion; IV Intake: 500ml rv 20:18 Drug: Rocephin 1 grams Route: IV; Rate: calculated rate; Site: right antecubital; rv 20:37 Follow up: Response: No adverse reaction; IV Status: Completed infusion rv Intake: 20:37 IV: 500ml; Total: 500ml. rv Outcome: 20:28 Discharge ordered by MD. cp 20:39 Discharged to home ambulatory. rv 20:39 Condition: improved 20:39 Discharge instructions given to patient, Instructed on discharge instructions, follow up and referral plans. medication usage, Demonstrated understanding of instructions, follow-up care, medications, Prescriptions given X 5 20:39 Patient left the ED. rv Signatures: Dispatcher [employer] EDMS Francis Barron PA PA cp Herrera, Deanna 3 Nigel Cabello RN RN rv Lillian Corea RN RN ca1 Gaskin, Ajare 5 Candice Castaneda RN RN rb3 Corrections: (The following items were deleted from the chart) 18:41 17:48 Respiratory: Reports cough that is non-productive, rb3 rb3
--- NOTE | 2020-08-19 20:29 | EDPHYS ---
Physician Documentation [facility] Name: Mihir Carranza Age: 50 yrs Sex: Male : 1970 Arrival Date: 08/19/2020 Time: 16:42 Bed 5 Private MD: Elizabeth Abdi H ED Physician Jesus Alberto Irizarry HPI: 08/19 18:05 This 50 yrs old Male presents to ER via Ambulatory with complaints of cp Shortness Of Breath, COVID+. 18:05 The patient has shortness of breath when taking in deep inspiration. cp 18:05 Onset: The symptoms/episode began/occurred gradually, 1 week(s) ago. Duration: The cp symptoms are continuous, and are steadily getting worse. Associated signs and symptoms: Pertinent positives: productive cough, Pertinent negatives: chest pain, diaphoresis, fever. Historical: - Allergies: 17:07 No Known Allergies; ca1 - Home Meds: 17:07 Hydralazine Oral [Active]; lisinopril 20 mg Oral tab 1 tab once daily [Active]; ca1 - PMHx: 17:07 Hypertension; ca1 - PSHx: 17:07 Cholecystectomy; ca1 - Immunization history:: Flu vaccine is not up to date. - Social history:: Smoking status: Patient denies any tobacco usage or history of. ROS: 18:10 Constitutional: Negative for body aches, chills, fever, poor PO intake. cp 18:10 Eyes: Negative for injury, pain, redness, and discharge. cp 18:10 ENT: Negative for ear pain, sore throat, difficulty swallowing, difficulty handling secretions. 18:10 Cardiovascular: Negative for chest pain, edema, palpitations. 18:10 Respiratory: Positive for cough, with no reported sputum, shortness of breath, on exertion. Negative for wheezing. 18:10 Abdomen/GI: Negative for abdominal pain, vomiting, diarrhea, constipation. 18:10 Back: Negative for pain at rest, pain with movement. 18:10 Neuro: Negative for altered mental status, dizziness, headache, syncope, weakness. 18:10 All other systems are negative. Exam: 18:20 Constitutional: The patient appears in no acute distress, alert, awake, cp non-diaphoretic, non-toxic, well developed, well nourished, obese. 18:20 Head/Face: Normocephalic, atraumatic. cp 18:20 Eyes: Periorbital structures: appear normal, Conjunctiva: normal, no exudate, no injection, Sclera: no appreciated abnormality, Lids and lashes: appear normal, bilaterally. 18:20 ENT: External ear(s): are unremarkable, Nose: is normal, Mouth: Lips: moist, Oral mucosa: pink and intact, moist, Posterior pharynx: Airway: no evidence of obstruction, patent, swelling, is not appreciated, erythema, is not appreciated, exudate, is not appreciated. 18:20 Neck: ROM/movement: is normal, is supple, without pain, no range of motions limitations, no meningismus. 18:20 Chest/axilla: Inspection: normal, Palpation: is normal, no crepitus, no tenderness. 18:20 Cardiovascular: Rate: tachycardic, Rhythm: regular, Edema: is not appreciated, JVD: is not appreciated. 18:20 Respiratory: the patient does not display signs of respiratory distress, Respirations: normal, no use of accessory muscles, no retractions, no splinting, no tachypnea, labored breathing, is not present, Breath sounds: bronchial sounds, that are mild, are heard diffusely, decreased breath sounds, are not appreciated, stridor, is not appreciated, wheezing: is not appreciated. 18:20 Abdomen/GI: Inspection: abdomen appears normal, Palpation: abdomen is soft and non-tender, in all quadrants. 18:20 Back: pain, is absent, ROM is normal. 18:20 Skin: cellulitis, is not appreciated, no rash present. 18:20 Neuro: Orientation: to person, place \T\ time. Mentation: is normal, Cerebellar function: is grossly normal, Motor: moves all fours, strength is normal, Sensation: is normal. 18:49 ECG was reviewed by the Attending Physician. cp Vital Signs: 17:01 BP 148 / 96; Pulse 115; Resp 18 S; Temp 99.1(TE); Pulse Ox 94% on R/A; Weight 108.86 kg ca1 (R); Height 5 ft. 8 in. (172.72 cm) (R); Pain 0/10; 20:38 BP 140 / 93; Pulse 105; Resp 16; Temp 98; Pulse Ox 92% on R/A; rv 17:01 Body Mass Index 36.49 (108.86 kg, 172.72 cm) ca1 MDM: 17:54 Patient medically screened. cp 18:30 Differential diagnosis: Myocardial Infarction pneumonia, Pneumothorax pulmonary edema, cp Pulmonary Embolism Sepsis Unstable Angina. 20:28 Data reviewed: vital signs, nurses notes, lab test result(s), EKG, radiologic studies, cp plain films, and as a result, I will discharge patient. 20:28 Test interpretation: by ED physician or midlevel provider: ECG. Counseling: I had a cp detailed discussion with the patient and/or guardian regarding: the historical points, exam findings, and any diagnostic results supporting the discharge/admit diagnosis, lab results, radiology results, the need for outpatient follow up, a family practitioner, to return to the emergency department if symptoms worsen or persist or if there are any questions or concerns that arise at home. Response to treatment: the patient's symptoms have mildly improved after treatment. ED course: VSS. Patient appears non-toxic and no signs of respiratory distress. Oxygen sats remain above 90% when ambulating and 94-95% when at rest. Will discharge to home for continued monitoring. 08/19 18:05 Order name: Basic Metabolic Panel; Complete Time: 19:08 cp 08/19 19:08 Interpretation: Normal except: GLUC 124; GFR 78; CA 8.4. cp 08/19 18:05 Order name: CBC with Diff; Complete Time: 19:19 cp 08/19 19:19 Interpretation: Normal except: WBC 3.7; RBC 5.52. cp 08/19 18:05 Order name: LFT's; Complete Time: 19:08 cp 08/19 19:08 Interpretation: Normal except: AST 146; ALT 114; BILID 0.3; ALB 3.2; GLOB 4.5; A/G 0.7. cp 08/19 18:05 Order name: Magnesium; Complete Time: 19:08 cp 08/19 18:05 Order name: NT PRO-BNP; Complete Time: 19:08 cp 08/19 18:05 Order name: PT-INR; Complete Time: 20:07 cp 08/19 18:05 Order name: Troponin (emerg Dept Use Only); Complete Time: 19:08 cp 08/19 19:19 Interpretation: Reviewed. 08/19 18:05 Order name: XRAY Chest (1 view); Complete Time: 20:07 cp 08/19 20:08 Interpretation: Report reviewed. cp 08/19 18:05 Order name: D-Dimer; Complete Time: 20:07 cp 08/19 19:35 Order name: CT Chest For PE Angio; Complete Time: 20:07 cp 08/19 18:05 Order name: EKG; Complete Time: 18:07 cp 08/19 18:05 Order name: Cardiac monitoring; Complete Time: 18:49 cp 08/19 18:05 Order name: EKG - Nurse/Tech; Complete Time: 18:49 cp 08/19 18:05 Order name: IV Saline Lock; Complete Time: 18:37 cp 08/19 18:05 Order name: Labs collected and sent; Complete Time: 18:37 cp 08/19 18:05 Order name: O2 Per Protocol; Complete Time: 18:37 cp 08/19 18:05 Order name: O2 Sat Monitoring; Complete Time: 18:37 cp 08/19 20:08 Order name: Misc. Order: ambulate patient with pulse ox monitor; Complete Time: 20:40 cp EC:49 Rate is 106 beats/min. Rhythm is regular. NH interval is normal. QRS interval is cp normal. QT interval is normal. Interpreted by me. Reviewed by me. Administered Medications: 18:30 Drug: Tessalon Perle 200 mg Route: PO; rb3 20:38 Follow up: Response: No adverse reaction rv 18:30 Drug: Albuterol HFA Inhaler 2 puffs Route: Inhalation; rb3 20:38 Follow up: Response: Marked relief of symptoms rv 18:30 Drug: SOLU-Medrol 80 mg Route: IVP; Site: right antecubital; rb3 20:38 Follow up: Response: No adverse reaction rv 20:00 Drug: NS 0.9% 500 ml Route: IV; Rate: bolus; Site: right antecubital; rv 20:37 Follow up: IV Status: Completed infusion; IV Intake: 500ml rv 20:18 Drug: Rocephin 1 grams Route: IV; Rate: calculated rate; Site: right antecubital; rv 20:37 Follow up: Response: No adverse reaction; IV Status: Completed infusion rv Disposition: 08/20 05:52 Co-signature as Attending Physician, Jesus Alberto Irizarry MD I agree with the assessment and kdr plan of care. Disposition: 08/19/20 20:28 Discharged to Home. Impression: Pneumonia due to other specified infectious organisms, Coronavirus infection, unspecified. - Condition is Stable. - Discharge Instructions: Community-Acquired Pneumonia, Adult, COVID-19. - Prescriptions for Augmentin 875- 125 mg Oral Tablet - take 1 tablet by ORAL route every 12 hours for 10 days; 20 tablet. Tessalon Perles 100 mg Oral Capsule - take 2 capsule by ORAL route every 8 hours As needed; 30 capsule. Zithromax Z- Taras 250 mg Oral Tablet - take 1 tablet by ORAL route as directed for 5 days Day 1 - take two (2) tablets one time. Day 2, 3, 4 , 5 take one (1) tablet once daily.; 6 tablet. Prednisone 20 mg Oral Tablet - take 2 tablets by ORAL route once daily for 5 days then 1/2 tablet twice a day for 5 days; 15 tablet. Albuterol Sulfate 90 mcg/actuation - inhale 1-2 puff by INHALATION route every 4-6 hours; 1 Inhaler. - Medication Reconciliation Form, Thank You Letter, Antibiotic Education, Prescription Opioid Use, SBAR form form. - Follow up: Private Physician; When: 1 - 2 days; Reason: Recheck today's complaints. - Problem is new. - Symptoms have improved. Signatures: Dispatcher [employer] EDMS Jesus Alberto Irizarry MD MD [facility] Francis Barron PA PA cp Nigel Cabello RN Lillian Fry RN Candice Ireland, RN RN rb3 Corrections: (The following items were deleted from the chart) 08/19 19:08 19:08 Normal except: GLUC 124; GFR 78. cp cp 20:39 20:28 08/19/2020 20:28 Discharged to Home. Impression: Pneumonia due to other specified rv infectious organisms; Coronavirus infection, unspecified. Condition is Stable. Forms are SBAR form, Medication Reconciliation Form, Thank You Letter, Antibiotic Education, Prescription Opioid Use. Follow up: Private Physician; When: 1 - 2 days; Reason: Recheck today's complaints. Problem is new. Symptoms have improved. cp
[2020-08-19] MEDS ORDERED: CEFTRIAXONE/SWI 1gm 1 GM/10 ML SYR ONE (20:41)
[2020-08-19 20:47] VITALS: BP 140/93; TEMP 98; O2SAT 92
--- NOTE | 2020-08-21 13:31 | EKG ---
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
== END 2020-08-19 20:39 | disposition home or self-care (01) ==
LOC: ER 16:39
DX: U07.1 COVID-19 (principal); J12.82 Pneumonia due to coronavirus disease 2019; I10 Essential (primary) hypertension
CPT/HCPCS: 96365; 93005; 85025; 80048; 36415; 83735; 85610; 85379; 80076; 84484; 83880; 71275; 71045; 96375; 99285; Q9967; J0696; J2920